=== PATIENT | female | born 1970 | race Caucasian/White ===

== ENCOUNTER → 2018-11-06 | Outpatient (CLI) | payer BC ==
--- NOTE | 2018-11-06 16:24 | US ---
EXAMINATION TYPE: US kidneys/renal and bladder DATE OF EXAM: 11/06/2018 COMPARISON: NONE CLINICAL HISTORY: N28.81 HYPERTROPHY OF KIDNEYS. Hypertrophy of left kidney visualized on recent chir opractor x-ray EXAM MEASUREMENTS: Right Kidney: 11.0 x 5.5 x 4.1 cm Left Kidney: 10.6 x 6.2 x 5.3 cm Right Kidney: cystic area medial/upper = 2.5 x 2.5 x 3.1cm Left Kidney: no evidence of hydronephrosis Bladder: appears wnl Bilateral Jets seen: yes IMPRESSION: 1. Right renal cyst upper pole right kidney
--- NOTE | 2018-11-09 13:53 | MM ---
Reason for exam: screening (asymptomatic). Last mammogram was performed 2 years and 2 months ago. History: Patient history of other cancer. Benign excisional biopsy of the right breast. Physical Findings: A clinical breast exam by your physician is recommended on an annual basis and results should be correlated with mammographic findings. MG 3D Screening Mammo W/Cad Bilateral CC and MLO view(s) were taken. Prior study comparison: September 21, 2016, mammogram, performed at [facility]. The breast tissue is heterogeneously dense. This may lower the sensitivity of mammography. Finding #1: There is a 11 mm obscured oval mass located 4 cm from the nipple in the lower inner quadrant, anterior position of the left breast on CC and MLO . Finding #2: There are typically benign dystrophic, round calcifications in both breasts. New finding since September 21, 2016. ASSESSMENT: Incomplete: need additional imaging evaluation, BI-RAD 0 RECOMMENDATION: Ultrasound of the left breast. [facility] will attempt to contact patient to return for ultrasound.
== END | disposition home or self-care (01) ==
LOC: RADUSWWP 10:48
PROVIDERS: ATTEND Family Medicine
DX: Z12.31 Encounter for screening mammogram for malignant neoplasm of breast (principal); N28.1 Cyst of kidney, acquired
CPT/HCPCS: 76770; 77063; 77067

== ENCOUNTER → 2018-12-04 | Outpatient (CLI) | payer BC ==
--- NOTE | 2018-12-04 10:36 | USB ---
Reason for exam: additional evaluation requested from abnormal screening. History: Patient history of other cancer. Benign excisional biopsy of the right breast. Physical Findings: Nurse did not find any significant physical abnormalities on exam. US Breast Workup Limited LT Left limited breast ultrasound including focal area of concern, retroareolar and axilla demonstrates a 8 x 5 x 5mm oval, mixed lesion at 6 o'clock. These results were verbally communicated with the patient and result sheet given to the patient on 12/04/18. ASSESSMENT: Suspicious, BI-RAD 4 RECOMMENDATION: Ultrasound core biopsy of the left breast. Called Dr. Liliya Puentes with mammographic findings and has scheduled an appointment for the patient for 01/09/19 at 4:[address] Puentes. Biopsy scheduled for 12/13/18 at 12:20. PRELIMINARY REPORT CALLED AND FAXED TO DR. PUENTES ON 12/04/18.
== END | disposition home or self-care (01) ==
LOC: RADUSWWP 08:13
PROVIDERS: ATTEND Family Medicine
DX: R92.8 Other abnormal and inconclusive findings on diagnostic imaging of breast (principal)

== ENCOUNTER → 2018-12-13 | Day surgery (SDC) | payer BC ==
[2018-12-13 11:38] VITALS: RESP 12; TEMP 98.6
[2018-12-13 12:41] VITALS: BP 133/86; PULSE 82
--- NOTE | 2018-12-13 13:20 | USB ---
ULTRASOUND GUIDED FNA LEFT BREAST NODULE: CLINICAL HISTORY: 6:00 left breast nodule FINDINGS: The procedure was explained to the patient. The risks, complications, benefits and alternatives were discussed and any questions were answered. Informed consent was obtained. Patient was placed supine on the ultrasound table and prepped and draped in the usual sterile fashion. Utilizing a 25 gauge needle, single pass was made into the left breast nodule. Dictated exam the nodule. An anechoic appearance. Approximately 0.5 to 1 cc of bloody serous fluid aspirated with no residual nodule. A core biopsy was therefore deferred.. Surgical clip placed post procedure. Surgical clip appears to be in ideal position post procedure mammogram. Patient was stable throughout the procedure. Pathology is pending. All elements of maximal barrier and sterile technique were utilized. IMPRESSION: 1. Successful ultrasound guided FNA of the requested left breast nodule. Pathology pending. Pathology Results: Benign LEFT BREAST CYST AT SIX O'CLOCK POSITION, FINE NEEDLE ASPIRATION: Benign breast duct epithelium, occasional fragments of squamous epithelium and abundant macrophages consistent with fibrocystic disease. Cells cytologically diagnostic of malignancy are not seen. Recommendation Follow up mammogram of the left breast in 6 months. ANTHONY
--- NOTE | 2018-12-13 13:39 | MM ---
Reason for exam: additional evaluation requested from abnormal screening. Last mammogram was performed 1 month ago. History: Patient history of other cancer. Benign excisional biopsy of the right breast. MG Diagnostic Mammo LT Wo CAD CC and ML view(s) were taken of the left breast. Prior study comparison: November 06, 2018, bilateral MG 3d screening mammo w/cad. September 21, 2016, mammogram, performed at [facility]. ASSESSMENT: Post procedure mammogram for marker placement RECOMMENDATION: Ultrasound of the left breast in 6 months. PENDING PATHOLOGY RESULTS.
== END ==
LOC: RADUSWWP 11:14
PROVIDERS: ATTEND Surgery
DX: N63.20 Unspecified lump in the left breast, unspecified quadrant (principal)
CPT/HCPCS: 19000; 76942; 88108; 77065; A4648; J2001

== ENCOUNTER → 2019-07-23 | Outpatient (CLI) | payer BC ==
--- NOTE | 2019-07-23 09:28 | MM ---
Reason for exam: follow-up at short interval from prior study. Last mammogram was performed 7 months ago. History: Patient has history of other cancer at age 43. Benign US breast aspiration single LT of the left breast, December 13, 2018. Benign excisional biopsy of the right breast. Physical Findings: Nurse did not find any significant physical abnormalities on exam. MG 3D Diag Mammo W/Cad LT CC and MLO view(s) were taken of the left breast. Prior study comparison: December 13, 2018, left breast MG diagnostic mammo LT wo CAD. November 06, 2018, bilateral MG 3d screening mammo w/cad. The breast tissue is heterogeneously dense. This may lower the sensitivity of mammography. There are benign appearing round calcifications in the left breast. Previous mammotome biopsy in the left breast. There is no discrete abnormality. These results were verbally communicated with the patient and result sheet given to the patient on 07/23/19. ASSESSMENT: Benign, BI-RAD 2 RECOMMENDATION: Follow-up diagnostic mammogram of both breasts in 6 months. Back on schedule.
--- NOTE | 2019-07-23 09:29 | USB ---
Reason for exam: follow-up at short interval from prior study. History: Patient has history of other cancer at age 43. Benign US breast aspiration single LT of the left breast, December 13, 2018. Benign excisional biopsy of the right breast. US Breast Limited LT Left limited breast ultrasound including focal area of concern, retroareolar and axilla demonstrates no cystic or solid lesion seen. These results were verbally communicated with the patient and result sheet given to the patient on 07/23/19. ASSESSMENT: Negative, BI-RAD 1 RECOMMENDATION: Follow-up diagnostic mammogram of both breasts in 6 months. Back on schedule.
== END ==
LOC: RADMAMWWP 07:20
PROVIDERS: ATTEND Surgery
DX: R92.8 Other abnormal and inconclusive findings on diagnostic imaging of breast (principal)
CPT/HCPCS: 77061; 77065

== ENCOUNTER → 2020-02-20 | Outpatient (CLI) | payer BC ==
--- NOTE | 2020-02-21 08:04 | MM ---
Reason for exam: additional evaluation requested from prior study. Last mammogram was performed 7 months ago. History: Patient has history of other cancer at age 43. Benign US breast aspiration single LT of the left breast, December 13, 2018. Benign excisional biopsy of the right breast. Physical Findings: Nurse Summary: 1cm nodule in the left breast at 12 o'clock (nurse mika). MG 3D Diag Mammo W/Cad CAMILLA Bilateral CC and MLO view(s) were taken. Prior study comparison: July 23, 2019, left breast MG 3d diag mammo w/cad LT. December 13, 2018, left breast MG diagnostic mammo LT wo CAD. The breast tissue is heterogeneously dense. This may lower the sensitivity of mammography. Benign calcifications. Previous mammotome biopsy in the left breast. No significant new findings when compared with previous films. These results were verbally communicated with the patient and result sheet given to the patient on 02/20/20. ASSESSMENT: Benign, BI-RAD 2 RECOMMENDATION: Routine screening mammogram of both breasts in 1 year.
== END | disposition home or self-care (01) ==
LOC: RADMAMWWP 14:06
PROVIDERS: ATTEND Surgery
DX: R92.8 Other abnormal and inconclusive findings on diagnostic imaging of breast (principal)
CPT/HCPCS: 77062; 77066

== ENCOUNTER → 2021-03-05 | Outpatient (CLI) | payer BC ==
--- NOTE | 2021-03-05 18:03 | PE ---
Nuclear medicine PET/CT HISTORY: Solitary pulmonary nodule, initial Patient received 11.3 mCi F-18 FDG intravenously in delayed scanning was performed from the skull bas e to the mid thighs. A localization and attenuation correction CT scan was performed. Chest and neck: There is abnormal density along the posterior medial left lung with SUV 7.5 as noted on prior CT. Extensive nodularity is also present in the left lower lobe which is subcentimeter in si ze and may progressed somewhat in the interval, SUV 3.6, no pleural or pericardial effusion The soft tissue mass involving the right upper lobe which is pleural-based and measures 3 cm in size with irre gular margins on prior exam has decreased in size and now measures approximately 1.6 cm with a lucent center, air bronchograms shows only mild uptake, SUV 1.6. There is extensive nodularity also seen, s ubcentimeter in size in the right upper lobe. Emphysematous changes are present. Shotty nodes are pre sent within the mediastinum, no hilar or axillary adenopathy. There is no cervical or supraclavicular adenopathy. Mild uptake associated with the enlarged right lo be of the thyroid, SUV is 2.5. ABDOMEN: There is a right adrenal mass which is low in attenuation as on prior CT and does not show a ssociated uptake. Smaller low dense left adrenal nodule is also present without associated uptake. No evident liver mass or retroperitoneal adenopathy. There is no ascites. Linear densities present with in the bowel in the right abdomen, possible medication, tablet present in the bowel anteriorly. Uteru s and adnexal structures are absent. Osseous structures show no uptake. No lytic or blastic lesion. IMPRESSION: There is improvement in the soft tissue abnormality seen in the right lung on previous ex am however there is bilateral nodularity as well as extensive abnormal uptake involving the abnormal soft tissue within the left lower lobe medially, follow-up is recommended to exclude mass, metastatic disease.
== END | disposition home or self-care (01) ==
LOC: RADPETMAIN 09:10
PROVIDERS: ATTEND Internal Medicine Critical Care Medicine
DX: R91.8 Other nonspecific abnormal finding of lung field (principal); M79.89 Other specified soft tissue disorders
CPT/HCPCS: 78815; A9552

== ENCOUNTER 2021-03-25 09:20 | Day surgery (SDC) | payer BC ==
[2021-03-23 08:57] VITALS: BMI 25.7
[~2021-03-25 09:20] MED LIST: ALBUTEROL NEB (CONC) 2.5 MG/0.5 ML INHALATION ONE; ATROPINE SULFATE 0.4 MG/ML 1 ML VIAL IM ONE; LACTATED RINGERS 1,000 ML IV SCH; LIDOCAINE 2% (PF) 20 MG/ML 5 ML VIAL INHALATION ONE; LIDOCAINE VISCOUS 300 MG/15 ML CUP MUCOUS MEM ONE; SODIUM CHLORIDE 0.9% 1,000 ML IV SCH
[2021-03-25 10:05] VITALS: TEMP 98.3
--- NOTE | 2021-03-25 11:12 | CT ---
EXAMINATION TYPE: CT Chest inocencio Alex Protocol DATE OF EXAM: 03/25/2021 COMPARISON: None HISTORY: cough, prebronchial navigation CT DLP: [address] of the chest was performed with lung and mediastinal window settings submitted. The la ck of contrast limits evaluation of the vascular, mediastinal and parenchymal structures including th e upper abdomen. LUNGS: Consolidative process left lower lobe with air bronchograms. Surrounding reticulonodular and g roundglass infiltrates left lower lobe and left upper lobe as well as nodular infiltrates within the right upper lobe. Area of spiculation right upper lobe image with pleural extension measures approxim ately 1.2 cm. Neoplasm is not excluded. MEDIASTINUM/PEYMAN: Thoracic aorta is of normal caliber with limited evaluation given lack of contrast . The heart is not enlarged. No evidence for mediastinal mass. No lymph nodes greater than 1cm. UPPER ABDOMEN: Adrenal nodularity measuring 2.3 cm on the right and 1.5 cm on the left. OTHER: No significant other abnormality. IMPRESSION: 1. Bilateral nodular, reticulonodular and consolidative infiltrates bilaterally as discussed above. Additional spiculated density right upper lobe. Neoplasm is not excluded.
[2021-03-25] MEDS ORDERED: GLYCOPYRROLATE 0.2 MG/ML 2 ML VIAL ONE (11:22)
[2021-03-25] MEDS ORDERED: KETAMINE 10 MG/ML 20 ML VIAL ONE (11:22)
[2021-03-25] MEDS ORDERED: PROPOFOL 10 MG/ML 20 ML VIAL IV ONE (11:22)
[2021-03-25] MEDS ORDERED: fentaNYL (PF) 50 MCG/ML 2 ML AMP ONE (11:22)
[2021-03-25] MEDS ORDERED: MIDAZOLAM 2 MG/2 ML VIAL ONE (11:22)
[2021-03-25] MEDS ORDERED: ROCURONIUM 10 MG/ML (5 ML VIAL) IV ONE (11:22)
[2021-03-25] MEDS ORDERED: NEOSTIGMINE 1 MG/ML 10 ML VIAL ONE (11:22)
[2021-03-25] MEDS ORDERED: LIDOCAINE 1% INJ 10MG/ML (20 ML MDV) ONE (11:22)
[2021-03-25] MEDS ORDERED: SUCCINYLCHOLINE CHLORIDE 100 MG/5 ML SYR IV ONE (11:22)
[2021-03-25] MEDS ORDERED: ALBUTEROL NEBULIZED 2.5 MG/3 ML INHALATION ONE ×2 (12:35→12:37)
--- NOTE | 2021-03-25 13:26 | XR ---
EXAMINATION TYPE: XR chest 1V portable DATE OF EXAM: 03/25/2021 HISTORY: S/P BRONCH- NAVIGATIONAL COMPARISON: 01/29/2016 TECHNIQUE: Single view of the chest is submitted. FINDINGS: Demonstrated are scattered senescent parenchymal change. Patchy infiltrate left perihilar region with mild patchy density right lower lobe. No evidence for pn eumothorax. The heart is stable. Hilar and mediastinal structures are within normal limits. Degenerative changes are seen of the dorsal spine. IMPRESSION: 1. No evidence for pneumothorax.
[2021-03-25 13:47] VITALS: BP 137/76; PULSE 69; RESP 14
--- NOTE | 2021-03-25 19:15 | PCN ---
PROCEDURE NOTE PULMONARY/CRITICAL CARE PROCEDURE NOTE: PROCEDURE: Navigational bronchoscopy. PREOPERATIVE DIAGNOSIS: Rule out lung cancer. POSTOPERATIVE DIAGNOSIS: Rule out lung cancer. OPERATORS: 1. Dr. Woods. 2. Dr. Mcnamara. There was informed consent and universal timeout. The patient's procedure took place in room [address] Elam provided general anesthesia. PROCEDURE DESCRIPTION: After the patient was under the effects of general anesthesia, the bronchoscope was inserted through the bronchoscope adapter connected to the endotracheal tube. We used the [employer] electromagnetic navigational device to localize the lesion in the left lower lobe. I did do a thorough evaluation of the right lung, including right upper lobe, right middle lobe, right lower lobe, left upper lobe proper, lingula and left lower lobe. There was no endobronchial disease. Next, using the CT-guided localization procedure of electromagnetic navigational bronchoscopy, we did multiple transbronchial biopsies in the left lower lobe. We also did some needle biopsies in the left lower lobe. Finally, we brushed the left lower lobe and washed the left lower lobe. The patient tolerated the procedure well. There was minimal bleeding; less than 5 mL. The patient tolerated the procedure well. The patient will be recovered. She will eventually be discharged home. There was no immediate complication. The fluid and all of the specimens were sent to the laboratory for analysis. MMODL / IJN: [id number] /
== END 2021-03-25 14:00 | disposition home or self-care (01) ==
LOC: ORWHC2ENDO 09:20
PROVIDERS: ATTEND Internal Medicine Critical Care Medicine
DX: C34.92 Malignant neoplasm of unspecified part of left bronchus or lung (principal); I47.1 Supraventricular tachycardia; E78.5 Hyperlipidemia, unspecified; J44.9 Chronic obstructive pulmonary disease, unspecified; G47.33 Obstructive sleep apnea (adult) (pediatric); F17.200 Nicotine dependence, unspecified, uncomplicated; E07.9 Disorder of thyroid, unspecified; Z79.899 Other long term (current) drug therapy
CPT/HCPCS: 88104; 88108; 88305; 88342; 87070; 87205; 71045; 71250; 31628; 31623; 31627; J2250; J2710; J2001; J3010; J0330; J2704; 31624; 31625; 31629

== ENCOUNTER 2021-04-13 11:42 | Day surgery (SDC) | payer BC ==
[2021-04-12 12:32] VITALS: BMI 24.9
[~2021-04-13 11:42] MED LIST changes: -LACTATED RINGERS 1,000 ML IV SCH; +LIDOCAINE 1% (10MG/ML) FOR IV START INTRADERMA PRN
[2021-04-13 12:34] LABS: Glucose,Whole Blood 104 mg/dL (75-99)
[2021-04-13] MEDS: LACTATED RINGERS 1,000 ML IV SCH ×2 (12:37→13:35)
[2021-04-13] MEDS ORDERED: HYDROCORTISONE SUCCINATE 100 MG/2 ML VIAL IVP ONE (13:14)
--- NOTE | 2021-04-13 13:22 | CT ---
EXAMINATION TYPE: CT Chest inocencio Alex Protocol DATE OF EXAM: 04/13/2021 COMPARISON: Prior CT 03/25/2021 HISTORY: Pre Procedural CT DLP: 631 mGycm Automated exposure control for dose reduction was used. Helical imaging through the chest during insp iration and expiration was performed. FINDINGS: There is no interval change. There is an enlarged thyroid gland, right lobe extends posteriorly into the superior mediastinum. Extensive airspace disease in the left lower lobe is again noted. Extensive areas of nodularity are again noted in the right upper lobe greater than left, the upper lobes show interval increase in groundglass opacity and expiratory views as do the lower lobes, there are some a reas of tree-in-bud appearance, some scarring present at the right upper lobe. Calcification is noted in the left breast. Bones are unchanged. No mediastinal, axillary, or hilar adenopathy. IMPRESSION: EXTENSIVE ABNORMAL LUNG FINDINGS ARE AGAIN NOTED SIMILAR TO PRIOR CT. EXAM PERFORMED FOR PROCEDURE PL ANNING PURPOSES.
[2021-04-13] MEDS ORDERED: fentaNYL (PF) 50 MCG/ML 2 ML AMP ONE (13:35)
[2021-04-13] MEDS ORDERED: PROPOFOL 10 MG/ML 20 ML VIAL IV ONE (13:35)
[2021-04-13] MEDS ORDERED: MIDAZOLAM 2 MG/2 ML VIAL ONE (13:35)
[2021-04-13] MEDS ORDERED: SUCCINYLCHOLINE CHLORIDE 100 MG/5 ML SYR IV ONE (13:35)
[2021-04-13] MEDS ORDERED: ONDANSETRON 4 MG/2 ML VIAL ONE (13:35)
[2021-04-13] MEDS ORDERED: LIDOCAINE 1% INJ 10MG/ML (20 ML MDV) ONE (13:35)
[2021-04-13 14:44] VITALS: TEMP 97.3
--- NOTE | 2021-04-13 14:48 | PCN ---
PROCEDURE NOTE PROCEDURE: Navigational bronchoscopy. There was informed consent and universal timeout. PREOPERATIVE DIAGNOSIS: Lesion, right upper lobe. POSTOPERATIVE DIAGNOSIS: Lesion, right upper lobe. Rule out cancer. OPERATORS: 1. Dr. Woods. 2. Dr. Mcnamara. 3. Dr. Valdes. PROCEDURE DETAILS: The procedure took place in endoscopy room #1. Anesthesia provided general anesthesia. The procedure included airway examination, therapeutic lavage, BAL, right upper lobe, brushings, right upper lobe, transbronchial biopsies, right upper lobe, and transbronchial needle aspirations, right upper lobe. The patient was prepared in the usual fashion. Once the patient was anesthetized, the bronchoscope was inserted through the bronchoscope adapter connected to the endotracheal tube. We used a [employer] navigation system to locate the lesion in the right upper lobe. We entered the posterior segment of the right upper lobe. Under guidance, we were able to sample the lesion in the right upper lobe. We did multiple transbronchial biopsies in the right upper lobe as well as multiple transbronchial needle aspirations or Ramirez needle biopsies of the right upper lobe. Subsequent to that, we did multiple brushes in the right upper lobe for slides, and then also did a BAL in the right upper lobe. The patient tolerated the procedure well. There was minimal bleeding. There was no complication. The patient will be recovered. A chest x-ray will be done before discharge. I will speak to the patient's mother in the waiting area. The patient tolerated the procedure well and was very stable throughout the procedure. MMODL / IJN: [id number] /
--- NOTE | 2021-04-13 15:04 | XR ---
EXAMINATION TYPE: XR chest 1V portable DATE OF EXAM: 04/13/2021 COMPARISON: 03/25/2021 HISTORY: Post indication bronchoscopy TECHNIQUE: Single frontal view of the chest is obtained. FINDINGS: Diffuse interstitial reticular pattern with some micronodular component noted. Hyperinflat ion suggests COPD. No pleural effusion or pneumothorax. Heart size normal. Arthropathy of the shoulde rs. Underlying COPD suspected. IMPRESSION: The correlate for interstitial pneumonitis. More localized area of vague density in the right upper lobe is seen. No pneumothorax post navigational bronchoscopy.
[2021-04-13 15:11] VITALS: RESP 18
[2021-04-13 15:27] VITALS: BP 118/78; PULSE 67
[2021-04-13 15:46] LABS: Appearance,BF Clear; Nucleated Cells, Body Fluid 115 /uL; RBC, Body Fluid 575 /uL
[2021-04-13 16:05] LABS: Mononuclear WBC,Body Fluid 97 %; Polynuclear WBC,Body Fluid 3 %; Total Cells Counted,Body Fluid 100
== END 2021-04-13 16:01 | disposition home or self-care (01) ==
LOC: ORWHC2ENDO 11:42
PROVIDERS: ATTEND Internal Medicine Critical Care Medicine
DX: C34.32 Malignant neoplasm of lower lobe, left bronchus or lung (principal); J98.4 Other disorders of lung; Z98.890 Other specified postprocedural states
CPT/HCPCS: 31624; 31629; 31625; 31623; 31627; 88104; 88108; 88305; 89050; 87070; 87205; 71045; 71250; J2250; J1720; J2405; J2001; J3010; J0330; J2704

== ENCOUNTER → 2021-04-27 | Outpatient (CLI) | payer BC ==
--- NOTE | 2021-04-27 12:01 | MR ---
EXAMINATION TYPE: MR brain wo/w con DATE OF EXAM: 04/27/2021 COMPARISON: NONE HISTORY: Lung Cancer newly diagnosed. TECHNIQUE: Multiplanar, multisequence images of the brain and brainstem is performed without and with IV contras t, utilizing 7 mL intravenous Gadavist . FINDINGS: Diffusion weighted images demonstrate no evidence of a recent infarct or other diffusion ab normality. The ventricular system and cisternal spaces are normal in size and appearance. The brain volume is age appropriate. Occasional scattered tiny focus of T2 hyperintensity throughout the white matter bilaterally. Lesions are nonspecific in appearance and distribution. Midline structures demonstrate normal morphology. Pituitary gland upper limits of normal in size. No suprasellar extension. The craniocervical junction appears within normal limits. Post contrast image s demonstrate no abnormal enhancement or suspicious enhancing mass. The dural venous sinuses appear p atent. The visualized sinuses are clear and the globes are intact. IMPRESSION: No enhancing masses to suggest metastatic disease to the brain.
== END | disposition home or self-care (01) ==
LOC: RADMRIMAIN 10:36
PROVIDERS: ATTEND Internal Medicine Hematology & Oncology
DX: C34.90 Malignant neoplasm of unspecified part of unspecified bronchus or lung (principal)
CPT/HCPCS: 70553; A9585

== ENCOUNTER → 2021-05-14 | Outpatient (CLI) | payer BC ==
--- NOTE | 2021-05-14 09:53 | CT ---
EXAMINATION TYPE: CT chest w con DATE OF EXAM: 05/14/2021 COMPARISON: 04/13/2021, 03/05/2021, 02/03/2021 HISTORY: 50-year-old female C3 4.32, lung cancer. TECHNIQUE: Contiguous axial scanning of the chest after the administration of 100 mL of Isovue 300. Coronal/sagittal reconstructions performed. CT DLP: 407 mGycm. Automatic exposure control utilized for a dose reduction. FINDINGS: Redemonstrated asymmetrically larger right lobe of the thyroid gland. Possible underlying 2.5 cm nodu le. Dedicated thyroid ultrasound could further evaluate. Suspect a 9 mm cyst laterally in the right t hyroid lobe. Heart normal size without pericardial effusion. 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 Conventional arch vessel branching anatomy. No thoracic lymphadenopathy by CT size criteria. Redemonstrated mild emphysematous change. Redemonstrated is extensive centrilobular nodules throughou t the right upper lobe and to a lesser extent within the right lower lobe. Strandy scarring remains at the posterolateral right mid lung at the site of previous irregular thick ening on 03/05/2021. Unchanged appearance compared to 04/13/2021. Dense airspace disease with surrounding groundglass and then more peripherally, groundglass nodularit y extending throughout the medial left lower lobe persists without significant change. Confluent groundglass nodularity lateral basilar segment left lower lobe and also superior segment le ft lower lobe remain unchanged as well. Stable 1.4 cm low-density nodule of the left adrenal gland suggesting a benign lipid rich left adrena l adenoma. Larger similar to 2.4 cm nodule in the right. Bones: Moderate degenerative disc disease especially mid thoracic spine. Some degenerative change at the sternomanubrial joint also noted. IMPRESSION: 1. COPD with mild emphysema. Stable strandy scarring posteromedial right mid lung at the site of irre gular thickening on the PET/CT of 03/05/2021. Unchanged appearance compared to 04/13/2021. 2. Severe consolidation extending throughout the medial left lower lobe remains unchanged. There is s imilar ground glass at the margin of the consolidation. More peripherally, areas of round glass nodul arity also remains unchanged. 3. There are focal areas of confluent groundglass nodularity lateral basilar left lower lobe and supe rior segment left lower lobe which remains unchanged as do scattered groundglass centrilobular nodule s throughout the right upper and to a lesser extent, the right lower lobes. 4. Thyroid ultrasound follow-up to assess the asymmetrically larger right lobe to exclude an underlyi ng nodule. 5. Bilateral benign lipid rich adrenal adenomas measuring up to 2.4 cm.
== END | disposition home or self-care (01) ==
LOC: RADCTMAIN 08:33
PROVIDERS: ATTEND Internal Medicine Hematology & Oncology
DX: C34.32 Malignant neoplasm of lower lobe, left bronchus or lung (principal); J43.9 Emphysema, unspecified; J98.4 Other disorders of lung
CPT/HCPCS: 71260; Q9967

== ENCOUNTER 2021-09-10 20:12 | Inpatient (IN) | payer BC ==
[2021-09-10] MEDS ORDERED: fentaNYL (PF) 50 MCG/ML 2 ML AMP IVP STA (22:05)
[2021-09-10 22:30] LABS: Albumin 2.9 g/dL (3.5-5.0); Calcium 8.3 mg/dL (8.4-10.2); Magnesium 1.5 mg/dL (1.6-2.3); Potassium 3.9 mmol/L (3.5-5.1); Total Bilirubin 0.6 mg/dL (0.2-1.3); Total Protein 5.7 g/dL (6.3-8.2)
[2021-09-10] MEDS ORDERED: SODIUM CHLORIDE 0.9% 1,000 ML IV STA ×2 (22:43)
[2021-09-10] MEDS ORDERED: MAGNESIUM SULFATE-D5W PMX 1 GM in DEXTROSE/WATER 1 100ML.BAG IVPB ONE (22:43)
--- NOTE | 2021-09-10 22:47 | CT ---
EXAMINATION TYPE: CT chest angio for PE DATE OF EXAM: 09/10/2021 COMPARISON: Chest pain HISTORY: cancer, hypoxia, tachycardia CT DLP: 256.4 mGycm Automated exposure control for dose reduction was used. CONTRAST: Performed with IV Contrast, patient injected with 100 mL of Isovue 370. Images obtained from the thoracic inlet to the diaphragm with IV contrast. There are Three-D postproc essed images. There is extensive airspace consolidation in the left lung. There is a mild infiltrate right posterio r lung base. There is some mild reticular nodular interstitial infiltrate in the mid and upper lung f ields bilaterally. Heart size is normal. There is no pericardial effusion. There are a few paratrache al lymph nodes up to 1 cm. The thoracic aorta is intact. There is no dissection. The ascending aorta measures 3.8 cm. There is no evidence of filling defect in the pulmonary arteries. The thoracic spine is intact. The s ternum is intact. IMPRESSION: Extensive left lower lobe pneumonia. Patchy reticular nodular infiltrate in the remainder of the lung molina. Lung disease is significantly increased compared to old exam. No evidence of pulmonary embolism. Normal heart.
[2021-09-10 22:56] LABS: INR 1.1 (<1.2); Partial Thromboplastin Time 30.5 sec (22.0-30.0); Prothrombin Time 11.5 sec (9.0-12.0)
[2021-09-10 22:58] LABS: HCT 40.9 % (34.0-46.0); HGB 13.3 gm/dL (11.4-16.0); MCH 30.4 pg (25.0-35.0); MCHC 32.4 g/dL (31.0-37.0); MCV 93.8 fL (80.0-100.0); Mean Platelet Volume 7.5; Platelet Count 243 k/uL (150-450); RBC 4.36 m/uL (3.80-5.40)
[2021-09-10] MEDS ORDERED: cefTRIAXone IN SWFI 1,000 MG/10 ML SYRINGE IVP STA (23:03)
[2021-09-10] MEDS ORDERED: AZITHROMYCIN 500 MG in SODIUM CHLORIDE 0.9% 250 ML IVPB STA (23:03)
[2021-09-10] MEDS ORDERED: SODIUM CHLORIDE 0.9% 1,000 ML IV ONE (23:03)
[2021-09-11] MEDS ORDERED: HYDROCORTISONE SUCCINATE 100 MG/2 ML VIAL IV STA (00:21)
[2021-09-11] MEDS ORDERED: NOREPINEPHRINE 32 MG in SODIUM CHLORIDE 0.9% 218 ML IV ONE (00:30)
[2021-09-11] MEDS ORDERED: NALOXONE 0.4 MG/ML 1 ML VIAL IV PRN (00:33)
--- NOTE | 2021-09-11 00:33 | ED ---
General Adult HPI - General Chief complaint: Shortness of Breath Stated complaint: Difficulty Breathing, Lung Cancer Time Seen by Provider: 09/10/21 21:29 Source: patient Mode of arrival: ambulatory Limitations: no limitations - History of Present Illness Initial comments: 50-year-old female with past medical history of COPD, lung cancer, sleep apnea presents to the emergency department with shortness of breath. Patient reports that she was reaching yesterday when she felt a muscle strain on her left side and then acutely had worsening shortness of breath. She does have a history of lung cancer diagnosed in the fall of last year. States after her diagnosis she moved to [facility] for further treatment. She went through a hospital called [facility]. She was receiving holistic treatments through the [place]. The [facility] had placed the patient a port on the right chest wall. Patient ended up being bacteremic. She ended up hospitalized on antibiotics and steroids. Port was removed on August 06. She had a second port placed on August 19. She returned home on the and has been taking and steroids up until the . She has had worsening shortness of breath since yesterday and has been wearing her mother's home oxygen. Patient was prescribed oxygen. Admits to increased sputum production. Denies chest pain. Is suppose to be following with Dr. Bauman. Has not received any chemo or radiation yet. Patients change control analyst is Alonso Woods. - Related Data Home Medications Medication Instructions Recorded Confirmed Albuterol Inhaler [Ventolin Hfa 2 puff INHALATION RT-Q4H 03/23/21 09/10/21 Inhaler] Albuterol Nebulized [Ventolin 2.5 mg INHALATION RT-Q4H 03/23/21 09/10/21 Nebulized] ALPRAZolam [Xanax] 0.25 mg PO DAILY PRN 04/27/21 09/10/21 Budesonide 1 mg INHALATION RT-BID 09/10/21 09/10/21 Folic Acid 1 mg PO DIRECTED 09/10/21 09/10/21 Ibuprofen [Motrin] 800 mg PO TID PRN 09/10/21 09/10/21 Ondansetron [Zofran] 4 mg PO DAILY PRN 09/10/21 09/10/21 Allergies Allergy/AdvReac Type Severity Reaction Status Date / Time morphine Allergy Mild Rash/Hives Verified 03/11/22 22:31 On Chest Review of Systems ROS Statement: Those systems with pertinent positive or pertinent negative responses have been documented in the HPI. ROS Other: All systems not noted in ROS Statement are negative. Past Medical History Past Medical History: Cancer Additional Past Medical History / Comment(s): Recent allergic reaction to Ragweed and flare up of Emphysema-on prednisone dose pack and completed antibiotics., SKIN CANCER. Thyroid goiter. Emphysema. CPAP - "only use sometimes". History of Any Multi-Drug Resistant Organisms: None Reported Past Surgical History: No Surgical Hx Reported Additional Past Surgical History / Comment(s): RIGHT LYMPH NODE REMOVED-BIOSPSY NEGATIVE. RIGHT THIGH MELANOMA REMOVED. 3rd nipple on left breast removed. , navagational bronchoscopy (03/25/21) Past Anesthesia/Blood Transfusion Reactions: No Reported Reaction Past Psychological History: No Psychological Hx Reported Smoking Status: Current every day smoker Past Alcohol Use History: Occasional Past Drug Use History: Marijuana - Past Family History Father Family Medical History: Cancer Additional Family Medical History / Comment(s): COLON CANCER. Mother Family Medical History: Cancer, Hyperlipidemia, Hypertension Additional Family Medical History / Comment(s): CERVICAL CANCER. General Exam Limitations: no limitations Course Vital Signs 09/10/21 09/10/21 09/10/21 20:20 20:50 22:20 Temperature 97.6 F Pulse Rate 125 H 122 H 117 H Respiratory 26 H 20 20 Rate Blood Pressure 96/56 90/54 92/61 O2 Sat by Pulse 87 L 89 L 90 L Oximetry 09/10/21 09/11/21 09/11/21 23:45 00:24 00:55 Temperature 98.6 F Pulse Rate 108 H 115 H Respiratory 28 H 32 H Rate Blood Pressure 90/51 81/53 109/66 O2 Sat by Pulse 94 L 90 L Oximetry 09/11/21 01:11 Temperature 98.4 F Pulse Rate 114 H Respiratory 36 H Rate Blood Pressure 101/67 O2 Sat by Pulse 92 L Oximetry - Reevaluation(s) Reevaluation #1: spoke with Dr. Woods 09/11/21 00:29 EKG Findings - EKG Comments: EKG Findings:: EKG demonstrates sinus tachycardia with a rate of 123. AL interval 152. QRS 69. QTC of 420. No acute ST segment elevations or depressions Medical Decision Making - Medical Decision Making Upon arrival patient was placed into room 7. Thorough history and physical exam was performed. Patient is tachypneic, tachycardic and hypotensive. IV is established the patient is given a 2 L bolus of normal saline. Laboratory studies are ordered. Concern is for a PE. She was taken for CT PE before labs are resulted she did have labs from 3 days ago which demonstrated normal kidney function. Labs to return today and the patient does have an elevated creatinine of 2.5. She is additionally started on 130 mL of normal saline per hour as she denies history of pulmonary edema. Remaining labs demonstrate a white count of 1. Lactic acid is 5.4. Patient does remain hypotensive after 2 L and the refore I did order 100 mg of hydrocortisone due to her recent chronic steroid use. Patient remains on a nonrebreather with saturations around 90-92%. A gas is ordered. CT demonstrates worsening consolidation of the left lower lobe. Patient given a dose of Rocephin and azithromycin to cover prophylactically for pneumonia. Magnesium is replaced. Spoke with Dr. Woods and Beatris from [facility] who will admit the patient. I did discuss further treatment with the patient and she states that she is no to mechanical ventilation. I'll be agreeable to the BiPAP. I did order BiPAP when necessary. Patient awaiting a bed on the floor. Patient does have the left-sided port which levophed is ordered for MAP of 65. - Lab Data Result diagrams: 09/10/21 22:00 09/10/21 22:00 Lab Results 09/10/21 09/10/21 09/10/21 Range/Units 22:00 22:00 22:00 WBC 1.0 L* (3.8-10.6) k/uL RBC 4.36 (3.80-5.40) m/uL Hgb 13.3 (11.4-16.0) gm/dL Hct 40.9 (34.0-46.0) % MCV 93.8 (80.0-100.0) fL MCH 30.4 (25.0-35.0) pg MCHC 32.4 (31.0-37.0) g/dL RDW 14.0 (11.5-15.5) % Plt Count 243 (150-450) k/uL MPV 7.5 Differential Comment Manual Slide Review Performed PT 11.5 (9.0-12.0) sec INR 1.1 (<1.2) APTT 30.5 H (22.0-30.0) sec D-Dimer 5.96 H (<0.60) mg/L FEU Sodium 129 L (137-145) mmol/L Potassium 3.9 (3.5-5.1) mmol/L Chloride 97 L (98-107) mmol/L Carbon Dioxide 16 L (22-30) mmol/L Anion Gap 16 mmol/L BUN 34 H (7-17) mg/dL Creatinine 2.53 H (0.52-1.04) mg/dL Est GFR (CKD-EPI)AfAm 24 (>60 ml/min/1.73 sqM) Est GFR (CKD-EPI)NonAf 21 (>60 ml/min/1.73 sqM) Glucose 90 (74-99) mg/dL Lactic Ac Sepsis Rflx Plasma Lactic Acid [place] (0.7-2.0) mmol/L Calcium 8.3 L (8.4-10.2) mg/dL Magnesium 1.5 L (1.6-2.3) mg/dL Total Bilirubin 0.6 (0.2-1.3) mg/dL AST 34 (14-36) U/L ALT 14 (4-34) U/L Alkaline Phosphatase 83 (38-126) U/L Troponin I (0.000-0.034) ng/mL NT-Pro-B Natriuret Pep pg/mL Total Protein 5.7 L (6.3-8.2) g/dL Albumin 2.9 L (3.5-5.0) g/dL 09/10/21 09/10/21 09/10/21 Range/Units 22:00 22:00 22:00 WBC (3.8-10.6) k/uL RBC (3.80-5.40) m/uL Hgb (11.4-16.0) gm/dL Hct (34.0-46.0) % MCV (80.0-100.0) fL MCH (25.0-35.0) pg MCHC (31.0-37.0) g/dL RDW (11.5-15.5) % Plt Count (150-450) k/uL MPV Differential Comment Manual Slide Review PT (9.0-12.0) sec INR (<1.2) APTT (22.0-30.0) sec D-Dimer (<0.60) mg/L FEU Sodium (137-145) mmol/L Potassium (3.5-5.1) mmol/L Chloride (98-107) mmol/L Carbon Dioxide (22-30) mmol/L Anion Gap mmol/L BUN (7-17) mg/dL Creatinine (0.52-1.04) mg/dL Est GFR (CKD-EPI)AfAm (>60 ml/min/1.73 sqM) Est GFR (CKD-EPI)NonAf (>60 ml/min/1.73 sqM) Glucose (74-99) mg/dL Lactic Ac Sepsis Rflx Plasma Lactic Acid [place] 5.4 H* (0.7-2.0) mmol/L Calcium (8.4-10.2) mg/dL Magnesium (1.6-2.3) mg/dL Total Bilirubin (0.2-1.3) mg/dL AST (14-36) U/L ALT (4-34) U/L Alkaline Phosphatase (38-126) U/L Troponin I 0.020 (0.000-0.034) ng/mL NT-Pro-B Natriuret Pep 5870 pg/mL Total Protein (6.3-8.2) g/dL Albumin (3.5-5.0) g/dL 09/10/21 Range/Units 22:30 WBC (3.8-10.6) k/uL RBC (3.80-5.40) m/uL Hgb (11.4-16.0) gm/dL Hct (34.0-46.0) % MCV (80.0-100.0) fL MCH (25.0-35.0) pg MCHC (31.0-37.0) g/dL RDW (11.5-15.5) % Plt Count (150-450) k/uL MPV Differential Comment Manual Slide Review PT (9.0-12.0) sec INR (<1.2) APTT (22.0-30.0) sec D-Dimer (<0.60) mg/L FEU Sodium (137-145) mmol/L Potassium (3.5-5.1) mmol/L Chloride (98-107) mmol/L Carbon Dioxide (22-30) mmol/L Anion Gap mmol/L BUN (7-17) mg/dL Creatinine (0.52-1.04) mg/dL Est GFR (CKD-EPI)AfAm (>60 ml/min/1.73 sqM) Est GFR (CKD-EPI)NonAf (>60 ml/min/1.73 sqM) Glucose (74-99) mg/dL Lactic Ac Sepsis Rflx Y Plasma Lactic Acid [place] (0.7-2.0) mmol/L Calcium (8.4-10.2) mg/dL Magnesium (1.6-2.3) mg/dL Total Bilirubin (0.2-1.3) mg/dL AST (14-36) U/L ALT (4-34) U/L Alkaline Phosphatase (38-126) U/L Troponin I (0.000-0.034) ng/mL NT-Pro-B Natriuret Pep pg/mL Total Protein (6.3-8.2) g/dL Albumin (3.5-5.0) g/dL Disposition Clinical Impression: Hypoxia, Adenocarcinoma of lung, Tachycardia, Sepsis, Leukopenia, BRITNI (acute kidney injury), Mass of lower lobe of left lung, Lactic acidosis Disposition: ADMITTED IP TO THIS [facility] Condition: Serious Is patient prescribed a controlled substance at d/c from ED?: No Decision to Admit Reason: Admit from EC Decision Date: 09/11/21 Decision Time: 00:32
[2021-09-11 01:07] LABS: ABG Base Excess -10.9 mmol/L; ABG HCO3 16 mmol/L (21-25); ABG Oxygen Saturation 86.3 % (94-97); ABG PCO2 32 mmHg (35-45); ABG PO2 60 mmHg (83-108); ABG TCO2 17 mmol/L (19-24); Allen Test Performed? Yes
[2021-09-11 03:29] LABS: Glucose,Whole Blood 64 mg/dL (75-99)
[2021-09-11 03:48] LABS: Glucose,Whole Blood 62 mg/dL (75-99)
[2021-09-11 04:00] LABS: Glucose,Whole Blood 75 mg/dL (75-99)
[2021-09-11] MEDS: IPRATROPIUM-ALBUTEROL 3 ML NEB INHALATION SCH ×5 (04:24→19:04)
[2021-09-11 06:32] LABS: HCT 38.7 % (34.0-46.0); HGB 12.4 gm/dL (11.4-16.0); Hypochromasia Slight; MCH 31.8 pg (25.0-35.0); MCHC 32.2 g/dL (31.0-37.0); Platelet Count 200 k/uL (150-450); RBC 3.91 m/uL (3.80-5.40); RDW 13.7 % (11.5-15.5)
[2021-09-11 06:34] LABS: WBC 0.6 k/uL (3.8-10.6)
[2021-09-11 06:35] LABS: MCV 98.9 fL (80.0-100.0)
[2021-09-11 06:42] LABS: Albumin 2.2 g/dL (3.5-5.0); Potassium 4.2 mmol/L (3.5-5.1); Total Bilirubin 0.6 mg/dL (0.2-1.3); Total Protein 4.4 g/dL (6.3-8.2)
--- NOTE | 2021-09-11 06:42 | XR ---
EXAMINATION TYPE: XR chest 1V portable DATE OF EXAM: 09/11/2021 COMPARISON: 04/13/2021 HISTORY: Shortness of breath TECHNIQUE: Single frontal view of the chest is obtained. FINDINGS: There is diffuse partially consolidative/airspace opacity in both lungs involving the mid and lower lung zones, left greater than right. There is no pneumothorax or large pleural effusion. He art size is normal vasculature is not congested. The osseous structures are intact. There is a Medipo rt catheter on the left tip of which is in the SVC. IMPRESSION: Bilateral infiltrates mid and lower lung zones as described above. Findings are consiste nt cardiopulmonary disease.
[2021-09-11 06:59] LABS: Glucose,Whole Blood 98 mg/dL (75-99)
[2021-09-11] MEDS: ACETAMINOPHEN TAB 325 MG TAB PO PRN (07:22)
[2021-09-11 07:33] LABS: Crenated RBC Present; Poikilocytosis (M) Present
[2021-09-11] MEDS ORDERED: IPRATROPIUM-ALBUTEROL 3 ML NEB INHALATION PRN (09:11)
[2021-09-11] MEDS: ALPRAZolam 0.25 MG TAB PO PRN ×2 (09:36→20:40)
[2021-09-11] MEDS: SODIUM CHLORIDE 0.9% 1,000 ML IV SCH ×2 (09:37→21:36)
[2021-09-11] MEDS: PIPERACILLIN-TAZOBACTAM 3.375 GM in SODIUM CHLORIDE 0.9% 100 ML IVPB SCH ×2 (10:29→17:59)
--- NOTE | 2021-09-11 10:40 | P.CNPUL ---
History of Present Illness Consult date: 09/11/21 Requesting physician: Peggy Hernandez Reason for consult: dyspnea, cough, COPD, hypoxemia, pneumonia, lung mass, abnormal CXR/CT Chief complaint: Shortness of breath. History of present illness: Pulmonary consult dated 09/11/2021. 50-year-old female, well-known to me. The patient has a history of lung cancer, adenocarcinoma, diagnosed by me, in 2020. Subsequent to that, the patient saw Dr. Holder, and also sought out consultations at [facility], and [facility]. Afterwards, the patient decided to go to [facility], for homeopathic medication. This included vitamin infusions. She was there for 3 months with her daughter. While there, she developed coronavirus infection, and was quite sick. She was requiring high flow oxygen therapy. She came to our ER on September 10, complaining of increasing shortness of breath, and nonproductive cough. The patient is currently in the intensive care unit, room 256. She is currently on AIRVO, at 50 L/m with an FiO2 of 90%. She's getting saline at 75 is an hour. The patient is a DO NOT RESUSCITATE patient. She does not want intubation and mechanical ventilation. She came to the unit on September 11. She's very short of breath. I recommend BiPAP therapy with IPAP of 12, EPAP of 5, and 100%. In addition, we added duo nebs 4 times a day and when necessary, formoterol 20 g and budesonide, 1 mg, twice a day, as well as Zosyn, and IV Solu-Medrol. She did see the medical oncologist here in town, and apparently is going to start a regimen of medications, towards the end of this month, including Keytruda and Alimta. Chest x-ray and computed tomography scan shows extensive bilateral infiltrates, which have likely progressed. This could reflect either cancer, pneumonia, with sequelae of coronavirus infection or a combination of all those things. White count 0.6, hemoglobin 12.4, hematocrit 38.7, and platelet count 200,000. Sodium 1:30, potassium 4.2, chlorides 106, CO2 9, anion gap 15, BUN 37, and creatinine 2.51. Lactic acid is 6.3. Repeat is 8.1. Albumin is 2.2. Review of Systems REVIEW OF SYSTEMS: CONSTITUTIONAL: [Negative.] NEUROLOGIC: [ Negative.] HEENT: [ Negative.] CARDIAC: [Negative.] PULMONARY: Shortness of breath and cough. GI: [Negative.] : [Negative.] RHEUMATOLOGIC: Back pain. IMMUNOLOGIC: [ Negative.] ENDOCRINE: [Negative. ] DERMATOLOGIC: [Negative.] Past Medical History Past Medical History: Asthma, Cancer, Seizure Disorder, Supraventricular Tachycardia (SVT), Thyroid Disorder Additional Past Medical History / Comment(s): Recent allergic reaction to Ragweed and flare up of Emphysema-on prednisone dose pack and completed antibiotics., SKIN CANCER. Thyroid goiter. Emphysema. CPAP - "only use sometimes". Had seizure while recieving treatment in [facility]. History of Any Multi-Drug Resistant Organisms: None Reported Past Surgical History: Breast Surgery, Section, Hysterectomy Additional Past Surgical History / Comment(s): RIGHT LYMPH NODE REMOVED-BIOSPSY NEGATIVE. RIGHT THIGH MELANOMA REMOVED. 3rd nipple on left breast removed. , navagational bronchoscopy (03/25/21) Past Anesthesia/Blood Transfusion Reactions: No Reported Reaction Past Psychological History: No Psychological Hx Reported Smoking Status: Current every day smoker Past Alcohol Use History: Occasional Additional Past Alcohol Use History / Comment(s): Quit smoking 1 week ago, Hx of 1/2 PPD, has been smoking 30+ yrs. Past Drug Use History: Marijuana - Past Family History Father Family Medical History: Cancer, Hypertension Additional Family Medical History / Comment(s): COLON CANCER. Mother Family Medical History: Cancer, Hyperlipidemia, Hypertension Additional Family Medical History / Comment(s): CERVICAL CANCER. Medications and Allergies Home Medications Medication Instructions Recorded Confirmed Type Albuterol Inhaler [Ventolin Hfa 2 puff INHALATION RT-Q4H 03/23/21 09/10/21 History Inhaler] Albuterol Nebulized [Ventolin 2.5 mg INHALATION RT-Q4H 03/23/21 09/10/21 History Nebulized] ALPRAZolam [Xanax] 0.25 mg PO DAILY PRN 04/27/21 09/10/21 History Budesonide 1 mg INHALATION RT-BID 09/10/21 09/10/21 History Folic Acid 1 mg PO DIRECTED 09/10/21 09/10/21 History Ibuprofen [Motrin] 800 mg PO TID PRN 09/10/21 09/10/21 History Ondansetron [Zofran] 4 mg PO DAILY PRN 09/10/21 09/10/21 History Allergies Allergy/AdvReac Type Severity Reaction Status Date / Time morphine Allergy Mild Rash/Hives Verified 09/10/21 22:31 On Chest Physical Exam Osteopathic Statement: *. No significant issues noted on an osteopathic structural exam other than those noted in the History and Physical/Consult. Vitals: Vital Signs Temp Pulse Resp BP Pulse Ox 09/11/21 10:00 108 H 37 H 96/59 97 09/11/21 09:30 118/89 83 L 09/11/21 09:00 32 H 96/63 85 L 09/11/21 08:30 107 H 33 H 95/42 87 L 09/11/21 08:00 97.9 F 106 H 30 H 88/58 84 L 09/11/21 07:36 108 H 09/11/21 07:30 107 H 51 H 100/56 92 L 09/11/21 07:24 106 H 09/11/21 07:00 107 H 21 92/53 88 L 09/11/21 06:30 105 H 19 93/52 88 L 09/11/21 06:00 105 H 30 H 94/56 88 L 09/11/21 05:30 105 H 35 H 92/62 89 L 09/11/21 05:00 105 H 32 H 84/54 93 L 09/11/21 04:31 105 H 09/11/21 04:30 105 H 41 H 88/58 91 L 09/11/21 04:25 105 H 09/11/21 04:00 106 H 15 85/56 94 L 09/11/21 03:38 93 L 09/11/21 03:30 96.6 F L 107 H 25 H 93/62 92 L 09/11/21 02:45 96.7 F L 107 H 36 H 93/61 91 L 09/11/21 01:11 98.4 F 114 H 36 H 101/67 92 L 09/11/21 00:55 115 H 32 H 109/66 90 L 09/11/21 00:24 81/53 09/10/21 23:45 98.6 F 108 H 28 H 90/51 94 L 09/10/21 22:20 117 H 20 92/61 90 L 09/10/21 20:50 122 H 20 90/54 89 L 09/10/21 20:20 97.6 F 125 H 26 H 96/56 87 L Intake and Output 09/10/21 09/11/21 09/11/21 22:59 06:59 14:59 Intake Total 520 465 Output Total 0 Balance 520 465 Intake: IV 520 465 0.9 520 390 Sodium Chloride 0.9% 1, 75 000 ml @ 75 mls/hr IV . [id number] [facility] Rx#:[id number] Output: Urine 0 Other: Voiding Method Bedside Commode Bedside Commode # Voids 1 1 # Bowel Movements 1 1 Weight 61.235 kg 61.235 kg No acute distress, oriented 3. The patient does have some conversational dyspnea, and AIRVO nasal cannula are noted. HEENT examination is grossly unremarkable. Neck supple. Full range of motion. No adenopathy thyromegaly or neck vein distention. Cardiovascular examination reveals regular rhythm rate. S1-S2 normal. No S3 or S4. No discernible murmur noted. Heart sounds are distant. Heart rate 108 bpm. Lungs reveal coarse bilateral inspiratory and expiratory rhonchi, with breath sounds being equal bilaterally. No wheezes. No crackles. Saturations are 97% on BiPAP. Abdomen soft bowel sounds are heard. No masses or tenderness. Extremities are intact. No cyanosis clubbing or edema. Skin is without rash or lesion. Neurologic examination is brief but nonfocal. Results - Laboratory Findings CBC and BMP: 09/11/21 06:02 09/11/21 06:02 ABG ABG pH 7.30 (7.35-7.45) L 09/11/21 01:05 ABG pCO2 32 mmHg (35-45) L 09/11/21 01:05 ABG pO2 60 mmHg (83-108) L 09/11/21 01:05 ABG O2 Saturation 86.3 % (94-97) L 09/11/21 01:05 PT/INR, D-dimer PT 11.5 sec (9.0-12.0) 09/10/21 22:00 INR 1.1 (<1.2) 09/10/21 22:00 D-Dimer 5.96 mg/L FEU (<0.60) H 09/10/21 22:00 Abnormal lab findings: Abnormal Labs 09/10/21 09/10/21 09/10/21 22:00 22:00 22:00 WBC 1.0 L* APTT 30.5 H D-Dimer 5.96 H ABG pH ABG pCO2 ABG pO2 ABG HCO3 ABG Total CO2 ABG O2 Saturation Sodium 129 L Chloride 97 L Carbon Dioxide 16 L BUN 34 H Creatinine 2.53 H POC Glucose (mg/dL) Plasma Lactic Acid [place] Calcium 8.3 L Magnesium 1.5 L AST Total Protein 5.7 L Albumin 2.9 L 09/10/21 09/11/21 09/11/21 22:00 01:05 01:07 WBC APTT D-Dimer ABG pH 7.30 L ABG pCO2 32 L ABG pO2 60 L ABG HCO3 16 L ABG Total CO2 17 L ABG O2 Saturation 86.3 L Sodium Chloride Carbon Dioxide BUN Creatinine POC Glucose (mg/dL) Plasma Lactic Acid [place] 5.4 H* 4.2 H* Calcium Magnesium AST Total Protein Albumin 09/11/21 09/11/21 09/11/21 03:28 03:46 05:59 WBC APTT D-Dimer ABG pH ABG pCO2 ABG pO2 ABG HCO3 ABG Total CO2 ABG O2 Saturation Sodium Chloride Carbon Dioxide BUN Creatinine POC Glucose (mg/dL) 64 L 62 L Plasma Lactic Acid [place] 6.3 H* Calcium Magnesium AST Total Protein Albumin 09/11/21 09/11/21 09/11/21 06:02 06:02 09:03 WBC 0.6 L* APTT D-Dimer ABG pH ABG pCO2 ABG pO2 ABG HCO3 ABG Total CO2 ABG O2 Saturation Sodium 130 L Chloride Carbon Dioxide 9 L* BUN 37 H Creatinine 2.51 H POC Glucose (mg/dL) Plasma Lactic Acid [place] 8.1 H* Calcium 7.0 L Magnesium AST 41 H Total Protein 4.4 L Albumin 2.2 L - Diagnostic Findings Chest x-ray: image reviewed CT scan - chest: image reviewed Assessment and Plan Assessment: Acute hypoxemic respiratory failure, likely multifactorial, in part related to adenocarcinoma of the lung, COPD exacerbation, and possible pulmonary infection. Diagnosis of adenocarcinoma of the lung, 2020, patient received homeopathic treatment in [facility] for 3 months. History of heavy tobacco use, and resultant COPD. History of skin cancer. History of hayfever. History of chronic anxiety. Plan: Plan dated 09/11/2021. The patient is placed on Zosyn, Solu-Medrol, budesonide, formoterol, and DuoNeb's. In addition, I ordered BiPAP, with settings of 12/5, and 100%. The patient's getting saline at 75 mL an hour. The patient did see medical oncology, and apparently will be started on more conventional therapy, later this month. The patient did spend 3 months in [facility], receiving homeopathic treatments including vitamin infusions. At that time, she developed coronavirus infection, and also developed a infection of the infusion port. She does not want intubation and mechanical ventilation. She made that very clear today. The patient was seen in room 256, along with her daughter. Time with Patient: Greater than 30
[2021-09-11] MEDS ORDERED: ALPRAZolam 0.25 MG TAB PO STA (11:12)
[2021-09-11] MEDS: methylPREDNISolone SOD SUCCI 125 MG/2 ML VIAL IV SCH ×3 (11:52→23:27)
--- NOTE | 2021-09-11 12:40 | P.HPIM ---
History of Present Illness This is a pleasant 50 years old female with past medical history of Asthma, Seizure Disorder, Supraventricular Tachycardia , thyroid goiter COPD/emphysema, nicotine dependence, also she was recently diagnosed with lung cancer last year on 04/2021 and she follows up with Dr. Bauman She presents because of dyspnea, 30 this morning she was trying to be Acute where he twisted her back after that she started having shortness of breath as she states associated with little cough and little phlegm greenish in color,, no chest pain. Also yesterday she started having diarrhea about 5 times per day and this mor abdulkadir she had 2 more episodes which they are loose with no blood. No abdominal pain. No vomiting. Her speech is limited by her dyspnea She has history of smoking about 2 packs per day after she was diagnosed with cancer she smokes now occasionally about 5 cigarettes per day with no alcohol. No illicit drugs. She was diagnosed with non-small lung cancer last April 2021, she did not get chemotherapy or radiotherapy she tried holistic medicine and now she's been following up with Dr. Bauman with the plan for her to get chemotherapy may be in a month, she has a port in her left upper chest as well. Patient on admission was hypotensive with a blood pressure was low as 81/53 and hypoxic, saturating 87% and 2 L oxygen via nasal cannula and tachycardic but patient is been afebrile. She has leukopenia 1.0 and 0.6. Rest of CBC is unremarkable D-dimer is elevated 5.9 PH is low 7.3, pCO2 low 32 and pO2 low at 60. Chest x-ray: Bilateral pulmonary infiltrates CTA of the chest showing extensive left lower lobe pneumonia with patchy nodular infiltrates and they remained of the lung molina. No pulmonary embolism EKG showing sinus tachycardia at 123. Patient started on broad-spectrum antibiotics with ceftriaxone and Zithromax Pulmonary and oncology were consulted Review of Systems CONSTITUTIONAL: No fever, no malaise, no fatigue. HEENT: No recent visual problems or hearing problems. Denied any sore throat. CARDIOVASCULAR: No orthopnea, PND, no palpitations, no syncope. PULMONARY: No chest wall tenderness, no hemoptysis. GASTROINTESTINAL: No diarrhea, no nausea, no vomiting, no abdominal pain. Normoactive bowel sounds. NEUROLOGICAL: No headaches, no weakness, no numbness. HEMATOLOGICAL: Denies any bleeding or petechiae. GENITOURINARY: Denies any burning micturition, frequency, or urgency. MUSCULOSKELETAL/RHEUMATOLOGICAL: Denies any joint pain, swelling, or any muscle pain. ENDOCRINE: Denies any polyuria or polydipsia. Past Medical History Past Medical History: Asthma, Cancer, Seizure Disorder, Supraventricular Tachycardia (SVT), Thyroid Disorder Additional Past Medical History / Comment(s): Recent allergic reaction to Ragweed and flare up of Emphysema-on prednisone dose pack and completed antibiotics., SKIN CANCER. Thyroid goiter. Emphysema. CPAP - "only use somet imes". Had seizure while recieving treatment in [facility]. History of Any Multi-Drug Resistant Organisms: None Reported Past Surgical History: Breast Surgery, Section, Hysterectomy Additional Past Surgical History / Comment(s): RIGHT LYMPH NODE REMOVED-BIOSPSY NEGATIVE. RIGHT THIGH MELANOMA REMOVED. 3rd nipple on left breast removed. , navagational bronchoscopy (03/25/21) Past Anesthesia/Blood Transfusion Reactions: No Reported Reaction Past Psychological History: No Psychological Hx Reported Smoking Status: Current every day smoker Past Alcohol Use History: Occasional Additional Past Alcohol Use History / Comment(s): Quit smoking 1 week ago, Hx of 1/2 PPD, has been smoking 30+ yrs. Past Drug Use History: Marijuana - Past Family History Father Family Medical History: Cancer, Hypertension Additional Family Medical History / Comment(s): COLON CANCER. Mother Family Medical History: Cancer, Hyperlipidemia, Hypertension Additional Family Medical History / Comment(s): CERVICAL CANCER. Medications and Allergies Home Medications Medication Instructions Recorded Confirmed Type Albuterol Inhaler [Ventolin Hfa 2 puff INHALATION RT-Q4H 03/23/21 09/10/21 History Inhaler] Albuterol Nebulized [Ventolin 2.5 mg INHALATION RT-Q4H 03/23/21 09/10/21 History Nebulized] ALPRAZolam [Xanax] 0.25 mg PO DAILY PRN 04/27/21 09/10/21 History Budesonide 1 mg INHALATION RT-BID 09/10/21 09/10/21 History Folic Acid 1 mg PO DIRECTED 09/10/21 09/10/21 History Ibuprofen [Motrin] 800 mg PO TID PRN 09/10/21 09/10/21 History Ondansetron [Zofran] 4 mg PO DAILY PRN 09/10/21 09/10/21 History Allergies Allergy/AdvReac Type Severity Reaction Status Date / Time morphine Allergy Mild Rash/Hives Verified 09/10/21 22:31 On Chest Physical Exam Vitals: Vital Signs Temp Pulse Resp BP Pulse Ox 09/11/21 07:36 108 H 09/11/21 07:24 106 H 09/11/21 07:00 107 H 21 92/53 88 L 09/11/21 06:30 105 H 19 93/52 88 L 09/11/21 06:00 105 H 30 H 94/56 88 L 09/11/21 05:30 105 H 35 H 92/62 89 L 09/11/21 05:00 105 H 32 H 84/54 93 L 09/11/21 04:31 105 H 09/11/21 04:30 105 H 41 H 88/58 91 L 09/11/21 04:25 105 H 09/11/21 04:00 106 H 15 85/56 94 L 09/11/21 03:38 93 L 09/11/21 03:30 96.6 F L 107 H 25 H 93/62 92 L 09/11/21 02:45 96.7 F L 107 H 36 H 93/61 91 L 09/11/21 01:11 98.4 F 114 H 36 H 101/67 92 L 09/11/21 00:55 115 H 32 H 109/66 90 L 09/11/21 00:24 81/53 09/10/21 23:45 98.6 F 108 H 28 H 90/51 94 L 09/10/21 22:20 117 H 20 92/61 90 L 09/10/21 20:50 122 H 20 90/54 89 L 09/10/21 20:20 97.6 F 125 H 26 H 96/56 87 L Intake and Output 09/10/21 09/11/21 09/11/21 22:59 06:59 14:59 Intake Total 520 130 Balance 520 130 Intake: IV 520 130 0.9 520 130 Other: Voiding Method Bedside Commode # Voids 1 # Bowel Movements 1 Weight 61.235 kg 61.235 kg GENERAL: The patient is alert and oriented x3, not in any acute distress. Well developed, well nourished. HEENT: Pupils are round and equally reacting to light. EOMI. No scleral icterus. No conjunctival pallor. Normocephalic, atraumatic. No pharyngeal erythema. No thyromegaly. CARDIOVASCULAR: S1 and S2 present. No murmurs, rubs, or gallops. -PULMONARY: Chest is clear to auscultation, patient is tachypneic and she has scattered wheezing with prolonged expiration. Decreased breath sounds on the bases. ABDOMEN: Soft, nontender, nondistended, normoactive bowel sounds. No palpable organomegaly. MUSCULOSKELETAL: No joint swelling or deformity. EXTREMITIES: No cyanosis, clubbing, or pedal edema. NEUROLOGICAL: Gross neurological examination did not reveal any focal deficits. SKIN: No rashes. No petechiae Results CBC & Chem 7: 09/11/21 06:02 09/11/21 06:02 Labs: Abnormal Lab Results - Last 24 Hours (Table) 09/10/21 09/10/21 09/10/21 Range/Units 22:00 22:00 22:00 WBC 1.0 L* (3.8-10.6) k/uL APTT 30.5 H (22.0-30.0) sec D-Dimer 5.96 H (<0.60) mg/L FEU ABG pH (7.35-7.45) ABG pCO2 (35-45) mmHg ABG pO2 (83-108) mmHg ABG HCO3 (21-25) mmol/L ABG Total CO2 (19-24) mmol/L ABG O2 Saturation (94-97) % Sodium 129 L (137-145) mmol/L Chloride 97 L (98-107) mmol/L Carbon Dioxide 16 L (22-30) mmol/L BUN 34 H (7-17) mg/dL Creatinine 2.53 H (0.52-1.04) mg/dL POC Glucose (mg/dL) (75-99) mg/dL Plasma Lactic Acid [place] (0.7-2.0) mmol/L Calcium 8.3 L (8.4-10.2) mg/dL Magnesium 1.5 L (1.6-2.3) mg/dL AST (14-36) U/L Total Protein 5.7 L (6.3-8.2) g/dL Albumin 2.9 L (3.5-5.0) g/dL 09/10/21 09/11/21 09/11/21 Range/Units 22:00 01:05 01:07 WBC (3.8-10.6) k/uL APTT (22.0-30.0) sec D-Dimer (<0.60) mg/L FEU ABG pH 7.30 L (7.35-7.45) ABG pCO2 32 L (35-45) mmHg ABG pO2 60 L (83-108) mmHg ABG HCO3 16 L (21-25) mmol/L ABG Total CO2 17 L (19-24) mmol/L ABG O2 Saturation 86.3 L (94-97) % Sodium (137-145) mmol/L Chloride (98-107) mmol/L Carbon Dioxide (22-30) mmol/L BUN (7-17) mg/dL Creatinine (0.52-1.04) mg/dL POC Glucose (mg/dL) (75-99) mg/dL Plasma Lactic Acid [place] 5.4 H* 4.2 H* (0.7-2.0) mmol/L Calcium (8.4-10.2) mg/dL Magnesium (1.6-2.3) mg/dL AST (14-36) U/L Total Protein (6.3-8.2) g/dL Albumin (3.5-5.0) g/dL 09/11/21 09/11/21 09/11/21 Range/Units 03:28 03:46 05:59 WBC (3.8-10.6) k/uL APTT (22.0-30.0) sec D-Dimer (<0.60) mg/L FEU ABG pH (7.35-7.45) ABG pCO2 (35-45) mmHg ABG pO2 (83-108) mmHg ABG HCO3 (21-25) mmol/L ABG Total CO2 (19-24) mmol/L ABG O2 Saturation (94-97) % Sodium (137-145) mmol/L Chloride (98-107) mmol/L Carbon Dioxide (22-30) mmol/L BUN (7-17) mg/dL Creatinine (0.52-1.04) mg/dL POC Glucose (mg/dL) 64 L 62 L (75-99) mg/dL Plasma Lactic Acid [place] 6.3 H* (0.7-2.0) mmol/L Calcium (8.4-10.2) mg/dL Magnesium (1.6-2.3) mg/dL AST (14-36) U/L Total Protein (6.3-8.2) g/dL Albumin (3.5-5.0) g/dL 09/11/21 09/11/21 Range/Units 06:02 06:02 WBC 0.6 L* (3.8-10.6) k/uL APTT (22.0-30.0) sec D-Dimer (<0.60) mg/L FEU ABG pH (7.35-7.45) ABG pCO2 (35-45) mmHg ABG pO2 (83-108) mmHg ABG HCO3 (21-25) mmol/L ABG Total CO2 (19-24) mmol/L ABG O2 Saturation (94-97) % Sodium 130 L (137-145) mmol/L Chloride (98-107) mmol/L Carbon Dioxide 9 L* (22-30) mmol/L BUN 37 H (7-17) mg/dL Creatinine 2.51 H (0.52-1.04) mg/dL POC Glucose (mg/dL) (75-99) mg/dL Plasma Lactic Acid [place] (0.7-2.0) mmol/L Calcium 7.0 L (8.4-10.2) mg/dL Magnesium (1.6-2.3) mg/dL AST 41 H (14-36) U/L Total Protein 4.4 L (6.3-8.2) g/dL Albumin 2.2 L (3.5-5.0) g/dL Thrombosis Risk Factor Assmnt - Choose All That Apply Any of the Below Risk Factors Present?: Yes Each Factor Represents 1 point: Abnormal pulmonary function (COPD), Age 41-60 years, Medical pt on bed rest, Sepsis (< 1month) Other Risk Factors: Yes Each Risk Factor Represents 2 Points: Malignancy Other congenital or acquired thrombophilia - If yes, enter type in comment: No Thrombosis Risk Factor Assessment Total Risk Factor Score: 6 Thrombosis Risk Factor Assessment Level: High Risk Assessment and Plan Assessment: Bilateral basal pneumonia Acute COPD exacerbation Acute hypoxic respiratory failure Recently diagnosed lung cancer Leukopenia elevated d-dimer, with negative CTA for pulmonary embolism Nicotine dependence COPD, no acute exacerbation History of supraventricular or ventricular tachycardia History of thyroid goiter Plan: this is a pleasant 50 years old female who presents with hypoxia, Pneumonia continue with antibiotics, currently on Zosyn. Continue with Solu-Medrol 60 mg daily. Continue gentle hydration Pulmonary and oncology team consult Labs and medication were reviewed.. Continue same treatment. Continue with symptomatic treatment. Resume home medication. Monitor lytes and vitals. DVT and GI prophylaxis. Further recommendations depends on the clinical course of the patient DVT prophylaxis: Subcutaneous heparin GI Prophylaxis: Pepcid Prognosis is guarded
[2021-09-11] MEDS ORDERED: DEXTROSE 50% SYRINGE 50 ML IVP ONE (17:37)
[2021-09-11 17:38] LABS: Glucose,Whole Blood 43 mg/dL (75-99)
[2021-09-11 17:59] LABS: Glucose,Whole Blood 157 mg/dL (75-99)
[2021-09-11] MEDS: INSULIN ASPART (NovoLOG) 100 UNIT/ML VIAL SQ SCH ×2 (18:22→20:29)
[2021-09-11] MEDS: BUDESONIDE 1 MG/2 ML NEBU INHALATION SCH (19:04)
[2021-09-11] MEDS: FORMOTEROL FUMARATE 20 MCG/2 ML NEBU INHALATION SCH (19:05)
[2021-09-11 20:14] LABS: Glucose,Whole Blood 72 mg/dL (75-99)
[2021-09-11] MEDS: HEPARIN SODIUM,PORCINE/PF 5,000 UNIT/0.5 ML SYRINGE SQ SCH (20:32)
--- NOTE | 2021-09-11 21:53 | CONS ---
CONSULTATION DATE OF SERVICE: September 11, 2021. REASON FOR CONSULTATION: Lung carcinoma. CHIEF COMPLAINT: Short of breath. HISTORY OF PRESENT ILLNESS: Julia is a pleasant 50 years old lady, well known to me, who was diagnosed with adenocarcinoma of the lung in March of 2021. The patient at that time presented with persistent bronchitis which led to a CT scan of the chest done on February 03, 2021 revealing loss of volume at the left lower lobe and consolidation and a 3.4 x 2.5 cm mass in the right upper lobe. PET scan revealed suspicious uptake in the left lower lobe and she underwent improvement of consolidation in the right upper lobe. At that time, the patient underwent a bronchoscopy and transbronchial biopsy of the left lower lobe was positive for pulmonary adenocarcinoma. The patient was evaluated by Dr. Holder. She underwent another bronchoscopy and biopsy of the right upper lobe which was done in April 2021 revealed a fragment of atypical cells consistent with pulmonary adenocarcinoma at that time. She had involvement of lung malignancy in both lungs and was felt to have stage IV disease. The patient was felt not to be a surgical candidate by Dr. Holder locally and also see sought second surgical opinion at [facility] and also at [facility] and they all felt that the patient is not a surgical candidate and systemic treatment was recommended. She did have NGS Nex Gen sequencing done revealing that the PDL1 was negative and there was no actionable mutation reported on her liquid biopsy. The patient was offered a combination of chemo and immunotherapy with utilization of carboplatin and Alimta and Keytruda. However, the patient declined conventional therapy and went to [facility] seeking alternative therapy and while she was there she contracted COVID infection in August of this year. The patient came back to our office last month about 2 weeks ago and she is back to [facility] with treatment with chemo immunotherapy which was offered to her at that at time of her initial diagnosis. However, the patient's daughter contacted our office yesterday with the patient complaining of pleuritic-type chest pain, significant chest pain and shortness of breath. She was advised to proceed to the Emergency Department. She had CT scan of the chest in the emergency department revealed extensive infiltrate in the left lower lobe and she was hypoxemic and she ended up being admitted to the intensive care unit. The patient is very short of breath. She has a posterior left chest pain. She lost some weight. She denies any headaches nor nausea or vomiting, but she is very weak and tired and very dyspneic. PAST MEDICAL HISTORY: Other than the lung carcinoma, her past medical history is are is unremarkable. She has history of lung cancer. She also has a history of asthma, supraventricular tachycardia, thyroid disorder, and seizure in the past. She had in the past and hysterectomy and she has a history of melanoma resection. PAST FAMILY HISTORY: Her father had colon cancer. Her mother had cancer of the cervix. Maternal grandmother had pancreatic cancer. Uncle had lung cancer. SOCIAL HISTORY: She is a smoker. She stated she quit in April 2021. She is a social alcohol drinker. REVIEW OF SYSTEMS: As stated above in history of present illness, otherwise negative. CURRENT MEDICATION: Reviewed in her electronic medical record. PHYSICAL EXAMINATION: She is alert, oriented x3, but she appears to be very dyspneic and short of breath. Her vital signs: Temperature 97.7 afebrile, pulse is 114, respiration is 39, blood pressure 97/57. Pulse ox is 97 percent. HEENT: Normocephalic, atraumatic. No obvious icterus. NECK: Supple. CHEST: Equal expansion bilaterally. LUNGS revealed crackles at the left lower lobe. HEART is tachy and regular. ABDOMEN: Soft. No tenderness. No obvious organomegaly or masses. EXTREMITIES reveal no edema. SKIN reveals a few bruises. No ecchymosis or petechiae. LYMPHATICS: Cervical supraclavicular lymph node. LABORATORY DATA: WBC of 0.7, hemoglobin is 12.4, hematocrit 38.7, platelets are 200. Sodium 130, potassium 4.2, chloride 106, CO2 is 9, BUN 37, creatinine 2.51, calcium is 7.0, AST is 41, ALT is 19. IMPRESSION: 1. Metastatic adenocarcinoma of the lungs as stated above. The patient was diagnosed in March of 2021. She refused conventional therapy and she received alternative treatment. She sought alternative treatment in [facility]. Now the patient is being admitted for acute respiratory failure. This is probably multifactorial related to possible pneumonia, possibly related to recent COVID infection, exacerbation of COPD and worsening malignancy. 2. Neutropenia on one occasion. I am not sure about the etiology of it. The patient claimed she did not receive any chemotherapy in [facility]. This could be related to a viral infection. We will repeat CBC tomorrow and see the trend. 3. Acute renal failure as well. RECOMMENDATION: 1. Continue current treatment per ICU team. 2. She is currently on bronchodilators, steroids and Zosyn and broad-spectrum antibiotics. 3. The patient at this time she is stating that she may consider chemo immunotherapy as it was recommended to her in the past. However, her clinical condition at this point, does not permit treatment. If her conditions improve, then we can revisit systemic treatment option down the road. The above was discussed with the patient and her mother at bedside and I have answered all their questions. MMODL / IJN: [id number] /
[2021-09-11 23:32] LABS: Glucose,Whole Blood 78 mg/dL (75-99)
[2021-09-12] MEDS: PIPERACILLIN-TAZOBACTAM 3.375 GM in SODIUM CHLORIDE 0.9% 100 ML IVPB SCH ×3 (01:01→18:03)
[2021-09-12] MEDS ORDERED: DEXMEDETOMIDINE/0.9% NACL(PMX) 400 MCG in EMPTY BAG 1 BAG IV SCH (01:15)
[2021-09-12 06:26] LABS: Glucose,Whole Blood 131 mg/dL (75-99)
[2021-09-12] MEDS: methylPREDNISolone SOD SUCCI 125 MG/2 ML VIAL IV SCH ×3 (06:28→18:02)
[2021-09-12] MEDS: INSULIN ASPART (NovoLOG) 100 UNIT/ML VIAL SQ SCH ×3 (06:28→18:03)
--- NOTE | 2021-09-12 06:36 | XR ---
EXAMINATION TYPE: XR chest 1V portable DATE OF EXAM: 09/12/2021 COMPARISON: 09/11/2021 HISTORY: Shortness of breath TECHNIQUE: Single frontal view of the chest is obtained. FINDINGS: No change in the dense opacification/airspace opacification left mid and lower lung zone. Mild interval worsening in the right mid lower lung zone airspace opacification. No change in the pul monary vascular congestion. No pneumothorax. The osseous structures are intact IMPRESSION: No change in the left lung infiltrate and mild interval worsening in the right lung infil trate.
[2021-09-12 06:45] LABS: Calcium 7.3 mg/dL (8.4-10.2); Potassium 3.7 mmol/L (3.5-5.1)
[2021-09-12] MEDS: FORMOTEROL FUMARATE 20 MCG/2 ML NEBU INHALATION SCH ×2 (07:16→21:18)
[2021-09-12] MEDS: BUDESONIDE 1 MG/2 ML NEBU INHALATION SCH ×2 (07:16→21:18)
[2021-09-12] MEDS: IPRATROPIUM-ALBUTEROL 3 ML NEB INHALATION SCH ×4 (07:16→21:18)
[2021-09-12 07:26] LABS: HCT 37.9 % (34.0-46.0); HGB 12.3 gm/dL (11.4-16.0); Hypochromasia Slight; MCH 31.7 pg (25.0-35.0); MCHC 32.4 g/dL (31.0-37.0); Mean Platelet Volume 8.7; Platelet Count 108 k/uL (150-450); RBC 3.87 m/uL (3.80-5.40); WBC 2.2 k/uL (3.8-10.6)
[2021-09-12] MEDS: HEPARIN SODIUM,PORCINE/PF 5,000 UNIT/0.5 ML SYRINGE SQ SCH ×2 (09:11→21:01)
--- NOTE | 2021-09-12 09:16 | P.PN ---
Subjective Progress Note Date: 09/12/21 Principal diagnosis: Lung cancer. Pulmonary consult dated 09/11/2021. 50-year-old female, well-known to me. The patient has a history of lung cancer, adenocarcinoma, diagnosed by me, in 2020. Subsequent to that, the patient saw Dr. Holder, and also sought out consultations at [facility], and [facility]. Afterwards, the patient decided to go to [facility], for homeopathic medication. This included vitamin infusions. She was there for 3 months with her daughter. While there, she developed coronavirus infection, and was quite sick. She was requiring high flow oxygen therapy. She came to our ER on September 10, complaining of increasing shortness of breath, and nonproductive cough. The patient is currently in the intensive care unit, room 256. She is currently on AIRVO, at 50 L/m with an FiO2 of 90%. She's getting saline at 75 is an hour. The patient is a DO NOT RESUSCITATE patient. She does not want intubation and mechanical ventilation. She came to the unit on September 11. She's very short of breath. I recommend BiPAP therapy with IPAP of 12, EPAP of 5, and 100%. In addition, we added duo nebs 4 times a day and when necessary, formoterol 20 g and budesonide, 1 mg, twice a day, as well as Zosyn, and IV Solu-Medrol. She did see the medical oncologist here in town, and apparently is going to start a regimen of medications, towards the end of this month, including Keytruda and Alimta. Chest x-ray and computed tomography scan shows extensive bilateral infiltrates, which have likely progressed. This could reflect either cancer, pneumonia, with sequelae of coronavirus infection or a combination of all those things. White count 0.6, hemoglobin 12.4, hematocrit 38.7, and platelet count 200,000. Sodium 1:30, potassium 4.2, chlorides 106, CO2 9, anion gap 15, BUN 37, and creatinine 2.51. Lactic acid is 6.3. Repeat is 8.1. Albumin is 2.2. Progress note dated 09/12/2021. 50-year-old female with a history of adenocarcinoma of the lung, diagnosed in 2020, by me. The patient was offered conventional therapy, who was actually see n by Dr. Holder, and sought out consultations at [facility], and [facility], among other places, and eventually traveled to [facility], for homeopathic medication including vitamin infusions. The patient was here for 3 months with her daughter. More recently, the patient was in our ER on September 10, complaining of increasing shortness of breath and nonproductive cough. She was admitted to the intensive care unit for further monitoring and management. Initially, she was on high flow oxygen, and then AIRVO. Currently, she is on BiPAP, with settings of 12/5 and 100%. The patient's getting saline at 75 mL an hour, and Precedex at 0.5 mg/kg/h. The patient is still quite tachypneic. In addition, the patient was placed on breathing treatments, corticosteroids, and antibiotics. White blood count was trending up. Kidney functions a bit improved. She was seen by medical oncology, and I appreciate their input. White count 2.2, hemoglobin 12.3, hematocrit 37.9, platelet count 108,000. Sodium 135, potassium 3.7, chlorides 110, CO2 14, anion gap 11, BUN 36, and creatinine 1.66. Will cause 131. Calcium 7.3. Cultures thus far are negative. Chest x-ray shows worsening bilateral infiltrates. The patient was initially a no code, but is reversed her decision, and now is a full code. She does understand, that the next step, would be intubation and mechanical ventilation. Finally, I get the impression that the daughter for whatever reason is unhappy with the care here and I offered her transfer to any facility that she wishes. Before leaving the room, I reconfirm the fact that the patient herself, would agree to intubation and mechanical ventilation. Objective - Vital Signs Vital signs: Vital Signs Temp 98.2 F 09/12/21 04:00 Pulse 114 H 09/12/21 07:33 Resp 45 H 09/12/21 07:00 BP 106/69 09/12/21 07:00 Pulse Ox 91 L 09/12/21 07:00 Intake & Output 09/11/21 09/12/21 09/12/21 17:59 06:59 18:59 Intake Total 75 Output Total Balance 75 Weight Intake: IV 75 0.9 Piperacillin-Tazobactam 3 .375 gm In Sodium Chloride 0.9% 100 ml @ 25 mls/hr IVPB Q8H [facility] Rx#: [id number] Sodium Chloride 0.9% 1, 75 000 ml @ 75 mls/hr IV . [id number] [facility]Z Rx#:[id number] Intake, IV Titration Amount Dexmedetomidine/0.9% NaCl (Pmx) 400 mcg In Empty Bag 1 bag @ 0.2 MCG/KG/HR 3.062 mls/hr IV .Q24H [facility]Z Rx#:[id number] Oral Output: Urine Other: Voiding Method # Voids # Bowel Movements - Exam No acute distress, oriented 3. The patient does have conversational dyspnea, while on BiPAP. She appears much more short of breath today than even yester day. HEENT examination is grossly unremarkable. Neck supple. Full range of motion. No adenopathy thyromegaly or neck vein distention. Cardiovascular examination reveals regular rhythm rate. S1-S2 normal. No S3 or S4. No discernible murmur noted. Heart sounds are distant. Heart rate 114 b pm. Lungs reveal coarse bilateral inspiratory and expiratory rhonchi, with breath sounds being equal bilaterally. No wheezes. No crackles. Saturations are 91% on BiPAP. Abdomen soft bowel sounds are heard. No masses or tenderness. Extremities are intact. No cyanosis clubbing or edema. Skin is without rash or lesion. Neurologic examination is brief but nonfocal. - Labs CBC & Chem 7: 09/12/21 06:02 09/12/21 06:02 Labs: Abnormal Lab Results - Last 24 Hours (Table) 09/11/21 09/11/21 09/11/21 Range/Units 09:03 17:35 17:57 WBC (3.8-10.6) k/uL Plt Count (150-450) k/uL Sodium (137-145) mmol/L Chloride (98-107) mmol/L Carbon Dioxide (22-30) mmol/L BUN (7-17) mg/dL Creatinine (0.52-1.04) mg/dL Glucose (74-99) mg/dL POC Glucose (mg/dL) 43 L 157 H (75-99) mg/dL Plasma Lactic Acid Cuba 8.1 H* (0.7-2.0) mmol/L Calcium (8.4-10.2) mg/dL 03/06/2309/12/21 09/12/21 Range/Units 20:13 06:02 06:02 WBC 2.2 L (3.8-10.6) k/uL Plt Count 108 L (150-450) k/uL Sodium 135 L (137-145) mmol/L Chloride 110 H (98-107) mmol/L Carbon Dioxide 14 L (22-30) mmol/L BUN 36 H (7-17) mg/dL Creatinine 1.66 H (0.52-1.04) mg/dL Glucose 133 H (74-99) mg/dL POC Glucose (mg/dL) 72 L (75-99) mg/dL Plasma Lactic Acid [place] (0.7-2.0) mmol/L Calcium 7.3 L (8.4-10.2) mg/dL 09/12/21 Range/Units 06:24 WBC (3.8-10.6) k/uL Plt Count (150-450) k/uL Sodium (137-145) mmol/L Chloride (98-107) mmol/L Carbon Dioxide (22-30) mmol/L BUN (7-17) mg/dL Creatinine (0.52-1.04) mg/dL Glucose (74-99) mg/dL POC Glucose (mg/dL) 131 H (75-99) mg/dL Plasma Lactic Acid [place] (0.7-2.0) mmol/L Calcium (8.4-10.2) mg/dL Microbiology - Last 24 Hours (Table) 09/11/21 00:44 Blood Culture - Preliminary Blood No Growth after 24 hours 09/11/21 05:00 Urine Culture - Preliminary Urine,Voided Assessment and Plan Assessment: Acute hypoxemic respiratory failure, likely multifactorial, in part related to adenocarcinoma of the lung, COPD exacerbation, and possible pulmonary infection/pneumonia. Diagnosis of adenocarcinoma of the lung, 2020, patient received homeopathic treatment in [facility] for 3 months. History of heavy tobacco use, and resultant COPD. History of skin cancer. History of hayfever. History of chronic anxiety. Plan: Plan dated 09/11/2021. The patient is placed on Zosyn, Solu-Medrol, budesonide, formoterol, and DuoNeb's. In addition, I ordered BiPAP, with settings of 12/5, and 100%. The p atient's getting saline at 75 mL an hour. The patient did see medical oncology, and apparently will be started on more conventional therapy, later this month. The patient did spend 3 months in [facility], receiving homeopathic treatments including vitamin infusions. At that time, she developed coronavirus infection, and also developed a infection of the infusion port. She does not want intubation and mechanical ventilation. She made that very clear today. The patient was seen in room 256, along with her daughter. Plan dated 09/12/2021. The patient remains in the intensive care unit. Yesterday, she was on AIRVO, and we switched her to BiPAP, at 12/5 and 100%. Currently, she is on Precedex for her anxiety, and she has been seen by medical oncology. The daughter has numerous questions today, which I answered to the best of my ability. White count is trending up. Kidney function is improved. The patient is on good medications including Zosyn, Solu-Medrol, budesonide, formoterol, albuterol sulfate, and ipratropium bromide. The patient confirms that she would approve intubation and mechanical ventilation. Initially, she was a DO NOT RESUSCITATE patient. I did offer transfer to an outside facility if they wish. Prognosis is poor in my opinion. Time with Patient: Greater than 30
[2021-09-12 09:24] LABS: Band Neutrophils % 13 %; Lymphocytes # (M) 0.18 k/uL (1.0-4.8); Metamyelocytes # (M) 0.04 k/uL (0); Metamyelocytes % 2 %; Myelocytes # (M) 0.02 k/uL (0); Myelocytes % 1 %; Neutrophils % (M) 67 %; Nucleated Red Blood Cells 0 /100 WBC (0-0); Total Cells Counted 100
[2021-09-12 09:25] LABS: Crenated RBC Present; Poikilocytosis (M) Present
[2021-09-12] MEDS ORDERED: SODIUM CHLORIDE 0.9% 2,000 ML IV ONE (09:47)
[2021-09-12] MEDS: SODIUM CHLORIDE 0.9% 1,000 ML IV SCH (12:18)
[2021-09-12 12:26] LABS: Glucose,Whole Blood 111 mg/dL (75-99)
[2021-09-12 13:57] LABS: ABG Base Excess -10.4 mmol/L; ABG HCO3 17 mmol/L (21-25); ABG Oxygen Saturation 80.6 % (94-97); ABG PCO2 41 mmHg (35-45); ABG PH 7.23 (7.35-7.45); ABG TCO2 18 mmol/L (19-24); Allen Test Performed? Yes
[2021-09-12 14:00] LABS: ABG PO2 51 mmHg (83-108)
[2021-09-12] MEDS ORDERED: propofoL 100 ML IV ONE (14:15)
[2021-09-12] MEDS ORDERED: CISATRACURIUM 2 MG/ML 5 ML VIAL IV ONE ×2 (14:37→16:24)
--- NOTE | 2021-09-12 15:14 | PCN ---
PROCEDURE NOTE PULMONARY/CRITICAL CARE PROCEDURE NOTE: Placement of right subclavian triple-lumen catheter. PREOPERATIVE DIAGNOSIS: Administration of fluids and pressors. POSTOPERATIVE DIAGNOSIS: Administration of fluids and pressors. OPERATORS: 1. Dr. oWods. 2. Dr. Mcnamara. PROCEDURE DESCRIPTION: There was informed consent and a universal time-out was completed verifying correct patient, procedure, site, positioning, and implant(s) or special equipment if applicable. The patient was placed in a dependent position appropriate for triple-lumen catheter placement based on the vein to be cannulated. The patient's right shoulder was prepped and draped in sterile fashion. Lidocaine 1% was used to anesthetize the surrounding skin area. A triple-lumen 9F Cordis catheter was introduced into the right subclavian vein using Seldinger technique. The catheter was threaded smoothly over the guidewire and appropriate blood return was obtained. There was good blood return from all three ports. Each lumen of the catheter was evacuated of air and flushed with sterile saline. The catheter was then sutured in place to the skin and a sterile dressing was applied by the nurse. Perfusion to the extremity distal to the point of catheter insertion was checked and found to be adequate. The patient tolerated the procedure well. A chest x-ray was ordered to check placement and rule out pneumothorax. The patient tolerated the procedure well without complication. PELON / AQUILINON: [id number] /
--- NOTE | 2021-09-12 15:16 | PCN ---
PROCEDURE NOTE PROCEDURE: Placement of left radial arterial line. OPERATORS: 1. Dr. Woods. 2. Dr. Mcnamara. PREOPERATIVE DIAGNOSIS: Frequent blood draws and blood gas monitoring. POSTOPERATIVE DIAGNOSIS: Frequent blood draws and blood gas monitoring. PROCEDURE DESCRIPTION: There was informed consent and universal timeout was completed verifying correct patient, procedure, site, positioning, and implant(s) or special equipment if applicable. Charles's test was performed to ensure adequate perfusion. The patient's left wrist was prepped and draped in sterile fashion. Lidocaine 1% was used to anesthetize the area. An 18G Arrow arterial line was introduced into the left radial artery. The catheter was threaded over the guidewire and the needle was removed with appropriate pulsatile blood return. There was good blood return and waveform. Blood loss was minimal. The catheter was then sutured in place to the skin and a sterile dressing was applied by the nurse. Perfusion to the extremity distal to the point of catheter insertion was checked and found to be adequate. The patient tolerated the procedure well and there were no immediate complications. MMODL / IJN: [id number] /
--- NOTE | 2021-09-12 15:25 | XR ---
EXAMINATION TYPE: XR chest 1V portable DATE OF EXAM: 09/12/2021 COMPARISON: 09/12/2021 HISTORY: Tube placement TECHNIQUE: FINDINGS: There is endotracheal tube 2.5 cm from the andreas. There is left sided central venous malcolm ter with tip in the superior vena cava. There is right subclavian catheter with tip in the right atri um. There is moderate pulmonary interstitial and airspace edema. There are chest leads. No definite p leural effusion. No pneumothorax. IMPRESSION: There is pulmonary edema slightly improved on the left side compared to exam earlier tomas mejia
[2021-09-12 15:41] LABS: Glucose,Whole Blood 101 mg/dL (75-99)
[2021-09-12 15:41] LABS: ABG Base Excess -12.1 mmol/L; ABG HCO3 18 mmol/L (21-25); ABG Oxygen Saturation 98.9 % (94-97); ABG PCO2 65 mmHg (35-45); ABG PO2 209 mmHg (83-108); ABG TCO2 20 mmol/L (19-24)
[2021-09-12 15:44] LABS: ABG PH 7.06 (7.35-7.45)
[2021-09-12] MEDS: NOREPINEPHRINE 32 MG in SODIUM CHLORIDE 0.9% 218 ML IV SCH (16:00)
[2021-09-12] MEDS: CISATRACURIUM 200 MG in SODIUM CHLORIDE 0.9% 180 ML IV SCH (16:28)
[2021-09-12] MEDS: CHLORHEXIDINE GLUCONATE 15 ML CUP MUCOUS MEM SCH ×2 (21:01→21:02)
[2021-09-12] MEDS: ACETAMINOPHEN TAB 325 MG TAB PO PRN (21:01)
[2021-09-13 00:07] LABS: Glucose,Whole Blood 123 mg/dL (75-99)
[2021-09-13] MEDS: INSULIN ASPART (NovoLOG) 100 UNIT/ML VIAL SQ SCH ×4 (00:28→18:13)
[2021-09-13] MEDS: methylPREDNISolone SOD SUCCI 125 MG/2 ML VIAL IV SCH ×4 (00:47→18:13)
[2021-09-13] MEDS: PIPERACILLIN-TAZOBACTAM 3.375 GM in SODIUM CHLORIDE 0.9% 100 ML IVPB SCH ×3 (02:27→18:13)
[2021-09-13 05:33] LABS: ABG Base Excess -8.9 mmol/L; ABG HCO3 19 mmol/L (21-25); ABG Oxygen Saturation 95.5 % (94-97); ABG PCO2 50 mmHg (35-45); ABG PO2 84 mmHg (83-108); ABG TCO2 21 mmol/L (19-24); Allen Test Performed? Yes
[2021-09-13 05:35] LABS: ABG PH 7.19 (7.35-7.45)
[2021-09-13] MEDS: ACETAMINOPHEN TAB 325 MG TAB PO PRN ×4 (05:37→20:47)
[2021-09-13 06:10] LABS: HCT 36.7 % (34.0-46.0); HGB 11.8 gm/dL (11.4-16.0); Hypochromasia Moderate; MCH 31.9 pg (25.0-35.0); MCHC 32.2 g/dL (31.0-37.0); Mean Platelet Volume 7.9; RBC 3.71 m/uL (3.80-5.40); RDW 14.8 % (11.5-15.5); WBC 13.5 k/uL (3.8-10.6)
[2021-09-13 06:17] LABS: Calcium 7.5 mg/dL (8.4-10.2); Potassium 4.5 mmol/L (3.5-5.1)
[2021-09-13 06:37] LABS: Platelet Count 95 k/uL (150-450)
[2021-09-13] MEDS: IPRATROPIUM-ALBUTEROL 3 ML NEB INHALATION SCH ×4 (07:40→19:35)
[2021-09-13] MEDS: FORMOTEROL FUMARATE 20 MCG/2 ML NEBU INHALATION SCH ×2 (07:40→19:35)
[2021-09-13] MEDS: BUDESONIDE 1 MG/2 ML NEBU INHALATION SCH ×2 (07:40→19:35)
--- NOTE | 2021-09-13 08:17 | XR ---
EXAMINATION TYPE: XR chest 1V portable DATE OF EXAM: 09/13/2021 Comparison: 09/12/2021 Clinical History: 50-year-old female chest tube placement Findings: ET tube satisfactory. Left anterior chest wall injection port with subclavian access and catheter tip at the upper to mid SVC level projecting towards the right. Right subclavian CVC tip in the right at rium. NG tube courses below the diaphragm. It is curled back up with tip just below the GE junction l evel. Patient is rotated towards the right altering the normal cardiomediastinal contours. Heart norm al size. Bilateral airspace disease is improving. Residual inferior lingular airspace disease and pat conchita changes throughout the right mid and lower lung. Impression: Residual but improving bilateral airspace disease.
[2021-09-13] MEDS: HEPARIN SODIUM,PORCINE/PF 5,000 UNIT/0.5 ML SYRINGE SQ SCH ×2 (08:40→20:47)
[2021-09-13] MEDS: SODIUM CHLORIDE 0.9% 1,000 ML IV SCH ×2 (08:41→15:57)
[2021-09-13] MEDS: CHLORHEXIDINE GLUCONATE 15 ML CUP MUCOUS MEM SCH ×2 (08:41→20:47)
[2021-09-13] MEDS ORDERED: SODIUM CHLORIDE 0.9% 2,000 ML IV ONE (09:10)
[2021-09-13] MEDS ORDERED: VANCOMYCIN IV PER PHARMACY 1 EACH MISC MISCELLANE PRN (09:10)
[2021-09-13] MEDS: VANCOMYCIN 1,250 MG in SODIUM CHLORIDE 0.9% 250 ML IVPB SCH (10:07)
[2021-09-13 10:48] LABS: Glucose,Whole Blood 158 mg/dL (75-99)
--- NOTE | 2021-09-13 11:09 | P.PN ---
Subjective This is a pleasant 50 years old female with past medical history of Asthma, Seizure Disorder, Supraventricular Tachycardia , thyroid goiter COPD/emphysema, nicotine dependence, also she was recently diagnosed with lung cancer last year on 04/2021 and she follows up with Dr. Bauman She presents because of dyspnea, 30 this morning she was trying to be Acute where he twisted her back after that she started having shortness of breath as she states associated with little cough and little phlegm greenish in color,, no chest pain. Also yesterday she started having diarrhea about 5 times per day and this morning she had 2 more episodes which they are loose with no blood. No abdominal pain. No vomiting. Her speech is limited by her dyspnea She has history of smoking about 2 packs per day after she was diagnosed with c wooder she smokes now occasionally about 5 cigarettes per day with no alcohol. No illicit drugs. She was diagnosed with non-small lung cancer last April 2021, she did not get chemotherapy or radiotherapy she tried holistic medicine and now she's been following up with Dr. Bauman with the plan for her to get chemotherapy may be in a month, she has a port in her left upper chest as well. Patient on admission was hypotensive with a blood pressure was low as 81/53 and hypoxic, saturating 87% and 2 L oxygen via nasal cannula and tachycardic but patient is been afebrile. She has leukopenia 1.0 and 0.6. Rest of CBC is unremarkable D-dimer is elevated 5.9 PH is low 7.3, pCO2 low 32 and pO2 low at 60. Chest x-ray: Bilateral pulmonary infiltrates CTA of the chest showing extensive left lower lobe pneumonia with patchy nodular infiltrates and they remained of the lung molina. No pulmonary embolism EKG showing sinus tachycardia at 123. Patient started on broad-spectrum antibiotics with ceftriaxone and Zithromax Pulmonary and oncology were consulted 09/12/2021 Patient remains in the ICU for bilateral basal pneumonia and COPD exacerbation in view of recent lung cancer. She still tachypneic and tachycardic and remains on BiPAP with a setting of 12/5 and FiO2 of 100%. Patient looks worse than yesterday at [place] of her to talk area Patient remains on salmeterol 60 mg Zosyn and normal saline. Creatinine is stable at 1.6, WBC increased slightly at 2.2 Objective - Vital Signs Vital signs: Vital Signs Temp 98.1 F 09/12/21 08:00 Pulse 99 09/12/21 09:00 Resp 33 H 09/12/21 09:00 BP 98/47 09/12/21 09:00 Pulse Ox 91 L 09/12/21 09:00 Intake & Output 09/11/21 09/12/21 09/12/21 17:59 06:59 18:59 Intake Total 346.585 Output Total Balance 346.585 Weight Intake: IV 225 0.9 Piperacillin-Tazobactam 3 .375 gm In Sodium Chloride 0.9% 100 ml @ 25 mls/hr IVPB Q8H [facility] Rx#: [id number] Sodium Chloride 0.9% 1, 225 000 ml @ 75 mls/hr IV . [id number] [facility] Rx#:[id number] Intake, IV Titration 21.585 Amount Dexmedetomidine/0.9% NaCl 21.585 (Pmx) 400 mcg In Empty Bag 1 bag @ 0.2 MCG/KG/HR 3.062 mls/hr IV .Q24H [facility] Rx#:[id number] Oral 100 Output: Urine Other: Voiding Method Bedpan # Voids 1 # Bowel Movements - Exam -GENERAL: The patient is alert and oriented x3, not in moderate to severe respiratory distress. Well developed, well nourished. HEENT: Pupils are round and equally reacting to light. EOMI. No scleral icterus. No conjunctival pallor. Normocephalic, atraumatic. No pharyngeal erythema. No thyromegaly. CARDIOVASCULAR: S1 and S2 present. No murmurs, rubs, or gallops. -PULMONARY: Chest is clear to auscultation, no wheezing or crackles. Decreased breath sounds especially on the basis. On BiPAP ABDOMEN: Soft, nontender, nondistended, normoactive bowel sounds. No palpable organomegaly. MUSCULOSKELETAL: No joint swelling or deformity. EXTREMITIES: No cyanosis, clubbing, or pedal edema. NEUROLOGICAL: Gross neurological examination did not reveal any focal deficits. SKIN: No rashes. no petechiae. - Labs CBC & Chem 7: 09/13/21 05:20 09/13/21 05:20 Labs: Abnormal Lab Results - Last 24 Hours (Table) 09/11/21 09/11/21 09/11/21 Range/Units 09:03 17:35 17:57 WBC (3.8-10.6) k/uL Plt Count (150-450) k/uL Lymphocytes # (Manual) (1.0-4.8) k/uL Metamyelocytes # (Man) (0) k/uL Myelocytes # (Manual) (0) k/uL Sodium (137-145) mmol/L Chloride (98-107) mmol/L Carbon Dioxide (22-30) mmol/L BUN (7-17) mg/dL Creatinine (0.52-1.04) mg/dL Glucose (74-99) mg/dL POC Glucose (mg/dL) 43 L 157 H (75-99) mg/dL Plasma Lactic Acid Cuba 8.1 H* (0.7-2.0) mmol/L Calcium (8.4-10.2) mg/dL 09/11/21 09/12/21 09/12/21 Range/Units 20:13 06:02 06:02 WBC 2.2 L (3.8-10.6) k/uL Plt Count 108 L (150-450) k/uL Lymphocytes # (Manual) 0.18 L (1.0-4.8) k/uL Metamyelocytes # (Man) 0.04 H (0) k/uL Myelocytes # (Manual) 0.02 H (0) k/uL Sodium 135 L (137-145) mmol/L Chloride 110 H (98-107) mmol/L Carbon Dioxide 14 L (22-30) mmol/L BUN 36 H (7-17) mg/dL Creatinine 1.66 H (0.52-1.04) mg/dL Glucose 133 H (74-99) mg/dL POC Glucose (mg/dL) 72 L (75-99) mg/dL Plasma Lactic Acid [place] (0.7-2.0) mmol/L Calcium 7.3 L (8.4-10.2) mg/dL 09/12/21 Range/Units 06:24 WBC (3.8-10.6) k/uL Plt Count (150-450) k/uL Lymphocytes # (Manual) (1.0-4.8) k/uL Metamyelocytes # (Man) (0) k/uL Myelocytes # (Manual) (0) k/uL Sodium (137-145) mmol/L Chloride (98-107) mmol/L Carbon Dioxide (22-30) mmol/L BUN (7-17) mg/dL Creatinine (0.52-1.04) mg/dL Glucose (74-99) mg/dL POC Glucose (mg/dL) 131 H (75-99) mg/dL Plasma Lactic Acid [place] (0.7-2.0) mmol/L Calcium (8.4-10.2) mg/dL Microbiology - Last 24 Hours (Table) 09/11/21 00:44 Blood Culture - Preliminary Blood No Growth after 24 hours 09/11/21 05:00 Urine Culture - Preliminary Urine,Voided Assessment and Plan Assessment: Bilateral basal pneumonia Acute COPD exacerbation Acute hypoxic respiratory failure Recently diagnosed lung cancer Leukopenia elevated d-dimer, with negative CTA for pulmonary embolism Nicotine dependence COPD, no acute exacerbation History of supraventricular or ventricular tachycardia History of thyroid goiter Plan: this is a pleasant 50 years old female who presents with hypoxia, Pneumonia continue with antibiotics, currently on Zosyn. Continue with Solu-Medrol 60 mg daily. Continue gentle hydration Continue with BiPAP Pulmonary and oncology team consult Labs and medication were reviewed.. Continue same treatment. Continue with symptomatic treatment. Resume home medication. Monitor lytes and vitals. DVT and GI prophylaxis. Further recommendations depends on the clinical course of the patient DVT prophylaxis: Subcutaneous heparin GI Prophylaxis: Pepcid Prognosis is guarded
[2021-09-13 12:27] LABS: Band Neutrophils % 12 %; Eosinophils # (M) 0.14 k/uL (0-0.7); Lymphocytes # (M) 0.54 k/uL (1.0-4.8); Metamyelocytes # (M) 0.14 k/uL (0); Metamyelocytes % 1 %; Monocytes # (M) 0.41 k/uL (0-1.0); Neutrophils % (M) 81 %; Nucleated Red Blood Cells 0 /100 WBC (0-0); Total Cells Counted 200
--- NOTE | 2021-09-13 12:29 | P.PN ---
Subjective Progress Note Date: 09/13/21 Principal diagnosis: Acute hypoxic resp failure. NSCLC In f/u pt is sedated and mechanically ventilated Objective - Vital Signs Vital signs: Vital Signs Temp 100.2 F H 09/13/21 08:00 Pulse 105 H 09/13/21 11:52 Resp 32 H 09/13/21 08:45 BP 109/59 09/13/21 08:45 Pulse Ox 95 09/13/21 08:45 Intake & Output 09/12/21 09/13/21 09/13/21 18:59 06:59 18:59 Intake Total 3090.624 1517.851 396.097 Output Total 150 550 190 Balance 2940.624 967.851 206.097 Weight 67 kg Intake: IV 2950 900 225 Piperacillin-Tazobactam 3 200 .375 gm In Sodium Chloride 0.9% 100 ml @ 25 mls/hr IVPB Q8H [facility] Rx#: [id number] Sodium Chloride 0.9% 1, 750 900 225 000 ml @ 75 mls/hr IV . [id number] [facility] Rx#:[id number] Sodium Chloride 0.9% 2, 2000 000 ml @ 999 mls/hr IV . Q2H1M [facility] Rx#:[id number] Intake, IV Titration 40.624 467.851 111.097 Amount Cisatracurium 200 mg In 50.274 Sodium Chloride 0.9% 180 ml @ 1 MCG/KG/MIN 3.78 mls/hr IV .Q24H [facility] Rx#: [id number] Dexmedetomidine/0.9% NaCl 28.934 (Pmx) 400 mcg In Empty Bag 1 bag @ 0.2 MCG/KG/HR 3.062 mls/hr IV .Q24H [facility] Rx#:[id number] Norepinephrine 32 mg In 11.690 179.752 19.747 Sodium Chloride 0.9% 218 ml @ 0.05 MCG/KG/MIN 1. 477 mls/hr IV .Q24H [facility] Rx#:[id number] propofoL 1,000 mg In 237.825 91.35 Empty Bag 1 bag @ 5 MCG/ KG/MIN 1.89 mls/hr IV . Q24H [facility] Rx#:[id number] Oral 100 Tube Feeding 90 30 Other 60 30 Output: Urine 150 550 190 Other: Voiding Method Indwelling Catheter Indwelling Catheter # Voids 1 ABP, PAP, CO, CI - Last Documented Arterial Blood Pressure 114/53 - Constitutional Constitutional Comment(s): petite General appearance: Present: average body habitus - Respiratory Respiratory: bilateral: CTA, diminished (R>L) - Cardiovascular Rhythm: regular Heart sounds: normal: S1, S2 Abnormal Heart Sounds: Absent: systolic murmur, diastolic murmur, rub, S3 Gallop, S4 Gallop, click, other - Peripheral edema leg Peripheral Edema: right: None, left: Trace - Gastrointestinal General gastrointestinal: Present: normal bowel sounds, soft - Neurologic Neurologic: Absent: CNII-XII intact, focal deficits - Musculoskeletal Musculoskeletal: Absent: gait normal, generalized weakness, strength equal bilaterally, right sided weakness, left sided weakness - Psychiatric Psychiatric: Absent: A&O x's 3, appropriate affect, intact judgment & insight - Labs CBC & Chem 7: 09/13/21 05:20 09/13/21 05:20 Labs: Abnormal Lab Results - Last 24 Hours (Table) 09/12/21 09/12/21 09/12/21 Range/Units 06:02 12:24 13:54 WBC (3.8-10.6) k/uL RBC (3.80-5.40) m/uL Plt Count (150-450) k/uL ABG pH 7.23 L (7.35-7.45) ABG pCO2 (35-45) mmHg ABG pO2 51 L* (83-108) mmHg ABG HCO3 17 L (21-25) mmol/L ABG Total CO2 18 L (19-24) mmol/L ABG O2 Saturation 80.6 L (94-97) % Chloride (98-107) mmol/L Carbon Dioxide (22-30) mmol/L BUN (7-17) mg/dL Creatinine (0.52-1.04) mg/dL Glucose (74-99) mg/dL POC Glucose (mg/dL) 111 H (75-99) mg/dL Calcium (8.4-10.2) mg/dL Procalcitonin 12.50 H (0.02-0.09) ng/mL 09/12/21 09/12/21 09/13/21 Range/Units 15:36 15:38 00:05 WBC (3.8-10.6) k/uL RBC (3.80-5.40) m/uL Plt Count (150-450) k/uL ABG pH 7.06 L* (7.35-7.45) ABG pCO2 65 H (35-45) mmHg ABG pO2 209 H (83-108) mmHg ABG HCO3 18 L (21-25) mmol/L ABG Total CO2 (19-24) mmol/L ABG O2 Saturation 98.9 H (94-97) % Chloride (98-107) mmol/L Carbon Dioxide (22-30) mmol/L BUN (7-17) mg/dL Creatinine (0.52-1.04) mg/dL Glucose (74-99) mg/dL POC Glucose (mg/dL) 101 H 123 H (75-99) mg/dL Calcium (8.4-10.2) mg/dL Procalcitonin (0.02-0.09) ng/mL 09/13/21 09/13/21 09/13/21 Range/Units 05:20 05:20 05:29 WBC 13.5 H (3.8-10.6) k/uL RBC 3.71 L (3.80-5.40) m/uL Plt Count 95 L (150-450) k/uL ABG pH 7.19 L* (7.35-7.45) ABG pCO2 50 H (35-45) mmHg ABG pO2 (83-108) mmHg ABG HCO3 19 L (21-25) mmol/L ABG Total CO2 (19-24) mmol/L ABG O2 Saturation (94-97) % Chloride 113 H (98-107) mmol/L Carbon Dioxide 19 L (22-30) mmol/L BUN 44 H (7-17) mg/dL Creatinine 1.66 H (0.52-1.04) mg/dL Glucose 148 H (74-99) mg/dL POC Glucose (mg/dL) (75-99) mg/dL Calcium 7.5 L (8.4-10.2) mg/dL Procalcitonin (0.02-0.09) ng/mL 09/13/21 Range/Units 10:47 WBC (3.8-10.6) k/uL RBC (3.80-5.40) m/uL Plt Count (150-450) k/uL ABG pH (7.35-7.45) ABG pCO2 (35-45) mmHg ABG pO2 (83-108) mmHg ABG HCO3 (21-25) mmol/L ABG Total CO2 (19-24) mmol/L ABG O2 Saturation (94-97) % Chloride (98-107) mmol/L Carbon Dioxide (22-30) mmol/L BUN (7-17) mg/dL Creatinine (0.52-1.04) mg/dL Glucose (74-99) mg/dL POC Glucose (mg/dL) 158 H (75-99) mg/dL Calcium (8.4-10.2) mg/dL Procalcitonin (0.02-0.09) ng/mL Microbiology - Last 24 Hours (Table) 09/12/21 15:30 Gram Stain - Preliminary Sputum Sputum Culture - Preliminary 09/11/21 00:44 Blood Culture - Preliminary Blood No Growth after 48 hours 09/11/21 05:00 Urine Culture - Final Urine,Voided - Imaging and Cardiology Chest x-ray: report reviewed Assessment and Plan (1) Hypoxia Narrative/Plan: Acute hypoxic resp failure. ICU mgmt, pt is sedated and mechanically ventilate Current Visit: Yes Status: Acute Priority: High Code(s): R09.02 - HYPOXEMIA SNOMED Code(s): 908114186 (2) BRITNI (acute kidney injury) Narrative/Plan: BUN/Cr were WNL when seen in ofc on 09/08. Current Visit: Yes Status: Acute Priority: High Code(s): N17.9 - ACUTE KIDNEY FAILURE, UNSPECIFIED SNOMED Code(s): 70391010 (3) Adenocarcinoma of lung Narrative/Plan: Pt was seen in ofc 09/08 to discuss traditional cancer treatment options. 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 Pending recuperation from resp failure to start any treatment. Current Visit: Yes Status: Acute Priority: High Code(s): C34.90 - MALIGNANT NEOPLASM OF UNSP PART OF UNSP BRONCHUS OR LUNG SNOMED Code(s): 610305546 Plan: Doppler of LLE for unilateral swelling. attests: I have seen and examined pt, performed H&P, developed impression and plan of care. Discussed with dictator. I agree with dictated note, documented as a scribe.
--- NOTE | 2021-09-13 13:07 | US ---
EXAMINATION TYPE: US venous doppler duplex LE LT DATE OF EXAM: 09/13/2021 12:48 PM COMPARISON: NONE CLINICAL HISTORY: 50-year-old female unilateral swelling. Left leg swelling, history of lung CA SIDE PERFORMED: Left TECHNIQUE: The lower extremity deep venous system is examined utilizing real time linear array sonog garry with graded compression, doppler sonography and color-flow sonography. FINDINGS: VESSELS IMAGED: Common Femoral Vein Deep Femoral Vein Greater Saphenous Vein * Femoral Vein Popliteal Vein Small Saphenous Vein * Proximal Calf Veins Posterior tibial and peroneal veins (* superficial vessels) Left Leg: No DVT seen at this time. IMPRESSION: No evidence for DVT within the left lower extremity.
--- NOTE | 2021-09-13 14:53 | P.PN ---
Subjective Progress Note Date: 09/13/21 50-year-old female, well-known to me. The patient has a history of lung cancer, adenocarcinoma, diagnosed by me, in 2020. Subsequent to that, the patient saw Dr. Holder, and also sought out consultations at [facility], and [facility]. Afterwards, the patient decided to go to [facility], for homeopathic medication. This included vitamin infusions. She was there for 3 months with her daughter. While there, she developed coronavirus infection, and was quite sick. She was requiring high flow oxygen therapy. She came to our ER on September 10, complaining of increasing shortness of breath, and nonproductive cough. The patient is currently in the intensive care unit, room 256. She is currently on AIRVO, at 50 L/m with an FiO2 of 90%. She's getting saline at 75 is an hour. The patient is a DO NOT RESUSCITATE patient. She does not want intubation and mechanical ventilation. She came to the unit on September 11. She's very short of breath. I recommend BiPAP therapy with IPAP of 12, EPAP of 5, and 100%. In addition, we added duo nebs 4 times a day and when necessary, formoterol 20 g and budesonide, 1 mg, twice a day, as well as Zosyn, and IV Solu-Medrol. She did see the medical oncologist here in town, and apparently is going to start a regimen of medications, towards the end of this month, including Keytruda and Alimta. Chest x-ray and computed tomography scan shows extensive bilateral infiltrates, which have likely progressed. This could reflect either cancer, pneumonia, with sequelae of coronavirus infection or a combination of all those things. White count 0.6, hemoglobin 12.4, hematocrit 38.7, and platelet count 200,000. Sodium 1:30, potassium 4.2, chlorides 106, CO2 9, anion gap 15, BUN 37, and creatinine 2.51. Lactic acid is 6.3. Repeat is 8.1. Albumin is 2.2. Progress note dated 09/12/2021. 50-year-old female with a history of adenocarcinoma of the lung, diagnosed in 2020, by me. The patient was offered conventional therapy, who was actually seen by Dr. Holder, and sought out consultations at [facility], and [facility], among other places, and eventually traveled to [facility], for homeopathic medication including vitamin infusions. The patient was here for 3 months with her daughter. More recently, the patient was in our ER on September 10, complaining of increasing shortness of breath and nonproductive cough. She was admitted to the intensive care unit for further monitoring and management. Initially, she was on high flow oxygen, and then AIRVO. Currently, she is on BiPAP, with settings of 12/5 and 100%. The patient's getting saline at 75 mL an hour, and Precedex at 0.5 mg/kg/h. The patient is still quite tachypneic. In addition, the patient was placed on breathing treatments, corticosteroids, and antibiotics. White blood count was trending up. Kidney functions a bit improved. She was seen by medical oncology, and I appreciate their input. White count 2.2, hemoglobin 12.3, hematocrit 37.9, platelet count 108,000. Sodium 135, potassium 3.7, chlorides 110, CO2 14, anion gap 11, BUN 36, and creatinine 1.66. Will cause 131. Calcium 7.3. Cultures thus far are negative. Chest x-ray shows worsening bilateral infiltrates. The patient was initially a no code, but is reversed her decision, and now is a full code. She does understand, that the next step, would be intubation and mechanical ventilation. Finally, I get the impression that the daughter for whatever reason is unhappy with the care here and I offered her transfer to any facility that she wishes. Before leaving the room, I reconfirm the fact that the patient herself, would agree to intubation and mechanical ventilation. 09/13/2021, on seeing this patient for a follow-up. 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 She had seen the [facility] that the patient is currently being considered for immunotherapy although this has not been started yet. Meanwhile, the patient has associated also homeopathic treatment and IV vitamin infusions through a [place] and [facility] [place], specifically in the country of [facility]. The patient this morning is intubated on a mechanical ventilator. The patient went into progressive hypoxic respiratory failure and the patient was acting septic and the patient had to be intubated for an acute hypoxic respiratory failure. The patient currently is on propofol running at 50 mg/kg/m. The patient is also paralyzed with Nimbex at 1.5 mg/kg per hour. She remains on a mechanical ventilator. She is on a assist-control mode at the rate of 32, tidal volume 400, FiO2 of 50% with a PEEP of 15. The blood gas shows a pH of 7.19 with a pCO2 of 54 and pO2 of 84. The patient is on pressors and the patient is currently on norepinephrine infusion running at 0.30 to microvascular kilogram per minute. The patient had a follow- up chest x-ray today that showed bilateral lung masses, most significant in the left lower lobe where there is significant airspace disease. ET tube is in a good location. The patient has a subclavian triple lumen catheter in place. NG tube is also in place. The Doppler of the lower extremities is been negative for DVT. Meanwhile, the patient was having fevers. The patient was neutropenic and the white cell count was as low as 0.6 and current white cell count is at 15.5. The patient also had an elevated pro-calcitonin level at 12.5 indicating underlying sepsis. Stool for C. diff has been negative and the blood cultures been negative thus far. Meanwhile, the white cell count today is at 15.4 with a hemoglobin of 11.7 and platelet count of 95. The patient's sodium level is at 138, potassium level is at 4.5, BUN is a 44 with a creatinine of 1.6 and the patient understood a component of acute kidney injury which is improving. Serum cortisol was 54. ProBNP level was 5870 in time of admission. Objective - Vital Signs Vital signs: Vital Signs Temp 100.2 F H 09/13/21 08:00 Pulse 112 H 09/13/21 08:45 Resp 32 H 09/13/21 08:45 BP 109/59 09/13/21 08:45 Pulse Ox 95 09/13/21 08:45 Intake & Output 09/12/21 09/13/21 09/13/21 18:59 06:59 18:59 Intake Total 3090.624 1517.851 179.747 Output Total 150 550 115 Balance 2940.624 967.851 64.747 Weight 67 kg Intake: IV 2950 900 150 Piperacillin-Tazobactam 3 200 .375 gm In Sodium Chloride 0.9% 100 ml @ 25 mls/hr IVPB Q8H [facility] Rx#: [id number] Sodium Chloride 0.9% 1, 750 900 150 000 ml @ 75 mls/hr IV . [id number] [facility] Rx#:[id number] Sodium Chloride 0.9% 2, 2000 000 ml @ 999 mls/hr IV . Q2H1M [facility] Rx#:[id number] Intake, IV Titration 40.624 467.851 19.747 Amount Cisatracurium 200 mg In 50.274 Sodium Chloride 0.9% 180 ml @ 1 MCG/KG/MIN 3.78 mls/hr IV .Q24H [facility] Rx#: [id number] Dexmedetomidine/0.9% NaCl 28.934 (Pmx) 400 mcg In Empty Bag 1 bag @ 0.2 MCG/KG/HR 3.062 mls/hr IV .Q24H [facility] Rx#:[id number] Norepinephrine 32 mg In 11.690 179.752 19.747 Sodium Chloride 0.9% 218 ml @ 0.05 MCG/KG/MIN 1. 477 mls/hr IV .Q24H [facility] Rx#:[id number] propofoL 1,000 mg In 237.825 Empty Bag 1 bag @ 5 MCG/ KG/MIN 1.89 mls/hr IV . Q24H [facility] Rx#:[id number] Oral 100 Tube Feeding 90 10 Other 60 Output: Urine 150 550 115 Other: Voiding Method Indwelling Catheter Indwelling Catheter # Voids 1 ABP, PAP, CO, CI - Last Documented Arterial Blood Pressure 114/53 - Exam No acute distress, oriented 3. The patient sedated, paralyzed, intubated on a mechanical ventilator. The patient is calm and comfortable and subcostal mechanical ventilator. MHead exam was generally normal. There was no scleral icterus or corneal arcus. Mucous membranes were moist. Orogastric and orotracheal tube are both in place. HEENT examination is grossly unremarkable. Neck supple. Full range of motion. No adenopathy thyromegaly or neck vein distention. Cardiovascular examination reveals regular rhythm rate. S1-S2 normal. No S3 or S4. No discernible murmur noted. Heart sounds are distant. Lungs reveal coarse bilateral inspiratory and expiratory rhonchi, with breath sounds being equal bilaterally. No wheezes. No crackles. Patient has equal and symmetrical breath sounds bilaterally. Abdominal exam revealed normal bowel sounds. The abdomen was soft, non-tender, and without masses, organomegaly, or appreciable enlargement of the abdominal aorta. Extremities are intact. No cyanosis clubbing or edema. Examination of the skin revealed no evidence of significant rashes, suspicious appearing nevi or other concerning lesions. Neurologic examination is sedated and paralyzed - Labs CBC & Chem 7: 09/13/21 05:20 09/13/21 05:20 Labs: Abnormal Lab Results - Last 24 Hours (Table) 09/12/21 09/12/21 09/12/21 Range/Units 06:02 06:02 12:24 WBC (3.8-10.6) k/uL RBC (3.80-5.40) m/uL Plt Count (150-450) k/uL Lymphocytes # (Manual) 0.18 L (1.0-4.8) k/uL Metamyelocytes # (Man) 0.04 H (0) k/uL Myelocytes # (Manual) 0.02 H (0) k/uL ABG pH (7.35-7.45) ABG pCO2 (35-45) mmHg ABG pO2 (83-108) mmHg ABG HCO3 (21-25) mmol/L ABG Total CO2 (19-24) mmol/L ABG O2 Saturation (94-97) % Chloride (98-107) mmol/L Carbon Dioxide (22-30) mmol/L BUN (7-17) mg/dL Creatinine (0.52-1.04) mg/dL Glucose (74-99) mg/dL POC Glucose (mg/dL) 111 H (75-99) mg/dL Calcium (8.4-10.2) mg/dL Procalcitonin 12.50 H (0.02-0.09) ng/mL 09/12/21 09/12/21 09/12/21 Range/Units 13:54 15:36 15:38 WBC (3.8-10.6) k/uL RBC (3.80-5.40) m/uL Plt Count (150-450) k/uL Lymphocytes # (Manual) (1.0-4.8) k/uL Metamyelocytes # (Man) (0) k/uL Myelocytes # (Manual) (0) k/uL ABG pH 7.23 L 7.06 L* (7.35-7.45) ABG pCO2 65 H (35-45) mmHg ABG pO2 51 L* 209 H (83-108) mmHg ABG HCO3 17 L 18 L (21-25) mmol/L ABG Total CO2 18 L (19-24) mmol/L ABG O2 Saturation 80.6 L 98.9 H (94-97) % Chloride (98-107) mmol/L Carbon Dioxide (22-30) mmol/L BUN (7-17) mg/dL Creatinine (0.52-1.04) mg/dL Glucose (74-99) mg/dL POC Glucose (mg/dL) 101 H (75-99) mg/dL Calcium (8.4-10.2) mg/dL Procalcitonin (0.02-0.09) ng/mL 09/13/21 09/13/21 09/13/21 Range/Units 00:05 05:20 05:20 WBC 13.5 H (3.8-10.6) k/uL RBC 3.71 L (3.80-5.40) m/uL Plt Count 95 L (150-450) k/uL Lymphocytes # (Manual) (1.0-4.8) k/uL Metamyelocytes # (Man) (0) k/uL Myelocytes # (Manual) (0) k/uL ABG pH (7.35-7.45) ABG pCO2 (35-45) mmHg ABG pO2 (83-108) mmHg ABG HCO3 (21-25) mmol/L ABG Total CO2 (19-24) mmol/L ABG O2 Saturation (94-97) % Chloride 113 H (98-107) mmol/L Carbon Dioxide 19 L (22-30) mmol/L BUN 44 H (7-17) mg/dL Creatinine 1.66 H (0.52-1.04) mg/dL Glucose 148 H (74-99) mg/dL POC Glucose (mg/dL) 123 H (75-99) mg/dL Calcium 7.5 L (8.4-10.2) mg/dL Procalcitonin (0.02-0.09) ng/mL 09/13/21 Range/Units 05:29 WBC (3.8-10.6) k/uL RBC (3.80-5.40) m/uL Plt Count (150-450) k/uL Lymphocytes # (Manual) (1.0-4.8) k/uL Metamyelocytes # (Man) (0) k/uL Myelocytes # (Manual) (0) k/uL ABG pH 7.19 L* (7.35-7.45) ABG pCO2 50 H (35-45) mmHg ABG pO2 (83-108) mmHg ABG HCO3 19 L (21-25) mmol/L ABG Total CO2 (19-24) mmol/L ABG O2 Saturation (94-97) % Chloride (98-107) mmol/L Carbon Dioxide (22-30) mmol/L BUN (7-17) mg/dL Creatinine (0.52-1.04) mg/dL Glucose (74-99) mg/dL POC Glucose (mg/dL) (75-99) mg/dL Calcium (8.4-10.2) mg/dL Procalcitonin (0.02-0.09) ng/mL Microbiology - Last 24 Hours (Table) 09/12/21 15:30 Gram Stain - Preliminary Sputum Sputum Culture - Preliminary 09/11/21 00:44 Blood Culture - Preliminary Blood No Growth after 48 hours 09/11/21 05:00 Urine Culture - Final Urine,Voided Assessment and Plan Plan: 1 stage IV metastatic adenocarcinoma of the lung, has not received any treatment other than homeopathic/IV vitamin therapy with obvious interval progression based on a quick comparison of the CAT scans were done between 2020 and 2021. There is obvious worsening of the bilateral lung masses and the patient has deve loped extensive nodular lesions involving the entire right lung and hence masslike consolidation of the left lung base 2 acute hypoxic respiratory failure, currently intubated on mechanical ventilato r, consider simply infection/pneumonia 3 acute hypotension, consider septic shock, currently receiving IV fluids and pressors and antibiotics and the patient is currently on norepinephrine infusion running at 0.32 mg/kg/m. Note that the focused on level was also elevated 4 acute kidney injury 5 COPD 6 chronic anxiety 7 leukopenia, improved and the patient was echo is up to 13.5 8 thrombocytopenia 9 acute lactic acidosis Plan Continue ventilator support, no ventilator changes for today Give the patient 2 liters of normal saline bolus Wean off pressors if possible Continue the norepinephrine infusion Keep sedation and paralysis Continue IV Zosyn Add vancomycin Repeat pro calcitonin levels Repeat lactic acid levels Monitor fever pattern Obtain copies of the CAT scans of the chest that were done in [facility] Enteral feeding has been initiated and the patient is currently on vital high protein at the rate of 10 mL an hour Continue with the sedation and paralysis for today Awaiting follow-up blood cultures Condition is extremely critical CODE STATUS remains full. Had a lengthy discussion with the daughter and went over the details and she carries a very poor prognosis. I reviewed the CAT scan of the chest. There is obvious progression in the lung cancer with development of diffuse nodular masses throughout the right lung in addition to an extensive area of masslike consolidation of the left lower lobe. This evaluation was done and morning 30 minutes including discussion done with the family and review of the medical records and examination of the patient revealed the CAT scans of the chest that was done in various locations. Time with Patient: Greater than 30
[2021-09-13] MEDS: NOREPINEPHRINE 32 MG in SODIUM CHLORIDE 0.9% 218 ML IV SCH ×2 (16:45→18:14)
[2021-09-13 18:05] LABS: Glucose,Whole Blood 161 mg/dL (75-99)
[2021-09-13 23:43] LABS: Glucose,Whole Blood 157 mg/dL (75-99)
[2021-09-14] MEDS: INSULIN ASPART (NovoLOG) 100 UNIT/ML VIAL SQ SCH ×4 (00:11→18:07)
[2021-09-14] MEDS: SODIUM CHLORIDE 0.9% 1,000 ML IV SCH ×2 (00:11→18:11)
[2021-09-14] MEDS: CISATRACURIUM 200 MG in SODIUM CHLORIDE 0.9% 180 ML IV SCH ×2 (00:25→17:50)
[2021-09-14] MEDS: ACETAMINOPHEN TAB 325 MG TAB PO PRN ×2 (00:26→17:58)
[2021-09-14] MEDS: methylPREDNISolone SOD SUCCI 125 MG/2 ML VIAL IV SCH ×4 (00:26→17:57)
[2021-09-14] MEDS: PIPERACILLIN-TAZOBACTAM 3.375 GM in SODIUM CHLORIDE 0.9% 100 ML IVPB SCH ×3 (02:49→18:06)
[2021-09-14 04:57] LABS: Basophils # (A) 0.1 k/uL (0-0.2); Basophils % (A) 0 %; Eosinophils % (A) 0 %; HCT 35.7 % (34.0-46.0); HGB 11.4 gm/dL (11.4-16.0); Hypochromasia Moderate; Lymphocytes # (A) 1.3 k/uL (1.0-4.8); Lymphocytes % (A) 4 %; MCH 31.7 pg (25.0-35.0); MCHC 31.9 g/dL (31.0-37.0); MCV 99.5 fL (80.0-100.0); Macrocytosis Slight; Mean Platelet Volume 9.8; Monocytes # (A) 0.3 k/uL (0-1.0); Monocytes % (A) 1 %; Neutrophils # (A) 27.2 k/uL (1.3-7.7); Neutrophils % (A) 94 %; RBC 3.59 m/uL (3.80-5.40); RDW 15.2 % (11.5-15.5)
[2021-09-14 05:18] LABS: Albumin 2.3 g/dL (3.5-5.0); Calcium 7.8 mg/dL (8.4-10.2); Total Bilirubin 0.6 mg/dL (0.2-1.3); Total Protein 4.7 g/dL (6.3-8.2)
[2021-09-14 06:09] LABS: ABG Base Excess -9.6 mmol/L; ABG HCO3 18 mmol/L (21-25); ABG Oxygen Saturation 88.1 % (94-97); ABG PCO2 43 mmHg (35-45); ABG PH 7.23 (7.35-7.45); ABG TCO2 19 mmol/L (19-24)
[2021-09-14 06:18] LABS: ABG PO2 58 mmHg (83-108); Allen Test Performed? No
[2021-09-14 06:25] LABS: Platelet Count 45 k/uL (150-450)
[2021-09-14 06:42] LABS: Glucose,Whole Blood 154 mg/dL (75-99)
[2021-09-14] MEDS: NOREPINEPHRINE 32 MG in SODIUM CHLORIDE 0.9% 218 ML IV SCH (07:08)
--- NOTE | 2021-09-14 07:47 | XR ---
EXAMINATION TYPE: XR chest 1V portable DATE OF EXAM: 09/14/2021 CLINICAL HISTORY: Difficulty breathing progress study. History of lung cancer. TECHNIQUE: Single AP portable upright view of the chest is obtained. COMPARISON: Chest x-ray from one day earlier and older studies. FINDINGS: Stable endotracheal and orogastric tubes. Stable left subclavian Mediport catheter. Stable right subclavian central venous catheter. Persistent bilateral multifocal and confluent opacities greatest in the lower lungs. Cardiac silhouet te size stable and within normal limits. Osseous structures are intact. IMPRESSION: Bilateral multifocal and confluent opacities consistent with infiltrates and/or edema rem ain present. No significant change from one day earlier.
[2021-09-14] MEDS: BUDESONIDE 1 MG/2 ML NEBU INHALATION SCH ×2 (08:16→19:30)
[2021-09-14] MEDS: IPRATROPIUM-ALBUTEROL 3 ML NEB INHALATION SCH ×4 (08:16→19:29)
[2021-09-14] MEDS: FORMOTEROL FUMARATE 20 MCG/2 ML NEBU INHALATION SCH ×2 (08:16→19:44)
--- NOTE | 2021-09-14 08:35 | P.PN ---
Subjective Progress Note Date: 09/14/21 50-year-old female, well-known to me. The patient has a history of lung cancer, adenocarcinoma, diagnosed by me, in 2020. Subsequent to that, the patient saw Dr. Holder, and also sought out consultations at [facility], and [facility]. Afterwards, the patient decided to go to [facility], for homeopathic medication. This included vitamin infusions. She was there for 3 months with her daughter. While there, she developed coronavirus infection, and was quite sick. She was requiring high flow oxygen therapy. She came to our ER on September 10, complaining of increasing shortness of breath, and nonproductive cough. The patient is currently in the intensive care unit, room 256. She is currently on AIRVO, at 50 L/m with an FiO2 of 90%. She's getting saline at 75 is an hour. The patient is a DO NOT RESUSCITATE patient. She does not want intubation and mechanical ventilation. She came to the unit on September 11. She's very short of breath. I recommend BiPAP therapy with IPAP of 12, EPAP of 5, and 100%. In addition, we added duo nebs 4 times a day and when necessary, formoterol 20 g and budesonide, 1 mg, twice a day, as well as Zosyn, and IV Solu-Medrol. She did see the medical oncologist here in town, and apparently is going to start a regimen of medications, towards the end of this month, including Keytruda and Alimta. Chest x-ray and computed tomography scan shows extensive bilateral infiltrates, which have likely progressed. This could reflect either cancer, pneumonia, with sequelae of coronavirus infection or a combination of all those things. White count 0.6, hemoglobin 12.4, hematocrit 38.7, and platelet count 200,000. Sodium 1:30, potassium 4.2, chlorides 106, CO2 9, anion gap 15, BUN 37, and creatinine 2.51. Lactic acid is 6.3. Repeat is 8.1. Albumin is 2.2. Progress note dated 09/12/2021. 50-year-old female with a history of adenocarcinoma of the lung, diagnosed in 2020, by me. The patient was offered conventional therapy, who was actually seen by Dr. Holder, and sought out consultations at [facility], and [facility], among other places, and eventually traveled to [facility], for homeopathic medication including vitamin infusions. The patient was here for 3 months with her daughter. More recently, the patient was in our ER on September 10, complaining of increasing shortness of breath and nonproductive cough. She was admitted to the intensive care unit for further monitoring and management. Initially, she was on high flow oxygen, and then AIRVO. Currently, she is on BiPAP, with settings of 12/5 and 100%. The patient's getting saline at 75 mL an hour, and Precedex at 0.5 mg/kg/h. The patient is still quite tachypneic. In addition, the patient was placed on breathing treatments, corticosteroids, and antibiotics. White blood count was trending up. Kidney functions a bit improved. She was seen by medical oncology, and I appreciate their input. White count 2.2, hemoglobin 12.3, hematocrit 37.9, platelet count 108,000. Sodium 135, potassium 3.7, chlorides 110, CO2 14, anion gap 11, BUN 36, and creatinine 1.66. Will cause 131. Calcium 7.3. Cultures thus far are negative. Chest x-ray shows worsening bilateral infiltrates. The patient was initially a no code, but is reversed her decision, and now is a full code. She does understand, that the next step, would be intubation and mechanical ventilation. Finally, I get the impression that the daughter for whatever reason is unhappy with the care here and I offered her transfer to any facility that she wishes. Before leaving the room, I reconfirm the fact that the patient herself, would agree to intubation and mechanical ventilation. 09/13/2021, on seeing this patient for a follow-up. 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 She had seen the [facility] that the patient is currently being considered for immunotherapy although this has not been started yet. Meanwhile, the patient has associated also homeopathic treatment and IV vitamin infusions through a [facility] and [place], specifically in the country of [facility]. The patient this morning is intubated on a mechanical ventilator. The patient went into progressive hypoxic respiratory failure and the patient was acting septic and the patient had to be intubated for an acute hypoxic respiratory failure. The patient currently is on propofol running at 50 mg/kg/m. The patient is also paralyzed with Nimbex at 1.5 mg/kg per hour. She remains on a mechanical ventilator. She is on a assist-control mode at the rate of 32, tidal volume 400, FiO2 of 50% with a PEEP of 15. The blood gas shows a pH of 7.19 with a pCO2 of 54 and pO2 of 84. The patient is on pressors and the patient is currently on norepinephrine infusion running at 0.30 to microvascular kilogram per minute. The patient had a follow- up chest x-ray today that showed bilateral lung masses, most significant in the left lower lobe where there is significant airspace disease. ET tube is in a good location. The patient has a subclavian triple lumen catheter in place. NG tube is also in place. The Doppler of the lower extremities is been negative for DVT. Meanwhile, the patient was having fevers. The patient was neutropenic and the white cell count was as low as 0.6 and current white cell count is at 15.5. The patient also had an elevated pro-calcitonin level at 12.5 indicating underlying sepsis. Stool for C. diff has been negative and the blood cultures been negative thus far. Meanwhile, the white cell count today is at 15.4 with a hemoglobin of 11.7 and platelet count of 95. The patient's sodium level is at 138, potassium level is at 4.5, BUN is a 44 with a creatinine of 1.6 and the patient understood a component of acute kidney injury which is improving. Serum cortisol was 54. ProBNP level was 5870 in time of admission. 09/14/2021, the patient is being seen for a follow-up. As stated, the patient has metastatic stage IV adenocarcinoma of the lung. I reviewed a series of CAT scan of the chest that was provided to me. Some of these CAT scans were done in the [place] and country of [facility]. The CAT scans that were done back in May 2021, August 2021 in August 2021 were all compared and there is obvious progression in the lung cancer and extensive left lower lobe consolidation was noted earlier in addition to the multiple no other pulmonary infiltrates have been developing on the right side. Nevertheless, the decompensating factor was septic shock probably related to underlying infection. The patient presented with leukopenia, fever, hypotension, lactic acidosis, acute kidney injury and high procal level. All of the cultures are negative for now. This morning, the patient remains sedated and the patient is currently on propofol running at 50 mcg/kg per minute and the index is at a dose of 1.5 mcg/kg per minute. She is very much suggestive the mechanical ventilator patient is an assist-control mode at the rate of 32 with a tidal volume of 400 and FiO2 of 50% with a PEEP of 13. Blood gases showed a pH of 7.23 with a pCO2 of 43 and pO2 of 58. Peak airway pressures around 39-40 cm of water. Hemodynamically, the patient was given 2 L of IV fluids yesterday. She is still on norepinephrine infusion which is currently running at 0.18 microvascular kilogram per minute. Overall fluid balance is +3.9 L 4 yesterday and 2.7 L since early this morning. IV fluids are in the form of normal saline at the rate of 75 mL an hour. The white cell count today is at 29. Hemoglobin is at 11.4 and the platelet count has dropped down to 45. Meanwhile, the patient has a stable creatinine of 1.7 with a BUN of 49 and a serum bicarb of 19 with a sodium level of 141. Cultures of been all negative. I modified antibiotics and the patient is currently on a combination of Zosyn and vancomycin. The serum cortisol level was elevated and there are no signs of adrenal insufficiency at this point in time. The patient is afebrile this morning nevertheless, the patient was spiking temperature yesterday. Enteral feeding for nutritional support was initiated yesterday and the patient is currently on BiPAP and a half at the rate of 30 mL an hour. Doppler of the left lower extremity was negative for DVT. Objective - Vital Signs Vital signs: Vital Signs Temp 98.3 F 09/14/21 03:15 Pulse 104 H 09/14/21 08:25 Resp 30 H 09/14/21 07:15 BP 104/65 09/14/21 05:00 Pulse Ox 90 L 09/14/21 07:15 Intake & Output 09/13/21 09/14/21 09/14/21 18:59 06:59 18:59 Intake Total 0703.392 5742.094 168.299 Output Total 510 481 40 Balance 4262.881 9963.094 128.299 Weight 67 kg 72 kg Intake: IV 1475 1000 75 Piperacillin-Tazobactam 3 275 100 .375 gm In Sodium Chloride 0.9% 100 ml @ 25 mls/hr IVPB Q8H [facility] Rx#: [id number] Sodium Chloride 0.9% 1, 750 900 75 000 ml @ 75 mls/hr IV . [id number] [facility] Rx#:[id number] Sodium Chloride 0.9% 2, 200 000 ml @ 999 mls/hr IV . Q2H1M [facility] Rx#:[id number] Vancomycin 1,250 mg In 250 Sodium Chloride 0.9% 250 ml @ 125 mls/hr IVPB Q24HR [facility] Rx#:[id number] Intake, IV Titration 255.578 402.094 93.299 Amount Cisatracurium 200 mg In 121.433 Sodium Chloride 0.9% 180 ml @ 1 MCG/KG/MIN 3.78 mls/hr IV .Q24H [facility] Rx#: [id number] Norepinephrine 32 mg In 64.228 89.626 11.399 Sodium Chloride 0.9% 218 ml @ 0.05 MCG/KG/MIN 1. 477 mls/hr IV .Q24H [facility] Rx#:[id number] propofoL 1,000 mg In 191.35 191.035 81.9 Empty Bag 1 bag @ 5 MCG/ KG/MIN 1.89 mls/hr IV . Q24H [facility] Rx#:[id number] Tube Feeding 160 290 Other 90 60 Output: Urine 510 481 40 Other: Voiding Method Indwelling Catheter Indwelling Catheter # Bowel Movements 1 ABP, PAP, CO, CI - Last Documented Arterial Blood Pressure 141/66 - Exam No acute distress, oriented 3. The patient sedated, paralyzed, intubated on a mechanical ventilator. The patient is calm and comfortable and subcostal mechanical ventilator. MHead exam was generally normal. There was no scleral icterus or corneal arcus. Mucous membranes were moist. Orogastric and orotracheal tube are both in place. HEENT examination is grossly unremarkable. Neck supple. Full range of motion. No adenopathy thyromegaly or neck vein distention. Cardiovascular examination reveals regular rhythm rate. S1-S2 normal. No S3 or S4. No discernible murmur noted. Heart sounds are distant. Lungs reveal coarse bilateral inspiratory and expiratory rhonchi, with breath sounds being equal bilaterally. No wheezes. No crackles. Patient has equal and symmetrical breath sounds bilaterally. Abdominal exam revealed normal bowel sounds. The abdomen was soft, non-tender, and without masses, organomegaly, or appreciable enlargement of the abdominal aorta. Extremities are intact. No cyanosis clubbing or edema. Examination of the skin revealed no evidence of significant rashes, suspicious appearing nevi or other concerning lesions. Neurologic examination is sedated and paralyzed - Labs CBC & Chem 7: 09/14/21 04:25 09/14/21 04:25 Labs: Abnormal Lab Results - Last 24 Hours (Table) 09/13/21 09/13/21 09/13/21 Range/Units 05:20 05:20 10:47 WBC (3.8-10.6) k/uL RBC (3.80-5.40) m/uL Plt Count (150-450) k/uL Neutrophils # (1.3-7.7) k/uL Neutrophils # (Manual) 12.50 H (1.3-7.7) k/uL Lymphocytes # (Manual) 0.54 L (1.0-4.8) k/uL Metamyelocytes # (Man) 0.14 H (0) k/uL ABG pH (7.35-7.45) ABG pO2 (83-108) mmHg ABG HCO3 (21-25) mmol/L ABG O2 Saturation (94-97) % Chloride (98-107) mmol/L Carbon Dioxide (22-30) mmol/L BUN (7-17) mg/dL Creatinine (0.52-1.04) mg/dL Glucose (74-99) mg/dL POC Glucose (mg/dL) 158 H (75-99) mg/dL Calcium (8.4-10.2) mg/dL AST (14-36) U/L Total Protein (6.3-8.2) g/dL Albumin (3.5-5.0) g/dL Procalcitonin 8.41 H (0.02-0.09) ng/mL 09/13/21 09/13/21 09/14/21 Range/Units 18:03 23:40 04:25 WBC 29.0 H (3.8-10.6) k/uL RBC 3.59 L (3.80-5.40) m/uL Plt Count 45 L D (150-450) k/uL Neutrophils # 27.2 H (1.3-7.7) k/uL Neutrophils # (Manual) (1.3-7.7) k/uL Lymphocytes # (Manual) (1.0-4.8) k/uL Metamyelocytes # (Man) (0) k/uL ABG pH (7.35-7.45) ABG pO2 (83-108) mmHg ABG HCO3 (21-25) mmol/L ABG O2 Saturation (94-97) % Chloride (98-107) mmol/L Carbon Dioxide (22-30) mmol/L BUN (7-17) mg/dL Creatinine (0.52-1.04) mg/dL Glucose (74-99) mg/dL POC Glucose (mg/dL) 161 H 157 H (75-99) mg/dL Calcium (8.4-10.2) mg/dL AST (14-36) U/L Total Protein (6.3-8.2) g/dL Albumin (3.5-5.0) g/dL Procalcitonin (0.02-0.09) ng/mL 09/14/21 09/14/21 09/14/21 Range/Units 04:25 05:41 06:41 WBC (3.8-10.6) k/uL RBC (3.80-5.40) m/uL Plt Count (150-450) k/uL Neutrophils # (1.3-7.7) k/uL Neutrophils # (Manual) (1.3-7.7) k/uL Lymphocytes # (Manual) (1.0-4.8) k/uL Metamyelocytes # (Man) (0) k/uL ABG pH 7.23 L (7.35-7.45) ABG pO2 58 L* (83-108) mmHg ABG HCO3 18 L (21-25) mmol/L ABG O2 Saturation 88.1 L (94-97) % Chloride 117 H (98-107) mmol/L Carbon Dioxide 19 L (22-30) mmol/L BUN 49 H (7-17) mg/dL Creatinine 1.70 H (0.52-1.04) mg/dL Glucose 182 H (74-99) mg/dL POC Glucose (mg/dL) 154 H (75-99) mg/dL Calcium 7.8 L (8.4-10.2) mg/dL AST 71 H (14-36) U/L Total Protein 4.7 L (6.3-8.2) g/dL Albumin 2.3 L (3.5-5.0) g/dL Procalcitonin (0.02-0.09) ng/mL Microbiology - Last 24 Hours (Table) 09/11/21 00:44 Blood Culture - Preliminary Blood No Growth after 72 hours 09/12/21 15:30 Gram Stain - Preliminary Sputum Sputum Culture - Preliminary Assessment and Plan Plan: 1 stage IV metastatic adenocarcinoma of the lung, has not received any treatment other than homeopathic/IV vitamin therapy with obvious interval progression based on a quick comparison of the CAT scans were done between 2020 and 2021. There is obvious worsening of the bilateral lung masses and the patient has developed extensive nodular lesions involving the entire right lung and hence masslike consolidation of the left lung base. I furthermore, reviewed all of the CAT scans that was done on this patient throughout the course of her illness and there is of his progression of her underlying lung cancer. For now, the patient is septic and were dealing with a superinfection probably related to a superinfection with a pneumonia. 2 acute hypoxic respiratory failure, currently intubated on mechanical ventilator, consider simply infection/pneumonia, the patient was febrile, hy potensive, acidotic and the patient developed also an acute kidney injury and the patient is currently intubated on a mechanical ventilator, sedated and paralyzed. 3 acute hypotension, consider septic shock, currently receiving IV fluids and pressors and antibiotics and the patient is currently on norepinephrine infusion running at 0.18 mg/kg/m. Note that the focused on level was also elevated 4 acute kidney injury 5 COPD 6 chronic anxiety 7 leukopenia, improved and the patient was echo is up to 29 8 thrombocytopenia 9 acute lactic acidosis Plan Continue ventilator support, Drop the tidal volume to 375. The peak and static pressures are still elevated. Repeated blood gases at around noontime Wean off pressors if possible Continue the norepinephrine infusion Keep sedation paralytic holiday Echo Continue IV Zosyn and vancomycin Repeat pro calcitonin levels, improving Repeat lactic acid levels Monitor fever pattern Obtain copies of the CAT scans of the chest that were done in [facility] were written the patient has obvious progression of underlying anesthetic lung cancer. Enteral feeding has been initiated and the patient is currently on vital high protein at the rate of 10 mL an hour Awaiting follow-up blood cultures Condition is extremely critical CODE STATUS remains full. Had a lengthy discussion with the daughter and went over the details and she carries a very poor prognosis. I reviewed the CAT scan of the chest. Time with Patient: Greater than 30
[2021-09-14] MEDS: HEPARIN SODIUM,PORCINE/PF 5,000 UNIT/0.5 ML SYRINGE SQ SCH ×2 (09:53→20:11)
[2021-09-14] MEDS: VANCOMYCIN 1,250 MG in SODIUM CHLORIDE 0.9% 250 ML IVPB SCH (09:53)
[2021-09-14] MEDS: CHLORHEXIDINE GLUCONATE 15 ML CUP MUCOUS MEM SCH ×2 (09:53→21:35)
[2021-09-14 11:43] LABS: Glucose,Whole Blood 191 mg/dL (75-99)
[2021-09-14 11:57] LABS: INR 0.9 (<1.2); Prothrombin Time 10.2 sec (9.0-12.0)
[2021-09-14 13:56] LABS: ABG Base Excess -8.3 mmol/L; ABG HCO3 20 mmol/L (21-25); ABG Oxygen Saturation 89.9 % (94-97); ABG PCO2 53 mmHg (35-45); ABG PO2 65 mmHg (83-108); ABG TCO2 22 mmol/L (19-24)
[2021-09-14 13:58] LABS: ABG PH 7.18 (7.35-7.45); Allen Test Performed? no
[2021-09-14] MEDS ORDERED: SODIUM BICARB 8.4% 50 ML SYR (1 MEQ/ML) IV STA (14:13)
[2021-09-14 17:20] LABS: ABG Base Excess -2.4 mmol/L; ABG HCO3 24 mmol/L (21-25); ABG Oxygen Saturation 89.4 % (94-97); ABG PCO2 49 mmHg (35-45); ABG TCO2 26 mmol/L (19-24); Allen Test Performed? Yes
[2021-09-14 17:23] LABS: ABG PO2 58 mmHg (83-108)
--- NOTE | 2021-09-14 17:38 | P.PN ---
Subjective Progress Note Date: 09/14/21 Principal diagnosis: Acute hypoxic resp failure. NSCLC In f/u pt is sedated and mechanically ventilated Objective - Vital Signs Vital signs: Vital Signs Temp 98.3 F 09/14/21 03:15 Pulse 104 H 09/14/21 08:35 Resp 30 H 09/14/21 07:15 BP 104/65 09/14/21 05:00 Pulse Ox 90 L 09/14/21 07:15 Intake & Output 09/13/21 09/14/21 09/14/21 18:59 06:59 18:59 Intake Total 6755.402 8825.094 168.299 Output Total 510 481 40 Balance 7870.989 6669.094 128.299 Weight 67 kg 72 kg Intake: IV 1475 1000 75 Piperacillin-Tazobactam 3 275 100 .375 gm In Sodium Chloride 0.9% 100 ml @ 25 mls/hr IVPB Q8H [facility] Rx#: [id number] Sodium Chloride 0.9% 1, 750 900 75 000 ml @ 75 mls/hr IV . [id number] [facility] Rx#:[id number] Sodium Chloride 0.9% 2, 200 000 ml @ 999 mls/hr IV . Q2H1M [facility] Rx#:[id number] Vancomycin 1,250 mg In 250 Sodium Chloride 0.9% 250 ml @ 125 mls/hr IVPB Q24HR [facility] Rx#:[id number] Intake, IV Titration 255.578 402.094 93.299 Amount Cisatracurium 200 mg In 121.433 Sodium Chloride 0.9% 180 ml @ 1 MCG/KG/MIN 3.78 mls/hr IV .Q24H [facility] Rx#: [id number] Norepinephrine 32 mg In 64.228 89.626 11.399 Sodium Chloride 0.9% 218 ml @ 0.05 MCG/KG/MIN 1. 477 mls/hr IV .Q24H [facility] Rx#:[id number] propofoL 1,000 mg In 191.35 191.035 81.9 Empty Bag 1 bag @ 5 MCG/ KG/MIN 1.89 mls/hr IV . Q24H [facility] Rx#:[id number] Tube Feeding 160 290 Other 90 60 Output: Urine 510 481 40 Other: Voiding Method Indwelling Catheter Indwelling Catheter # Bowel Movements 1 ABP, PAP, CO, CI - Last Documented Arterial Blood Pressure 141/66 - Constitutional General appearance: Present: average body habitus - Respiratory Respiratory: bilateral: diminished - Cardiovascular Details: tachycardia - Gastrointestinal General gastrointestinal: Present: decreased bowel sounds, soft - Neurologic Neurologic: Absent: CNII-XII intact, focal deficits - Psychiatric Psychiatric: Absent: A&O x's 3, appropriate affect, intact judgment & insight - Labs CBC & Chem 7: 09/14/21 04:25 09/14/21 04:25 Labs: Abnormal Lab Results - Last 24 Hours (Table) 09/13/21 09/13/21 09/13/21 Range/Units 05:20 05:20 10:47 WBC (3.8-10.6) k/uL RBC (3.80-5.40) m/uL Plt Count (150-450) k/uL Neutrophils # (1.3-7.7) k/uL Neutrophils # (Manual) 12.50 H (1.3-7.7) k/uL Lymphocytes # (Manual) 0.54 L (1.0-4.8) k/uL Metamyelocytes # (Man) 0.14 H (0) k/uL ABG pH (7.35-7.45) ABG pO2 (83-108) mmHg ABG HCO3 (21-25) mmol/L ABG O2 Saturation (94-97) % Chloride (98-107) mmol/L Carbon Dioxide (22-30) mmol/L BUN (7-17) mg/dL Creatinine (0.52-1.04) mg/dL Glucose (74-99) mg/dL POC Glucose (mg/dL) 158 H (75-99) mg/dL Calcium (8.4-10.2) mg/dL AST (14-36) U/L Total Protein (6.3-8.2) g/dL Albumin (3.5-5.0) g/dL Procalcitonin 8.41 H (0.02-0.09) ng/mL 09/13/21 09/13/21 09/14/21 Range/Units 18:03 23:40 04:25 WBC 29.0 H (3.8-10.6) k/uL RBC 3.59 L (3.80-5.40) m/uL Plt Count 45 L D (150-450) k/uL Neutrophils # 27.2 H (1.3-7.7) k/uL Neutrophils # (Manual) (1.3-7.7) k/uL Lymphocytes # (Manual) (1.0-4.8) k/uL Metamyelocytes # (Man) (0) k/uL ABG pH (7.35-7.45) ABG pO2 (83-108) mmHg ABG HCO3 (21-25) mmol/L ABG O2 Saturation (94-97) % Chloride (98-107) mmol/L Carbon Dioxide (22-30) mmol/L BUN (7-17) mg/dL Creatinine (0.52-1.04) mg/dL Glucose (74-99) mg/dL POC Glucose (mg/dL) 161 H 157 H (75-99) mg/dL Calcium (8.4-10.2) mg/dL AST (14-36) U/L Total Protein (6.3-8.2) g/dL Albumin (3.5-5.0) g/dL Procalcitonin (0.02-0.09) ng/mL 09/14/21 09/14/21 09/14/21 Range/Units 04:25 05:41 06:41 WBC (3.8-10.6) k/uL RBC (3.80-5.40) m/uL Plt Count (150-450) k/uL Neutrophils # (1.3-7.7) k/uL Neutrophils # (Manual) (1.3-7.7) k/uL Lymphocytes # (Manual) (1.0-4.8) k/uL Metamyelocytes # (Man) (0) k/uL ABG pH 7.23 L (7.35-7.45) ABG pO2 58 L* (83-108) mmHg ABG HCO3 18 L (21-25) mmol/L ABG O2 Saturation 88.1 L (94-97) % Chloride 117 H (98-107) mmol/L Carbon Dioxide 19 L (22-30) mmol/L BUN 49 H (7-17) mg/dL Creatinine 1.70 H (0.52-1.04) mg/dL Glucose 182 H (74-99) mg/dL POC Glucose (mg/dL) 154 H (75-99) mg/dL Calcium 7.8 L (8.4-10.2) mg/dL AST 71 H (14-36) U/L Total Protein 4.7 L (6.3-8.2) g/dL Albumin 2.3 L (3.5-5.0) g/dL Procalcitonin (0.02-0.09) ng/mL Microbiology - Last 24 Hours (Table) 09/11/21 00:44 Blood Culture - Preliminary Blood No Growth after 72 hours 09/12/21 15:30 Gram Stain - Preliminary Sputum Sputum Culture - Preliminary - Imaging and Cardiology Chest x-ray: report reviewed Venous US: report reviewed Assessment and Plan (1) Hypoxia Narrative/Plan: Acute hypoxic resp failure. ICU mgmt, pt is sedated and mechanically ventilated. Current Visit: Yes Status: Acute Priority: High Code(s): R09.02 - HYPOXEMIA SNOMED Code(s): 057635225 (2) BRITNI (acute kidney injury) Narrative/Plan: BUN/Cr were WNL when seen in ofc on 09/08. Current Visit: Yes Status: Acute Priority: High Code(s): N17.9 - ACUTE KIDNEY FAILURE, UNSPECIFIED SNOMED Code(s): 50927399 (3) Adenocarcinoma of lung Narrative/Plan: Pt was seen in ofc 09/08 to discuss traditional cancer treatment options after being treated with vitamin therapy unfortunately, this was not successful. 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 Pending recuperation from resp failure to start any treatment. Reviewed Pulmonary notes. Dr. Cruz has reviewed the patient's CT [place] as well as current ones. Tt is reported that there is notable progression of disease. Current Visit: Yes Status: Acute Priority: High Code(s): C34.90 - MALIGNANT NEOPLASM OF UNSP PART OF UNSP BRONCHUS OR LUNG SNOMED Code(s): 097931397 Plan: Doppler of LLE for unilateral swelling, neg for DVT Critical-care has ordered DIC labs Will continue to follow with patient.
[2021-09-14 17:39] LABS: Glucose,Whole Blood 159 mg/dL (75-99)
--- NOTE | 2021-09-14 23:30 | P.PN ---
Subjective Progress Note Date: 09/13/21 This is a pleasant 50 years old female with past medical history of Asthma, Seizure Disorder, Supraventricular Tachycardia , thyroid goiter COPD/emphysema, nicotine dependence, also she was recently diagnosed with lung cancer last year on 04/2021 and she follows up with Dr. Bauman She presents because of dyspnea, 30 this morning she was trying to be Acute where he twisted her back after that she started having shortness of breath as she states associated with little cough and little phlegm greenish in color,, no chest pain. Also yesterday she started having diarrhea about 5 times per day and this morning she had 2 more episodes which they are loose with no blood. No abdom inal pain. No vomiting. Her speech is limited by her dyspnea She has history of smoking about 2 packs per day after she was diagnosed with cancer she smokes now occasionally about 5 cigarettes per day with no alcohol. No illicit drugs. She was diagnosed with non-small lung cancer last April 2021, she did not get chemotherapy or radiotherapy she tried holistic medicine and now she's been following up with Dr. Bauman with the plan for her to get chemotherapy may be in a month, she has a port in her left upper chest as well. Patient on admission was hypotensive with a blood pressure was low as 81/53 and hypoxic, saturating 87% and 2 L oxygen via nasal cannula and tachycardic but patient is been afebrile. She has leukopenia 1.0 and 0.6. Rest of CBC is unremarkable D-dimer is elevated 5.9 PH is low 7.3, pCO2 low 32 and pO2 low at 60. Chest x-ray: Bilateral pulmonary infiltrates CTA of the chest showing extensive left lower lobe pneumonia with patchy nodular infiltrates and they remained of the lung molina. No pulmonary embolism EKG showing sinus tachycardia at 123. Patient started on broad-spectrum antibiotics with ceftriaxone and Zithromax Pulmonary and oncology were consulted 09/12/2021 Patient remains in the ICU for bilateral basal pneumonia and COPD exacerbation in view of recent lung cancer. She still tachypneic and tachycardic and remains on BiPAP with a setting of 12/5 and FiO2 of 100%. Patient looks worse than yesterday at [place] of her to talk area Patient remains on salmeterol 60 mg Zosyn and normal saline. Creatinine is stable at 1.6, WBC increased slightly at 2.2 09/13/2021 Patient is in the MICU. Patient denies intubated and on mechanical ventilator d ue to hypoxic respiratory failure. Assist control, FiO2 50% and tidal volume 400 and PEEP of 15. Patient is sedated and paralyzed. Requiring pressor support. Currently broad-spectrum antibiotics and IV steroids. Chest x-ray showed residual but improving bilateral airspace disease. Laboratory data showed WBC 13.4 hemoglobin 11.8 and platelets 95 sodium 138 potassium 4.5 chloride 113 bicarb is 19 BUN 44 and creatinine 1.66 calcium 7.5 and procalcitonin level is 8.41 Patient does have history of metastatic lung cancer and is scheduled for immunotherapy. Current medications reviewed. Objective - Vital Signs Vital signs: Vital Signs Temp 99.0 F 09/13/21 12:00 Pulse 102 H 09/13/21 14:15 Resp 32 H 09/13/21 14:15 BP 109/59 09/13/21 08:45 Pulse Ox 95 09/13/21 14:15 Intake & Output 09/12/21 09/13/21 09/13/21 18:59 06:59 18:59 Intake Total 3090.624 5438.973 0309.757 Output Total 150 550 370 Balance 2940.624 967.851 961.757 Weight 67 kg 67 kg Intake: IV 2950 900 1075 Piperacillin-Tazobactam 3 200 175 .375 gm In Sodium Chloride 0.9% 100 ml @ 25 mls/hr IVPB Q8H [facility] Rx#: [id number] Sodium Chloride 0.9% 1, 750 900 450 000 ml @ 75 mls/hr IV . [id number] [facility] Rx#:[id number] Sodium Chloride 0.9% 2, 2000 200 000 ml @ 999 mls/hr IV . Q2H1M [facility] Rx#:[id number] Vancomycin 1,250 mg In 250 Sodium Chloride 0.9% 250 ml @ 125 mls/hr IVPB Q24HR [facility] Rx#:[id number] Intake, IV Titration 40.624 467.851 116.757 Amount Cisatracurium 200 mg In 50.274 Sodium Chloride 0.9% 180 ml @ 1 MCG/KG/MIN 3.78 mls/hr IV .Q24H [facility] Rx#: [id number] Dexmedetomidine/0.9% NaCl 28.934 (Pmx) 400 mcg In Empty Bag 1 bag @ 0.2 MCG/KG/HR 3.062 mls/hr IV .Q24H [facility] Rx#:[id number] Norepinephrine 32 mg In 11.690 179.752 25.407 Sodium Chloride 0.9% 218 ml @ 0.05 MCG/KG/MIN 1. 477 mls/hr IV .Q24H [facility] Rx#:[id number] propofoL 1,000 mg In 237.825 91.35 Empty Bag 1 bag @ 5 MCG/ KG/MIN 1.89 mls/hr IV . Q24H [facility] Rx#:[id number] Oral 100 Tube Feeding 90 80 Other 60 60 Output: Urine 150 550 370 Other: Voiding Method Indwelling Catheter Indwelling Catheter Indwelling Catheter # Voids 1 # Bowel Movements 1 ABP, PAP, CO, CI - Last Documented Arterial Blood Pressure 100/53 - Exam PHYSICAL EXAMINATION: Patient is intubated and on mechanical ventilator. Sedated... HEENT: Normocephalic. Neck is supple. Pupils reactive. Nostrils clear. Oral cavity is moist. Neck reveals no JVD, carotid bruits, or thyromegaly. CHEST EXAMINATION: Patient is intubated. Symmetrical expansion. Bibasilar di minished sounds and scattered coarse sounds.. CARDIAC: Normal S1, S2 with no gallops. No murmurs ABDOMEN: Soft. Bowel sounds present. No organomegaly. No abdominal bruits. Extremities: reveal no edema. No clubbing or cyanosis Neurologically patient is sedated and intubated. No gross focal deficits noted Skin: No rash or skin lesions. Psychiatric: Could not be assessed at this time. Musculoskeletal: No joint swelling or deformity. - Labs CBC & Chem 7: 09/15/21 06:00 09/15/21 06:00 Labs: Abnormal Lab Results - Last 24 Hours (Table) 09/12/21 09/12/21 09/12/21 Range/Units 06:02 15:36 15:38 WBC (3.8-10.6) k/uL RBC (3.80-5.40) m/uL Plt Count (150-450) k/uL Neutrophils # (Manual) (1.3-7.7) k/uL Lymphocytes # (Manual) (1.0-4.8) k/uL Metamyelocytes # (Man) (0) k/uL ABG pH 7.06 L* (7.35-7.45) ABG pCO2 65 H (35-45) mmHg ABG pO2 209 H (83-108) mmHg ABG HCO3 18 L (21-25) mmol/L ABG O2 Saturation 98.9 H (94-97) % Chloride (98-107) mmol/L Carbon Dioxide (22-30) mmol/L BUN (7-17) mg/dL Creatinine (0.52-1.04) mg/dL Glucose (74-99) mg/dL POC Glucose (mg/dL) 101 H (75-99) mg/dL Calcium (8.4-10.2) mg/dL Procalcitonin 12.50 H (0.02-0.09) ng/mL 09/13/21 09/13/21 09/13/21 Range/Units 00:05 05:20 05:20 WBC 13.5 H (3.8-10.6) k/uL RBC 3.71 L (3.80-5.40) m/uL Plt Count 95 L (150-450) k/uL Neutrophils # (Manual) 12.50 H (1.3-7.7) k/uL Lymphocytes # (Manual) 0.54 L (1.0-4.8) k/uL Metamyelocytes # (Man) 0.14 H (0) k/uL ABG pH (7.35-7.45) ABG pCO2 (35-45) mmHg ABG pO2 (83-108) mmHg ABG HCO3 (21-25) mmol/L ABG O2 Saturation (94-97) % Chloride 113 H (98-107) mmol/L Carbon Dioxide 19 L (22-30) mmol/L BUN 44 H (7-17) mg/dL Creatinine 1.66 H (0.52-1.04) mg/dL Glucose 148 H (74-99) mg/dL POC Glucose (mg/dL) 123 H (75-99) mg/dL Calcium 7.5 L (8.4-10.2) mg/dL Procalcitonin (0.02-0.09) ng/mL 09/13/21 09/13/21 Range/Units 05:29 10:47 WBC (3.8-10.6) k/uL RBC (3.80-5.40) m/uL Plt Count (150-450) k/uL Neutrophils # (Manual) (1.3-7.7) k/uL Lymphocytes # (Manual) (1.0-4.8) k/uL Metamyelocytes # (Man) (0) k/uL ABG pH 7.19 L* (7.35-7.45) ABG pCO2 50 H (35-45) mmHg ABG pO2 (83-108) mmHg ABG HCO3 19 L (21-25) mmol/L ABG O2 Saturation (94-97) % Chloride (98-107) mmol/L Carbon Dioxide (22-30) mmol/L BUN (7-17) mg/dL Creatinine (0.52-1.04) mg/dL Glucose (74-99) mg/dL POC Glucose (mg/dL) 158 H (75-99) mg/dL Calcium (8.4-10.2) mg/dL Procalcitonin (0.02-0.09) ng/mL Microbiology - Last 24 Hours (Table) 09/12/21 15:30 Gram Stain - Preliminary Sputum Sputum Culture - Preliminary 09/11/21 00:44 Blood Culture - Preliminary Blood No Growth after 48 hours 09/11/21 05:00 Urine Culture - Final Urine,Voided Assessment and Plan Assessment: Acute hypoxic respiratory failure currently on mechanical ventilator likely to bilateral pneumonia. Sepsis/septic shock requiring pressor support Acute kidney injury possible ATN due to infection. Metastatic adenocarcinoma of the lung recently diagnosed. Was planning for chemotherapy. Patient received IV vitamin therapy in [facility] COPD History of supraventricular tachycardia History of thyroid goiter Elevated D-dimer level and CT angiogram negative for PE on admission DVT prophylaxis with heparin subcu Plan: Patient is in the MICU and is mechanical ventilator. Intubated and sedated. Requiring pressor support and continue broad-spectrum antibiotics and IV steroids. Labs and medication were reviewed. Monitor lytes and vitals. DVT and GI prophylaxis DVT prophylaxis: Subcutaneous heparin GI Prophylaxis: Pepcid Prognosis is guarded.Discussed with the family at bedside in detail. Time with Patient: Greater than 30
[2021-09-14 23:54] LABS: Glucose,Whole Blood 172 mg/dL (75-99)
[2021-09-15] MEDS: methylPREDNISolone SOD SUCCI 125 MG/2 ML VIAL IV SCH ×5 (00:24→23:45)
[2021-09-15] MEDS: INSULIN ASPART (NovoLOG) 100 UNIT/ML VIAL SQ SCH ×5 (00:32→23:44)
[2021-09-15 00:33] LABS: Glucose,Whole Blood 203 mg/dL (75-99)
[2021-09-15] MEDS: ACETAMINOPHEN TAB 325 MG TAB PO PRN ×2 (01:25→08:16)
[2021-09-15] MEDS: PIPERACILLIN-TAZOBACTAM 3.375 GM in SODIUM CHLORIDE 0.9% 100 ML IVPB SCH (01:35)
[2021-09-15 05:43] LABS: Glucose,Whole Blood 216 mg/dL (75-99)
[2021-09-15 05:58] LABS: ABG Base Excess -2.6 mmol/L; ABG HCO3 24 mmol/L (21-25); ABG Oxygen Saturation 85.6 % (94-97); ABG PCO2 49 mmHg (35-45); ABG PH 7.29 (7.35-7.45); ABG TCO2 25 mmol/L (19-24); Allen Test Performed? Yes
[2021-09-15 06:00] LABS: ABG PO2 53 mmHg (83-108)
[2021-09-15 06:13] LABS: Glucose,Whole Blood 204 mg/dL (75-99)
[2021-09-15 06:31] LABS: Basophils # (A) 0.1 k/uL (0-0.2); Basophils % (A) 0 %; Eosinophils % (A) 0 %; HCT 33.7 % (34.0-46.0); Hypochromasia Moderate; Lymphocytes # (A) 0.8 k/uL (1.0-4.8); Lymphocytes % (A) 3 %; MCH 32.6 pg (25.0-35.0); MCHC 32.7 g/dL (31.0-37.0); MCV 99.5 fL (80.0-100.0); Macrocytosis Slight; Mean Platelet Volume 10.5; Monocytes # (A) 0.4 k/uL (0-1.0); Monocytes % (A) 2 %; Neutrophils # (A) 24.1 k/uL (1.3-7.7); Neutrophils % (A) 94 %; RBC 3.39 m/uL (3.80-5.40); RDW 14.9 % (11.5-15.5); WBC 25.6 k/uL (3.8-10.6)
[2021-09-15 06:35] LABS: Platelet Count 54 k/uL (150-450)
[2021-09-15] MEDS: SODIUM CHLORIDE 0.9% 1,000 ML IV SCH (06:38)
[2021-09-15 06:41] LABS: Albumin 2.3 g/dL (3.5-5.0); Calcium 8.2 mg/dL (8.4-10.2); Total Bilirubin 0.7 mg/dL (0.2-1.3); Total Protein 4.8 g/dL (6.3-8.2)
[2021-09-15] MEDS: BUDESONIDE 1 MG/2 ML NEBU INHALATION SCH ×2 (07:59→19:06)
[2021-09-15] MEDS: FORMOTEROL FUMARATE 20 MCG/2 ML NEBU INHALATION SCH ×2 (07:59→19:06)
[2021-09-15] MEDS: IPRATROPIUM-ALBUTEROL 3 ML NEB INHALATION SCH ×4 (07:59→19:06)
--- NOTE | 2021-09-15 08:08 | XR ---
EXAMINATION TYPE: XR chest 1V portable DATE OF EXAM: 09/15/2021 COMPARISON: Chest x-ray 09/12/2021 HISTORY: Intubated TECHNIQUE: Single frontal view of the chest is obtained. FINDINGS: Endotracheal tube, NG tube, right-sided PICC line are stable overlying appropriate positio ns. There is no evident pneumothorax. Bibasilar airspace disease persists. Cardiac mediastinal silhou ette is stable. Left hemidiaphragm is obscured. Left subclavian central venous catheter is again note d, distal tip overlying superior vena cava. IMPRESSION: Correlate for pneumonia, pulmonary edema, ARDS
[2021-09-15] MEDS: CHLORHEXIDINE GLUCONATE 15 ML CUP MUCOUS MEM SCH ×2 (08:16→21:23)
[2021-09-15] MEDS: VANCOMYCIN 1,250 MG in SODIUM CHLORIDE 0.9% 250 ML IVPB SCH (08:16)
[2021-09-15] MEDS ORDERED: DEXTROSE 5% IN WATER 1,000 ML IV ONE (09:27)
--- NOTE | 2021-09-15 09:29 | P.PN ---
Subjective Progress Note Date: 09/15/21 50-year-old female, well-known to me. The patient has a history of lung cancer, adenocarcinoma, diagnosed by me, in 2020. Subsequent to that, the patient saw Dr. Holder, and also sought out consultations at [facility], and [facility]. Afterwards, the patient decided to go to [facility], for homeopathic medication. This included vitamin infusions. She was there for 3 months with her daughter. While there, she developed coronavirus infection, and was quite sick. She was requiring high flow oxygen therapy. She came to our ER on September 10, complaining of increasing shortness of breath, and nonproductive cough. The patient is currently in the intensive care unit, room 256. She is currently on AIRVO, at 50 L/m with an FiO2 of 90%. She's getting saline at 75 is an hour. The patient is a DO NOT RESUSCITATE patient. She does not want intubation and mechanical ventilation. She came to the unit on September 11. She's very short of breath. I recommend BiPAP therapy with IPAP of 12, EPAP of 5, and 100%. In addition, we added duo nebs 4 times a day and when necessary, formoterol 20 g and budesonide, 1 mg, twice a day, as well as Zosyn, and IV Solu-Medrol. She did see the medical oncologist here in town, and apparently is going to start a regimen of medications, towards the end of this month, including Keytruda and Alimta. Chest x-ray and computed tomography scan shows extensive bilateral infiltrates, which have likely progressed. This could reflect either cancer, pneumonia, with sequelae of coronavirus infection or a combination of all those things. White count 0.6, hemoglobin 12.4, hematocrit 38.7, and platelet count 200,000. Sodium 1:30, potassium 4.2, chlorides 106, CO2 9, anion gap 15, BUN 37, and creatinine 2.51. Lactic acid is 6.3. Repeat is 8.1. Albumin is 2.2. Progress note dated 09/12/2021. 50-year-old female with a history of adenocarcinoma of the lung, diagnosed in 2020, by me. The patient was offered conventional therapy, who was actually seen by Dr. Holder, and sought out consultations at [facility], and [facility], among other places, and eventually traveled to [facility], for homeopathic medication including vitamin infusions. The patient was here for 3 months with her daughter. More recently, the patient was in our ER on September 10, complaining of increasing shortness of breath and nonproductive cough. She was admitted to the intensive care unit for further monitoring and management. Initially, she was on high flow oxygen, and then AIRVO. Currently, she is on BiPAP, with settings of 12/5 and 100%. The patient's getting saline at 75 mL an hour, and Precedex at 0.5 mg/kg/h. The patient is still quite tachypneic. In addition, the patient was placed on breathing treatments, corticosteroids, and antibiotics. White blood count was trending up. Kidney functions a bit improved. She was seen by medical oncology, and I appreciate their input. White count 2.2, hemoglobin 12.3, hematocrit 37.9, platelet count 108,000. Sodium 135, potassium 3.7, chlorides 110, CO2 14, anion gap 11, BUN 36, and creatinine 1.66. Will cause 131. Calcium 7.3. Cultures thus far are negative. Chest x-ray shows worsening bilateral infiltrates. The patient was initially a no code, but is reversed her decision, and now is a full code. She does understand, that the next step, would be intubation and mechanical ventilation. Finally, I get the impression that the daughter for whatever reason is unhappy with the care here and I offered her transfer to any facility that she wishes. Before leaving the room, I reconfirm the fact that the patient herself, would agree to intubation and mechanical ventilation. 09/13/2021, on seeing this patient for a follow-up. 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 She had seen the [facility] that the patient is currently being considered for immunotherapy although this has not been started yet. Meanwhile, the patient has associated also homeopathic treatment and IV vitamin infusions through a proctor and [facility], specifically in the country of [facility]. The patient this morning is intubated on a mechanical ventilator. The patient went into progressive hypoxic respiratory failure and the patient was acting septic and the patient had to be intubated for an acute hypoxic respiratory failure. The patient currently is on propofol running at 50 mg/kg/m. The patient is also paralyzed with Nimbex at 1.5 mg/kg per hour. She remains on a mechanical ventilator. She is on a assist-control mode at the rate of 32, tidal volume 400, FiO2 of 50% with a PEEP of 15. The blood gas shows a pH of 7.19 with a pCO2 of 54 and pO2 of 84. The patient is on pressors and the patient is currently on norepinephrine infusion running at 0.30 to microvascular kilogram per minute. The patient had a follow- up chest x-ray today that showed bilateral lung masses, most significant in the left lower lobe where there is significant airspace disease. ET tube is in a good location. The patient has a subclavian triple lumen catheter in place. NG tube is also in place. The Doppler of the lower extremities is been negative for DVT. Meanwhile, the patient was having fevers. The patient was neutropenic and the white cell count was as low as 0.6 and current white cell count is at 15.5. The patient also had an elevated pro-calcitonin level at 12.5 indicating underlying sepsis. Stool for C. diff has been negative and the blood cultures been negative thus far. Meanwhile, the white cell count today is at 15.4 with a hemoglobin of 11.7 and platelet count of 95. The patient's sodium level is at 138, potassium level is at 4.5, BUN is a 44 with a creatinine of 1.6 and the patient understood a component of acute kidney injury which is improving. Serum cortisol was 54. ProBNP level was 5870 in time of admission. 09/14/2021, the patient is being seen for a follow-up. As stated, the patient has metastatic stage IV adenocarcinoma of the lung. I reviewed a series of CAT scan of the chest that was provided to me. Some of these CAT scans were done in the [place] and country of [facility]. The CAT scans that were done back in May 2021, August 2021 in August 2021 were all compared and there is obvious progression in the lung cancer and extensive left lower lobe consolidation was noted earlier in addition to the multiple no other pulmonary infiltrates have been developing on the right side. Nevertheless, the decompensating factor was septic shock probably related to underlying infection. The patient presented with leukopenia, fever, hypotension, lactic acidosis, acute kidney injury and high procal level. All of the cultures are negative for now. This morning, the patient remains sedated and the patient is currently on propofol running at 50 mcg/kg per minute and the index is at a dose of 1.5 mcg/kg per minute. She is very much suggestive the mechanical ventilator patient is an assist-control mode at the rate of 32 with a tidal volume of 400 and FiO2 of 50% with a PEEP of 13. Blood gases showed a pH of 7.23 with a pCO2 of 43 and pO2 of 58. Peak airway pressures around 39-40 cm of water. Hemodynamically, the patient was given 2 L of IV fluids yesterday. She is still on norepinephrine infusion which is currently running at 0.18 microvascular kilogram per minute. Overall fluid balance is +3.9 L 4 yesterday and 2.7 L since early this morning. IV fluids are in the form of normal saline at the rate of 75 mL an hour. The white cell count today is at 29. Hemoglobin is at 11.4 and the platelet count has dropped down to 45. Meanwhile, the patient has a stable creatinine of 1.7 with a BUN of 49 and a serum bicarb of 19 with a sodium level of 141. Cultures of been all negative. I modified antibiotics and the patient is currently on a combination of Zosyn and vancomycin. The serum cortisol level was elevated and there are no signs of adrenal insufficiency at this point in time. The patient is afebrile this morning nevertheless, the patient was spiking temperature yesterday. Enteral feeding for nutritional support was initiated yesterday and the patient is currently on BiPAP and a half at the rate of 30 mL an hour. Doppler of the left lower extremity was negative for DVT. 09/15/2021, on seeing the patient for a follow-up. She remains intubated on a mechanical ventilator. Family is at the bedside. She is a metastatic adenocarcinoma of the lung was also septic, on a mechanical ventilator. This morning, the patient is on propofol running at 40 mcg/kg per minute. The patient is a bit tachypneic and she is breathing above the mechanical ventilator. Nevertheless, she is off paralytics. Meanwhile, she is an assist- control mode at the rate of 30 with a tidal volume of 375, FiO2 of 50% with a PEEP of 13. The blood gas showed a pH of 7.29 with a pCO2 of 49 and pO2 of 53. Peak airway pressures around 31. I dropped the respiratory rate down to 24. I also developed a tidal volume down to 350. Her current peak airway pressures around 27. Chest x-ray remains unchanged with extensive infiltration and masslike consolidation of the left lower lobe and nontender, infiltrates on the right consistent with metastatic adenocarcinoma. Superinfection is likely. All of the cultures are negative. The patient spiked another temperature this morning despite being on a combination of Zosyn and vancomycin. She became tachycardic along with a febrile episodes. She is receiving IV Tylenol. Monitor blood work, her sodium level is elevated at 149. Chloride is at 122. Creatinine is at 1.6 which is stable with a BUN of 56. The white cell count currently is at 25.6 which is slightly lower compared to yesterday with a stable hemoglobin of 11. The patient is receiving enteral feeding for nutritional support and she is currently on vital a half at the rate of 47 mL an hour. Family has been updated on her condition for now. Overall fluid balance over the past 24 hours has been +2.7 L 4 yesterday and another 1.8 L for today. Objective - Vital Signs Vital signs: Vital Signs Temp 103.1 F H 09/15/21 00:00 Pulse 128 H 09/15/21 08:21 Resp 34 H 09/15/21 07:00 BP 104/65 09/14/21 05:00 Pulse Ox 88 L 09/15/21 07:00 Intake & Output 09/14/21 09/15/21 09/15/21 18:59 06:59 18:59 Intake Total 8026.752 8229.000 75 Output Total 690 920 80 Balance 925.040 902.000 -5 Weight 72 kg 76.4 kg Intake: IV 825 1100 75 Piperacillin-Tazobactam 3 200 .375 gm In Sodium Chloride 0.9% 100 ml @ 25 mls/hr IVPB Q8H FRITZ Rx#: [id number] Sodium Chloride 0.9% 1, 825 900 75 000 ml @ 75 mls/hr IV . [id number] FRITZ Rx#:[id number] Intake, IV Titration 370.040 200.000 Amount Cisatracurium 200 mg In 69.584 Sodium Chloride 0.9% 180 ml @ 1 MCG/KG/MIN 3.78 mls/hr IV .Q24H [facility]Z Rx#: [id number] Norepinephrine 32 mg In 40.896 Sodium Chloride 0.9% 218 ml @ 0.05 MCG/KG/MIN 1. 477 mls/hr IV .Q24H [facility]Z Rx#:[id number] propofoL 1,000 mg In 259.560 200.000 Empty Bag 1 bag @ 5 MCG/ KG/MIN 1.89 mls/hr IV . Q24H FRITZ Rx#:[id number] Tube Feeding 330 402 Other 90 120 Output: Urine 690 920 80 Other: Voiding Method Indwelling Catheter Indwelling Catheter # Bowel Movements 1 ABP, PAP, CO, CI - Last Documented Arterial Blood Pressure 169/64 - Exam No acute distress, oriented 3. The patient sedated, paralyzed, intubated on a mechanical ventilator. The patient is calm and comfortable and patient is currently off paralytics on sedation with propofol. Off paralytics MHead exam was generally normal. There was no scleral icterus or corneal arcus. Mucous membranes were moist. Orogastric and orotracheal tube are both in place. HEENT examination is grossly unremarkable. Neck supple. Full range of motion. No adenopathy thyromegaly or neck vein distention. Cardiovascular examination reveals regular rhythm rate. S1-S2 normal. No S3 or S4. No discernible murmur noted. Heart sounds are distant. Lungs reveal coarse bilateral inspiratory and expiratory rhonchi, with breath sounds being equal bilaterally. No wheezes. No crackles. Patient has equal a nd symmetrical breath sounds bilaterally. Abdominal exam revealed normal bowel sounds. The abdomen was soft, non-tender, and without masses, organomegaly, or appreciable enlargement of the abdominal aorta. Extremities are intact. No cyanosis clubbing or edema. Examination of the skin revealed no evidence of significant rashes, suspicious appearing nevi or other concerning lesions. Neurologic examination is sedated and patient is off paralytics - Labs CBC & Chem 7: 09/15/21 06:00 09/15/21 06:00 Labs: Abnormal Lab Results - Last 24 Hours (Table) 09/14/21 09/14/21 09/14/21 Range/Units 04:25 10:32 11:41 WBC (3.8-10.6) k/uL RBC (3.80-5.40) m/uL Hgb (11.4-16.0) gm/dL Hct (34.0-46.0) % Plt Count (150-450) k/uL Neutrophils # (1.3-7.7) k/uL Lymphocytes # (1.0-4.8) k/uL D-Dimer 8.92 H (<0.60) mg/L FEU ABG pH (7.35-7.45) ABG pCO2 (35-45) mmHg ABG pO2 (83-108) mmHg ABG HCO3 (21-25) mmol/L ABG Total CO2 (19-24) mmol/L ABG O2 Saturation (94-97) % Sodium (137-145) mmol/L Potassium (3.5-5.1) mmol/L Chloride (98-107) mmol/L BUN (7-17) mg/dL Creatinine (0.52-1.04) mg/dL Glucose (74-99) mg/dL POC Glucose (mg/dL) 191 H (75-99) mg/dL Calcium (8.4-10.2) mg/dL AST (14-36) U/L Alkaline Phosphatase (38-126) U/L Total Protein (6.3-8.2) g/dL Albumin (3.5-5.0) g/dL Procalcitonin 5.33 H (0.02-0.09) ng/mL 09/14/21 09/14/21 09/14/21 Range/Units 13:54 17:14 17:37 WBC (3.8-10.6) k/uL RBC (3.80-5.40) m/uL Hgb (11.4-16.0) gm/dL Hct (34.0-46.0) % Plt Count (150-450) k/uL Neutrophils # (1.3-7.7) k/uL Lymphocytes # (1.0-4.8) k/uL D-Dimer (<0.60) mg/L FEU ABG pH 7.18 L* 7.30 L (7.35-7.45) ABG pCO2 53 H 49 H (35-45) mmHg ABG pO2 65 L 58 L* (83-108) mmHg ABG HCO3 20 L (21-25) mmol/L ABG Total CO2 26 H (19-24) mmol/L ABG O2 Saturation 89.9 L 89.4 L (94-97) % Sodium (137-145) mmol/L Potassium (3.5-5.1) mmol/L Chloride (98-107) mmol/L BUN (7-17) mg/dL Creatinine (0.52-1.04) mg/dL Glucose (74-99) mg/dL POC Glucose (mg/dL) 159 H (75-99) mg/dL Calcium (8.4-10.2) mg/dL AST (14-36) U/L Alkaline Phosphatase (38-126) U/L Total Protein (6.3-8.2) g/dL Albumin (3.5-5.0) g/dL Procalcitonin (0.02-0.09) ng/mL 09/14/21 09/15/21 09/15/21 Range/Units 23:51 00:31 05:41 WBC (3.8-10.6) k/uL RBC (3.80-5.40) m/uL Hgb (11.4-16.0) gm/dL Hct (34.0-46.0) % Plt Count (150-450) k/uL Neutrophils # (1.3-7.7) k/uL Lymphocytes # (1.0-4.8) k/uL D-Dimer (<0.60) mg/L FEU ABG pH (7.35-7.45) ABG pCO2 (35-45) mmHg ABG pO2 (83-108) mmHg ABG HCO3 (21-25) mmol/L ABG Total CO2 (19-24) mmol/L ABG O2 Saturation (94-97) % Sodium (137-145) mmol/L Potassium (3.5-5.1) mmol/L Chloride (98-107) mmol/L BUN (7-17) mg/dL Creatinine (0.52-1.04) mg/dL Glucose (74-99) mg/dL POC Glucose (mg/dL) 172 H 203 H 216 H (75-99) mg/dL Calcium (8.4-10.2) mg/dL AST (14-36) U/L Alkaline Phosphatase (38-126) U/L Total Protein (6.3-8.2) g/dL Albumin (3.5-5.0) g/dL Procalcitonin (0.02-0.09) ng/mL 09/15/21 09/15/21 09/15/21 Range/Units 05:56 06:00 06:00 WBC 25.6 H (3.8-10.6) k/uL RBC 3.39 L (3.80-5.40) m/uL Hgb 11.0 L (11.4-16.0) gm/dL Hct 33.7 L (34.0-46.0) % Plt Count 54 L (150-450) k/uL Neutrophils # 24.1 H (1.3-7.7) k/uL Lymphocytes # 0.8 L (1.0-4.8) k/uL D-Dimer (<0.60) mg/L FEU ABG pH 7.29 L (7.35-7.45) ABG pCO2 49 H (35-45) mmHg ABG pO2 53 L* (83-108) mmHg ABG HCO3 (21-25) mmol/L ABG Total CO2 25 H (19-24) mmol/L ABG O2 Saturation 85.6 L (94-97) % Sodium 149 H (137-145) mmol/L Potassium 3.0 L (3.5-5.1) mmol/L Chloride 122 H (98-107) mmol/L BUN 56 H (7-17) mg/dL Creatinine 1.61 H (0.52-1.04) mg/dL Glucose 193 H (74-99) mg/dL POC Glucose (mg/dL) (75-99) mg/dL Calcium 8.2 L (8.4-10.2) mg/dL AST 51 H (14-36) U/L Alkaline Phosphatase 128 H (38-126) U/L Total Protein 4.8 L (6.3-8.2) g/dL Albumin 2.3 L (3.5-5.0) g/dL Procalcitonin (0.02-0.09) ng/mL 09/15/21 Range/Units 06:12 WBC (3.8-10.6) k/uL RBC (3.80-5.40) m/uL Hgb (11.4-16.0) gm/dL Hct (34.0-46.0) % Plt Count (150-450) k/uL Neutrophils # (1.3-7.7) k/uL Lymphocytes # (1.0-4.8) k/uL D-Dimer (<0.60) mg/L FEU ABG pH (7.35-7.45) ABG pCO2 (35-45) mmHg ABG pO2 (83-108) mmHg ABG HCO3 (21-25) mmol/L ABG Total CO2 (19-24) mmol/L ABG O2 Saturation (94-97) % Sodium (137-145) mmol/L Potassium (3.5-5.1) mmol/L Chloride (98-107) mmol/L BUN (7-17) mg/dL Creatinine (0.52-1.04) mg/dL Glucose (74-99) mg/dL POC Glucose (mg/dL) 204 H (75-99) mg/dL Calcium (8.4-10.2) mg/dL AST (14-36) U/L Alkaline Phosphatase (38-126) U/L Total Protein (6.3-8.2) g/dL Albumin (3.5-5.0) g/dL Procalcitonin (0.02-0.09) ng/mL Microbiology - Last 24 Hours (Table) 09/11/21 00:44 Blood Culture - Preliminary Blood No Growth after 96 hours 09/12/21 15:30 Gram Stain - Final Sputum Sputum Culture - Final Assessment and Plan Plan: 1 stage IV metastatic adenocarcinoma of the lung, has not received any treatment other than homeopathic/IV vitamin therapy with obvious interval progression based on a quick comparison of the CAT scans were done between 2020 and 2021. There is obvious worsening of the bilateral lung masses and the patient has developed extensive nodular lesions involving the entire right lung and hence masslike consolidation of the left lung base. I furthermore, reviewed all of the CAT scans that was done on this patient throughout the course of her illness and there is of his progression of her underlying lung cancer. For now, the patient is septic and were dealing with a superinfection probably related to a superinfection with a pneumonia. No major change in her chest x-ray on today's evaluation. The high concern for a superinfection. The patient continues to have episodes of fever and antibiotics will be further broaden. 2 acute hypoxic respiratory failure, currently intubated on mechanical ventilator, consider simply infection/pneumonia, the patient was febrile, hypotensive, acidotic and the patient patient's fever is still active. Hypotension has recovered and the patient is currently off pressors. 3 acute hypotension, consider septic shock, currently receiving IV fluids and pressors and antibiotics and the patient is currently off pressors 4 acute kidney injury, Stable creatinine of 1.6 5 COPD 6 chronic anxiety 7 leukopenia, improved and the patient was echo is up to 25 8 thrombocytopenia, 54k 9 acute lactic acidosis, improved Plan Continue ventilator support, Drop the tidal volume to 350. , Drop RR to 24 Repeated blood gases at around noontime Keep sedation off paralytic Continue vancomycin This patient from IV Zosyn to IV Merem to give the patient adequate gram- negative and hospital-acquired coverage regarding possibility of a pneumonia Repeat pro calcitonin levels, improving Repeat lactic acid levels Monitor fever pattern Enteral feeding has been initiated and the patient is currently on vital high protein at the rate of 10 mL an hour Discontinue the normal saline infusion. The patient has been a positive fluid balance and the patient is currently off pressors. Switch this patient to D5 water at the rate of 50 mL an hour. Monitor sodium level. Gave also free water through the NG 200 mL every 4 hours. Resume Lovenox 40 mg subcu daily Awaiting follow-up blood cultures, all negative for now Condition is extremely critical CODE STATUS remains full. Had a lengthy discussion with the daughter and went over the details and she carries a very poor prognosis. I reviewed the CAT scan of the chest. Time with Patient: Greater than 30
[2021-09-15] MEDS ORDERED: SODIUM CHLORIDE 0.45% 1,000 ML IV SCH (09:30)
--- NOTE | 2021-09-15 11:10 | ECHOF ---
Referral Reason:CHF MEASUREMENTS -------- HEIGHT: 162.6 cm WEIGHT: 71.7 kg BP: IVSd: 1.1 cm (0.6 - 1.1) LVIDd: 3.5 cm (3.9 - 5.3) LVPWd: 1.1 cm (0.6 - 1.1) EDV(Teich): 51 ml IVSs: 2.3 cm LVIDs: 1.8 cm LVPWs: 1.4 cm %IVS Thck: 98 % ESV(Teich): 10 ml EF(Teich): 80 % %FS: 48 % SV(Teich): 41 ml IVC: 14.88 mm LALs A4C: 4.6 cm LAAs A4C: 11.1 cm LAESV A-L A4C: 23 ml LAESV MOD A4C: 20 ml LALs A2C: 4.3 cm LAAs A2C: 8.3 cm LAESV A-L A2C: 14 ml LAESV MOD A2C: 14 ml LAESV(A-L): 18 ml LAESV Index (A-L): 10.39 ml/m Ao Diam: 3.3 cm (2.0 - 3.7) LA Diam: 2.8 cm (2.7 - 3.8) AV Cusp: 1.8 cm (1.5 - 2.6) EPSS: 0.4 cm MV E Hubert: 1.58 m/s MV DecT: 111 ms MV Dec [place]: 14.3 m/s MV A Hubert: 1.58 m/s MV E/A Ratio: 1.00 MV PHT: 32 ms MR Vmax: 4.94 m/s MR maxP.64 mmHg AV Vmax: 1.38 m/s AV maxP.57 mmHg TR Vmax: 3.20 m/s TR maxP.91 mmHg RAP: 20.00 mmHg RVSP: 60.91 mmHg MV EF SLOPE: 81.77 mm/s (70 - 150) MV EXCURSION: 17.70 mm (> 18.000) FINDINGS -------- Resting tachycardia (HR>100bpm). Pt. on a vent. The left ventricular size is normal. There is mild concentric left ventricular hypertrophy. [facility] systolic function is normal with, an EF between 55 - 60 %. Increased LAP Grade 2 Diastolic Dysfunction. The right ventricle is normal in size. The left atrial size is normal. Normal LA size by volume 22+/-6 ml/m2. The right atrial size is normal. The aortic valve is trileaflet and appears structurally normal. The mitral valve is normal. Lkia-py-atsswiyf mitral regurgitation is present , predominately an ant eriorly directed jet. The tricuspid valve appears structurally normal. Mild tricuspid regurgitation present. There is m oderate to severe pulmonary hypertension. The right ventricular systolic pressure, as measured by D oppler, is 60.91mmHg. There is no pulmonic regurgitation present. The aortic root size is normal. The inferior vena cava is dilated with no significant inspiratory collapse which is consistent estima julián right atrial pressure of >20 mmHg. There is no pericardial effusion. CONCLUSIONS -------- 1. The left ventricular size is normal. 2. There is mild concentric left ventricular hypertrophy. 3. Overall left ventricular systolic function is normal with, an EF between 55 - 60 %. 4. Increased LAP Grade 2 Diastolic Dysfunction. 5. [id number] mitral regurgitation is present. 6. , predominately an anteriorly directed jet. 7. Mild tricuspid regurgitation present. 8. There is moderate to severe pulmonary hypertension. 9. The right ventricular systolic pressure, as measured by Doppler, is 60.91mmHg. 10. The inferior vena cava is dilated with no significant inspiratory collapse which is consistent es timated right atrial pressure of >20 mmHg. 11. There is no pericardial effusion. FURNITURE REPRODUCER: Kisha Enciso RDCS
[2021-09-15] MEDS: ENOXAPARIN 40 MG/0.4 ML SYRINGE SQ SCH (11:59)
[2021-09-15 12:16] LABS: Glucose,Whole Blood 182 mg/dL (75-99)
[2021-09-15 12:23] LABS: ABG Base Excess -4.4 mmol/L; ABG HCO3 24 mmol/L (21-25); ABG Oxygen Saturation 93.7 % (94-97); ABG PCO2 62 mmHg (35-45); ABG PO2 78 mmHg (83-108); ABG TCO2 26 mmol/L (19-24)
[2021-09-15 12:24] LABS: ABG PH 7.19 (7.35-7.45); Allen Test Performed? no
--- NOTE | 2021-09-15 12:36 | P.PN ---
Subjective Progress Note Date: 09/15/21 Principal diagnosis: Acute hypoxic resp failure. NSCLC In f/u pt is sedated and mechanically ventilated Objective - Vital Signs Vital signs: Vital Signs Temp 101.5 F H 09/15/21 10:00 Pulse 109 H 09/15/21 11:38 Resp 26 H 09/15/21 11:00 BP 104/65 09/15/21 11:00 Pulse Ox 96 09/15/21 11:00 Intake & Output 09/14/21 09/15/21 09/15/21 18:59 06:59 18:59 Intake Total 3082.738 7638.000 650 Output Total 690 920 450 Balance 925.040 902.000 200 Weight 72 kg 76.4 kg Intake: IV 825 1100 550 Piperacillin-Tazobactam 3 200 .375 gm In Sodium Chloride 0.9% 100 ml @ 25 mls/hr IVPB Q8H [facility] Rx#: [id number] Sodium Chloride 0.9% 1, 825 900 300 000 ml @ 75 mls/hr IV . [id number] [facility] Rx#:[id number] Vancomycin 1,250 mg In 250 Sodium Chloride 0.9% 250 ml @ 125 mls/hr IVPB Q24HR [facility] Rx#:[id number] Intake, IV Titration 370.040 200.000 100 Amount Cisatracurium 200 mg In 69.584 Sodium Chloride 0.9% 180 ml @ 1 MCG/KG/MIN 3.78 mls/hr IV .Q24H [facility] Rx#: [id number] Norepinephrine 32 mg In 40.896 Sodium Chloride 0.9% 218 ml @ 0.05 MCG/KG/MIN 1. 477 mls/hr IV .Q24H [facility] Rx#:[id number] propofoL 1,000 mg In 259.560 200.000 100 Empty Bag 1 bag @ 5 MCG/ KG/MIN 1.89 mls/hr IV . Q24H [facility] Rx#:[id number] Tube Feeding 330 402 Other 90 120 Output: Urine 690 920 450 Other: Voiding Method Indwelling Catheter Indwelling Catheter Indwelling Catheter # Bowel Movements 1 ABP, PAP, CO, CI - Last Documented Arterial Blood Pressure 166/63 - Constitutional General appearance: Present: average body habitus, no acute distress - Respiratory Respiratory: bilateral: diminished - Cardiovascular Details: tachycardia Abnormal Heart Sounds: Absent: systolic murmur, diastolic murmur, rub, S3 Gallop, S4 Gallop, click, other - Peripheral edema leg Peripheral Edema: bilateral: None - Gastrointestinal General gastrointestinal: Present: decreased bowel sounds, soft - Psychiatric Psychiatric: Absent: A&O x's 3, appropriate affect, intact judgment & insight - Labs CBC & Chem 7: 09/15/21 06:00 09/15/21 06:00 Labs: Abnormal Lab Results - Last 24 Hours (Table) 09/14/21 09/14/21 09/14/21 Range/Units 10:32 13:54 17:14 WBC (3.8-10.6) k/uL RBC (3.80-5.40) m/uL Hgb (11.4-16.0) gm/dL Hct (34.0-46.0) % Plt Count (150-450) k/uL Neutrophils # (1.3-7.7) k/uL Lymphocytes # (1.0-4.8) k/uL D-Dimer 8.92 H (<0.60) mg/L FEU ABG pH 7.18 L* 7.30 L (7.35-7.45) ABG pCO2 53 H 49 H (35-45) mmHg ABG pO2 65 L 58 L* (83-108) mmHg ABG HCO3 20 L (21-25) mmol/L ABG Total CO2 26 H (19-24) mmol/L ABG O2 Saturation 89.9 L 89.4 L (94-97) % Sodium (137-145) mmol/L Potassium (3.5-5.1) mmol/L Chloride (98-107) mmol/L BUN (7-17) mg/dL Creatinine (0.52-1.04) mg/dL Glucose (74-99) mg/dL POC Glucose (mg/dL) (75-99) mg/dL Calcium (8.4-10.2) mg/dL AST (14-36) U/L Alkaline Phosphatase (38-126) U/L Total Protein (6.3-8.2) g/dL Albumin (3.5-5.0) g/dL 09/14/21 09/14/21 09/15/21 Range/Units 17:37 23:51 00:31 WBC (3.8-10.6) k/uL RBC (3.80-5.40) m/uL Hgb (11.4-16.0) gm/dL Hct (34.0-46.0) % Plt Count (150-450) k/uL Neutrophils # (1.3-7.7) k/uL Lymphocytes # (1.0-4.8) k/uL D-Dimer (<0.60) mg/L FEU ABG pH (7.35-7.45) ABG pCO2 (35-45) mmHg ABG pO2 (83-108) mmHg ABG HCO3 (21-25) mmol/L ABG Total CO2 (19-24) mmol/L ABG O2 Saturation (94-97) % Sodium (137-145) mmol/L Potassium (3.5-5.1) mmol/L Chloride (98-107) mmol/L BUN (7-17) mg/dL Creatinine (0.52-1.04) mg/dL Glucose (74-99) mg/dL POC Glucose (mg/dL) 159 H 172 H 203 H (75-99) mg/dL Calcium (8.4-10.2) mg/dL AST (14-36) U/L Alkaline Phosphatase (38-126) U/L Total Protein (6.3-8.2) g/dL Albumin (3.5-5.0) g/dL 09/15/21 09/15/21 09/15/21 Range/Units 05:41 05:56 06:00 WBC 25.6 H (3.8-10.6) k/uL RBC 3.39 L (3.80-5.40) m/uL Hgb 11.0 L (11.4-16.0) gm/dL Hct 33.7 L (34.0-46.0) % Plt Count 54 L (150-450) k/uL Neutrophils # 24.1 H (1.3-7.7) k/uL Lymphocytes # 0.8 L (1.0-4.8) k/uL D-Dimer (<0.60) mg/L FEU ABG pH 7.29 L (7.35-7.45) ABG pCO2 49 H (35-45) mmHg ABG pO2 53 L* (83-108) mmHg ABG HCO3 (21-25) mmol/L ABG Total CO2 25 H (19-24) mmol/L ABG O2 Saturation 85.6 L (94-97) % Sodium (137-145) mmol/L Potassium (3.5-5.1) mmol/L Chloride (98-107) mmol/L BUN (7-17) mg/dL Creatinine (0.52-1.04) mg/dL Glucose (74-99) mg/dL POC Glucose (mg/dL) 216 H (75-99) mg/dL Calcium (8.4-10.2) mg/dL AST (14-36) U/L Alkaline Phosphatase (38-126) U/L Total Protein (6.3-8.2) g/dL Albumin (3.5-5.0) g/dL 09/15/21 09/15/21 Range/Units 06:00 06:12 WBC (3.8-10.6) k/uL RBC (3.80-5.40) m/uL Hgb (11.4-16.0) gm/dL Hct (34.0-46.0) % Plt Count (150-450) k/uL Neutrophils # (1.3-7.7) k/uL Lymphocytes # (1.0-4.8) k/uL D-Dimer (<0.60) mg/L FEU ABG pH (7.35-7.45) ABG pCO2 (35-45) mmHg ABG pO2 (83-108) mmHg ABG HCO3 (21-25) mmol/L ABG Total CO2 (19-24) mmol/L ABG O2 Saturation (94-97) % Sodium 149 H (137-145) mmol/L Potassium 3.0 L (3.5-5.1) mmol/L Chloride 122 H (98-107) mmol/L BUN 56 H (7-17) mg/dL Creatinine 1.61 H (0.52-1.04) mg/dL Glucose 193 H (74-99) mg/dL POC Glucose (mg/dL) 204 H (75-99) mg/dL Calcium 8.2 L (8.4-10.2) mg/dL AST 51 H (14-36) U/L Alkaline Phosphatase 128 H (38-126) U/L Total Protein 4.8 L (6.3-8.2) g/dL Albumin 2.3 L (3.5-5.0) g/dL Microbiology - Last 24 Hours (Table) 09/11/21 00:44 Blood Culture - Preliminary Blood No Growth after 96 hours 09/12/21 15:30 Gram Stain - Final Sputum Sputum Culture - Final Assessment and Plan (1) Hypoxia Narrative/Plan: Acute hypoxic resp failure. ICU mgmt, pt is sedated and mechanically ventilated. Infection, malignancy, scarring from covid can all be possibilities for the hypoxia and resp failure. She is being treated for infection currently and will see how pt progresses. Current Visit: Yes Status: Acute Priority: High Code(s): R09.02 - HYPOXEMIA SNOMED Code(s): 156833862 (2) BRITNI (acute kidney injury) Narrative/Plan: BUN/Cr were WNL when seen in ofc on 09/08. Improved from admit, stable today Current Visit: Yes Status: Acute Priority: High Code(s): N17.9 - ACUTE KIDNEY FAILURE, UNSPECIFIED SNOMED Code(s): 31943413 (3) Adenocarcinoma of lung Narrative/Plan: Pt was seen in ofc 09/08 to discuss treatment options. There are plans for the same once pt recovers from current acute situation. Pending recuperation from resp failure to start any treatment. Dr. Potter and Dr. Cruz reviewed case. Current Visit: Yes Status: Acute Priority: High Code(s): C34.90 - MALIGNANT NEOPLASM OF UNSP PART OF UNSP BRONCHUS OR LUNG SNOMED Code(s): 561696607 Plan: Doppler of LLE for unilateral swelling, neg for DVT Will continue to follow with patient. Attests: I have seen and examined pt, performed H&P and developed impression and plan of care. Discussed with dictator. Agree with dictation, documented as a scribe.
[2021-09-15] MEDS: MEROPENEM 2 GM in SODIUM CHLORIDE 0.9% 100 ML IVPB SCH (13:43)
[2021-09-15] MEDS ORDERED: MEROPENEM 2 GM in SODIUM CHLORIDE 0.9% 100 ML IVPB SCH (16:00)
[2021-09-15] MEDS: CISATRACURIUM 200 MG in SODIUM CHLORIDE 0.9% 180 ML IV SCH (16:21)
[2021-09-15] MEDS: LORazepam 2 MG/ML INJ IV PRN (16:33)
[2021-09-15] MEDS ORDERED: methylPREDNISolone SOD SUCCI 125 MG/2 ML VIAL IV SCH (18:00)
[2021-09-15 19:01] LABS: Glucose,Whole Blood 268 mg/dL (75-99)
[2021-09-15] MEDS: HYDROmorphone 1 MG/ML 1 ML SYRINGE IVP PRN (20:46)
--- NOTE | 2021-09-15 23:10 | P.PN ---
Subjective Progress Note Date: 09/15/21 This is a pleasant 50 years old female with past medical history of Asthma, Seizure Disorder, Supraventricular Tachycardia , thyroid goiter COPD/emphysema, nicotine dependence, also she was recently diagnosed with lung cancer last year on 04/2021 and she follows up with Dr. Bauman She presents because of dyspnea, 30 this morning she was trying to be Acute where he twisted her back after that she started having shortness of breath as she states associated with little cough and little phlegm greenish in color,, no chest pain. Also yesterday she started having diarrhea about 5 times per day and this morning she had 2 more episodes which they are loose with no blood. No abdom inal pain. No vomiting. Her speech is limited by her dyspnea She has history of smoking about 2 packs per day after she was diagnosed with cancer she smokes now occasionally about 5 cigarettes per day with no alcohol. No illicit drugs. She was diagnosed with non-small lung cancer last April 2021, she did not get chemotherapy or radiotherapy she tried holistic medicine and now she's been following up with Dr. Bauman with the plan for her to get chemotherapy may be in a month, she has a port in her left upper chest as well. Patient on admission was hypotensive with a blood pressure was low as 81/53 and hypoxic, saturating 87% and 2 L oxygen via nasal cannula and tachycardic but patient is been afebrile. She has leukopenia 1.0 and 0.6. Rest of CBC is unremarkable D-dimer is elevated 5.9 PH is low 7.3, pCO2 low 32 and pO2 low at 60. Chest x-ray: Bilateral pulmonary infiltrates CTA of the chest showing extensive left lower lobe pneumonia with patchy nodular infiltrates and they remained of the lung molina. No pulmonary embolism EKG showing sinus tachycardia at 123. Patient started on broad-spectrum antibiotics with ceftriaxone and Zithromax Pulmonary and oncology were consulted 09/12/2021 Patient remains in the ICU for bilateral basal pneumonia and COPD exacerbation in view of recent lung cancer. She still tachypneic and tachycardic and remains on BiPAP with a setting of 12/5 and FiO2 of 100%. Patient looks worse than yesterday at [place] of her to talk area Patient remains on salmeterol 60 mg Zosyn and normal saline. Creatinine is stable at 1.6, WBC increased slightly at 2.2 09/13/2021 Patient is in the MICU. Patient denies intubated and on mechanical ventilator d ue to hypoxic respiratory failure. Assist control, FiO2 50% and tidal volume 400 and PEEP of 15. Patient is sedated and paralyzed. Requiring pressor support. Currently broad-spectrum antibiotics and IV steroids. Chest x-ray showed residual but improving bilateral airspace disease. Laboratory data showed WBC 13.4 hemoglobin 11.8 and platelets 95 sodium 138 potassium 4.5 chloride 113 bicarb is 19 BUN 44 and creatinine 1.66 calcium 7.5 and procalcitonin level is 8.41 Patient does have history of metastatic lung cancer and is scheduled for immunotherapy. 09/14/2021 Patient r is currently in the MICU currently on mechanical ventilator with FiO2 50% and PEEP of 13 tidal volume 400. Requiring pressor support. Currently on antibiotics in the form of vancomycin Zosyn. Also IV steroids 60 mg every 6 hourly. Chest x-ray showed bilateral multifocal and confluent opacities consistent with infiltrates and/or edema remain present. No significant change from 1 day earlier. Laboratory data showed WBC went up to 29.0 hemoglobin 11.4 and platelets 45 BUN 49 and creatinine 1.7, procalcitonin level trending down to 5.33 09/15/2021 Patient remains on mechanical ventilator. Tidal volume decreased to 375 FiO2 50% and PEEP of 13. Pressors tapered off. Remains on antibiotics in the form of vancomycin and Zosyn. Patient is tolerating enteral feeding. 2D echocardiogram showed ejection fraction 55 to 60% there is moderate to severe pulmonary hypertension increasing grade 2 diastolic dysfunction. Chest x-ray showed correlate for pneumonia pulmonary edema or ARDS. Laboratory data showed WBC 25.6 hemoglobin 11.0 and platelets 54.0 chloride 122 bicarb is 25 BUN 56 and creatinine 1.61 blood sugar is 204 procalcitonin level trending down to 2.27. IV fluids changed to D5 water. Current medications reviewed. Objective - Vital Signs Vital signs: Vital Signs Temp 97.6 F 09/15/21 21:00 Pulse 97 09/15/21 22:00 Resp 35 H 09/15/21 22:00 BP 104/65 09/15/21 22:00 Pulse Ox 91 L 09/15/21 22:00 Intake & Output 09/15/21 09/15/21 09/16/21 06:59 18:59 06:59 Intake Total 2718.705 1399.399 480.61 Output Total 920 1210 360 Balance 902.000 502.399 120.61 Weight 76.4 kg Intake: IV 1100 550 Piperacillin-Tazobactam 3 200 .375 gm In Sodium Chloride 0.9% 100 ml @ 25 mls/hr IVPB Q8H [facility] Rx#: [id number] Sodium Chloride 0.9% 1, 900 300 000 ml @ 75 mls/hr IV . [id number] [facility] Rx#:[id number] Vancomycin 1,250 mg In 250 Sodium Chloride 0.9% 250 ml @ 125 mls/hr IVPB Q24HR [facility] Rx#:[id number] Intake, IV Titration 200.000 555.399 292.61 Amount Dextrose 5% in Water 1, 350 200 000 ml @ 50 mls/hr IV . Q20H [facility] Rx#:[id number] propofoL 1,000 mg In 200.000 205.399 92.61 Empty Bag 1 bag @ 5 MCG/ KG/MIN 1.89 mls/hr IV . Q24H [facility] Rx#:[id number] Tube Feeding 402 517 188 Other 120 90 Output: Urine 920 1210 360 Other: Voiding Method Indwelling Catheter Indwelling Catheter Indwelling Catheter # Bowel Movements 1 ABP, PAP, CO, CI - Last Documented Arterial Blood Pressure 119/50 - Exam PHYSICAL EXAMINATION: Patient is intubated and on mechanical ventilator. Sedated... HEENT: Normocephalic. Neck is supple. Pupils reactive. Nostrils clear. Oral cavity is moist. Neck reveals no JVD, carotid bruits, or thyromegaly. CHEST EXAMINATION: Patient is intubated. Symmetrical expansion. Bibasilar diminished sounds and scattered coarse sounds.. CARDIAC: Normal S1, S2 with no gallops. No murmurs ABDOMEN: Soft. Bowel sounds present. No organomegaly. No abdominal bruits. Extremities: reveal no edema. No clubbing or cyanosis Neurologically patient is sedated and intubated. No gross focal deficits noted Skin: No rash or skin lesions. Psychiatric: Could not be assessed at this time. Musculoskeletal: No joint swelling or deformity. - Labs CBC & Chem 7: 09/15/21 06:00 09/15/21 06:00 Labs: Abnormal Lab Results - Last 24 Hours (Table) 09/14/21 09/15/21 09/15/21 Range/Units 23:51 00:31 05:41 WBC (3.8-10.6) k/uL RBC (3.80-5.40) m/uL Hgb (11.4-16.0) gm/dL Hct (34.0-46.0) % Plt Count (150-450) k/uL Neutrophils # (1.3-7.7) k/uL Lymphocytes # (1.0-4.8) k/uL ABG pH (7.35-7.45) ABG pCO2 (35-45) mmHg ABG pO2 (83-108) mmHg ABG Total CO2 (19-24) mmol/L ABG O2 Saturation (94-97) % Sodium (137-145) mmol/L Potassium (3.5-5.1) mmol/L Chloride (98-107) mmol/L BUN (7-17) mg/dL Creatinine (0.52-1.04) mg/dL Glucose (74-99) mg/dL POC Glucose (mg/dL) 172 H 203 H 216 H (75-99) mg/dL Calcium (8.4-10.2) mg/dL AST (14-36) U/L Alkaline Phosphatase (38-126) U/L Total Protein (6.3-8.2) g/dL Albumin (3.5-5.0) g/dL Procalcitonin (0.02-0.09) ng/mL 09/15/21 09/15/21 09/15/21 Range/Units 05:56 06:00 06:00 WBC 25.6 H (3.8-10.6) k/uL RBC 3.39 L (3.80-5.40) m/uL Hgb 11.0 L (11.4-16.0) gm/dL Hct 33.7 L (34.0-46.0) % Plt Count 54 L (150-450) k/uL Neutrophils # 24.1 H (1.3-7.7) k/uL Lymphocytes # 0.8 L (1.0-4.8) k/uL ABG pH 7.29 L (7.35-7.45) ABG pCO2 49 H (35-45) mmHg ABG pO2 53 L* (83-108) mmHg ABG Total CO2 25 H (19-24) mmol/L ABG O2 Saturation 85.6 L (94-97) % Sodium (137-145) mmol/L Potassium (3.5-5.1) mmol/L Chloride (98-107) mmol/L BUN (7-17) mg/dL Creatinine (0.52-1.04) mg/dL Glucose (74-99) mg/dL POC Glucose (mg/dL) (75-99) mg/dL Calcium (8.4-10.2) mg/dL AST (14-36) U/L Alkaline Phosphatase (38-126) U/L Total Protein (6.3-8.2) g/dL Albumin (3.5-5.0) g/dL Procalcitonin 2.27 H (0.02-0.09) ng/mL 09/15/21 09/15/21 09/15/21 Range/Units 06:00 06:12 12:14 WBC (3.8-10.6) k/uL RBC (3.80-5.40) m/uL Hgb (11.4-16.0) gm/dL Hct (34.0-46.0) % Plt Count (150-450) k/uL Neutrophils # (1.3-7.7) k/uL Lymphocytes # (1.0-4.8) k/uL ABG pH (7.35-7.45) ABG pCO2 (35-45) mmHg ABG pO2 (83-108) mmHg ABG Total CO2 (19-24) mmol/L ABG O2 Saturation (94-97) % Sodium 149 H (137-145) mmol/L Potassium 3.0 L (3.5-5.1) mmol/L Chloride 122 H (98-107) mmol/L BUN 56 H (7-17) mg/dL Creatinine 1.61 H (0.52-1.04) mg/dL Glucose 193 H (74-99) mg/dL POC Glucose (mg/dL) 204 H 182 H (75-99) mg/dL Calcium 8.2 L (8.4-10.2) mg/dL AST 51 H (14-36) U/L Alkaline Phosphatase 128 H (38-126) U/L Total Protein 4.8 L (6.3-8.2) g/dL Albumin 2.3 L (3.5-5.0) g/dL Procalcitonin (0.02-0.09) ng/mL 09/15/21 09/15/21 Range/Units 12:21 18:59 WBC (3.8-10.6) k/uL RBC (3.80-5.40) m/uL Hgb (11.4-16.0) gm/dL Hct (34.0-46.0) % Plt Count (150-450) k/uL Neutrophils # (1.3-7.7) k/uL Lymphocytes # (1.0-4.8) k/uL ABG pH 7.19 L* (7.35-7.45) ABG pCO2 62 H (35-45) mmHg ABG pO2 78 L (83-108) mmHg ABG Total CO2 26 H (19-24) mmol/L ABG O2 Saturation 93.7 L (94-97) % Sodium (137-145) mmol/L Potassium (3.5-5.1) mmol/L Chloride (98-107) mmol/L BUN (7-17) mg/dL Creatinine (0.52-1.04) mg/dL Glucose (74-99) mg/dL POC Glucose (mg/dL) 268 H (75-99) mg/dL Calcium (8.4-10.2) mg/dL AST (14-36) U/L Alkaline Phosphatase (38-126) U/L Total Protein (6.3-8.2) g/dL Albumin (3.5-5.0) g/dL Procalcitonin (0.02-0.09) ng/mL Microbiology - Last 24 Hours (Table) 09/11/21 00:44 Blood Culture - Preliminary Blood No Growth after 96 hours Assessment and Plan Assessment: Acute hypoxic respiratory failure currently on mechanical ventilator likely to bilateral pneumonia. Sepsis/septic shock requiring pressor support Acute kidney injury possible ATN due to infection. Metastatic adenocarcinoma of the lung recently diagnosed. Was planning for chemotherapy. Patient received IV vitamin therapy in [place] COPD History of supraventricular tachycardia History of thyroid goiter Elevated D-dimer level and CT angiogram negative for PE on admission DVT prophylaxis with heparin subcu Plan: Patient is in the MICU and is mechanical ventilator. Intubated and sedated. Requiring pressor support and continue broad-spectrum antibiotics and IV steroids. Follow-up renal function. Labs and medication were reviewed. Monitor lytes and vitals. DVT and GI prophylaxis DVT prophylaxis: Subcutaneous heparin GI Prophylaxis: Pepcid Prognosis is guarded. Time with Patient: Greater than 30
--- NOTE | 2021-09-15 23:11 | P.PN ---
Subjective Progress Note Date: 09/14/21 This is a pleasant 50 years old female with past medical history of Asthma, Seizure Disorder, Supraventricular Tachycardia , thyroid goiter COPD/emphysema, nicotine dependence, also she was recently diagnosed with lung cancer last year on 04/2021 and she follows up with Dr. Bauman She presents because of dyspnea, 30 this morning she was trying to be Acute where he twisted her back after that she started having shortness of breath as she states associated with little cough and little phlegm greenish in color,, no chest pain. Also yesterday she started having diarrhea about 5 times per day and this morning she had 2 more episodes which they are loose with no blood. No abdom inal pain. No vomiting. Her speech is limited by her dyspnea She has history of smoking about 2 packs per day after she was diagnosed with cancer she smokes now occasionally about 5 cigarettes per day with no alcohol. No illicit drugs. She was diagnosed with non-small lung cancer last April 2021, she did not get chemotherapy or radiotherapy she tried holistic medicine and now she's been following up with Dr. Bauman with the plan for her to get chemotherapy may be in a month, she has a port in her left upper chest as well. Patient on admission was hypotensive with a blood pressure was low as 81/53 and hypoxic, saturating 87% and 2 L oxygen via nasal cannula and tachycardic but patient is been afebrile. She has leukopenia 1.0 and 0.6. Rest of CBC is unremarkable D-dimer is elevated 5.9 PH is low 7.3, pCO2 low 32 and pO2 low at 60. Chest x-ray: Bilateral pulmonary infiltrates CTA of the chest showing extensive left lower lobe pneumonia with patchy nodular infiltrates and they remained of the lung molina. No pulmonary embolism EKG showing sinus tachycardia at 123. Patient started on broad-spectrum antibiotics with ceftriaxone and Zithromax Pulmonary and oncology were consulted 09/12/2021 Patient remains in the ICU for bilateral basal pneumonia and COPD exacerbation in view of recent lung cancer. She still tachypneic and tachycardic and remains on BiPAP with a setting of 12/5 and FiO2 of 100%. Patient looks worse than yesterday at [place] of her to talk area Patient remains on salmeterol 60 mg Zosyn and normal saline. Creatinine is stable at 1.6, WBC increased slightly at 2.2 09/13/2021 Patient is in the MICU. Patient denies intubated and on mechanical ventilator d ue to hypoxic respiratory failure. Assist control, FiO2 50% and tidal volume 400 and PEEP of 15. Patient is sedated and paralyzed. Requiring pressor support. Currently broad-spectrum antibiotics and IV steroids. Chest x-ray showed residual but improving bilateral airspace disease. Laboratory data showed WBC 13.4 hemoglobin 11.8 and platelets 95 sodium 138 potassium 4.5 chloride 113 bicarb is 19 BUN 44 and creatinine 1.66 calcium 7.5 and procalcitonin level is 8.41 Patient does have history of metastatic lung cancer and is scheduled for immunotherapy. 09/14/2021 Patient r is currently in the MICU currently on mechanical ventilator with FiO2 50% and PEEP of 13 tidal volume 400. Requiring pressor support. Currently on antibiotics in the form of vancomycin Zosyn. Also IV steroids 60 mg every 6 hourly. Chest x-ray showed bilateral multifocal and confluent opacities consistent with infiltrates and/or edema remain present. No significant change from 1 day earlier. Laboratory data showed WBC went up to 29.0 hemoglobin 11.4 and platelets 45 BUN 49 and creatinine 1.7, procalcitonin level trending down to 5.33 09/15/2021 Patient is in MICU currently intubated and on mechanical ventilator. Currently sedated on propofol. Chest x-ray showed extensive infiltration and masslike consolidation of the left lower lobe. Infiltrates on the right consistent with metastatic adenocarcinoma. Possible bacterial superinfection. Cultures have been negative. Continued on vancomycin and Zosyn. Laboratory showed sodium 149 creatinine 1.6 and chloride 122 BUN 56. WBC 25.6 and hemoglobin 11. Patient is enteral feeding and is tolerating well. Family is at bedside. . Current medications reviewed. Objective - Vital Signs Vital signs: Vital Signs Temp 97.6 F 09/15/21 21:00 Pulse 97 09/15/21 22:00 Resp 35 H 09/15/21 22:00 BP 104/65 09/15/21 22:00 Pulse Ox 91 L 09/15/21 22:00 Intake & Output 09/15/21 09/15/21 09/16/21 06:59 18:59 06:59 Intake Total 8300.111 8014.399 577.61 Output Total 920 1210 460 Balance 902.000 502.399 117.61 Weight 76.4 kg Intake: IV 1100 550 Piperacillin-Tazobactam 3 200 .375 gm In Sodium Chloride 0.9% 100 ml @ 25 mls/hr IVPB Q8H [facility] Rx#: [id number] Sodium Chloride 0.9% 1, 900 300 000 ml @ 75 mls/hr IV . [id number] [facility] Rx#:[id number] Vancomycin 1,250 mg In 250 Sodium Chloride 0.9% 250 ml @ 125 mls/hr IVPB Q24HR [facility] Rx#:[id number] Intake, IV Titration 200.000 555.399 342.61 Amount Dextrose 5% in Water 1, 350 250 000 ml @ 50 mls/hr IV . Q20H [facility] Rx#:[id number] propofoL 1,000 mg In 200.000 205.399 92.61 Empty Bag 1 bag @ 5 MCG/ KG/MIN 1.89 mls/hr IV . Q24H [facility] Rx#:[id number] Tube Feeding 402 517 235 Other 120 90 Output: Urine 920 1210 460 Other: Voiding Method Indwelling Catheter Indwelling Catheter Indwelling Catheter # Bowel Movements 1 ABP, PAP, CO, CI - Last Documented Arterial Blood Pressure 119/50 - Exam PHYSICAL EXAMINATION: Patient is intubated and on mechanical ventilator. Sedated... HEENT: Normocephalic. Neck is supple. Pupils reactive. Nostrils clear. Oral cavity is moist. Neck reveals no JVD, carotid bruits, or thyromegaly. CHEST EXAMINATION: Patient is intubated. Symmetrical expansion. Bibasilar diminished sounds and scattered coarse sounds.. CARDIAC: Normal S1, S2 with no gallops. No murmurs ABDOMEN: Soft. Bowel sounds present. No organomegaly. No abdominal bruits. Extremities: reveal no edema. No clubbing or cyanosis Neurologically patient is sedated and intubated. No gross focal deficits noted Skin: No rash or skin lesions. Psychiatric: Could not be assessed at this time. Musculoskeletal: No joint swelling or deformity. - Labs CBC & Chem 7: 09/18/21 06:00 09/18/21 06:00 Labs: Abnormal Lab Results - Last 24 Hours (Table) 09/14/21 09/15/21 09/15/21 Range/Units 23:51 00:31 05:41 WBC (3.8-10.6) k/uL RBC (3.80-5.40) m/uL Hgb (11.4-16.0) gm/dL Hct (34.0-46.0) % Plt Count (150-450) k/uL Neutrophils # (1.3-7.7) k/uL Lymphocytes # (1.0-4.8) k/uL ABG pH (7.35-7.45) ABG pCO2 (35-45) mmHg ABG pO2 (83-108) mmHg ABG Total CO2 (19-24) mmol/L ABG O2 Saturation (94-97) % Sodium (137-145) mmol/L Potassium (3.5-5.1) mmol/L Chloride (98-107) mmol/L BUN (7-17) mg/dL Creatinine (0.52-1.04) mg/dL Glucose (74-99) mg/dL POC Glucose (mg/dL) 172 H 203 H 216 H (75-99) mg/dL Calcium (8.4-10.2) mg/dL AST (14-36) U/L Alkaline Phosphatase (38-126) U/L Total Protein (6.3-8.2) g/dL Albumin (3.5-5.0) g/dL Procalcitonin (0.02-0.09) ng/mL 09/15/21 09/15/21 09/15/21 Range/Units 05:56 06:00 06:00 WBC 25.6 H (3.8-10.6) k/uL RBC 3.39 L (3.80-5.40) m/uL Hgb 11.0 L (11.4-16.0) gm/dL Hct 33.7 L (34.0-46.0) % Plt Count 54 L (150-450) k/uL Neutrophils # 24.1 H (1.3-7.7) k/uL Lymphocytes # 0.8 L (1.0-4.8) k/uL ABG pH 7.29 L (7.35-7.45) ABG pCO2 49 H (35-45) mmHg ABG pO2 53 L* (83-108) mmHg ABG Total CO2 25 H (19-24) mmol/L ABG O2 Saturation 85.6 L (94-97) % Sodium (137-145) mmol/L Potassium (3.5-5.1) mmol/L Chloride (98-107) mmol/L BUN (7-17) mg/dL Creatinine (0.52-1.04) mg/dL Glucose (74-99) mg/dL POC Glucose (mg/dL) (75-99) mg/dL Calcium (8.4-10.2) mg/dL AST (14-36) U/L Alkaline Phosphatase (38-126) U/L Total Protein (6.3-8.2) g/dL Albumin (3.5-5.0) g/dL Procalcitonin 2.27 H (0.02-0.09) ng/mL 09/15/21 09/15/21 09/15/21 Range/Units 06:00 06:12 12:14 WBC (3.8-10.6) k/uL RBC (3.80-5.40) m/uL Hgb (11.4-16.0) gm/dL Hct (34.0-46.0) % Plt Count (150-450) k/uL Neutrophils # (1.3-7.7) k/uL Lymphocytes # (1.0-4.8) k/uL ABG pH (7.35-7.45) ABG pCO2 (35-45) mmHg ABG pO2 (83-108) mmHg ABG Total CO2 (19-24) mmol/L ABG O2 Saturation (94-97) % Sodium 149 H (137-145) mmol/L Potassium 3.0 L (3.5-5.1) mmol/L Chloride 122 H (98-107) mmol/L BUN 56 H (7-17) mg/dL Creatinine 1.61 H (0.52-1.04) mg/dL Glucose 193 H (74-99) mg/dL POC Glucose (mg/dL) 204 H 182 H (75-99) mg/dL Calcium 8.2 L (8.4-10.2) mg/dL AST 51 H (14-36) U/L Alkaline Phosphatase 128 H (38-126) U/L Total Protein 4.8 L (6.3-8.2) g/dL Albumin 2.3 L (3.5-5.0) g/dL Procalcitonin (0.02-0.09) ng/mL 09/15/21 09/15/21 Range/Units 12:21 18:59 WBC (3.8-10.6) k/uL RBC (3.80-5.40) m/uL Hgb (11.4-16.0) gm/dL Hct (34.0-46.0) % Plt Count (150-450) k/uL Neutrophils # (1.3-7.7) k/uL Lymphocytes # (1.0-4.8) k/uL ABG pH 7.19 L* (7.35-7.45) ABG pCO2 62 H (35-45) mmHg ABG pO2 78 L (83-108) mmHg ABG Total CO2 26 H (19-24) mmol/L ABG O2 Saturation 93.7 L (94-97) % Sodium (137-145) mmol/L Potassium (3.5-5.1) mmol/L Chloride (98-107) mmol/L BUN (7-17) mg/dL Creatinine (0.52-1.04) mg/dL Glucose (74-99) mg/dL POC Glucose (mg/dL) 268 H (75-99) mg/dL Calcium (8.4-10.2) mg/dL AST (14-36) U/L Alkaline Phosphatase (38-126) U/L Total Protein (6.3-8.2) g/dL Albumin (3.5-5.0) g/dL Procalcitonin (0.02-0.09) ng/mL Microbiology - Last 24 Hours (Table) 09/11/21 00:44 Blood Culture - Preliminary Blood No Growth after 96 hours Assessment and Plan Assessment: Acute hypoxic respiratory failure currently on mechanical ventilator likely to bilateral pneumonia. Sepsis/septic shock requiring pressor support Acute kidney injury possible ATN due to infection. Metastatic adenocarcinoma of the lung recently diagnosed. Was planning for chemotherapy. Patient received IV vitamin therapy in [place] COPD History of supraventricular tachycardia History of thyroid goiter Elevated D-dimer level and CT angiogram negative for PE on admission DVT prophylaxis with heparin subcu Plan: Patient is in the MICU and is mechanical ventilator. Intubated and sedated. Requiring pressor support and continue broad-spectrum antibiotics and IV steroids. Labs and medication were reviewed. Monitor lytes and vitals. DVT and GI prophylaxis DVT prophylaxis: Subcutaneous heparin GI Prophylaxis: Pepcid Prognosis is guarded Time with Patient: Greater than 30
[2021-09-15 23:34] LABS: Glucose,Whole Blood 243 mg/dL (75-99)
[2021-09-16] MEDS: CISATRACURIUM 200 MG in SODIUM CHLORIDE 0.9% 180 ML IV SCH (00:56)
[2021-09-16] MEDS: MEROPENEM 2 GM in SODIUM CHLORIDE 0.9% 100 ML IVPB SCH ×3 (01:22→23:59)
[2021-09-16] MEDS: HYDROmorphone 1 MG/ML 1 ML SYRINGE IVP PRN ×4 (02:13→20:36)
[2021-09-16 03:59] LABS: Potassium 1.9 mmol/L (3.5-5.1)
[2021-09-16] MEDS ORDERED: Potassium Replacement Protocol 1 EACH MISC MISCELLANE PRN ×2 (04:02→04:28)
[2021-09-16] MEDS: POTASSIUM CHLORIDE 20 MEQ in WATER FOR INJECTION 1 100ML.BAG IVPB SCH ×4 (04:24→10:57)
[2021-09-16] MEDS: POTASSIUM CHLORIDE ER 20 MEQ TAB.ER PO SCH ×3 (04:49→10:57)
[2021-09-16 05:00] LABS: Glucose,Whole Blood 159 mg/dL (75-99)
[2021-09-16] MEDS: methylPREDNISolone SOD SUCCI 125 MG/2 ML VIAL IV SCH (05:01)
[2021-09-16] MEDS: INSULIN ASPART (NovoLOG) 100 UNIT/ML VIAL SQ SCH ×3 (05:05→19:00)
[2021-09-16 05:37] LABS: ABG Base Excess -2.6 mmol/L; ABG HCO3 25 mmol/L (21-25); ABG Oxygen Saturation 91.6 % (94-97); ABG PCO2 64 mmHg (35-45); ABG PH 7.21 (7.35-7.45); ABG PO2 69 mmHg (83-108); ABG TCO2 27 mmol/L (19-24)
[2021-09-16 05:38] LABS: Allen Test Performed? no
[2021-09-16 05:43] LABS: Glucose,Whole Blood 156 mg/dL (75-99)
[2021-09-16 05:47] LABS: Basophils # (A) 0.1 k/uL (0-0.2); Basophils % (A) 0 %; Eosinophils % (A) 0 %; HGB 11.2 gm/dL (11.4-16.0); Hypochromasia Marked; Lymphocytes % (A) 2 %; MCH 31.6 pg (25.0-35.0); MCHC 31.9 g/dL (31.0-37.0); MCV 98.8 fL (80.0-100.0); Mean Platelet Volume 9.8; Monocytes # (A) 0.6 k/uL (0-1.0); Monocytes % (A) 2 %; Neutrophils # (A) 38.8 k/uL (1.3-7.7); Neutrophils % (A) 95 %; RBC 3.54 m/uL (3.80-5.40); RDW 14.9 % (11.5-15.5); WBC 40.9 k/uL (3.8-10.6)
[2021-09-16 05:50] LABS: Platelet Count 95 k/uL (150-450)
[2021-09-16 06:06] LABS: Albumin 2.4 g/dL (3.5-5.0); Calcium 8.5 mg/dL (8.4-10.2); Potassium 2.9 mmol/L (3.5-5.1); Total Bilirubin 0.6 mg/dL (0.2-1.3); Total Protein 4.9 g/dL (6.3-8.2)
--- NOTE | 2021-09-16 07:25 | XR ---
EXAMINATION TYPE: XR chest 1V portable DATE OF EXAM: 09/16/2021 CLINICAL HISTORY: Difficulty breathing progress study. TECHNIQUE: Single AP portable semiupright view of the chest is obtained. COMPARISON: Chest x-ray from one day earlier and older studies FINDINGS: Stable endotracheal and orogastric tubes. Stable left subclavian Mediport catheter. Stable right subclavian central venous catheter. Persistent bilateral multifocal and confluent opacities greatest in the left lower lung. Cannot exclu de small left pleural effusion. Cardiac silhouette size stable and within normal limits. Osseous stru ctures are intact. IMPRESSION: Bilateral multifocal and confluent opacities consistent with infiltrates and/or edema rem ain present. No significant change from one day earlier.
[2021-09-16] MEDS: IPRATROPIUM-ALBUTEROL 3 ML NEB INHALATION SCH ×4 (07:31→20:35)
[2021-09-16] MEDS: BUDESONIDE 1 MG/2 ML NEBU INHALATION SCH ×2 (07:31→20:35)
[2021-09-16] MEDS: FORMOTEROL FUMARATE 20 MCG/2 ML NEBU INHALATION SCH ×2 (07:31→20:35)
[2021-09-16] MEDS ORDERED: VANCOMYCIN TROUGH DUE 1 EACH MISC MISCELLANE ONE (08:00)
[2021-09-16] MEDS: CHLORHEXIDINE GLUCONATE 15 ML CUP MUCOUS MEM SCH ×2 (08:38→20:30)
[2021-09-16] MEDS: ENOXAPARIN 40 MG/0.4 ML SYRINGE SQ SCH (08:38)
[2021-09-16] MEDS: ACETAMINOPHEN TAB 325 MG TAB PO PRN (08:39)
[2021-09-16] MEDS: VANCOMYCIN 1,500 MG in SODIUM CHLORIDE 0.9% 250 ML IVPB SCH (10:56)
[2021-09-16] MEDS: DEXTROSE 5% IN WATER 1,000 ML IV SCH (10:57)
[2021-09-16 11:26] LABS: Glucose,Whole Blood 231 mg/dL (75-99)
--- NOTE | 2021-09-16 13:45 | P.PN ---
Subjective Progress Note Date: 09/16/21 50-year-old female, well-known to me. The patient has a history of lung cancer, adenocarcinoma, diagnosed by me, in 2020. Subsequent to that, the patient saw Dr. Holder, and also sought out consultations at [facility], and [facility]. Afterwards, the patient decided to go to [facility], for homeopathic medication. This included vitamin infusions. She was there for 3 months with her daughter. While there, she developed coronavirus infection, and was quite sick. She was requiring high flow oxygen therapy. She came to our ER on September 10, complaining of increasing shortness of breath, and nonproductive cough. The patient is currently in the intensive care unit, room 256. She is currently on AIRVO, at 50 L/m with an FiO2 of 90%. She's getting saline at 75 is an hour. The patient is a DO NOT RESUSCITATE patient. She does not want intubation and mechanical ventilation. She came to the unit on September 11. She's very short of breath. I recommend BiPAP therapy with IPAP of 12, EPAP of 5, and 100%. In addition, we added duo nebs 4 times a day and when necessary, formoterol 20 g and budesonide, 1 mg, twice a day, as well as Zosyn, and IV Solu-Medrol. She did see the medical oncologist here in town, and apparently is going to start a regimen of medications, towards the end of this month, including Keytruda and Alimta. Chest x-ray and computed tomography scan shows extensive bilateral infiltrates, which have likely progressed. This could reflect either cancer, pneumonia, with sequelae of coronavirus infection or a combination of all those things. White count 0.6, hemoglobin 12.4, hematocrit 38.7, and platelet count 200,000. Sodium 1:30, potassium 4.2, chlorides 106, CO2 9, anion gap 15, BUN 37, and creatinine 2.51. Lactic acid is 6.3. Repeat is 8.1. Albumin is 2.2. Progress note dated 09/12/2021. 50-year-old female with a history of adenocarcinoma of the lung, diagnosed in 2020, by me. The patient was offered conventional therapy, who was actually seen by Dr. Holder, and sought out consultations at [facility], and [facility], among other places, and eventually traveled to [facility], for homeopathic medication including vitamin infusions. The patient was here for 3 months with her daughter. More recently, the patient was in our ER on September 10, complaining of increasing shortness of breath and nonproductive cough. She was admitted to the intensive care unit for further monitoring and management. Initially, she was on high flow oxygen, and then AIRVO. Currently, she is on BiPAP, with settings of 12/5 and 100%. The patient's getting saline at 75 mL an hour, and Precedex at 0.5 mg/kg/h. The patient is still quite tachypneic. In addition, the patient was placed on breathing treatments, corticosteroids, and antibiotics. White blood count was trending up. Kidney functions a bit improved. She was seen by medical oncology, and I appreciate their input. White count 2.2, hemoglobin 12.3, hematocrit 37.9, platelet count 108,000. Sodium 135, potassium 3.7, chlorides 110, CO2 14, anion gap 11, BUN 36, and creatinine 1.66. Will cause 131. Calcium 7.3. Cultures thus far are negative. Chest x-ray shows worsening bilateral infiltrates. The patient was initially a no code, but is reversed her decision, and now is a full code. She does understand, that the next step, would be intubation and mechanical ventilation. Finally, I get the impression that the daughter for whatever reason is unhappy with the care here and I offered her transfer to any facility that she wishes. Before leaving the room, I reconfirm the fact that the patient herself, would agree to intubation and mechanical ventilation. 09/13/2021, on seeing this patient for a follow-up. 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 She had seen the [facility] that the patient is currently being considered for immunotherapy although this has not been started yet. Meanwhile, the patient has associated also homeopathic treatment and IV vitamin infusions through [facility] and [place], specifically in the country of [facility]. The patient this morning is intubated on a mechanical ventilator. The patient went into progressive hypoxic respiratory failure and the patient was acting septic and the patient had to be intubated for an acute hypoxic respiratory failure. The patient currently is on propofol running at 50 mg/kg/m. The patient is also paralyzed with Nimbex at 1.5 mg/kg per hour. She remains on a mechanical ventilator. She is on a assist-control mode at the rate of 32, tidal volume 400, FiO2 of 50% with a PEEP of 15. The blood gas shows a pH of 7.19 with a pCO2 of 54 and pO2 of 84. The patient is on pressors and the patient is currently on norepinephrine infusion running at 0.30 to microvascular kilogram per minute. The patient had a follow- up chest x-ray today that showed bilateral lung masses, most significant in the left lower lobe where there is significant airspace disease. ET tube is in a good location. The patient has a subclavian triple lumen catheter in place. NG tube is also in place. The Doppler of the lower extremities is been negative for DVT. Meanwhile, the patient was having fevers. The patient was neutropenic and the white cell count was as low as 0.6 and current white cell count is at 15.5. The patient also had an elevated pro-calcitonin level at 12.5 indicating underlying sepsis. Stool for C. diff has been negative and the blood cultures been negative thus far. Meanwhile, the white cell count today is at 15.4 with a hemoglobin of 11.7 and platelet count of 95. The patient's sodium level is at 138, potassium level is at 4.5, BUN is a 44 with a creatinine of 1.6 and the patient understood a component of acute kidney injury which is improving. Serum cortisol was 54. ProBNP level was 5870 in time of admission. 09/14/2021, the patient is being seen for a follow-up. As stated, the patient has metastatic stage IV adenocarcinoma of the lung. I reviewed a series of CAT scan of the chest that was provided to me. Some of these CAT scans were done in the [place] and country of [facility]. The CAT scans that were done back in May 2021, August 2021 in August 2021 were all compared and there is obvious progression in the lung cancer and extensive left lower lobe consolidation was noted earlier in addition to the multiple no other pulmonary infiltrates have been developing on the right side. Nevertheless, the decompensating factor was septic shock probably related to underlying infection. The patient presented with leukopenia, fever, hypotension, lactic acidosis, acute kidney injury and high procal level. All of the cultures are negative for now. This morning, the patient remains sedated and the patient is currently on propofol running at 50 mcg/kg per minute and the index is at a dose of 1.5 mcg/kg per minute. She is very much suggestive the mechanical ventilator patient is an assist-control mode at the rate of 32 with a tidal volume of 400 and FiO2 of 50% with a PEEP of 13. Blood gases showed a pH of 7.23 with a pCO2 of 43 and pO2 of 58. Peak airway pressures around 39-40 cm of water. Hemodynamically, the patient was given 2 L of IV fluids yesterday. She is still on norepinephrine infusion which is currently running at 0.18 microvascular kilogram per minute. Overall fluid balance is +3.9 L 4 yesterday and 2.7 L since early this morning. IV fluids are in the form of normal saline at the rate of 75 mL an hour. The white cell count today is at 29. Hemoglobin is at 11.4 and the platelet count has dropped down to 45. Meanwhile, the patient has a stable creatinine of 1.7 with a BUN of 49 and a serum bicarb of 19 with a sodium level of 141. Cultures of been all negative. I modified antibiotics and the patient is currently on a combination of Zosyn and vancomycin. The serum cortisol level was elevated and there are no signs of adrenal insufficiency at this point in time. The patient is afebrile this morning nevertheless, the patient was spiking temperature yesterday. Enteral feeding for nutritional support was initiated yesterday and the patient is currently on BiPAP and a half at the rate of 30 mL an hour. Doppler of the left lower extremity was negative for DVT. 09/15/2021, on seeing the patient for a follow-up. She remains intubated on a mechanical ventilator. Family is at the bedside. She is a metastatic adenocarcinoma of the lung was also septic, on a mechanical ventilator. This morning, the patient is on propofol running at 40 mcg/kg per minute. The patient is a bit tachypneic and she is breathing above the mechanical ventilator. Nevertheless, she is off paralytics. Meanwhile, she is an assist- control mode at the rate of 30 with a tidal volume of 375, FiO2 of 50% with a PEEP of 13. The blood gas showed a pH of 7.29 with a pCO2 of 49 and pO2 of 53. Peak airway pressures around 31. I dropped the respiratory rate down to 24. I also developed a tidal volume down to 350. Her current peak airway pressures around 27. Chest x-ray remains unchanged with extensive infiltration and masslike consolidation of the left lower lobe and nontender, infiltrates on the right consistent with metastatic adenocarcinoma. Superinfection is likely. All of the cultures are negative. The patient spiked another temperature this morning despite being on a combination of Zosyn and vancomycin. She became tachycardic along with a febrile episodes. She is receiving IV Tylenol. Monitor blood work, her sodium level is elevated at 149. Chloride is at 122. Creatinine is at 1.6 which is stable with a BUN of 56. The white cell count currently is at 25.6 which is slightly lower compared to yesterday with a stable hemoglobin of 11. The patient is receiving enteral feeding for nutritional support and she is currently on vital a half at the rate of 47 mL an hour. Family has been updated on her condition for now. Overall fluid balance over the past 24 hours has been +2.7 L 4 yesterday and another 1.8 L for today. 09/16/2021, I'm seeing this patient for a follow-up. Since yesterday, the patient had some sedation. The patient remains on a higher dose of propofol which is running at 50 mcg/kg per minute and the patient is also receiving IV Ativan and IV Dilaudid on an as-needed basis. Overnight, the patient to be also paralyzed the patient is currently on the maximum micrograms per kilogram per minute. She is quite impressive mechanical ventilator. She remains essentially the same ventilator settings. She is an assist-control of 30, tidal volume 350, FiO2 of 70% with a PEEP of 13. Peak air pressures around 29. The patient has a blood gas that showed a pH of 7.21 with a pCO2 of 64 and pO2 of 69. Chest x-ray showing extensive consolidation of the left. There is also noted infiltration of the right. This is consistent with underlying metastatic lung cancer. Nevertheless, the significant opacification and the density seen earlier on the earlier chest x-rays improved and I strongly suspected superimposed pneumonia. Noted the patient had fever, hypotensive on level, leukopenia subsequent leukocytosis and the patient was in shock and sepsis. Note that, the patient was covered with broad-spectrum antibiotics. I covered the patient with a combination of meropenem and vancomycin. The pro-calcitonin level has been improving. The patient is more hemodynamically stable and the pressors have been discontinued. Meanwhile, the patient also developed an acute kidney injury which improved her creatinine is essentially normalized and the creatinine is at 1.1. The serum bicarb is 27. Potassium level is at 2.9, being replaced. The patient also had a component of hyperchloremic hypernatremia. She was started on 50 water supplements double-J. She was also started on D5 water and the repeat sodium level today is at 147. White cell count is at 40.9 with a hemoglobin of 11.2. Receiving enteral feeding for nutritional support and the patient is currently on vitamin AF. She is stooling. In fact she has had several bowel movements, somewhat liquidy and will check also stool for C. diff. Objective - Vital Signs Vital signs: Vital Signs Temp 98.2 F 09/16/21 11:00 Pulse 93 09/16/21 12:00 Resp 30 H 09/16/21 12:00 BP 104/65 09/16/21 12:00 Pulse Ox 94 L 09/16/21 12:00 Intake & Output 09/15/21 09/16/21 09/16/21 18:59 06:59 18:59 Intake Total 3650.903 2453.177 1786.820 Output Total 1210 800 310 Balance 502.399 970.246 2587.820 Weight 78 kg Intake: IV 550 250 Sodium Chloride 0.9% 1, 300 000 ml @ 75 mls/hr IV . [id number] [facility] Rx#:[id number] Vancomycin 1,250 mg In 250 250 Sodium Chloride 0.9% 250 ml @ 125 mls/hr IVPB Q24HR [facility] Rx#:[id number] Intake, IV Titration 555.399 860.177 856.820 Amount Cisatracurium 200 mg In 0 8.067 Sodium Chloride 0.9% 180 ml @ 1 MCG/KG/MIN 3.78 mls/hr IV .Q24H [facility] Rx#: [id number] Dextrose 5% in Water 1, 350 600 50 000 ml @ 50 mls/hr IV . Q20H [facility] Rx#:[id number] Dextrose 5% in Water 1, 300 000 ml @ 75 mls/hr IV . [id number] [facility] Rx#:[id number] Norepinephrine 32 mg In 0 Sodium Chloride 0.9% 218 ml @ 0.05 MCG/KG/MIN 1. 477 mls/hr IV .Q24H [facility] Rx#:[id number] Potassium Chloride 20 meq 300 In Water For Injection 1 100ml.bag @ 50 mls/hr IVPB Q2HR [facility] Rx#: [id number] propofoL 1,000 mg In 205.399 260.177 198.753 Empty Bag 1 bag @ 5 MCG/ KG/MIN 1.89 mls/hr IV . Q24H [facility] Rx#:[id number] Tube Feeding 517 564 280 Other 90 200 400 Output: Urine 1210 800 310 Other: Voiding Method Indwelling Catheter Indwelling Catheter Indwelling Catheter ABP, PAP, CO, CI - Last Documented Arterial Blood Pressure 94/55 - Exam No acute distress, oriented 3. The patient sedated, paralyzed, intubated on a mechanical ventilator. The patient is calm and comfortable and patient is currently off paralytics on sedation with propofol. The patient is sedated and paralyzed MHead exam was generally normal. There was no scleral icterus or corneal arcus. Mucous membranes were moist. Orogastric and orotracheal tube are both in place. HEENT examination is grossly unremarkable. Neck supple. Full range of motion. No adenopathy thyromegaly or neck vein distention. Cardiovascular examination reveals regular rhythm rate. S1-S2 normal. No S3 or S4. No discernible murmur noted. Heart sounds are distant. Lungs reveal coarse bilateral inspiratory and expiratory rhonchi, with breath sounds being equal bilaterally. No wheezes. No crackles. Patient has equal and symmetrical breath sounds bilaterally. Abdominal exam revealed normal bowel sounds. The abdomen was soft, non-tender, and without masses, organomegaly, or appreciable enlargement of the abdominal aorta. Extremities are intact. No cyanosis clubbing or edema. Examination of the skin revealed no evidence of significant rashes, suspicious appearing nevi or other concerning lesions. Neurologic examination is sedated and patient is sedated and paralyzed - Labs CBC & Chem 7: 09/16/21 05:37 09/16/21 05:37 Labs: Abnormal Lab Results - Last 24 Hours (Table) 09/15/21 09/15/21 09/16/21 Range/Units 18:59 23:32 02:41 WBC (3.8-10.6) k/uL RBC (3.80-5.40) m/uL Hgb (11.4-16.0) gm/dL Plt Count (150-450) k/uL Neutrophils # (1.3-7.7) k/uL ABG pH (7.35-7.45) ABG pCO2 (35-45) mmHg ABG pO2 (83-108) mmHg ABG Total CO2 (19-24) mmol/L ABG O2 Saturation (94-97) % Sodium 148 H (137-145) mmol/L Potassium 1.9 L* (3.5-5.1) mmol/L Chloride 119 H (98-107) mmol/L BUN (7-17) mg/dL Creatinine (0.52-1.04) mg/dL Glucose (74-99) mg/dL POC Glucose (mg/dL) 268 H 243 H (75-99) mg/dL Total Protein (6.3-8.2) g/dL Albumin (3.5-5.0) g/dL Procalcitonin (0.02-0.09) ng/mL 09/16/21 09/16/21 09/16/21 Range/Units 04:58 05:32 05:37 WBC (3.8-10.6) k/uL RBC (3.80-5.40) m/uL Hgb (11.4-16.0) gm/dL Plt Count (150-450) k/uL Neutrophils # (1.3-7.7) k/uL ABG pH 7.21 L (7.35-7.45) ABG pCO2 64 H (35-45) mmHg ABG pO2 69 L (83-108) mmHg ABG Total CO2 27 H (19-24) mmol/L ABG O2 Saturation 91.6 L (94-97) % Sodium (137-145) mmol/L Potassium (3.5-5.1) mmol/L Chloride (98-107) mmol/L BUN (7-17) mg/dL Creatinine (0.52-1.04) mg/dL Glucose (74-99) mg/dL POC Glucose (mg/dL) 159 H (75-99) mg/dL Total Protein (6.3-8.2) g/dL Albumin (3.5-5.0) g/dL Procalcitonin 1.57 H (0.02-0.09) ng/mL 09/16/21 09/16/21 09/16/21 Range/Units 05:37 05:37 05:42 WBC 40.9 H (3.8-10.6) k/uL RBC 3.54 L (3.80-5.40) m/uL Hgb 11.2 L (11.4-16.0) gm/dL Plt Count 95 L D (150-450) k/uL Neutrophils # 38.8 H (1.3-7.7) k/uL ABG pH (7.35-7.45) ABG pCO2 (35-45) mmHg ABG pO2 (83-108) mmHg ABG Total CO2 (19-24) mmol/L ABG O2 Saturation (94-97) % Sodium 147 H (137-145) mmol/L Potassium 2.9 L (3.5-5.1) mmol/L Chloride 118 H (98-107) mmol/L BUN 57 H (7-17) mg/dL Creatinine 1.19 H (0.52-1.04) mg/dL Glucose 157 H (74-99) mg/dL POC Glucose (mg/dL) 156 H (75-99) mg/dL Total Protein 4.9 L (6.3-8.2) g/dL Albumin 2.4 L (3.5-5.0) g/dL Procalcitonin (0.02-0.09) ng/mL 09/16/21 Range/Units 11:24 WBC (3.8-10.6) k/uL RBC (3.80-5.40) m/uL Hgb (11.4-16.0) gm/dL Plt Count (150-450) k/uL Neutrophils # (1.3-7.7) k/uL ABG pH (7.35-7.45) ABG pCO2 (35-45) mmHg ABG pO2 (83-108) mmHg ABG Total CO2 (19-24) mmol/L ABG O2 Saturation (94-97) % Sodium (137-145) mmol/L Potassium (3.5-5.1) mmol/L Chloride (98-107) mmol/L BUN (7-17) mg/dL Creatinine (0.52-1.04) mg/dL Glucose (74-99) mg/dL POC Glucose (mg/dL) 231 H (75-99) mg/dL Total Protein (6.3-8.2) g/dL Albumin (3.5-5.0) g/dL Procalcitonin (0.02-0.09) ng/mL Microbiology - Last 24 Hours (Table) 09/11/21 00:44 Blood Culture - Preliminary Blood No Growth after 120 hours Assessment and Plan Plan: 1 stage IV metastatic adenocarcinoma of the lung, has not received any treatment other than homeopathic/IV vitamin therapy with obvious interval progression based on a quick comparison of the CAT scans were done between 2020 and 2021. There is obvious worsening of the bilateral lung masses and the patient has developed extensive nodular lesions involving the entire right lung and hence masslike consolidation of the left lung base. I furthermore, reviewed all of the CAT scans that was done on this patient throughout the course of her illness and there is of his progression of her underlying lung cancer. 2 septic shock most likely secondary to pneumonia. In terms of septic shock, the patient is improving. Hypotension is recovered. The patient is developing acute kidney injury creatinine is also improving. The patient is normotensive and the patient is currently off pressors. The patient was leukopenic and the patient developed subsequent the leukocytosis. The patient is currently covered with broad-spectrum antibiotics and the patient is currently on a combination of meropenem and vancomycin. Still having episodes of fever. 3 acute hypoxic respiratory failure, currently intubated on mechanical ventilator, consider simply infection/pneumonia, 4 acute kidney injury, Stable creatinine of 1.1 5 COPD 6 chronic anxiety 7 leukopenia, improved and the patient was echo is up to 40 8 thrombocytopenia, 95k, improving 9 acute lactic acidosis, improved Plan Continue ventilator support, Give the patient another paralytic holiday Continue ventilator support and no other ventilator changes to be done today Keep the patient sedated on propofol Keep sedation Continue IV Merrem and IV vancomycin Monitor fever pattern Monitor leukocytosis Check stool for C. diff Continue D5 water to monitor the sodium level Replace potassium Repeat pro calcitonin levels, improving Repeat lactic acid levels Monitor fever pattern Enteral feeding has been initiated and the patient is currently on vital high protein at the rate of 10 mL an hour Resume Lovenox 40 mg subcu daily, platelet counts are improving Awaiting follow-up blood cultures, all negative for now Condition is extremely critical CODE STATUS remains full. Had a lengthy discussion with the daughter and went over the details and she carries a very poor prognosis. I had a lengthy discussion again with her daughter. I obviously explained to her the poor prognosis. I think out of this patient recovering from acute respiratory failure is extremely low. Even if we do a short-term extubation, the patient's long-term prognosis remains poor and she will ultimately failed again as the patient has progressive an extensive tumor burden bilaterally more so on the left lung. She was understandable. She was not ready to let go yet. Her CODE STATUS remains full. We'll continue to follow. Time with Patient: Greater than 30
[2021-09-16] MEDS: NOREPINEPHRINE 32 MG in SODIUM CHLORIDE 0.9% 218 ML IV SCH (16:53)
[2021-09-16 18:48] LABS: Glucose,Whole Blood 265 mg/dL (75-99)
[2021-09-16] MEDS: methylPREDNISolone SOD SUCCI 40 MG/ML 1 ML VIAL IV SCH (20:30)
[2021-09-17 00:42] LABS: Immunoglobulin M 90.9 mg/dL (40.0-280.0)
[2021-09-17 01:05] LABS: Glucose,Whole Blood 234 mg/dL (75-99)
[2021-09-17] MEDS: INSULIN ASPART (NovoLOG) 100 UNIT/ML VIAL SQ SCH ×4 (01:24→18:04)
[2021-09-17] MEDS: DEXTROSE 5% IN WATER 1,000 ML IV SCH ×2 (01:30→09:16)
[2021-09-17] MEDS: HYDROmorphone 1 MG/ML 1 ML SYRINGE IVP PRN ×4 (04:02→13:55)
[2021-09-17 05:33] LABS: Glucose,Whole Blood 211 mg/dL (75-99)
[2021-09-17 05:39] LABS: African American GFR (CKD) >90 (>60 ml/min/1.73 sqM); Anion Gap 1 mmol/L; Blood Urea Nitrogen 60 mg/dL (7-17); Calcium 8.4 mg/dL (8.4-10.2); Carbon Dioxide 26 mmol/L (22-30); Chloride 115 mmol/L (98-107); Glucose 196 mg/dL (74-99); Non-African American GFR(CKD) 82 (>60 ml/min/1.73 sqM); Potassium 4.5 mmol/L (3.5-5.1); Sodium 142 mmol/L (137-145)
[2021-09-17 05:57] LABS: Basophils % (A) 0 %; Eosinophils % (A) 0 %; HCT 29.5 % (34.0-46.0); Hypochromasia Slight; Lymphocytes # (A) 1.4 k/uL (1.0-4.8); Lymphocytes % (A) 5 %; MCH 30.8 pg (25.0-35.0); MCHC 31.8 g/dL (31.0-37.0); MCV 97.1 fL (80.0-100.0); Mean Platelet Volume 10.1; Monocytes # (A) 0.3 k/uL (0-1.0); Monocytes % (A) 1 %; Neutrophils % (A) 93 %; RBC 3.04 m/uL (3.80-5.40)
[2021-09-17 06:01] LABS: HGB 9.4 gm/dL (11.4-16.0); Platelet Count 146 k/uL (150-450)
[2021-09-17 06:04] LABS: ABG Base Excess 1.2 mmol/L; ABG HCO3 26 mmol/L (21-25); ABG Oxygen Saturation 91.8 % (94-97); ABG PCO2 43 mmHg (35-45); ABG PO2 60 mmHg (83-108); ABG TCO2 27 mmol/L (19-24); Allen Test Performed? Yes
[2021-09-17] MEDS: IPRATROPIUM-ALBUTEROL 3 ML NEB INHALATION SCH ×4 (08:14→19:18)
[2021-09-17] MEDS: BUDESONIDE 1 MG/2 ML NEBU INHALATION SCH ×2 (08:14→19:18)
[2021-09-17] MEDS: FORMOTEROL FUMARATE 20 MCG/2 ML NEBU INHALATION SCH ×2 (08:14→19:18)
--- NOTE | 2021-09-17 08:22 | XR ---
EXAMINATION TYPE: XR chest 1V portable DATE OF EXAM: 09/17/2021 Comparison: 09/16/2021 Clinical History: 50-year-old female Tube placement Findings: ET tube tip 3.5 cm from the andreas. NG tube courses below the diaphragm. Right subclavian CVC tip wit hin the right atrium. Left anterior chest wall injection port. Catheter tip at the upper to mid SVC l evel projecting towards the right. Heart upper limits of normal in size. Patchy and confluent bilater al groundglass density, confluent airspace disease at the left base relatively unchanged. Impression: Redemonstrated bilateral patchy and confluent groundglass changes, left greater than right. Similar m ore confluent airspace disease at the left base.
[2021-09-17] MEDS: CHLORHEXIDINE GLUCONATE 15 ML CUP MUCOUS MEM SCH ×2 (09:15→22:03)
[2021-09-17] MEDS: methylPREDNISolone SOD SUCCI 40 MG/ML 1 ML VIAL IV SCH ×2 (09:16→22:04)
[2021-09-17] MEDS: VANCOMYCIN 1,500 MG in SODIUM CHLORIDE 0.9% 250 ML IVPB SCH (09:16)
[2021-09-17] MEDS: ENOXAPARIN 40 MG/0.4 ML SYRINGE SQ SCH (09:16)
[2021-09-17] MEDS: ACETAMINOPHEN TAB 325 MG TAB PO PRN (09:49)
[2021-09-17] MEDS ORDERED: CISATRACURIUM 2 MG/ML 5 ML VIAL IV ONE ×2 (12:21→12:22)
[2021-09-17] MEDS: MEROPENEM 2 GM in SODIUM CHLORIDE 0.9% 100 ML IVPB SCH (12:27)
[2021-09-17 12:30] LABS: Glucose,Whole Blood 151 mg/dL (75-99)
[2021-09-17] MEDS: fentaNYL (PF). 1,000 MCG in SODIUM CHLORIDE 0.9% 80 ML IV SCH (14:16)
--- NOTE | 2021-09-17 14:25 | P.PN ---
Subjective Progress Note Date: 09/17/21 50-year-old female, well-known to me. The patient has a history of lung cancer, adenocarcinoma, diagnosed by me, in 2020. Subsequent to that, the patient saw Dr. Holder, and also sought out consultations at [facility], and [facility]. Afterwards, the patient decided to go to [facility], for homeopathic medication. This included vitamin infusions. She was there for 3 months with her daughter. While there, she developed coronavirus infection, and was quite sick. She was requiring high flow oxygen therapy. She came to our ER on September 10, complaining of increasing shortness of breath, and nonproductive cough. The patient is currently in the intensive care unit, room 256. She is currently on AIRVO, at 50 L/m with an FiO2 of 90%. She's getting saline at 75 is an hour. The patient is a DO NOT RESUSCITATE patient. She does not want intubation and mechanical ventilation. She came to the unit on September 11. She's very short of breath. I recommend BiPAP therapy with IPAP of 12, EPAP of 5, and 100%. In addition, we added duo nebs 4 times a day and when necessary, formoterol 20 g and budesonide, 1 mg, twice a day, as well as Zosyn, and IV Solu-Medrol. She did see the medical oncologist here in town, and apparently is going to start a regimen of medications, towards the end of this month, including Keytruda and Alimta. Chest x-ray and computed tomography scan shows extensive bilateral infiltrates, which have likely progressed. This could reflect either cancer, pneumonia, with sequelae of coronavirus infection or a combination of all those things. White count 0.6, hemoglobin 12.4, hematocrit 38.7, and platelet count 200,000. Sodium 1:30, potassium 4.2, chlorides 106, CO2 9, anion gap 15, BUN 37, and creatinine 2.51. Lactic acid is 6.3. Repeat is 8.1. Albumin is 2.2. Progress note dated 09/12/2021. 50-year-old female with a history of adenocarcinoma of the lung, diagnosed in 2020, by me. The patient was offered conventional therapy, who was actually seen by Dr. Holder, and sought out consultations at [facility], and [facility], among other places, and eventually traveled to [facility], for homeopathic medication including vitamin infusions. The patient was here for 3 months with her daughter. More recently, the patient was in our ER on September 10, complaining of increasing shortness of breath and nonproductive cough. She was admitted to the intensive care unit for further monitoring and management. Initially, she was on high flow oxygen, and then AIRVO. Currently, she is on BiPAP, with settings of 12/5 and 100%. The patient's getting saline at 75 mL an hour, and Precedex at 0.5 mg/kg/h. The patient is still quite tachypneic. In addition, the patient was placed on breathing treatments, corticosteroids, and antibiotics. White blood count was trending up. Kidney functions a bit improved. She was seen by medical oncology, and I appreciate their input. White count 2.2, hemoglobin 12.3, hematocrit 37.9, platelet count 108,000. Sodium 135, potassium 3.7, chlorides 110, CO2 14, anion gap 11, BUN 36, and creatinine 1.66. Will cause 131. Calcium 7.3. Cultures thus far are negative. Chest x-ray shows worsening bilateral infiltrates. The patient was initially a no code, but is reversed her decision, and now is a full code. She does understand, that the next step, would be intubation and mechanical ventilation. Finally, I get the impression that the daughter for whatever reason is unhappy with the care here and I offered her transfer to any facility that she wishes. Before leaving the room, I reconfirm the fact that the patient herself, would agree to intubation and mechanical ventilation. 09/13/2021, on seeing this patient for a follow-up. 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 She had seen the [facility] that the patient is currently being considered for immunotherapy although this has not been started yet. Meanwhile, the patient has associated also homeopathic treatment and IV vitamin infusions through a [place] and [place], specifically in the country of [facility]. The patient this morning is intubated on a mechanical ventilator. The patient went into progressive hypoxic respiratory failure and the patient was acting septic and the patient had to be intubated for an acute hypoxic respiratory failure. The patient currently is on propofol running at 50 mg/kg/m. The patient is also paralyzed with Nimbex at 1.5 mg/kg per hour. She remains on a mechanical ventilator. She is on a assist-control mode at the rate of 32, tidal volume 400, FiO2 of 50% with a PEEP of 15. The blood gas shows a pH of 7.19 with a pCO2 of 54 and pO2 of 84. The patient is on pressors and the patient is currently on norepinephrine infusion running at 0.30 to microvascular kilogram per minute. The patient had a follow- up chest x-ray today that showed bilateral lung masses, most significant in the left lower lobe where there is significant airspace disease. ET tube is in a good location. The patient has a subclavian triple lumen catheter in place. NG tube is also in place. The Doppler of the lower extremities is been negative for DVT. Meanwhile, the patient was having fevers. The patient was neutropenic and the white cell count was as low as 0.6 and current white cell count is at 15.5. The patient also had an elevated pro-calcitonin level at 12.5 indicating underlying sepsis. Stool for C. diff has been negative and the blood cultures been negative thus far. Meanwhile, the white cell count today is at 15.4 with a hemoglobin of 11.7 and platelet count of 95. The patient's sodium level is at 138, potassium level is at 4.5, BUN is a 44 with a creatinine of 1.6 and the patient understood a component of acute kidney injury which is improving. Serum cortisol was 54. ProBNP level was 5870 in time of admission. 09/14/2021, the patient is being seen for a follow-up. As stated, the patient has metastatic stage IV adenocarcinoma of the lung. I reviewed a series of CAT scan of the chest that was provided to me. Some of these CAT scans were done in the [place] and country of [facility]. The CAT scans that were done back in May 2021, August 2021 in August 2021 were all compared and there is obvious progression in the lung cancer and extensive left lower lobe consolidation was noted earlier in addition to the multiple no other pulmonary infiltrates have been developing on the right side. Nevertheless, the decompensating factor was septic shock probably related to underlying infection. The patient presented with leukopenia, fever, hypotension, lactic acidosis, acute kidney injury and high procal level. All of the cultures are negative for now. This morning, the patient remains sedated and the patient is currently on propofol running at 50 mcg/kg per minute and the index is at a dose of 1.5 mcg/kg per minute. She is very much suggestive the mechanical ventilator patient is an assist-control mode at the rate of 32 with a tidal volume of 400 and FiO2 of 50% with a PEEP of 13. Blood gases showed a pH of 7.23 with a pCO2 of 43 and pO2 of 58. Peak airway pressures around 39-40 cm of water. Hemodynamically, the patient was given 2 L of IV fluids yesterday. She is still on norepinephrine infusion which is currently running at 0.18 microvascular kilogram per minute. Overall fluid balance is +3.9 L 4 yesterday and 2.7 L since early this morning. IV fluids are in the form of normal saline at the rate of 75 mL an hour. The white cell count today is at 29. Hemoglobin is at 11.4 and the platelet count has dropped down to 45. Meanwhile, the patient has a stable creatinine of 1.7 with a BUN of 49 and a serum bicarb of 19 with a sodium level of 141. Cultures of been all negative. I modified antibiotics and the patient is currently on a combination of Zosyn and vancomycin. The serum cortisol level was elevated and there are no signs of adrenal insufficiency at this point in time. The patient is afebrile this morning nevertheless, the patient was spiking temperature yesterday. Enteral feeding for nutritional support was initiated yesterday and the patient is currently on BiPAP and a half at the rate of 30 mL an hour. Doppler of the left lower extremity was negative for DVT. 09/15/2021, on seeing the patient for a follow-up. She remains intubated on a mechanical ventilator. Family is at the bedside. She is a metastatic adenocarcinoma of the lung was also septic, on a mechanical ventilator. This morning, the patient is on propofol running at 40 mcg/kg per minute. The patient is a bit tachypneic and she is breathing above the mechanical ventilator. Nevertheless, she is off paralytics. Meanwhile, she is an assist- control mode at the rate of 30 with a tidal volume of 375, FiO2 of 50% with a PEEP of 13. The blood gas showed a pH of 7.29 with a pCO2 of 49 and pO2 of 53. Peak airway pressures around 31. I dropped the respiratory rate down to 24. I also developed a tidal volume down to 350. Her current peak airway pressures around 27. Chest x-ray remains unchanged with extensive infiltration and masslike consolidation of the left lower lobe and nontender, infiltrates on the right consistent with metastatic adenocarcinoma. Superinfection is likely. All of the cultures are negative. The patient spiked another temperature this morning despite being on a combination of Zosyn and vancomycin. She became tachycardic along with a febrile episodes. She is receiving IV Tylenol. Monitor blood work, her sodium level is elevated at 149. Chloride is at 122. Creatinine is at 1.6 which is stable with a BUN of 56. The white cell count currently is at 25.6 which is slightly lower compared to yesterday with a stable hemoglobin of 11. The patient is receiving enteral feeding for nutritional support and she is currently on vital a half at the rate of 47 mL an hour. Family has been updated on her condition for now. Overall fluid balance over the past 24 hours has been +2.7 L 4 yesterday and another 1.8 L for today. 09/16/2021, I'm seeing this patient for a follow-up. Since yesterday, the patient had some sedation. The patient remains on a higher dose of propofol which is running at 50 mcg/kg per minute and the patient is also receiving IV Ativan and IV Dilaudid on an as-needed basis. Overnight, the patient to be also paralyzed the patient is currently on the maximum micrograms per kilogram per minute. She is quite impressive mechanical ventilator. She remains essentially the same ventilator settings. She is an assist-control of 30, tidal volume 350, FiO2 of 70% with a PEEP of 13. Peak air pressures around 29. The patient has a blood gas that showed a pH of 7.21 with a pCO2 of 64 and pO2 of 69. Chest x-ray showing extensive consolidation of the left. There is also noted infiltration of the right. This is consistent with underlying metastatic lung cancer. Nevertheless, the significant opacification and the density seen earlier on the earlier chest x-rays improved and I strongly suspected superimposed pneumonia. Noted the patient had fever, hypotensive on level, leukopenia subsequent leukocytosis and the patient was in shock and sepsis. Note that, the patient was covered with broad-spectrum antibiotics. I covered the patient with a combination of meropenem and vancomycin. The pro-calcitonin level has been improving. The patient is more hemodynamically stable and the pressors have been discontinued. Meanwhile, the patient also developed an acute kidney injury which improved her creatinine is essentially normalized and the creatinine is at 1.1. The serum bicarb is 27. Potassium level is at 2.9, being replaced. The patient also had a component of hyperchloremic hypernatremia. She was started on 50 water supplements double-J. She was also started on D5 water and the repeat sodium level today is at 147. White cell count is at 40.9 with a hemoglobin of 11.2. Receiving enteral feeding for nutritional support and the patient is currently on vitamin AF. She is stooling. In fact she has had several bowel movements, somewhat liquidy and will check also stool for C. diff. 09/17/2021, I had a lengthy meeting with the patient's family. I gave a detailed explanation on the patient's condition and I also gave a detailed explanation on the overall prognosis was essentially poor. Family listened to my examination. They had a lot of questions which I answered. They still are interested in a transfer to another facility being at [place] or any other facility such as [facility]. I think they are very comfortable with the quality of care here, however, they feel obligated to her mother that she would deserve further opinions prior to considering end-of-life care. In summary, the patient intubated on mechanical ventilator. The patient was in septic shock from which she essentially recovered and she is more hemodynamically stable at this point in time. This morning, she is on propofol running at 70 mcg/kg per minute. On and off, the patient gets restless on a mechanical ventilator and she may require also Dilaudid pushes. We have taken off the paralytics 48 hours ago. This morning, she remains on essentially the same ventilator setting. She at the rate of 30, tidal volume of 350, FiO2 of 70% with a PEEP of 13. The blood gas showed a pH of 7.4 with a pCO2 of 43 and pO2 of 60. The patient remains on a combination of meropenem and vancomycin. Chest x-ray showing extensive consolidation in the left lung base secondary to underlying lung cancer. There is also chronic infiltration of the right lung related to lung cancer. The patient's white cell count of 28 with hemoglobin of 9.4. White cell count is up compared to yesterday's currently down to 28 from 40. The patient's renal function remains stable. The patient's creatinine is at 0.8 with a BUN of 60. Sodium is at 142. Glucose is 151. Calcium level is at 8.4. All of the cultures of been negative. The patient has an orogastric tube in place and the patient is receiving enteral feeding for nutritional support. Wean down the Solu Medrol to 40 mg every 12 hours. She remains on bronchodilators. She remains on Eliquis 40 mg subcu DVT prophylaxis. No pressors for now. No active diarrhea. No other complaints otherwise. Objective - Vital Signs Vital signs: Vital Signs Temp 98.4 F 09/17/21 12:00 Pulse 83 09/17/21 12:00 Resp 26 H 09/17/21 12:00 BP 104/65 09/17/21 04:00 Pulse Ox 91 L 09/17/21 12:00 Intake & Output 09/16/21 09/17/21 09/17/21 18:59 06:59 18:59 Intake Total 2812.748 2451.866 285.234 Output Total 560 690 50 Balance 2252.748 1761.866 235.234 Weight 80 kg 80 kg Intake: IV 250 Vancomycin 1,250 mg In 250 Sodium Chloride 0.9% 250 ml @ 125 mls/hr IVPB Q24HR [facility] Rx#:[id number] Intake, IV Titration 2037.217 7713.866 218.234 Amount Cisatracurium 200 mg In 8.067 Sodium Chloride 0.9% 180 ml @ 1 MCG/KG/MIN 3.78 mls/hr IV .Q24H [facility] Rx#: [id number] Dextrose 5% in Water 1, 50 000 ml @ 50 mls/hr IV . Q20H [facility] Rx#:[id number] Dextrose 5% in Water 1, 750 900 75 000 ml @ 75 mls/hr IV . [id number] [facility] Rx#:[id number] Meropenem 2 gm In Sodium 100 Chloride 0.9% 100 ml @ 33 .3 mls/hr IVPB Q12H [facility] Rx#:[id number] Norepinephrine 32 mg In 3.964 18.872 Sodium Chloride 0.9% 218 ml @ 0.05 MCG/KG/MIN 1. 477 mls/hr IV .Q24H [facility] Rx#:[id number] Potassium Chloride 20 meq 300 In Water For Injection 1 100ml.bag @ 50 mls/hr IVPB Q2HR [facility] Rx#: [id number] propofoL 1,000 mg In 288.717 287.866 124.362 Empty Bag 1 bag @ 5 MCG/ KG/MIN 1.89 mls/hr IV . Q24H [facility] Rx#:[id number] Tube Feeding 562 564 67 Other 600 600 Output: Urine 560 690 50 Other: Voiding Method Indwelling Catheter Indwelling Catheter ABP, PAP, CO, CI - Last Documented Arterial Blood Pressure 92/41 - Exam No acute distress, oriented 3. The patient sedated, paralyzed, intubated on a mechanical ventilator. The patient is calm and comfortable and patient is currently off paralytics on sedation with propofol. The patient is sedated and paralyzed MHead exam was generally normal. There was no scleral icterus or corneal arcus. Mucous membranes were moist. Orogastric and orotracheal tube are both in place. HEENT examination is grossly unremarkable. Neck supple. Full range of motion. No adenopathy thyromegaly or neck vein distention. Cardiovascular examination reveals regular rhythm rate. S1-S2 normal. No S3 or S4. No discernible murmur noted. Heart sounds are distant. Lungs reveal coarse bilateral inspiratory and expiratory rhonchi, with breath sounds being equal bilaterally. No wheezes. No crackles. Patient has equal and symmetrical breath sounds bilaterally. Abdominal exam revealed normal bowel sounds. The abdomen was soft, non-tender, and without masses, organomegaly, or appreciable enlargement of the abdominal aorta. Extremities are intact. No cyanosis clubbing or edema. Examination of the skin revealed no evidence of significant rashes, suspicious appearing nevi or other concerning lesions. Neurologic examination is sedated and patient is sedated and paralyzed - Labs CBC & Chem 7: 09/17/21 05:15 09/17/21 05:15 Labs: Abnormal Lab Results - Last 24 Hours (Table) 09/15/21 09/16/21 09/17/21 Range/Units 06:00 18:47 01:02 WBC (3.8-10.6) k/uL RBC (3.80-5.40) m/uL Hgb (11.4-16.0) gm/dL Hct (34.0-46.0) % RDW (11.5-15.5) % Plt Count (150-450) k/uL Neutrophils # (1.3-7.7) k/uL ABG pO2 (83-108) mmHg ABG HCO3 (21-25) mmol/L ABG Total CO2 (19-24) mmol/L ABG O2 Saturation (94-97) % Chloride (98-107) mmol/L BUN (7-17) mg/dL Glucose (74-99) mg/dL POC Glucose (mg/dL) 265 H 234 H (75-99) mg/dL IgG 664.0 L (700.0-1600.0) mg/dL 09/17/21 09/17/21 09/17/21 Range/Units 05:15 05:15 05:22 WBC 28.0 H (3.8-10.6) k/uL RBC 3.04 L (3.80-5.40) m/uL Hgb 9.4 L D (11.4-16.0) gm/dL Hct 29.5 L (34.0-46.0) % RDW 16.0 H (11.5-15.5) % Plt Count 146 L D (150-450) k/uL Neutrophils # 26.0 H (1.3-7.7) k/uL ABG pO2 (83-108) mmHg ABG HCO3 (21-25) mmol/L ABG Total CO2 (19-24) mmol/L ABG O2 Saturation (94-97) % Chloride 115 H (98-107) mmol/L BUN 60 H (7-17) mg/dL Glucose 196 H (74-99) mg/dL POC Glucose (mg/dL) 211 H (75-99) mg/dL IgG (700.0-1600.0) mg/dL 09/17/21 09/17/21 Range/Units 06:00 12:28 WBC (3.8-10.6) k/uL RBC (3.80-5.40) m/uL Hgb (11.4-16.0) gm/dL Hct (34.0-46.0) % RDW (11.5-15.5) % Plt Count (150-450) k/uL Neutrophils # (1.3-7.7) k/uL ABG pO2 60 L (83-108) mmHg ABG HCO3 26 H (21-25) mmol/L ABG Total CO2 27 H (19-24) mmol/L ABG O2 Saturation 91.8 L (94-97) % Chloride (98-107) mmol/L BUN (7-17) mg/dL Glucose (74-99) mg/dL POC Glucose (mg/dL) 151 H (75-99) mg/dL IgG (700.0-1600.0) mg/dL Microbiology - Last 24 Hours (Table) 09/11/21 00:44 Blood Culture - Final Blood No Growth after 144 hours Assessment and Plan Plan: 1 stage IV metastatic adenocarcinoma of the lung, has not received any treatment other than homeopathic/IV vitamin therapy with obvious interval progression based on a quick comparison of the CAT scans were done between 2020 and 2021. There is obvious worsening of the bilateral lung masses and the patient has developed extensive nodular lesions involving the entire right lung and hence masslike consolidation of the left lung base. I furthermore, reviewed all of the CAT scans that was done on this patient throughout the course of her illness and there is of his progression of her underlying lung cancer. 2 septic shock most likely secondary to pneumonia. Cultures of been all negative and the patient's is hemodynamically stable. The white cell count is at 28. The patient remains on a combination of metoprolol and vancomycin. 3 acute hypoxic respiratory failure, currently intubated on mechanical ventilator, consider simply infection/pneumonia, . The patient's hemodynamics improved and she seems to note of her septic shock. Nevertheless, oxygenation becomes an ongoing issue and the patient is unable to wean any further. The current. Is at 13 with an FiO2 of 70%. Chest x-ray findings are essentially stable. Would like to proceed with further investigation with a CT angiogram to rule out any ongoing pneumonia, interstitial edema, pulmonary embolism, etc. or any other reversible abnormalities that could be potentially contributing to her acute hypoxic respiratory failure. 4 acute kidney injury, recovered and the creatinine is normalized and is down to 0.8 5 COPD 6 chronic anxiety 7 leukopenia, improved and subsequently the patient developed leukocytosis 8 thrombocytopenia, improving 9 acute lactic acidosis, improved Plan Continue ventilator support, No ventilator changes for today Keep the patient sedated on propofol Keep sedation Continue IV Merrem and IV vancomycin Monitor fever pattern, currently afebrile Monitor leukocytosis, white cell count is improving Sodium level is improved Repeat pro calcitonin levels, improving Repeat lactic acid levels Enteral feeding has been initiated and the patient is currently on vital high protein at the rate of 10 mL an hour Resume Lovenox 40 mg subcu daily, platelet counts are improving Repeat CT of the chest Condition is extremely critical CODE STATUS remains full. Had a lengthy discussion with the daughter and went over the details and she carries a very poor prognosis. I had a lengthy discussion again with her daughter, and 2 of her sisters another family member and we discussed the case for more than 45 minutes and closed doors.. I obviously explained to her the poor prognosis. I think out of this patient recovering from acute respiratory failure is extremely low. Even if we do a short-term extubation, the patient's long-term prognosis remains poor and she will ultimately failed again as the patient has progressive an extensive tumor burden bilaterally more so on the left lung. Her CODE STATUS remains full. We'll continue to follow. At the end the discussion, the patient's family insisted on a transfer to another facility for a second opinion. We'll try to go around and find if they will be any other facility to the restroom responsibility in taking care of this patient and if so will make the transfer happened. Critically care evaluation that was done and more than 1 hour. Time with Patient: Greater than 30
--- NOTE | 2021-09-17 17:30 | P.PN ---
Subjective Progress Note Date: 09/17/21 patient remained sedated on the vent, 100% FiO2. Other consultants notes reviewed. No significant process in terms of improvement of respiratory status. Objective - Vital Signs Vital signs: Vital Signs Temp 98.4 F 09/17/21 12:00 Pulse 68 09/17/21 15:30 Resp 26 H 09/17/21 12:00 BP 104/65 09/17/21 04:00 Pulse Ox 91 L 09/17/21 12:00 Intake & Output 09/16/21 09/17/21 09/17/21 18:59 06:59 18:59 Intake Total 2812.748 2451.866 1705.234 Output Total 560 690 355 Balance 2252.748 9679.512 6131.234 Weight 80 kg 80 kg Intake: IV 250 675 Dextrose 5% in Water 1, 675 000 ml @ 75 mls/hr IV . [id number] [facility] Rx#:[id number] Vancomycin 1,250 mg In 250 Sodium Chloride 0.9% 250 ml @ 125 mls/hr IVPB Q24HR [facility] Rx#:[id number] Intake, IV Titration 5535.244 7219.866 218.234 Amount Cisatracurium 200 mg In 8.067 Sodium Chloride 0.9% 180 ml @ 1 MCG/KG/MIN 3.78 mls/hr IV .Q24H [facility] Rx#: [id number] Dextrose 5% in Water 1, 50 000 ml @ 50 mls/hr IV . Q20H [facility] Rx#:[id number] Dextrose 5% in Water 1, 750 900 75 000 ml @ 75 mls/hr IV . [id number] [facility] Rx#:[id number] Meropenem 2 gm In Sodium 100 Chloride 0.9% 100 ml @ 33 .3 mls/hr IVPB Q12H [facility] Rx#:[id number] Norepinephrine 32 mg In 3.964 18.872 Sodium Chloride 0.9% 218 ml @ 0.05 MCG/KG/MIN 1. 477 mls/hr IV .Q24H [facility] Rx#:[id number] Potassium Chloride 20 meq 300 In Water For Injection 1 100ml.bag @ 50 mls/hr IVPB Q2HR [facility] Rx#: [id number] propofoL 1,000 mg In 288.717 287.866 124.362 Empty Bag 1 bag @ 5 MCG/ KG/MIN 1.89 mls/hr IV . Q24H [facility] Rx#:[id number] Tube Feeding 562 564 382 Other 600 600 430 Output: Urine 560 690 355 Other: Voiding Method Indwelling Catheter Indwelling Catheter Indwelling Catheter ABP, PAP, CO, CI - Last Documented Arterial Blood Pressure 92/41 - Constitutional Constitutional Comment(s): sedated on ventilator General appearance: Present: no acute distress - Respiratory Respiratory: bilateral: diminished - Cardiovascular Rhythm: regular Heart sounds: normal: S1, S2 - Gastrointestinal General gastrointestinal: Present: decreased bowel sounds, soft - Integumentary Integumentary: Present: normal - Neurologic Neurologic Comment(s): sedated on ventilator - Musculoskeletal Musculoskeletal: Present: generalized weakness - Labs CBC & Chem 7: 09/17/21 05:15 09/17/21 05:15 Labs: Abnormal Lab Results - Last 24 Hours (Table) 09/15/21 09/16/21 09/17/21 Range/Units 06:00 18:47 01:02 WBC (3.8-10.6) k/uL RBC (3.80-5.40) m/uL Hgb (11.4-16.0) gm/dL Hct (34.0-46.0) % RDW (11.5-15.5) % Plt Count (150-450) k/uL Neutrophils # (1.3-7.7) k/uL ABG pO2 (83-108) mmHg ABG HCO3 (21-25) mmol/L ABG Total CO2 (19-24) mmol/L ABG O2 Saturation (94-97) % Chloride (98-107) mmol/L BUN (7-17) mg/dL Glucose (74-99) mg/dL POC Glucose (mg/dL) 265 H 234 H (75-99) mg/dL IgG 664.0 L (700.0-1600.0) mg/dL 09/17/21 09/17/21 09/17/21 Range/Units 05:15 05:15 05:22 WBC 28.0 H (3.8-10.6) k/uL RBC 3.04 L (3.80-5.40) m/uL Hgb 9.4 L D (11.4-16.0) gm/dL Hct 29.5 L (34.0-46.0) % RDW 16.0 H (11.5-15.5) % Plt Count 146 L D (150-450) k/uL Neutrophils # 26.0 H (1.3-7.7) k/uL ABG pO2 (83-108) mmHg ABG HCO3 (21-25) mmol/L ABG Total CO2 (19-24) mmol/L ABG O2 Saturation (94-97) % Chloride 115 H (98-107) mmol/L BUN 60 H (7-17) mg/dL Glucose 196 H (74-99) mg/dL POC Glucose (mg/dL) 211 H (75-99) mg/dL IgG (700.0-1600.0) mg/dL 09/17/21 09/17/21 Range/Units 06:00 12:28 WBC (3.8-10.6) k/uL RBC (3.80-5.40) m/uL Hgb (11.4-16.0) gm/dL Hct (34.0-46.0) % RDW (11.5-15.5) % Plt Count (150-450) k/uL Neutrophils # (1.3-7.7) k/uL ABG pO2 60 L (83-108) mmHg ABG HCO3 26 H (21-25) mmol/L ABG Total CO2 27 H (19-24) mmol/L ABG O2 Saturation 91.8 L (94-97) % Chloride (98-107) mmol/L BUN (7-17) mg/dL Glucose (74-99) mg/dL POC Glucose (mg/dL) 151 H (75-99) mg/dL IgG (700.0-1600.0) mg/dL Microbiology - Last 24 Hours (Table) 09/11/21 00:44 Blood Culture - Final Blood No Growth after 144 hours Assessment and Plan (1) Acute respiratory failure Narrative/Plan: acute event were treated by septic shock. Patient however has underlying conditions including COPD and lung cancer which has progressed bilaterally. She has improved in terms of sepsis parameters, as well as from her acute kidney injury. However she has not made significant progress in terms of respiratory failure despite ongoing aggressive support. He continues on 100% FiO2. Current Visit: Yes Status: Acute Code(s): J96.00 - ACUTE RESPIRATORY FAILURE, UNSP W HYPOXIA OR HYPERCAPNIA SNOMED Code(s): 83905547 (2) Adenocarcinoma of lung Narrative/Plan: patient refused standard of care treatments initially and opted for alternative treatments in [place]. She presented with progression. She and her family were willing to consider standard treatments now, but the patient ended up being admitted with acute respiratory failure and septic shock. It has been discussed with the family multiple times, and they are well aware that she is not a candidate for any active cancer treatment, until her current acute situation improves significantly. Current Visit: Yes Status: Acute Priority: High Code(s): C34.90 - MA LIGNANT NEOPLASM OF UNSP PART OF UNSP BRONCHUS OR LUNG SNOMED Code(s): 25 8745394 Plan: patient's daughter had called the office today requesting to [facility] They have apparently already addressed this r equest with the admitting service, and the critical care service. This was discussed with nursing, and then extensively with the patient's mother was at the bedside. They would advise her from the oncology standpoint we obviously would have no objection in transfer to the patient getting transferred. However her oncology issues are actually not relevant in the acute situation, as the patient is not a candidate for any active treatment currently. It was explained to them that for tertiary hospital to accept transfer, the patient has to meet certain criteria. If she does not meet the necessary criteria of requiring higher level of care, then the tertiary hospital can refuse transfer. The transfer request has been initiated by his hospital to multiple centersand they are waiting to hear back to see if the patient will be accepted based on criteria.
[2021-09-17] MEDS: CISATRACURIUM 200 MG in SODIUM CHLORIDE 0.9% 180 ML IV SCH (17:52)
[2021-09-17 18:02] LABS: Glucose,Whole Blood 176 mg/dL (75-99)
[2021-09-17] MEDS ORDERED: VANCOMYCIN 1,500 MG in SODIUM CHLORIDE 0.9% 250 ML IVPB SCH (21:00)
[2021-09-18] MEDS: fentaNYL (PF). 1,000 MCG in SODIUM CHLORIDE 0.9% 80 ML IV SCH ×3 (00:14→17:30)
[2021-09-18 00:15] LABS: Glucose,Whole Blood 114 mg/dL (75-99)
[2021-09-18] MEDS: MEROPENEM 2 GM in SODIUM CHLORIDE 0.9% 100 ML IVPB SCH ×3 (01:27→20:45)
[2021-09-18 06:08] LABS: Glucose,Whole Blood 132 mg/dL (75-99)
[2021-09-18 06:08] LABS: ABG Base Excess 1.9 mmol/L; ABG HCO3 27 mmol/L (21-25); ABG Oxygen Saturation 91.3 % (94-97); ABG PCO2 42 mmHg (35-45); ABG PH 7.41 (7.35-7.45); ABG PO2 60 mmHg (83-108); ABG TCO2 28 mmol/L (19-24); Allen Test Performed? Yes
--- NOTE | 2021-09-18 06:36 | XR ---
EXAMINATION TYPE: XR chest 1V portable DATE OF EXAM: 09/18/2021 CLINICAL HISTORY: Difficulty breathing progress study. TECHNIQUE: Single AP portable semiupright view of the chest is obtained. COMPARISON: Chest x-ray from one day earlier and older studies. FINDINGS: Stable endotracheal and orogastric tubes. Stable left subclavian Mediport catheter. Stable right subclavian central venous catheter. Persistent bilateral multifocal and confluent opacities greatest in the left lower lung. Suspect smal l left pleural effusion. Cardiac silhouette size stable and within normal limits. Osseous structures are intact. IMPRESSION: Bilateral multifocal and confluent opacities consistent with infiltrates and/or edema wit h small left pleural effusion remain present. No significant change from one day earlier.
[2021-09-18 06:39] LABS: Basophils # (A) 0.1 k/uL (0-0.2); Basophils % (A) 0 %; Eosinophils % (A) 0 %; HCT 27.6 % (34.0-46.0); HGB 8.9 gm/dL (11.4-16.0); Hypochromasia Slight; Lymphocytes # (A) 1.4 k/uL (1.0-4.8); Lymphocytes % (A) 5 %; MCH 31.5 pg (25.0-35.0); MCHC 32.3 g/dL (31.0-37.0); MCV 97.3 fL (80.0-100.0); Mean Platelet Volume 8.9; Monocytes # (A) 0.4 k/uL (0-1.0); Monocytes % (A) 1 %; Neutrophils # (A) 29.1 k/uL (1.3-7.7); Neutrophils % (A) 94 %; Platelet Count 240 k/uL (150-450); RBC 2.83 m/uL (3.80-5.40); RDW 14.8 % (11.5-15.5); WBC 31.1 k/uL (3.8-10.6)
[2021-09-18 07:17] LABS: African American GFR (CKD) >90 (>60 ml/min/1.73 sqM); Anion Gap 2 mmol/L; Blood Urea Nitrogen 52 mg/dL (7-17); Calcium 8.8 mg/dL (8.4-10.2); Carbon Dioxide 25 mmol/L (22-30); Chloride 112 mmol/L (98-107); Glucose 116 mg/dL (74-99); Non-African American GFR(CKD) 87 (>60 ml/min/1.73 sqM); Potassium 5.4 mmol/L (3.5-5.1); Sodium 139 mmol/L (137-145)
[2021-09-18] MEDS: LORazepam 2 MG/ML INJ IV PRN ×3 (08:00→17:29)
[2021-09-18] MEDS ORDERED: VANCOMYCIN TROUGH DUE 1 EACH MISC MISCELLANE ONE (08:00)
[2021-09-18] MEDS: BUDESONIDE 1 MG/2 ML NEBU INHALATION SCH ×2 (08:48→19:07)
[2021-09-18] MEDS: IPRATROPIUM-ALBUTEROL 3 ML NEB INHALATION SCH ×4 (08:48→19:07)
[2021-09-18] MEDS: FORMOTEROL FUMARATE 20 MCG/2 ML NEBU INHALATION SCH ×2 (08:48→19:07)
--- NOTE | 2021-09-18 08:55 | CT ---
EXAMINATION TYPE: CT chest angio for PE DATE OF EXAM: 09/18/2021 COMPARISON: Prior CTA chest 8 days ago. HISTORY: PE, Lung CA CT DLP: 494 mGycm. Automated Exposure Control for Dose Reduction was Utilized. CONTRAST: CTA scan of the thorax is performed with IV Contrast, patient injected with 100 mL of Isovue 370, pul monary embolism protocol. MIP Images are created on CT scanner and reviewed. FINDINGS: LUNGS: Exam suboptimal inspiration unable to hold breath. Worsening bilateral multifocal groundglass opacities with organizing consolidations and enlarging nodules and/or nodular consolidations are pres ent bilaterally. Persistent small to tiny left pleural fluid collection with worsening left lower lob e atelectasis and/or consolidation, abrupt cut off of the central left lower lobe bronchus noted on c urrent study. This is likely at least partially related to suspected left lower lobe neoplasm though focal mass distinct from atelectatic change is difficult to appreciate on current study. No right-li ed pleural effusion. No pneumothorax seen bilaterally. New Endotracheal tube terminates well above ca felicita. MEDIASTINUM: There is satisfactory enhancement of the pulmonary artery and its branches, there is no CT evidence for pulmonary embolism. Enlarged main pulmonary artery of 3.3 cm suggesting underlying pu lmonary artery hypertension. Satisfactory enhancement of the thoracic aorta with 3.9 cm ectasia of th e ascending aorta redemonstrated. No thoracic aortic dissection. Stable prominent 1.1 x 0.9 cm right paratracheal lymph node axial image 37. No cardiomegaly or pericardial effusion is seen. There is r ight subclavian central venous catheter terminating and cavoatrial junction. OTHER: Orogastric tube projects into stomach with mild to moderate fluid distention. Intraluminal gal lstone in gallbladder is partially imaged. Persistent low dense 2.8 cm right adrenal mass and smaller low dense 1.3 cm left adrenal mass axial image 139. IMPRESSION: 1. No CT evidence for acute pulmonary embolism. 2. Stable small to tiny left pleural fluid collection. Continued progressing bilateral multifocal inf iltrates and/or edema with increasing groundglass opacities and organizing consolidations along with enlarging nodules and/or nodular consolidations. Worsening left lower lobe atelectasis with underlyin g neoplasm suspected.
[2021-09-18] MEDS: INSULIN ASPART (NovoLOG) 100 UNIT/ML VIAL SQ SCH ×3 (10:25→17:29)
[2021-09-18] MEDS: NOREPINEPHRINE 32 MG in SODIUM CHLORIDE 0.9% 218 ML IV SCH (10:25)
[2021-09-18] MEDS: FUROSEMIDE 10 MG/ML 4 ML VIAL IV SCH ×2 (10:35→17:29)
[2021-09-18] MEDS: ENOXAPARIN 40 MG/0.4 ML SYRINGE SQ SCH (10:35)
[2021-09-18] MEDS: methylPREDNISolone SOD SUCCI 40 MG/ML 1 ML VIAL IV SCH ×2 (10:35→20:45)
[2021-09-18] MEDS: CHLORHEXIDINE GLUCONATE 15 ML CUP MUCOUS MEM SCH ×2 (10:35→20:45)
[2021-09-18 11:00] LABS: Glucose,Whole Blood 109 mg/dL (75-99)
[2021-09-18 12:18] LABS: ABG Base Excess 2.7 mmol/L; ABG HCO3 27 mmol/L (21-25); ABG Oxygen Saturation 91.4 % (94-97); ABG PCO2 43 mmHg (35-45); ABG PH 7.41 (7.35-7.45); ABG PO2 62 mmHg (83-108); ABG TCO2 29 mmol/L (19-24)
[2021-09-18 12:20] LABS: Allen Test Performed? no
--- NOTE | 2021-09-18 12:39 | P.PN ---
Subjective Progress Note Date: 09/18/21 50-year-old female, well-known to me. The patient has a history of lung cancer, adenocarcinoma, diagnosed by me, in 2020. Subsequent to that, the patient saw Dr. Holder, and also sought out consultations at [facility], and [facility]. Afterwards, the patient decided to go to [facility], for homeopathic medication. This included vitamin infusions. She was there for 3 months with her daughter. While there, she developed coronavirus infection, and was quite sick. She was requiring high flow oxygen therapy. She came to our ER on September 10, complaining of increasing shortness of breath, and nonproductive cough. The patient is currently in the intensive care unit, room 256. She is currently on AIRVO, at 50 L/m with an FiO2 of 90%. She's getting saline at 75 is an hour. The patient is a DO NOT RESUSCITATE patient. She does not want intubation and mechanical ventilation. She came to the unit on September 11. She's very short of breath. I recommend BiPAP therapy with IPAP of 12, EPAP of 5, and 100%. In addition, we added duo nebs 4 times a day and when necessary, formoterol 20 g and budesonide, 1 mg, twice a day, as well as Zosyn, and IV Solu-Medrol. She did see the medical oncologist here in town, and apparently is going to start a regimen of medications, towards the end of this month, including Keytruda and Alimta. Chest x-ray and computed tomography scan shows extensive bilateral infiltrates, which have likely progressed. This could reflect either cancer, pneumonia, with sequelae of coronavirus infection or a combination of all those things. White count 0.6, hemoglobin 12.4, hematocrit 38.7, and platelet count 200,000. Sodium 1:30, potassium 4.2, chlorides 106, CO2 9, anion gap 15, BUN 37, and creatinine 2.51. Lactic acid is 6.3. Repeat is 8.1. Albumin is 2.2. Progress note dated 09/12/2021. 50-year-old female with a history of adenocarcinoma of the lung, diagnosed in 2020, by me. The patient was offered conventional therapy, who was actually seen by Dr. Holder, and sought out consultations at [facility], and [facility], among other places, and eventually traveled to [facility], for homeopathic medication including vitamin infusions. The patient was here for 3 months with her daughter. More recently, the patient was in our ER on September 10, complaining of increasing shortness of breath and nonproductive cough. She was admitted to the intensive care unit for further monitoring and management. Initially, she was on high flow oxygen, and then AIRVO. Currently, she is on BiPAP, with settings of 12/5 and 100%. The patient's getting saline at 75 mL an hour, and Precedex at 0.5 mg/kg/h. The patient is still quite tachypneic. In addition, the patient was placed on breathing treatments, corticosteroids, and antibiotics. White blood count was trending up. Kidney functions a bit improved. She was seen by medical oncology, and I appreciate their input. White count 2.2, hemoglobin 12.3, hematocrit 37.9, platelet count 108,000. Sodium 135, potassium 3.7, chlorides 110, CO2 14, anion gap 11, BUN 36, and creatinine 1.66. Will cause 131. Calcium 7.3. Cultures thus far are negative. Chest x-ray shows worsening bilateral infiltrates. The patient was initially a no code, but is reversed her decision, and now is a full code. She does understand, that the next step, would be intubation and mechanical ventilation. Finally, I get the impression that the daughter for whatever reason is unhappy with the care here and I offered her transfer to any facility that she wishes. Before leaving the room, I reconfirm the fact that the patient herself, would agree to intubation and mechanical ventilation. 09/13/2021, on seeing this patient for a follow-up. 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 She had seen the [facility] that the patient is currently being considered for immunotherapy although this has not been started yet. Meanwhile, the patient has associated also homeopathic treatment and IV vitamin infusions through a [facility] and [facility] [place], specifically in the country of [facility]. The patient this morning is intubated on a mechanical ventilator. The patient went into progressive hypoxic respiratory failure and the patient was acting septic and the patient had to be intubated for an acute hypoxic respiratory failure. The patient currently is on propofol running at 50 mg/kg/m. The patient is also paralyzed with Nimbex at 1.5 mg/kg per hour. She remains on a mechanical ventilator. She is on a assist-control mode at the rate of 32, tidal volume 400, FiO2 of 50% with a PEEP of 15. The blood gas shows a pH of 7.19 with a pCO2 of 54 and pO2 of 84. The patient is on pressors and the patient is currently on norepinephrine infusion running at 0.30 to microvascular kilogram per minute. The patient had a follow- up chest x-ray today that showed bilateral lung masses, most significant in the left lower lobe where there is significant airspace disease. ET tube is in a good location. The patient has a subclavian triple lumen catheter in place. NG tube is also in place. The Doppler of the lower extremities is been negative for DVT. Meanwhile, the patient was having fevers. The patient was neutropenic and the white cell count was as low as 0.6 and current white cell count is at 15.5. The patient also had an elevated pro-calcitonin level at 12.5 indicating underlying sepsis. Stool for C. diff has been negative and the blood cultures been negative thus far. Meanwhile, the white cell count today is at 15.4 with a hemoglobin of 11.7 and platelet count of 95. The patient's sodium level is at 138, potassium level is at 4.5, BUN is a 44 with a creatinine of 1.6 and the patient understood a component of acute kidney injury which is improving. Serum cortisol was 54. ProBNP level was 5870 in time of admission. 09/14/2021, the patient is being seen for a follow-up. As stated, the patient has metastatic stage IV adenocarcinoma of the lung. I reviewed a series of CAT scan of the chest that was provided to me. Some of these CAT scans were done in the [place] and country of [facility]. The CAT scans that were done back in May 2021, August 2021 in August 2021 were all compared and there is obvious progression in the lung cancer and extensive left lower lobe consolidation was noted earlier in addition to the multiple no other pulmonary infiltrates have been developing on the right side. Nevertheless, the decompensating factor was septic shock probably related to underlying infection. The patient presented with leukopenia, fever, hypotension, lactic acidosis, acute kidney injury and high procal level. All of the cultures are negative for now. This morning, the patient remains sedated and the patient is currently on propofol running at 50 mcg/kg per minute and the index is at a dose of 1.5 mcg/kg per minute. She is very much suggestive the mechanical ventilator patient is an assist-control mode at the rate of 32 with a tidal volume of 400 and FiO2 of 50% with a PEEP of 13. Blood gases showed a pH of 7.23 with a pCO2 of 43 and pO2 of 58. Peak airway pressures around 39-40 cm of water. Hemodynamically, the patient was given 2 L of IV fluids yesterday. She is still on norepinephrine infusion which is currently running at 0.18 microvascular kilogram per minute. Overall fluid balance is +3.9 L 4 yesterday and 2.7 L since early this morning. IV fluids are in the form of normal saline at the rate of 75 mL an hour. The white cell count today is at 29. Hemoglobin is at 11.4 and the platelet count has dropped down to 45. Meanwhile, the patient has a stable creatinine of 1.7 with a BUN of 49 and a serum bicarb of 19 with a sodium level of 141. Cultures of been all negative. I modified antibiotics and the patient is currently on a combination of Zosyn and vancomycin. The serum cortisol level was elevated and there are no signs of adrenal insufficiency at this point in time. The patient is afebrile this morning nevertheless, the patient was spiking temperature yesterday. Enteral feeding for nutritional support was initiated yesterday and the patient is currently on BiPAP and a half at the rate of 30 mL an hour. Doppler of the left lower extremity was negative for DVT. 09/15/2021, on seeing the patient for a follow-up. She remains intubated on a mechanical ventilator. Family is at the bedside. She is a metastatic adenocarcinoma of the lung was also septic, on a mechanical ventilator. This morning, the patient is on propofol running at 40 mcg/kg per minute. The patient is a bit tachypneic and she is breathing above the mechanical ventilator. Nevertheless, she is off paralytics. Meanwhile, she is an assist- control mode at the rate of 30 with a tidal volume of 375, FiO2 of 50% with a PEEP of 13. The blood gas showed a pH of 7.29 with a pCO2 of 49 and pO2 of 53. Peak airway pressures around 31. I dropped the respiratory rate down to 24. I also developed a tidal volume down to 350. Her current peak airway pressures around 27. Chest x-ray remains unchanged with extensive infiltration and masslike consolidation of the left lower lobe and nontender, infiltrates on the right consistent with metastatic adenocarcinoma. Superinfection is likely. All of the cultures are negative. The patient spiked another temperature this morning despite being on a combination of Zosyn and vancomycin. She became tachycardic along with a febrile episodes. She is receiving IV Tylenol. Monitor blood work, her sodium level is elevated at 149. Chloride is at 122. Creatinine is at 1.6 which is stable with a BUN of 56. The white cell count currently is at 25.6 which is slightly lower compared to yesterday with a stable hemoglobin of 11. The patient is receiving enteral feeding for nutritional support and she is currently on vital a half at the rate of 47 mL an hour. Family has been updated on her condition for now. Overall fluid balance over the past 24 hours has been +2.7 L 4 yesterday and another 1.8 L for today. 09/16/2021, I'm seeing this patient for a follow-up. Since yesterday, the patient had some sedation. The patient remains on a higher dose of propofol which is running at 50 mcg/kg per minute and the patient is also receiving IV Ativan and IV Dilaudid on an as-needed basis. Overnight, the patient to be also paralyzed the patient is currently on the maximum micrograms per kilogram per minute. She is quite impressive mechanical ventilator. She remains essentially the same ventilator settings. She is an assist-control of 30, tidal volume 350, FiO2 of 70% with a PEEP of 13. Peak air pressures around 29. The patient has a blood gas that showed a pH of 7.21 with a pCO2 of 64 and pO2 of 69. Chest x-ray showing extensive consolidation of the left. There is also noted infiltration of the right. This is consistent with underlying metastatic lung cancer. Nevertheless, the significant opacification and the density seen earlier on the earlier chest x-rays improved and I strongly suspected superimposed pneumonia. Noted the patient had fever, hypotensive on level, leukopenia subsequent leukocytosis and the patient was in shock and sepsis. Note that, the patient was covered with broad-spectrum antibiotics. I covered the patient with a combination of meropenem and vancomycin. The pro-calcitonin level has been improving. The patient is more hemodynamically stable and the pressors have been discontinued. Meanwhile, the patient also developed an acute kidney injury which improved her creatinine is essentially normalized and the creatinine is at 1.1. The serum bicarb is 27. Potassium level is at 2.9, being replaced. The patient also had a component of hyperchloremic hypernatremia. She was started on 50 water supplements double-J. She was also started on D5 water and the repeat sodium level today is at 147. White cell count is at 40.9 with a hemoglobin of 11.2. Receiving enteral feeding for nutritional support and the patient is currently on vitamin AF. She is stooling. In fact she has had several bowel movements, somewhat liquidy and will check also stool for C. diff. 09/17/2021, I had a lengthy meeting with the patient's family. I gave a detailed explanation on the patient's condition and I also gave a detailed explanation on the overall prognosis was essentially poor. Family listened to my examination. They had a lot of questions which I answered. They still are interested in a transfer to another facility being at [place] or any other facility such as [facility]. I think they are very comfortable with the quality of care here, however, they feel obligated to her mother that she would deserve further opinions prior to considering end-of-life care. In summary, the patient intubated on mechanical ventilator. The patient was in septic shock from which she essentially recovered and she is more hemodynamically stable at this point in time. This morning, she is on propofol running at 70 mcg/kg per minute. On and off, the patient gets restless on a mechanical ventilator and she may require also Dilaudid pushes. We have taken off the paralytics 48 hours ago. This morning, she remains on essentially the same ventilator setting. She at the rate of 30, tidal volume of 350, FiO2 of 70% with a PEEP of 13. The blood gas showed a pH of 7.4 with a pCO2 of 43 and pO2 of 60. The patient remains on a combination of meropenem and vancomycin. Chest x-ray showing extensive consolidation in the left lung base secondary to underlying lung cancer. There is also chronic infiltration of the right lung related to lung cancer. The patient's white cell count of 28 with hemoglobin of 9.4. White cell count is up compared to yesterday's currently down to 28 from 40. The patient's renal function remains stable. The patient's creatinine is at 0.8 with a BUN of 60. Sodium is at 142. Glucose is 151. Calcium level is at 8.4. All of the cultures of been negative. The patient has an orogastric tube in place and the patient is receiving enteral feeding for nutritional support. Wean down the Solu Medrol to 40 mg every 12 hours. She remains on bronchodilators. She remains on Eliquis 40 mg subcu DVT prophylaxis. No pressors for now. No active diarrhea. No other complaints otherwise. 09/18/2021, I'm seeing the patient for a follow-up. The patient remains on a mechanical ventilator. This morning, the patient remains on Profore running at 75 mg/kg per minute and fentanyl is running at 2 mcg/kg/h. She is adequately sedated. She has required few dose of Ativan overnight. Otherwise, the patient remains hemodynamically stable on no pressors. The patient on a mechanical ventilator on assist control mode at the rate of 30, FiO2 of 80% with a PEEP of 13 and a tidal volume of 350. The blood gas shows a pH of 7.41 with a pCO2 of 42 and pO2 of 60. Overall fluid balance has been persistently positive since the patient came in to the ICU and the patient was septic. Fluid balance over the past 24 hours has been +4 L. White cell count was at 31, slightly higher compared to yesterday and the patient's hemoglobin is at 8.9, gradually drifting down. Potassium level is at 5.4. Urine is a 52 with a creatinine of 0.7 and his sodium level of 139. Remains on IV meropenem. Remains on vancomycin. Cultures of been all negative. A CT angiogram was done today and the patient had no evidence of any pulmonary embolism. There are bilateral nodular disease consistent with lung cancer was still present and. There was also interval development of bilateral multifocal pulmonary infiltrates/groundglass pulmonary opacities which could be an acute lung injury, interstitial edema and possibly pneumonia. There is obvious worsening left lower lobe atelectasis with an underlying neoplasm. There is also discussed with the family. The patient rem ains on IV Solu-Medrol. The patient will be also started on diuretics today. Contacted [facility], [facility] and [facility] upon the patient's family request. Transfer was essential declined. Objective - Vital Signs Vital signs: Vital Signs Temp 99.1 F 09/18/21 08:00 Pulse 86 09/18/21 10:00 Resp 36 H 09/18/21 10:00 BP 104/65 09/18/21 04:00 Pulse Ox 94 L 09/18/21 10:00 Intake & Output 09/17/21 09/18/21 09/18/21 18:59 06:59 18:59 Intake Total 9323.329 1543.474 217.893 Output Total 485 930 75 Balance 7512.939 9955.474 142.893 Weight 80 kg 80 kg Intake: IV 825 295 20 0.9 220 20 Dextrose 5% in Water 1, 825 75 000 ml @ 75 mls/hr IV . [id number] [facility] Rx#:[id number] Intake, IV Titration 318.598 837.474 177.893 Amount Dextrose 5% in Water 1, 75 000 ml @ 75 mls/hr IV . [id number] [facility] Rx#:[id number] Meropenem 2 gm In Sodium 100 Chloride 0.9% 100 ml @ 33 .3 mls/hr IVPB Q12H [facility] Rx#:[id number] Norepinephrine 32 mg In 19.236 15.262 11.101 Sodium Chloride 0.9% 218 ml @ 0.05 MCG/KG/MIN 1. 477 mls/hr IV .Q24H [facility] Rx#:[id number] Vancomycin 1,500 mg In 250 Sodium Chloride 0.9% 250 ml @ 125 mls/hr IVPB Q12HR [facility] Rx#:[id number] fentaNYL (PF). 1,000 mcg 184.800 In Sodium Chloride 0.9% 80 ml @ 0.5 MCG/KG/HR 4 mls/hr IV .Q24H [facility] Rx#: [id number] propofoL 1,000 mg In 224.362 287.412 166.792 Empty Bag 1 bag @ 5 MCG/ KG/MIN 1.89 mls/hr IV . Q24H [facility] Rx#:[id number] Tube Feeding 362 220 20 Other 430 600 Output: Urine 485 930 75 Other: Voiding Method Indwelling Catheter Indwelling Catheter ABP, PAP, CO, CI - Last Documented Arterial Blood Pressure 117/50 - Exam No acute distress, oriented 3. The patient sedated, paralyzed, intubated on a mechanical ventilator. The patient is calm and comfortable and patient is currently off paralytics on sedation with propofol. The patient is sedated and paralyzed MHead exam was generally normal. There was no scleral icterus or corneal arcus. Mucous membranes were moist. Orogastric and orotracheal tube are both in place. HEENT examination is grossly unremarkable. Neck supple. Full range of motion. No adenopathy thyromegaly or neck vein distention. Cardiovascular examination reveals regular rhythm rate. S1-S2 normal. No S3 or S4. No discernible murmur noted. Heart sounds are distant. Lungs reveal coarse bilateral inspiratory and expiratory rhonchi, with breath sounds being equal bilaterally. No wheezes. No crackles. Patient has equal and symmetrical breath sounds bilaterally. Abdominal exam revealed normal bowel sounds. The abdomen was soft, non-tender, and without masses, organomegaly, or appreciable enlargement of the abdominal aorta. Extremities are intact. No cyanosis clubbing or edema. Examination of the skin revealed no evidence of significant rashes, suspicious appearing nevi or other concerning lesions. Neurologic examination is sedated and patient is sedated and paralyzed - Labs CBC & Chem 7: 09/18/21 06:00 09/18/21 06:00 Labs: Abnormal Lab Results - Last 24 Hours (Table) 09/17/21 09/18/21 09/18/21 Range/Units 18:01 00:12 06:00 WBC (3.8-10.6) k/uL RBC (3.80-5.40) m/uL Hgb (11.4-16.0) gm/dL Hct (34.0-46.0) % Neutrophils # (1.3-7.7) k/uL ABG pO2 (83-108) mmHg ABG HCO3 (21-25) mmol/L ABG Total CO2 (19-24) mmol/L ABG O2 Saturation (94-97) % Potassium 5.4 H (3.5-5.1) mmol/L Chloride 112 H (98-107) mmol/L BUN 52 H (7-17) mg/dL Glucose 116 H (74-99) mg/dL POC Glucose (mg/dL) 176 H 114 H (75-99) mg/dL 09/18/21 09/18/21 09/18/21 Range/Units 06:00 06:05 06:06 WBC 31.1 H (3.8-10.6) k/uL RBC 2.83 L (3.80-5.40) m/uL Hgb 8.9 L (11.4-16.0) gm/dL Hct 27.6 L (34.0-46.0) % Neutrophils # 29.1 H (1.3-7.7) k/uL ABG pO2 60 L (83-108) mmHg ABG HCO3 27 H (21-25) mmol/L ABG Total CO2 28 H (19-24) mmol/L ABG O2 Saturation 91.3 L (94-97) % Potassium (3.5-5.1) mmol/L Chloride (98-107) mmol/L BUN (7-17) mg/dL Glucose (74-99) mg/dL POC Glucose (mg/dL) 132 H (75-99) mg/dL 09/18/21 09/18/21 Range/Units 10:57 12:16 WBC (3.8-10.6) k/uL RBC (3.80-5.40) m/uL Hgb (11.4-16.0) gm/dL Hct (34.0-46.0) % Neutrophils # (1.3-7.7) k/uL ABG pO2 62 L (83-108) mmHg ABG HCO3 27 H (21-25) mmol/L ABG Total CO2 29 H (19-24) mmol/L ABG O2 Saturation 91.4 L (94-97) % Potassium (3.5-5.1) mmol/L Chloride (98-107) mmol/L BUN (7-17) mg/dL Glucose (74-99) mg/dL POC Glucose (mg/dL) 109 H (75-99) mg/dL Assessment and Plan Plan: 1 stage IV metastatic adenocarcinoma of the lung, has not received any treatment other than homeopathic/IV vitamin therapy with obvious interval progression bas ed on a quick comparison of the CAT scans were done between 2020 and 2021. There is obvious worsening of the bilateral lung masses and the patient has developed extensive nodular lesions involving the entire right lung and hence masslike consolidation of the left lung base. I furthermore, reviewed all of the CAT scans that was done on this patient throughout the course of her illness and there is of his progression of her underlying lung cancer. Repeat computed tomography scan of the chest was noted from today. The patient has underlying malignancy, worsening left lower lobe consolidation, in addition to areas of groundglass pulmonary infiltrates which could be potentially areas of pneumonia, acute lung injury versus interstitial edema. Noted the patient has been in a positive fluid balance. 2 septic shock most likely secondary to pneumonia. Cultures of been all negative and the patient's is hemodynamically stable. The white cell count is at 28. The patient remains on a combination of metoprolol and vancomycin. 3 acute hypoxic respiratory failure, currently intubated on mechanical ventilator, consider simply infection/pneumonia, . The patient's hemodynamics improved and she seems to note of her septic shock. Nevertheless, oxygenation becomes an ongoing issue and the patient is unable to wean any further. The follow-up CT angios the chest that was done today showed no this of any pulmonary embolism. Abnormalities were noted and the patient will be kept on the same antibiotic coverage and the patient will be given a course of diuretics. 4 acute kidney injury, recovered 5 COPD 6 chronic anxiety 7 leukopenia, improved and subsequently the patient developed leukocytosis 8 thrombocytopenia, improving 9 acute lactic acidosis, improved Plan Continue ventilator support, No ventilator changes for today Keep the patient sedated on propofol and fentanyl was also added to improve sedation Continue IV Merrem and IV vancomycin Monitor fever pattern, currently afebrile Monitor leukocytosis, white cell count is is at 30 Sodium level is improved, discontinue the free water through the NG Repeat pro calcitonin levels, improving Enteral feeding has been initiated and the patient is currently on vital high protein at the rate of 10 mL an hour Resume Lovenox 40 mg subcu daily, platelet counts are improving Repeat CT of the chest was noted. No evidence of any pulmonary embolism. We'll start the patient IV Lasix 40 mg every 8 hours. Monitor urine output. Monitor hemodynamics. Monitor oxygenation. Condition is extremely critical CODE STATUS remains full. Had a lengthy discussion with the daughter and went over the details and she carries a very poor prognosis. I had a lengthy discussion again with her daughter, and 2 of her sisters another family member and we discussed the case for more than 45 minutes and closed doors.. I obv iously explained to her the poor prognosis. I think out of this patient recovering from acute respiratory failure is extremely low. Even if we do a short-term extubation, the patient's long-term prognosis remains poor and she will ultimately failed again as the patient has progressive an extensive tumor burden bilaterally more so on the left lung. Her CODE STATUS remains full. We'll continue to follow. At the end the discussion, the patient's family insisted on a transfer to another facility for a second opinion. Critically care evaluation that was done and more than 1 hour. Contacted all the hospital as mentioned above. Transfer was declined by all these facilities Time with Patient: Greater than 30
[2021-09-18] MEDS: ACETAMINOPHEN TAB 325 MG TAB PO PRN ×2 (15:39→21:31)
[2021-09-18] MEDS: CISATRACURIUM 200 MG in SODIUM CHLORIDE 0.9% 180 ML IV SCH (16:50)
[2021-09-18 17:25] LABS: Glucose,Whole Blood 131 mg/dL (75-99)
[2021-09-18 17:28] LABS: Glucose,Whole Blood 135 mg/dL (75-99)
--- NOTE | 2021-09-18 23:45 | P.PN ---
Subjective Progress Note Date: 09/16/21 This is a pleasant 50 years old female with past medical history of Asthma, Seizure Disorder, Supraventricular Tachycardia , thyroid goiter COPD/emphysema, nicotine dependence, also she was recently diagnosed with lung cancer last year on 04/2021 and she follows up with Dr. Bauman She presents because of dyspnea, 30 this morning she was trying to be Acute where he twisted her back after that she started having shortness of breath as she states associated with little cough and little phlegm greenish in color,, no chest pain. Also yesterday she started having diarrhea about 5 times per day and this morning she had 2 more episodes which they are loose with no blood. No abdom inal pain. No vomiting. Her speech is limited by her dyspnea She has history of smoking about 2 packs per day after she was diagnosed with cancer she smokes now occasionally about 5 cigarettes per day with no alcohol. No illicit drugs. She was diagnosed with non-small lung cancer last April 2021, she did not get chemotherapy or radiotherapy she tried holistic medicine and now she's been following up with Dr. Bauman with the plan for her to get chemotherapy may be in a month, she has a port in her left upper chest as well. Patient on admission was hypotensive with a blood pressure was low as 81/53 and hypoxic, saturating 87% and 2 L oxygen via nasal cannula and tachycardic but patient is been afebrile. She has leukopenia 1.0 and 0.6. Rest of CBC is unremarkable D-dimer is elevated 5.9 PH is low 7.3, pCO2 low 32 and pO2 low at 60. Chest x-ray: Bilateral pulmonary infiltrates CTA of the chest showing extensive left lower lobe pneumonia with patchy nodular infiltrates and they remained of the lung molina. No pulmonary embolism EKG showing sinus tachycardia at 123. Patient started on broad-spectrum antibiotics with ceftriaxone and Zithromax Pulmonary and oncology were consulted 09/12/2021 Patient remains in the ICU for bilateral basal pneumonia and COPD exacerbation in view of recent lung cancer. She still tachypneic and tachycardic and remains on BiPAP with a setting of 12/5 and FiO2 of 100%. Patient looks worse than yesterday at [facility] her to talk area Patient remains on salmeterol 60 mg Zosyn and normal saline. Creatinine is stable at 1.6, WBC increased slightly at 2.2 09/13/2021 Patient is in the MICU. Patient denies intubated and on mechanical ventilator d ue to hypoxic respiratory failure. Assist control, FiO2 50% and tidal volume 400 and PEEP of 15. Patient is sedated and paralyzed. Requiring pressor support. Currently broad-spectrum antibiotics and IV steroids. Chest x-ray showed residual but improving bilateral airspace disease. Laboratory data showed WBC 13.4 hemoglobin 11.8 and platelets 95 sodium 138 potassium 4.5 chloride 113 bicarb is 19 BUN 44 and creatinine 1.66 calcium 7.5 and procalcitonin level is 8.41 Patient does have history of metastatic lung cancer and is scheduled for immunotherapy. 09/14/2021 Patient r is currently in the MICU currently on mechanical ventilator with FiO2 50% and PEEP of 13 tidal volume 400. Requiring pressor support. Currently on antibiotics in the form of vancomycin Zosyn. Also IV steroids 60 mg every 6 hourly. Chest x-ray showed bilateral multifocal and confluent opacities consistent with infiltrates and/or edema remain present. No significant change from 1 day earlier. Laboratory data showed WBC went up to 29.0 hemoglobin 11.4 and platelets 45 BUN 49 and creatinine 1.7, procalcitonin level trending down to 5.33 09/15/2021 Patient remains on mechanical ventilator. Tidal volume decreased to 375 FiO2 50% and PEEP of 13. Pressors tapered off. Remains on antibiotics in the form of vancomycin and Zosyn. Patient is tolerating enteral feeding. 2D echocardiogram showed ejection fraction 55 to 60% there is moderate to severe pulmonary hypertension increasing grade 2 diastolic dysfunction. Chest x-ray showed correlate for pneumonia pulmonary edema or ARDS. Laboratory data showed WBC 25.6 hemoglobin 11.0 and platelets 54.0 chloride 122 bicarb is 25 BUN 56 and creatinine 1.61 blood sugar is 204 procalcitonin level trending down to 2.27. IV fluids changed to D5 water. 09/16/2021 Patient is in the MICU. Remains on mechanical ventilator with assist control tidal volume 350 FiO2 70% and PEEP of 13. Patient is on propofol drip and also paralyzed overnight. Chest x-ray showed bilateral multifocal and confluent opacities consistent with infiltrate/edema remain present. No significant change from 1 day earlier. Laboratory data showed WBC went up to 40.9 hemoglobin 11.2 platelets 95 sodium 147 potassium 2.9 chloride 118 BUN 57 creatinine 1.57 IV fluids changed to D5 water. Procalcitonin level is 1.57 albumin 2.4 liver enzymes are not elevated. Patient is being continued antibiotics in the form of vancomycin and Zosyn. Current medications reviewed. Objective - Vital Signs Vital signs: Vital Signs Temp 98.2 F 09/16/21 11:00 Pulse 93 09/16/21 12:00 Resp 30 H 09/16/21 12:00 BP 104/65 09/16/21 12:00 Pulse Ox 94 L 09/16/21 12:00 Intake & Output 09/15/21 09/16/21 09/16/21 18:59 06:59 18:59 Intake Total 4704.038 8852.177 1786.820 Output Total 1210 800 310 Balance 502.399 435.561 1233.820 Weight 78 kg Intake: IV 550 250 Sodium Chloride 0.9% 1, 300 000 ml @ 75 mls/hr IV . [id number] [facility] Rx#:[id number] Vancomycin 1,250 mg In 250 250 Sodium Chloride 0.9% 250 ml @ 125 mls/hr IVPB Q24HR [facility] Rx#:[id number] Intake, IV Titration 555.399 860.177 856.820 Amount Cisatracurium 200 mg In 0 8.067 Sodium Chloride 0.9% 180 ml @ 1 MCG/KG/MIN 3.78 mls/hr IV .Q24H [facility] Rx#: [id number] Dextrose 5% in Water 1, 350 600 50 000 ml @ 50 mls/hr IV . Q20H [facility] Rx#:[id number] Dextrose 5% in Water 1, 300 000 ml @ 75 mls/hr IV . [id number] [facility] Rx#:[id number] Norepinephrine 32 mg In 0 Sodium Chloride 0.9% 218 ml @ 0.05 MCG/KG/MIN 1. 477 mls/hr IV .Q24H [facility] Rx#:[id number] Potassium Chloride 20 meq 300 In Water For Injection 1 100ml.bag @ 50 mls/hr IVPB Q2HR [facility] Rx#: [id number] propofoL 1,000 mg In 205.399 260.177 198.753 Empty Bag 1 bag @ 5 MCG/ KG/MIN 1.89 mls/hr IV . Q24H [facility] Rx#:[id number] Tube Feeding 517 564 280 Other 90 200 400 Output: Urine 1210 800 310 Other: Voiding Method Indwelling Catheter Indwelling Catheter Indwelling Catheter ABP, PAP, CO, CI - Last Documented Arterial Blood Pressure 94/55 - Exam PHYSICAL EXAMINATION: Patient is intubated and on mechanical ventilator. Sedated... HEENT: Normocephalic. Neck is supple. Pupils reactive. Nostrils clear. Oral cavity is moist. Neck reveals no JVD, carotid bruits, or thyromegaly. CHEST EXAMINATION: Patient is intubated. Symmetrical expansion. Bibasilar diminished sounds and scattered coarse sounds.. CARDIAC: Normal S1, S2 with no gallops. No murmurs ABDOMEN: Soft. Bowel sounds present. No organomegaly. No abdominal bruits. Extremities: reveal no edema. No clubbing or cyanosis Neurologically patient is sedated and intubated. No gross focal deficits noted Skin: No rash or skin lesions. Psychiatric: Could not be assessed at this time. Musculoskeletal: No joint swelling or deformity. - Labs CBC & Chem 7: 09/18/21 06:00 09/18/21 06:00 Labs: Abnormal Lab Results - Last 24 Hours (Table) 09/15/21 09/15/21 09/16/21 Range/Units 18:59 23:32 02:41 WBC (3.8-10.6) k/uL RBC (3.80-5.40) m/uL Hgb (11.4-16.0) gm/dL Plt Count (150-450) k/uL Neutrophils # (1.3-7.7) k/uL ABG pH (7.35-7.45) ABG pCO2 (35-45) mmHg ABG pO2 (83-108) mmHg ABG Total CO2 (19-24) mmol/L ABG O2 Saturation (94-97) % Sodium 148 H (137-145) mmol/L Potassium 1.9 L* (3.5-5.1) mmol/L Chloride 119 H (98-107) mmol/L BUN (7-17) mg/dL Creatinine (0.52-1.04) mg/dL Glucose (74-99) mg/dL POC Glucose (mg/dL) 268 H 243 H (75-99) mg/dL Total Protein (6.3-8.2) g/dL Albumin (3.5-5.0) g/dL Procalcitonin (0.02-0.09) ng/mL 09/16/21 09/16/21 09/16/21 Range/Units 04:58 05:32 05:37 WBC (3.8-10.6) k/uL RBC (3.80-5.40) m/uL Hgb (11.4-16.0) gm/dL Plt Count (150-450) k/uL Neutrophils # (1.3-7.7) k/uL ABG pH 7.21 L (7.35-7.45) ABG pCO2 64 H (35-45) mmHg ABG pO2 69 L (83-108) mmHg ABG Total CO2 27 H (19-24) mmol/L ABG O2 Saturation 91.6 L (94-97) % Sodium (137-145) mmol/L Potassium (3.5-5.1) mmol/L Chloride (98-107) mmol/L BUN (7-17) mg/dL Creatinine (0.52-1.04) mg/dL Glucose (74-99) mg/dL POC Glucose (mg/dL) 159 H (75-99) mg/dL Total Protein (6.3-8.2) g/dL Albumin (3.5-5.0) g/dL Procalcitonin 1.57 H (0.02-0.09) ng/mL 09/16/21 09/16/21 09/16/21 Range/Units 05:37 05:37 05:42 WBC 40.9 H (3.8-10.6) k/uL RBC 3.54 L (3.80-5.40) m/uL Hgb 11.2 L (11.4-16.0) gm/dL Plt Count 95 L D (150-450) k/uL Neutrophils # 38.8 H (1.3-7.7) k/uL ABG pH (7.35-7.45) ABG pCO2 (35-45) mmHg ABG pO2 (83-108) mmHg ABG Total CO2 (19-24) mmol/L ABG O2 Saturation (94-97) % Sodium 147 H (137-145) mmol/L Potassium 2.9 L (3.5-5.1) mmol/L Chloride 118 H (98-107) mmol/L BUN 57 H (7-17) mg/dL Creatinine 1.19 H (0.52-1.04) mg/dL Glucose 157 H (74-99) mg/dL POC Glucose (mg/dL) 156 H (75-99) mg/dL Total Protein 4.9 L (6.3-8.2) g/dL Albumin 2.4 L (3.5-5.0) g/dL Procalcitonin (0.02-0.09) ng/mL 09/16/21 Range/Units 11:24 WBC (3.8-10.6) k/uL RBC (3.80-5.40) m/uL Hgb (11.4-16.0) gm/dL Plt Count (150-450) k/uL Neutrophils # (1.3-7.7) k/uL ABG pH (7.35-7.45) ABG pCO2 (35-45) mmHg ABG pO2 (83-108) mmHg ABG Total CO2 (19-24) mmol/L ABG O2 Saturation (94-97) % Sodium (137-145) mmol/L Potassium (3.5-5.1) mmol/L Chloride (98-107) mmol/L BUN (7-17) mg/dL Creatinine (0.52-1.04) mg/dL Glucose (74-99) mg/dL POC Glucose (mg/dL) 231 H (75-99) mg/dL Total Protein (6.3-8.2) g/dL Albumin (3.5-5.0) g/dL Procalcitonin (0.02-0.09) ng/mL Microbiology - Last 24 Hours (Table) 09/11/21 00:44 Blood Culture - Preliminary Blood No Growth after 120 hours Assessment and Plan Assessment: Acute hypoxic respiratory failure currently on mechanical ventilator likely to bilateral pneumonia. Sepsis/septic shock requiring pressor support Acute kidney injury possible ATN due to infection. Metastatic adenocarcinoma of the lung recently diagnosed. Was planning for chemotherapy. Patient received IV vitamin therapy in [place] COPD History of supraventricular tachycardia History of thyroid goiter Elevated D-dimer level and CT angiogram negative for PE on admission DVT prophylaxis with heparin subcu Plan: Patient is in the MICU and is mechanical ventilator. Intubated and sedated. Requiring pressor support and continue broad-spectrum antibiotics and IV steroi ds. Labs and medication were reviewed. Monitor lytes and vitals. DVT and GI prophylaxis DVT prophylaxis: Subcutaneous heparin GI Prophylaxis: Pepcid Prognosis is guarded Time with Patient: Greater than 30
--- NOTE | 2021-09-18 23:48 | P.PN ---
Subjective Progress Note Date: 09/17/21 This is a pleasant 50 years old female with past medical history of Asthma, Seizure Disorder, Supraventricular Tachycardia , thyroid goiter COPD/emphysema, nicotine dependence, also she was recently diagnosed with lung cancer last year on 04/2021 and she follows up with Dr. Bauman She presents because of dyspnea, 30 this morning she was trying to be Acute where he twisted her back after that she started having shortness of breath as she states associated with little cough and little phlegm greenish in color,, no chest pain. Also yesterday she started having diarrhea about 5 times per day and this morning she had 2 more episodes which they are loose with no blood. No abdom inal pain. No vomiting. Her speech is limited by her dyspnea She has history of smoking about 2 packs per day after she was diagnosed with cancer she smokes now occasionally about 5 cigarettes per day with no alcohol. No illicit drugs. She was diagnosed with non-small lung cancer last April 2021, she did not get chemotherapy or radiotherapy she tried holistic medicine and now she's been following up with Dr. Bauman with the plan for her to get chemotherapy may be in a month, she has a port in her left upper chest as well. Patient on admission was hypotensive with a blood pressure was low as 81/53 and hypoxic, saturating 87% and 2 L oxygen via nasal cannula and tachycardic but patient is been afebrile. She has leukopenia 1.0 and 0.6. Rest of CBC is unremarkable D-dimer is elevated 5.9 PH is low 7.3, pCO2 low 32 and pO2 low at 60. Chest x-ray: Bilateral pulmonary infiltrates CTA of the chest showing extensive left lower lobe pneumonia with patchy nodular infiltrates and they remained of the lung molina. No pulmonary embolism EKG showing sinus tachycardia at 123. Patient started on broad-spectrum antibiotics with ceftriaxone and Zithromax Pulmonary and oncology were consulted 09/12/2021 Patient remains in the ICU for bilateral basal pneumonia and COPD exacerbation in view of recent lung cancer. She still tachypneic and tachycardic and remains on BiPAP with a setting of 12/5 and FiO2 of 100%. Patient looks worse than yesterday at [place] [facility] her to talk area Patient remains on salmeterol 60 mg Zosyn and normal saline. Creatinine is stable at 1.6, WBC increased slightly at 2.2 09/13/2021 Patient is in the MICU. Patient denies intubated and on mechanical ventilator d ue to hypoxic respiratory failure. Assist control, FiO2 50% and tidal volume 400 and PEEP of 15. Patient is sedated and paralyzed. Requiring pressor support. Currently broad-spectrum antibiotics and IV steroids. Chest x-ray showed residual but improving bilateral airspace disease. Laboratory data showed WBC 13.4 hemoglobin 11.8 and platelets 95 sodium 138 potassium 4.5 chloride 113 bicarb is 19 BUN 44 and creatinine 1.66 calcium 7.5 and procalcitonin level is 8.41 Patient does have history of metastatic lung cancer and is scheduled for immunotherapy. 09/14/2021 Patient r is currently in the MICU currently on mechanical ventilator with FiO2 50% and PEEP of 13 tidal volume 400. Requiring pressor support. Currently on antibiotics in the form of vancomycin Zosyn. Also IV steroids 60 mg every 6 hourly. Chest x-ray showed bilateral multifocal and confluent opacities consistent with infiltrates and/or edema remain present. No significant change from 1 day earlier. Laboratory data showed WBC went up to 29.0 hemoglobin 11.4 and platelets 45 BUN 49 and creatinine 1.7, procalcitonin level trending down to 5.33 09/15/2021 Patient remains on mechanical ventilator. Tidal volume decreased to 375 FiO2 50% and PEEP of 13. Pressors tapered off. Remains on antibiotics in the form of vancomycin and Zosyn. Patient is tolerating enteral feeding. 2D echocardiogram showed ejection fraction 55 to 60% there is moderate to severe pulmonary hypertension increasing grade 2 diastolic dysfunction. Chest x-ray showed correlate for pneumonia pulmonary edema or ARDS. Laboratory data showed WBC 25.6 hemoglobin 11.0 and platelets 54.0 chloride 122 bicarb is 25 BUN 56 and creatinine 1.61 blood sugar is 204 procalcitonin level trending down to 2.27. IV fluids changed to D5 water. 09/16/2021 Patient is in the MICU. Remains on mechanical ventilator with assist control tidal volume 350 FiO2 70% and PEEP of 13. Patient is on propofol drip and also paralyzed overnight. Chest x-ray showed bilateral multifocal and confluent opacities consistent with infiltrate/edema remain present. No significant change from 1 day earlier. Laboratory data showed WBC went up to 40.9 hemoglobin 11.2 platelets 95 sodium 147 potassium 2.9 chloride 118 BUN 57 creatinine 1.57 IV fluids changed to D5 water. Procalcitonin level is 1.57 albumin 2.4 liver enzymes are not elevated. Patient is being continued antibiotics in the form of vancomycin and Zosyn. 09/17/2021 Patient is on mechanical ventilator and is on propofol. Currently on assist control with tidal volume 350 FiO2 70% and PEEP of 13. Patient is being continued on antibiotics above vancomycin and meropenem. X-ray showed extensive consolidation of the left lower lung secondary to underlying cancer and bilateral infiltrates with pneumonia and sepsis/septic shock. Cultures have been negative. Laboratory data showed WBC trending down to 28.0 hemoglobin 9.4 and platelets 146 sodium 142 potassium 4.5 chloride 105 bicarb 26 BUN 16 creatinine 0.83 and blood sugar is 211. Family would like the patient to be transferred to another facility such as [facility]. Current medications reviewed. Objective - Vital Signs Vital signs: Vital Signs Temp 97.6 F 09/17/21 20:00 Pulse 80 09/17/21 20:00 Resp 31 H 09/17/21 20:00 BP 104/65 09/17/21 04:00 Pulse Ox 94 L 09/17/21 20:00 Intake & Output 09/17/21 09/17/21 09/18/21 06:59 18:59 06:59 Intake Total 2451.866 1935.598 256.211 Output Total 690 485 225 Balance 3158.612 6068.598 31.211 Weight 80 kg 80 kg Intake: IV 825 150 Dextrose 5% in Water 1, 825 150 000 ml @ 75 mls/hr IV . [id number] [facility] Rx#:[id number] Intake, IV Titration 1287.866 318.598 106.211 Amount Dextrose 5% in Water 1, 900 75 000 ml @ 75 mls/hr IV . [id number] [facility] Rx#:[id number] Meropenem 2 gm In Sodium 100 Chloride 0.9% 100 ml @ 33 .3 mls/hr IVPB Q12H [facility] Rx#:[id number] Norepinephrine 32 mg In 19.236 Sodium Chloride 0.9% 218 ml @ 0.05 MCG/KG/MIN 1. 477 mls/hr IV .Q24H [facility] Rx#:[id number] fentaNYL (PF). 1,000 mcg 36.533 In Sodium Chloride 0.9% 80 ml @ 0.5 MCG/KG/HR 4 mls/hr IV .Q24H [facility] Rx#: [id number] propofoL 1,000 mg In 287.866 224.362 69.678 Empty Bag 1 bag @ 5 MCG/ KG/MIN 1.89 mls/hr IV . Q24H [facility] Rx#:[id number] Tube Feeding 564 362 Other 600 430 Output: Urine 690 485 225 Other: Voiding Method Indwelling Catheter Indwelling Catheter ABP, PAP, CO, CI - Last Documented Arterial Blood Pressure 122/51 - Exam PHYSICAL EXAMINATION: Patient is intubated and on mechanical ventilator. Sedated... HEENT: Normocephalic. Neck is supple. Pupils reactive. Nostrils clear. Oral cavity is moist. Neck reveals no JVD, carotid bruits, or thyromegaly. CHEST EXAMINATION: Patient is intubated. Symmetrical expansion. Bibasilar diminished sounds and scattered coarse sounds.. CARDIAC: Normal S1, S2 with no gallops. No murmurs ABDOMEN: Soft. Bowel sounds present. No organomegaly. No abdominal bruits. Extremities: reveal no edema. No clubbing or cyanosis Neurologically patient is sedated and intubated. No gross focal deficits noted Skin: No rash or skin lesions. Psychiatric: Could not be assessed at this time. Musculoskeletal: No joint swelling or deformity. - Labs CBC & Chem 7: 09/18/21 06:00 09/18/21 06:00 Labs: Abnormal Lab Results - Last 24 Hours (Table) 09/15/21 09/17/21 09/17/21 Range/Units 06:00 01:02 05:15 WBC (3.8-10.6) k/uL RBC (3.80-5.40) m/uL Hgb (11.4-16.0) gm/dL Hct (34.0-46.0) % RDW (11.5-15.5) % Plt Count (150-450) k/uL Neutrophils # (1.3-7.7) k/uL ABG pO2 (83-108) mmHg ABG HCO3 (21-25) mmol/L ABG Total CO2 (19-24) mmol/L ABG O2 Saturation (94-97) % Chloride 115 H (98-107) mmol/L BUN 60 H (7-17) mg/dL Glucose 196 H (74-99) mg/dL POC Glucose (mg/dL) 234 H (75-99) mg/dL IgG 664.0 L (700.0-1600.0) mg/dL 09/17/21 09/17/21 09/17/21 Range/Units 05:15 05:22 06:00 WBC 28.0 H (3.8-10.6) k/uL RBC 3.04 L (3.80-5.40) m/uL Hgb 9.4 L D (11.4-16.0) gm/dL Hct 29.5 L (34.0-46.0) % RDW 16.0 H (11.5-15.5) % Plt Count 146 L D (150-450) k/uL Neutrophils # 26.0 H (1.3-7.7) k/uL ABG pO2 60 L (83-108) mmHg ABG HCO3 26 H (21-25) mmol/L ABG Total CO2 27 H (19-24) mmol/L ABG O2 Saturation 91.8 L (94-97) % Chloride (98-107) mmol/L BUN (7-17) mg/dL Glucose (74-99) mg/dL POC Glucose (mg/dL) 211 H (75-99) mg/dL IgG (700.0-1600.0) mg/dL 09/17/21 09/17/21 Range/Units 12:28 18:01 WBC (3.8-10.6) k/uL RBC (3.80-5.40) m/uL Hgb (11.4-16.0) gm/dL Hct (34.0-46.0) % RDW (11.5-15.5) % Plt Count (150-450) k/uL Neutrophils # (1.3-7.7) k/uL ABG pO2 (83-108) mmHg ABG HCO3 (21-25) mmol/L ABG Total CO2 (19-24) mmol/L ABG O2 Saturation (94-97) % Chloride (98-107) mmol/L BUN (7-17) mg/dL Glucose (74-99) mg/dL POC Glucose (mg/dL) 151 H 176 H (75-99) mg/dL IgG (700.0-1600.0) mg/dL Microbiology - Last 24 Hours (Table) 09/11/21 00:44 Blood Culture - Final Blood No Growth after 144 hours Assessment and Plan Assessment: Acute hypoxic respiratory failure currently on mechanical ventilator likely to bilateral pneumonia. Sepsis/septic shock requiring pressor support Acute kidney injury possible ATN due to infection. Metastatic adenocarcinoma of the lung recently diagnosed. Was planning for chemotherapy. Patient received IV vitamin therapy in [facility] COPD History of supraventricular tachycardia History of thyroid goiter Elevated D-dimer level and CT angiogram negative for PE on admission DVT prophylaxis with heparin subcu Plan: Patient is in the MICU and is mechanical ventilator. Intubated and sedated. off pressor support and continue broad-spectrum antibiotics and IV steroids. Continued on vancomycin and Zosyn changed to meropenem. Labs and medication were reviewed. Monitor lytes and vitals. DVT and GI prophylaxis DVT prophylaxis: Subcutaneous heparin GI Prophylaxis: Pepcid Prognosis is guarded Time with Patient: Greater than 30
--- NOTE | 2021-09-18 23:55 | P.PN ---
Subjective Progress Note Date: 09/18/21 This is a pleasant 50 years old female with past medical history of Asthma, Seizure Disorder, Supraventricular Tachycardia , thyroid goiter COPD/emphysema, nicotine dependence, also she was recently diagnosed with lung cancer last year on 04/2021 and she follows up with Dr. Bauman She presents because of dyspnea, 30 this morning she was trying to be Acute where he twisted her back after that she started having shortness of breath as she states associated with little cough and little phlegm greenish in color,, no chest pain. Also yesterday she started having diarrhea about 5 times per day and this morning she had 2 more episodes which they are loose with no blood. No abdom inal pain. No vomiting. Her speech is limited by her dyspnea She has history of smoking about 2 packs per day after she was diagnosed with cancer she smokes now occasionally about 5 cigarettes per day with no alcohol. No illicit drugs. She was diagnosed with non-small lung cancer last April 2021, she did not get chemotherapy or radiotherapy she tried holistic medicine and now she's been following up with Dr. Bauman with the plan for her to get chemotherapy may be in a month, she has a port in her left upper chest as well. Patient on admission was hypotensive with a blood pressure was low as 81/53 and hypoxic, saturating 87% and 2 L oxygen via nasal cannula and tachycardic but patient is been afebrile. She has leukopenia 1.0 and 0.6. Rest of CBC is unremarkable D-dimer is elevated 5.9 PH is low 7.3, pCO2 low 32 and pO2 low at 60. Chest x-ray: Bilateral pulmonary infiltrates CTA of the chest showing extensive left lower lobe pneumonia with patchy nodular infiltrates and they remained of the lung molina. No pulmonary embolism EKG showing sinus tachycardia at 123. Patient started on broad-spectrum antibiotics with ceftriaxone and Zithromax Pulmonary and oncology were consulted 09/12/2021 Patient remains in the ICU for bilateral basal pneumonia and COPD exacerbation in view of recent lung cancer. She still tachypneic and tachycardic and remains on BiPAP with a setting of 12/5 and FiO2 of 100%. Patient looks worse than yesterday at [place] of her to talk area Patient remains on salmeterol 60 mg Zosyn and normal saline. Creatinine is stable at 1.6, WBC increased slightly at 2.2 09/13/2021 Patient is in the MICU. Patient denies intubated and on mechanical ventilator d ue to hypoxic respiratory failure. Assist control, FiO2 50% and tidal volume 400 and PEEP of 15. Patient is sedated and paralyzed. Requiring pressor support. Currently broad-spectrum antibiotics and IV steroids. Chest x-ray showed residual but improving bilateral airspace disease. Laboratory data showed WBC 13.4 hemoglobin 11.8 and platelets 95 sodium 138 potassium 4.5 chloride 113 bicarb is 19 BUN 44 and creatinine 1.66 calcium 7.5 and procalcitonin level is 8.41 Patient does have history of metastatic lung cancer and is scheduled for immunotherapy. 09/14/2021 Patient r is currently in the MICU currently on mechanical ventilator with FiO2 50% and PEEP of 13 tidal volume 400. Requiring pressor support. Currently on antibiotics in the form of vancomycin Zosyn. Also IV steroids 60 mg every 6 hourly. Chest x-ray showed bilateral multifocal and confluent opacities consistent with infiltrates and/or edema remain present. No significant change from 1 day earlier. Laboratory data showed WBC went up to 29.0 hemoglobin 11.4 and platelets 45 BUN 49 and creatinine 1.7, procalcitonin level trending down to 5.33 09/15/2021 Patient remains on mechanical ventilator. Tidal volume decreased to 375 FiO2 50% and PEEP of 13. Pressors tapered off. Remains on antibiotics in the form of vancomycin and Zosyn. Patient is tolerating enteral feeding. 2D echocardiogram showed ejection fraction 55 to 60% there is moderate to severe pulmonary hypertension increasing grade 2 diastolic dysfunction. Chest x-ray showed correlate for pneumonia pulmonary edema or ARDS. Laboratory data showed WBC 25.6 hemoglobin 11.0 and platelets 54.0 chloride 122 bicarb is 25 BUN 56 and creatinine 1.61 blood sugar is 204 procalcitonin level trending down to 2.27. IV fluids changed to D5 water. 09/16/2021 Patient is in the MICU. Remains on mechanical ventilator with assist control tidal volume 350 FiO2 70% and PEEP of 13. Patient is on propofol drip and also paralyzed overnight. Chest x-ray showed bilateral multifocal and confluent opacities consistent with infiltrate/edema remain present. No significant change from 1 day earlier. Laboratory data showed WBC went up to 40.9 hemoglobin 11.2 platelets 95 sodium 147 potassium 2.9 chloride 118 BUN 57 creatinine 1.57 IV fluids changed to D5 water. Procalcitonin level is 1.57 albumin 2.4 liver enzymes are not elevated. Patient is being continued antibiotics in the form of vancomycin and Zosyn. 09/17/2021 Patient is on mechanical ventilator and is on propofol. Currently on assist control with tidal volume 350 FiO2 70% and PEEP of 13. Patient is being continued on antibiotics above vancomycin and meropenem. X-ray showed extensive consolidation of the left lower lung secondary to underlying cancer and bilateral infiltrates with pneumonia and sepsis/septic shock. Cultures have been negative. Laboratory data showed WBC trending down to 28.0 hemoglobin 9.4 and platelets 146 sodium 142 potassium 4.5 chloride 105 bicarb 26 BUN 16 creatin ine 0.83 and blood sugar is 211. Family would like the patient to be transferred to another facility such as [facility]. 09/18/2021 Patient is currently in the MICU. On my current ventilator. Sedation with propofol patient is on assist control with tidal volume 350, FiO2 80% and PEEP o f 13 and respiratory rate 30. Chest x-ray showed bilateral multifocal and confluent opacities consistent with infiltrate and/or edema with small left pleural effusion remains present. No significant change. CT angio of the chest showed no evidence of PE. Stable small to tiny left lower lobe fluid collection. Continued progressing bilateral multifocal infiltrates and edema with increasing groundglass opacities and organizing consolidations along with enlarging nodules and nodular consolidatio ns. Worsening left lower lobe atelectasis with underlying neoplasm suspected. Laboratory data showed WBC count went up to 31.1 hemoglobin 8.9 platelets 240 sodium 139 potassium 5.4 chloride 102 bicarb is 25 BUN 5020 creatinine 0.79 blood sugar is 08/01/2019 calcium 8.8. Current medications reviewed. Objective - Vital Signs Vital signs: Vital Signs Temp 99.8 F H 09/18/21 17:00 Pulse 123 H 09/18/21 19:00 Resp 32 H 09/18/21 19:00 BP 104/65 09/18/21 04:00 Pulse Ox 95 09/18/21 19:00 Intake & Output 09/18/21 09/18/21 09/19/21 06:59 18:59 06:59 Intake Total 7799.482 2029.895 40 Output Total 930 2925 450 Balance 1022.474 -1715.105 -410 Weight 80 kg Intake: IV 295 340 20 0.9 220 240 20 Dextrose 5% in Water 1, 75 000 ml @ 75 mls/hr IV . [id number] [facility] Rx#:[id number] Meropenem 2 gm In Sodium 100 Chloride 0.9% 100 ml @ 33 .3 mls/hr IVPB Q12H [facility] Rx#:[id number] Intake, IV Titration 837.474 539.895 Amount Meropenem 2 gm In Sodium 100 Chloride 0.9% 100 ml @ 33 .3 mls/hr IVPB Q12H [facility] Rx#:[id number] Norepinephrine 32 mg In 15.262 50.082 Sodium Chloride 0.9% 218 ml @ 0.05 MCG/KG/MIN 1. 477 mls/hr IV .Q24H [facility] Rx#:[id number] Vancomycin 1,500 mg In 250 Sodium Chloride 0.9% 250 ml @ 125 mls/hr IVPB Q12HR [facility] Rx#:[id number] fentaNYL (PF). 1,000 mcg 184.800 100 In Sodium Chloride 0.9% 80 ml @ 0.5 MCG/KG/HR 4 mls/hr IV .Q24H [facility] Rx#: [id number] propofoL 1,000 mg In 287.412 389.813 Empty Bag 1 bag @ 5 MCG/ KG/MIN 1.89 mls/hr IV . Q24H [facility] Rx#:[id number] Tube Feeding 220 240 20 Other 600 90 Output: Urine 930 2925 450 Other: Voiding Method Indwelling Catheter Indwelling Catheter ABP, PAP, CO, CI - Last Documented Arterial Blood Pressure 107/54 - Exam PHYSICAL EXAMINATION: Patient is intubated and on mechanical ventilator. Sedated... HEENT: Normocephalic. Neck is supple. Pupils reactive. Nostrils clear. Oral cavity is moist. Neck reveals no JVD, carotid bruits, or thyromegaly. CHEST EXAMINATION: Patient is intubated. Symmetrical expansion. Bibasilar diminished sounds and scattered coarse sounds.. CARDIAC: Normal S1, S2 with no gallops. No murmurs ABDOMEN: Soft. Bowel sounds present. No organomegaly. No abdominal bruits. Extremities: reveal no edema. No clubbing or cyanosis Neurologically patient is sedated and intubated. No gross focal deficits noted Skin: No rash or skin lesions. Psychiatric: Could not be assessed at this time. Musculoskeletal: No joint swelling or deformity. - Labs CBC & Chem 7: 09/18/21 06:00 09/18/21 06:00 Labs: Abnormal Lab Results - Last 24 Hours (Table) 09/18/21 09/18/21 09/18/21 Range/Units 00:12 06:00 06:00 WBC 31.1 H (3.8-10.6) k/uL RBC 2.83 L (3.80-5.40) m/uL Hgb 8.9 L (11.4-16.0) gm/dL Hct 27.6 L (34.0-46.0) % Neutrophils # 29.1 H (1.3-7.7) k/uL ABG pO2 (83-108) mmHg ABG HCO3 (21-25) mmol/L ABG Total CO2 (19-24) mmol/L ABG O2 Saturation (94-97) % Potassium 5.4 H (3.5-5.1) mmol/L Chloride 112 H (98-107) mmol/L BUN 52 H (7-17) mg/dL Glucose 116 H (74-99) mg/dL POC Glucose (mg/dL) 114 H (75-99) mg/dL 09/18/21 09/18/21 09/18/21 Range/Units 06:05 06:06 10:57 WBC (3.8-10.6) k/uL RBC (3.80-5.40) m/uL Hgb (11.4-16.0) gm/dL Hct (34.0-46.0) % Neutrophils # (1.3-7.7) k/uL ABG pO2 60 L (83-108) mmHg ABG HCO3 27 H (21-25) mmol/L ABG Total CO2 28 H (19-24) mmol/L ABG O2 Saturation 91.3 L (94-97) % Potassium (3.5-5.1) mmol/L Chloride (98-107) mmol/L BUN (7-17) mg/dL Glucose (74-99) mg/dL POC Glucose (mg/dL) 132 H 109 H (75-99) mg/dL 09/18/21 09/18/21 09/18/21 Range/Units 12:16 17:23 17:27 WBC (3.8-10.6) k/uL RBC (3.80-5.40) m/uL Hgb (11.4-16.0) gm/dL Hct (34.0-46.0) % Neutrophils # (1.3-7.7) k/uL ABG pO2 62 L (83-108) mmHg ABG HCO3 27 H (21-25) mmol/L ABG Total CO2 29 H (19-24) mmol/L ABG O2 Saturation 91.4 L (94-97) % Potassium (3.5-5.1) mmol/L Chloride (98-107) mmol/L BUN (7-17) mg/dL Glucose (74-99) mg/dL POC Glucose (mg/dL) 131 H 135 H (75-99) mg/dL Assessment and Plan Assessment: Acute hypoxic respiratory failure currently on mechanical ventilator likely to bilateral pneumonia. Bilateral multifocal infiltrates with increasing groundglass opacities and organizing consolidation along with enlarging nodules and nodular consolidations. Sepsis/septic shock off pressor support Acute kidney injury possible ATN due to infection. Metastatic adenocarcinoma of the lung recently diagnosed. Was planning for chemotherapy. Patient received IV vitamin therapy in [facility] COPD History of supraventricular tachycardia History of thyroid goiter Elevated D-dimer level and CT angiogram negative for PE on admission DVT prophylaxis with heparin subcu Plan: Patient is in the MICU and is mechanical ventilator. Intubated and sedated. off pressor support and continue broad-spectrum antibiotics and IV steroids. Continued on vancomycin and Zosyn changed to meropenem. Labs and medication were reviewed. Monitor lytes and vitals. DVT and GI prophylaxis DVT prophylaxis: Subcutaneous heparin GI Prophylaxis: Pepcid Prognosis is guarded Time with Patient: Greater than 30
[2021-09-18 23:57] LABS: Glucose,Whole Blood 131 mg/dL (75-99)
[2021-09-19] MEDS: INSULIN ASPART (NovoLOG) 100 UNIT/ML VIAL SQ SCH ×4 (00:01→18:48)
[2021-09-19] MEDS: FUROSEMIDE 10 MG/ML 4 ML VIAL IV SCH ×3 (00:01→16:42)
[2021-09-19] MEDS: VANCOMYCIN 1,500 MG in SODIUM CHLORIDE 0.9% 250 ML IVPB SCH (00:01)
[2021-09-19] MEDS: fentaNYL (PF). 1,000 MCG in SODIUM CHLORIDE 0.9% 80 ML IV SCH ×3 (01:44→16:38)
[2021-09-19] MEDS: MEROPENEM 2 GM in SODIUM CHLORIDE 0.9% 100 ML IVPB SCH ×3 (03:47→20:45)
[2021-09-19 05:55] LABS: Glucose,Whole Blood 126 mg/dL (75-99)
[2021-09-19 05:58] LABS: ABG Base Excess 4.3 mmol/L; ABG HCO3 29 mmol/L (21-25); ABG Oxygen Saturation 88.7 % (94-97); ABG PCO2 44 mmHg (35-45); ABG PH 7.42 (7.35-7.45); ABG TCO2 30 mmol/L (19-24)
[2021-09-19 06:08] LABS: Basophils # (A) 0.1 k/uL (0-0.2); Basophils % (A) 0 %; Eosinophils % (A) 0 %; HCT 27.7 % (34.0-46.0); Lymphocytes # (A) 1.9 k/uL (1.0-4.8); Lymphocytes % (A) 9 %; MCH 31.2 pg (25.0-35.0); MCHC 32.4 g/dL (31.0-37.0); MCV 96.2 fL (80.0-100.0); Mean Platelet Volume 8.3; Monocytes # (A) 0.4 k/uL (0-1.0); Monocytes % (A) 2 %; Neutrophils # (A) 18.7 k/uL (1.3-7.7); Neutrophils % (A) 88 %; Platelet Count 356 k/uL (150-450); RBC 2.88 m/uL (3.80-5.40); RDW 14.7 % (11.5-15.5); WBC 21.2 k/uL (3.8-10.6)
--- NOTE | 2021-09-19 06:09 | XR ---
EXAMINATION TYPE: XR chest 1V DATE OF EXAM: 09/19/2021 CLINICAL HISTORY: Difficulty breathing progress study. TECHNIQUE: Single AP portable upright view of the chest is obtained. COMPARISON: Chest x-ray from one day earlier and older studies. FINDINGS: Stable endotracheal and orogastric tubes. Stable left subclavian Mediport catheter. Stable right subclavian central venous catheter. Persistent bilateral multifocal and confluent opacities greatest in the left lower lung. Suspect smal l left pleural effusion. Cardiac silhouette size is stable and within normal limits. Osseous structur es are intact. IMPRESSION: Bilateral multifocal and confluent opacities consistent with acute infiltrates and/or shad ma with small left pleural effusion remain present. No significant change from one day earlier.
[2021-09-19 06:12] LABS: ABG PO2 57 mmHg (83-108)
[2021-09-19 06:12] LABS: Calcium 8.8 mg/dL (8.4-10.2); Potassium 4.5 mmol/L (3.5-5.1)
[2021-09-19 06:13] LABS: Allen Test Performed? No
[2021-09-19] MEDS: ACETAMINOPHEN TAB 325 MG TAB PO PRN ×2 (06:20→21:38)
[2021-09-19] MEDS: IPRATROPIUM-ALBUTEROL 3 ML NEB INHALATION SCH ×4 (08:00→19:05)
[2021-09-19] MEDS: BUDESONIDE 1 MG/2 ML NEBU INHALATION SCH ×2 (08:00→19:05)
[2021-09-19] MEDS: FORMOTEROL FUMARATE 20 MCG/2 ML NEBU INHALATION SCH ×2 (08:00→19:18)
[2021-09-19] MEDS: CHLORHEXIDINE GLUCONATE 15 ML CUP MUCOUS MEM SCH ×2 (08:48→20:45)
[2021-09-19] MEDS: ENOXAPARIN 40 MG/0.4 ML SYRINGE SQ SCH (08:48)
[2021-09-19] MEDS: methylPREDNISolone SOD SUCCI 40 MG/ML 1 ML VIAL IV SCH ×2 (08:50→20:46)
[2021-09-19 12:42] LABS: Glucose,Whole Blood 157 mg/dL (75-99)
[2021-09-19 13:11] VITALS: BP 121/67
--- NOTE | 2021-09-19 14:08 | P.PN ---
Subjective Progress Note Date: 09/19/21 50-year-old female, well-known to me. The patient has a history of lung cancer, adenocarcinoma, diagnosed by me, in 2020. Subsequent to that, the patient saw Dr. Holder, and also sought out consultations at [facility], and [facility]. Afterwards, the patient decided to go to [facility], for homeopathic medication. This included vitamin infusions. She was there for 3 months with her daughter. While there, she developed coronavirus infection, and was quite sick. She was requiring high flow oxygen therapy. She came to our ER on September 10, complaining of increasing shortness of breath, and nonproductive cough. The patient is currently in the intensive care unit, room 256. She is currently on AIRVO, at 50 L/m with an FiO2 of 90%. She's getting saline at 75 is an hour. The patient is a DO NOT RESUSCITATE patient. She does not want intubation and mechanical ventilation. She came to the unit on September 11. She's very short of breath. I recommend BiPAP therapy with IPAP of 12, EPAP of 5, and 100%. In addition, we added duo nebs 4 times a day and when necessary, formoterol 20 g and budesonide, 1 mg, twice a day, as well as Zosyn, and IV Solu-Medrol. She did see the medical oncologist here in town, and apparently is going to start a regimen of medications, towards the end of this month, including Keytruda and Alimta. Chest x-ray and computed tomography scan shows extensive bilateral infiltrates, which have likely progressed. This could reflect either cancer, pneumonia, with sequelae of coronavirus infection or a combination of all those things. White count 0.6, hemoglobin 12.4, hematocrit 38.7, and platelet count 200,000. Sodium 1:30, potassium 4.2, chlorides 106, CO2 9, anion gap 15, BUN 37, and creatinine 2.51. Lactic acid is 6.3. Repeat is 8.1. Albumin is 2.2. Progress note dated 09/12/2021. 50-year-old female with a history of adenocarcinoma of the lung, diagnosed in 2020, by me. The patient was offered conventional therapy, who was actually seen by Dr. Holder, and sought out consultations at [facility], and [facility], among other places, and eventually traveled to [facility], for homeopathic medication including vitamin infusions. The patient was here for 3 months with her daughter. More recently, the patient was in our ER on September 10, complaining of increasing shortness of breath and nonproductive cough. She was admitted to the intensive care unit for further monitoring and management. Initially, she was on high flow oxygen, and then AIRVO. Currently, she is on BiPAP, with settings of 12/5 and 100%. The patient's getting saline at 75 mL an hour, and Precedex at 0.5 mg/kg/h. The patient is still quite tachypneic. In addition, the patient was placed on breathing treatments, corticosteroids, and antibiotics. White blood count was trending up. Kidney functions a bit improved. She was seen by medical oncology, and I appreciate their input. White count 2.2, hemoglobin 12.3, hematocrit 37.9, platelet count 108,000. Sodium 135, potassium 3.7, chlorides 110, CO2 14, anion gap 11, BUN 36, and creatinine 1.66. Will cause 131. Calcium 7.3. Cultures thus far are negative. Chest x-ray shows worsening bilateral infiltrates. The patient was initially a no code, but is reversed her decision, and now is a full code. She does understand, that the next step, would be intubation and mechanical ventilation. Finally, I get the impression that the daughter for whatever reason is unhappy with the care here and I offered her transfer to any facility that she wishes. Before leaving the room, I reconfirm the fact that the patient herself, would agree to intubation and mechanical ventilation. 09/13/2021, on seeing this patient for a follow-up. 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 She had seen the [facility] that the patient is currently being considered for immunotherapy although this has not been started yet. Meanwhile, the patient has associated also homeopathic treatment and IV vitamin infusions through [facility] [place] [facility] [place], specifically in the country of [facility]. The patient this morning is intubated on a mechanical ventilator. The patient went into progressive hypoxic respiratory failure and the patient was acting septic and the patient had to be intubated for an acute hypoxic respiratory failure. The patient currently is on propofol running at 50 mg/kg/m. The patient is also paralyzed with Nimbex at 1.5 mg/kg per hour. She remains on a mechanical ventilator. She is on a assist-control mode at the rate of 32, tidal volume 400, FiO2 of 50% with a PEEP of 15. The blood gas shows a pH of 7.19 with a pCO2 of 54 and pO2 of 84. The patient is on pressors and the patient is currently on norepinephrine infusion running at 0.30 to microvascular kilogram per minute. The patient had a follow- up chest x-ray today that showed bilateral lung masses, most significant in the left lower lobe where there is significant airspace disease. ET tube is in a good location. The patient has a subclavian triple lumen catheter in place. NG tube is also in place. The Doppler of the lower extremities is been negative for DVT. Meanwhile, the patient was having fevers. The patient was neutropenic and the white cell count was as low as 0.6 and current white cell count is at 15.5. The patient also had an elevated pro-calcitonin level at 12.5 indicating underlying sepsis. Stool for C. diff has been negative and the blood cultures been negative thus far. Meanwhile, the white cell count today is at 15.4 with a hemoglobin of 11.7 and platelet count of 95. The patient's sodium level is at 138, potassium level is at 4.5, BUN is a 44 with a creatinine of 1.6 and the patient understood a component of acute kidney injury which is improving. Serum cortisol was 54. ProBNP level was 5870 in time of admission. 09/14/2021, the patient is being seen for a follow-up. As stated, the patient has metastatic stage IV adenocarcinoma of the lung. I reviewed a series of CAT scan of the chest that was provided to me. Some of these CAT scans were done in the [place] and country of [facility]. The CAT scans that were done back in May 2021, August 2021 in August 2021 were all compared and there is obvious progression in the lung cancer and extensive left lower lobe consolidation was noted earlier in addition to the multiple no other pulmonary infiltrates have been developing on the right side. Nevertheless, the decompensating factor was septic shock probably related to underlying infection. The patient presented with leukopenia, fever, hypotension, lactic acidosis, acute kidney injury and high procal level. All of the cultures are negative for now. This morning, the patient remains sedated and the patient is currently on propofol running at 50 mcg/kg per minute and the index is at a dose of 1.5 mcg/kg per minute. She is very much suggestive the mechanical ventilator patient is an assist-control mode at the rate of 32 with a tidal volume of 400 and FiO2 of 50% with a PEEP of 13. Blood gases showed a pH of 7.23 with a pCO2 of 43 and pO2 of 58. Peak airway pressures around 39-40 cm of water. Hemodynamically, the patient was given 2 L of IV fluids yesterday. She is still on norepinephrine infusion which is currently running at 0.18 microvascular kilogram per minute. Overall fluid balance is +3.9 L 4 yesterday and 2.7 L since early this morning. IV fluids are in the form of normal saline at the rate of 75 mL an hour. The white cell count today is at 29. Hemoglobin is at 11.4 and the platelet count has dropped down to 45. Meanwhile, the patient has a stable creatinine of 1.7 with a BUN of 49 and a serum bicarb of 19 with a sodium level of 141. Cultures of been all negative. I modified antibiotics and the patient is currently on a combination of Zosyn and vancomycin. The serum cortisol level was elevated and there are no signs of adrenal insufficiency at this point in time. The patient is afebrile this morning nevertheless, the patient was spiking temperature yesterday. Enteral feeding for nutritional support was initiated yesterday and the patient is currently on BiPAP and a half at the rate of 30 mL an hour. Doppler of the left lower extremity was negative for DVT. 09/15/2021, on seeing the patient for a follow-up. She remains intubated on a mechanical ventilator. Family is at the bedside. She is a metastatic adenocarcinoma of the lung was also septic, on a mechanical ventilator. This morning, the patient is on propofol running at 40 mcg/kg per minute. The patient is a bit tachypneic and she is breathing above the mechanical ventilator. Nevertheless, she is off paralytics. Meanwhile, she is an assist- control mode at the rate of 30 with a tidal volume of 375, FiO2 of 50% with a PEEP of 13. The blood gas showed a pH of 7.29 with a pCO2 of 49 and pO2 of 53. Peak airway pressures around 31. I dropped the respiratory rate down to 24. I also developed a tidal volume down to 350. Her current peak airway pressures around 27. Chest x-ray remains unchanged with extensive infiltration and masslike consolidation of the left lower lobe and nontender, infiltrates on the right consistent with metastatic adenocarcinoma. Superinfection is likely. All of the cultures are negative. The patient spiked another temperature this morning despite being on a combination of Zosyn and vancomycin. She became tachycardic along with a febrile episodes. She is receiving IV Tylenol. Monitor blood work, her sodium level is elevated at 149. Chloride is at 122. Creatinine is at 1.6 which is stable with a BUN of 56. The white cell count currently is at 25.6 which is slightly lower compared to yesterday with a stable hemoglobin of 11. The patient is receiving enteral feeding for nutritional support and she is currently on vital a half at the rate of 47 mL an hour. Family has been updated on her condition for now. Overall fluid balance over the past 24 hours has been +2.7 L 4 yesterday and another 1.8 L for today. 09/16/2021, I'm seeing this patient for a follow-up. Since yesterday, the patient had some sedation. The patient remains on a higher dose of propofol which is running at 50 mcg/kg per minute and the patient is also receiving IV Ativan and IV Dilaudid on an as-needed basis. Overnight, the patient to be also paralyzed the patient is currently on the maximum micrograms per kilogram per minute. She is quite impressive mechanical ventilator. She remains essentially the same ventilator settings. She is an assist-control of 30, tidal volume 350, FiO2 of 70% with a PEEP of 13. Peak air pressures around 29. The patient has a blood gas that showed a pH of 7.21 with a pCO2 of 64 and pO2 of 69. Chest x-ray showing extensive consolidation of the left. There is also noted infiltration of the right. This is consistent with underlying metastatic lung cancer. Nevertheless, the significant opacification and the density seen earlier on the earlier chest x-rays improved and I strongly suspected superimposed pneumonia. Noted the patient had fever, hypotensive on level, leukopenia subsequent leukocytosis and the patient was in shock and sepsis. Note that, the patient was covered with broad-spectrum antibiotics. I covered the patient with a combination of meropenem and vancomycin. The pro-calcitonin level has been improving. The patient is more hemodynamically stable and the pressors have been discontinued. Meanwhile, the patient also developed an acute kidney injury which improved her creatinine is essentially normalized and the creatinine is at 1.1. The serum bicarb is 27. Potassium level is at 2.9, being replaced. The patient also had a component of hyperchloremic hypernatremia. She was started on 50 water supplements double-J. She was also started on D5 water and the repeat sodium level today is at 147. White cell count is at 40.9 with a hemoglobin of 11.2. Receiving enteral feeding for nutritional support and the patient is currently on vitamin AF. She is stooling. In fact she has had several bowel movements, somewhat liquidy and will check also stool for C. diff. 09/17/2021, I had a lengthy meeting with the patient's family. I gave a detailed explanation on the patient's condition and I also gave a detailed explanation on the overall prognosis was essentially poor. Family listened to my examination. They had a lot of questions which I answered. They still are interested in a transfer to another facility being at [facility] or any other facility such as [facility]. I think they are very comfortable with the quality of care here, however, they feel obligated to her mother that she would deserve further opinions prior to considering end-of-life care. In summary, the patient intubated on mechanical ventilator. The patient was in septic shock from which she essentially recovered and she is more hemodynamically stable at this point in time. This morning, she is on propofol running at 70 mcg/kg per minute. On and off, the patient gets restless on a mechanical ventilator and she may require also Dilaudid pushes. We have taken off the paralytics 48 hours ago. This morning, she remains on essentially the same ventilator setting. She at the rate of 30, tidal volume of 350, FiO2 of 70% with a PEEP of 13. The blood gas showed a pH of 7.4 with a pCO2 of 43 and pO2 of 60. The patient remains on a combination of meropenem and vancomycin. Chest x-ray showing extensive consolidation in the left lung base secondary to underlying lung cancer. There is also chronic infiltration of the right lung related to lung cancer. The patient's white cell count of 28 with hemoglobin of 9.4. White cell count is up compared to yesterday's currently down to 28 from 40. The patient's renal function remains stable. The patient's creatinine is at 0.8 with a BUN of 60. Sodium is at 142. Glucose is 151. Calcium level is at 8.4. All of the cultures of been negative. The patient has an orogastric tube in place and the patient is receiving enteral feeding for nutritional support. Wean down the Solu Medrol to 40 mg every 12 hours. She remains on bronchodilators. She remains on Eliquis 40 mg subcu DVT prophylaxis. No pressors for now. No active diarrhea. No other complaints otherwise. 09/18/2021, I'm seeing the patient for a follow-up. The patient remains on a mechanical ventilator. This morning, the patient remains on Profore running at 75 mg/kg per minute and fentanyl is running at 2 mcg/kg/h. She is adequately sedated. She has required few dose of Ativan overnight. Otherwise, the patient remains hemodynamically stable on no pressors. The patient on a mechanical ventilator on assist control mode at the rate of 30, FiO2 of 80% with a PEEP of 13 and a tidal volume of 350. The blood gas shows a pH of 7.41 with a pCO2 of 42 and pO2 of 60. Overall fluid balance has been persistently positive since the patient came in to the ICU and the patient was septic. Fluid balance over the past 24 hours has been +4 L. White cell count was at 31, slightly higher compared to yesterday and the patient's hemoglobin is at 8.9, gradually drifting down. Potassium level is at 5.4. Urine is a 52 with a creatinine of 0.7 and his sodium level of 139. Remains on IV meropenem. Remains on vancomycin. Cultures of been all negative. A CT angiogram was done today and the patient had no evidence of any pulmonary embolism. There are bilateral nodular disease consistent with lung cancer was still present and. There was also interval development of bilateral multifocal pulmonary infiltrates/groundglass pulmonary opacities which could be an acute lung injury, interstitial edema and possibly pneumonia. There is obvious worsening left lower lobe atelectasis with an underlying neoplasm. There is also discussed with the family. The patient rem ains on IV Solu-Medrol. The patient will be also started on diuretics today. Contacted [facility], [facility] and [facility] upon the patient's family request. Transfer was essential declined. 09/19/2021, the patient remains on a mechanical ventilator. On today's evaluation, the patient is on a combination of propofol and fentanyl. Propofol is running at the rate of 74 mcg/kg per minute and fentanyl is running at 2 mcg/kg/h. The patient is well sedated. As of yesterday, the patient was started on diuretics and the patient is currently receiving Lasix 40 mg IV every 8 hours. Overall fluid balance is negative in order of 3.3 L over the past 24 hours. Nevertheless, the chest x-ray findings are essentially unchanged. Oxygenation has not changed a lot with diuresis. The patient is on a assist- control mode at the rate of 30, tidal volume of 350, FiO2 of 65% with a PEEP of 13 and the patient's blood gases showed a pH of 7.42 with a pCO2 of 44 and pO2 of 57. Chest x-ray remains unchanged. The patient remains on a low dose norepinephrine at the rate of 0.01 mcg/kg per minute. The patient is receiving enteral feeding for nutritional support. She has vital 1.2 AF running at 20 mL an hour. The patient has a white cell count of 21. Hemoglobin stable at 9.0. Potassium level is at 4.5. Urine is a 54. Creatinine is at 1.02. The patient is afebrile. The patient is on a combination of meropenem and vancomycin. The patient is also on IV Solu-Medrol. Third spacing edema is improved slightly compared to yesterday. No other significant events otherwise for now. Objective - Vital Signs Vital signs: Vital Signs Temp 100.1 F H 09/19/21 12:00 Pulse 101 H 09/19/21 13:00 Resp 35 H 09/19/21 13:00 BP 121/67 09/19/21 13:00 Pulse Ox 93 L 09/19/21 13:00 Intake & Output 09/18/21 09/19/21 09/19/21 18:59 06:59 18:59 Intake Total 0463.069 1333.569 605.224 Output Total 2925 2970 1875 Balance -1715.105 -1661.431 -1269.776 Intake: IV 340 690 181 0.9 240 240 143 Meropenem 2 gm In Sodium 100 200 Chloride 0.9% 100 ml @ 33 .3 mls/hr IVPB Q12H [facility] Rx#:[id number] Pressure Bag 0.9 Sodium 38 Chloride Vancomycin 1,250 mg In 250 Sodium Chloride 0.9% 250 ml @ 125 mls/hr IVPB Q24HR [facility] Rx#:[id number] Intake, IV Titration 539.895 318.569 204.224 Amount Norepinephrine 32 mg In 50.082 7.531 4.224 Sodium Chloride 0.9% 218 ml @ 0.05 MCG/KG/MIN 1. 477 mls/hr IV .Q24H [facility] Rx#:[id number] fentaNYL (PF). 1,000 mcg 100 100 100 In Sodium Chloride 0.9% 80 ml @ 0.5 MCG/KG/HR 4 mls/hr IV .Q24H [facility] Rx#: [id number] propofoL 1,000 mg In 389.813 211.038 100 Empty Bag 1 bag @ 5 MCG/ KG/MIN 1.89 mls/hr IV . Q24H [facility] Rx#:[id number] Tube Feeding 240 240 160 Other 90 60 60 Output: Urine 2925 2970 1875 Other: Voiding Method Indwelling Catheter Indwelling Catheter Indwelling Catheter ABP, PAP, CO, CI - Last Documented Arterial Blood Pressure 115/45 - Exam No acute distress, oriented 3. The patient sedated, paralyzed, intubated on a mechanical ventilator. The patient is calm and comfortable and patient is currently off paralytics on sedation with propofol. The patient is sedated and paralyzed MHead exam was generally normal. There was no scleral icterus or corneal arcus. Mucous membranes were moist. Orogastric and orotracheal tube are both in place. HEENT examination is grossly unremarkable. Neck supple. Full range of motion. No adenopathy thyromegaly or neck vein distention. Cardiovascular examination reveals regular rhythm rate. S1-S2 normal. No S3 or S4. No discernible murmur noted. Heart sounds are distant. Lungs reveal coarse bilateral inspiratory and expiratory rhonchi, with breath sounds being equal bilaterally. No wheezes. No crackles. Patient has equal and symmetrical breath sounds bilaterally. Abdominal exam revealed normal bowel sounds. The abdomen was soft, non-tender, and without masses, organomegaly, or appreciable enlargement of the abdominal aorta. Extremities are intact. No cyanosis clubbing or edema. Examination of the skin revealed no evidence of significant rashes, suspicious appearing nevi or other concerning lesions. Neurologic examination is sedated and patient is sedated and paralyzed - Labs CBC & Chem 7: 09/19/21 05:50 09/19/21 05:50 Labs: Abnormal Lab Results - Last 24 Hours (Table) 09/18/21 09/18/21 09/18/21 Range/Units 17:23 17:27 23:55 WBC (3.8-10.6) k/uL RBC (3.80-5.40) m/uL Hgb (11.4-16.0) gm/dL Hct (34.0-46.0) % Neutrophils # (1.3-7.7) k/uL ABG pO2 (83-108) mmHg ABG HCO3 (21-25) mmol/L ABG Total CO2 (19-24) mmol/L ABG O2 Saturation (94-97) % Chloride (98-107) mmol/L BUN (7-17) mg/dL Glucose (74-99) mg/dL POC Glucose (mg/dL) 131 H 135 H 131 H (75-99) mg/dL 09/19/21 09/19/21 09/19/21 Range/Units 05:49 05:50 05:50 WBC 21.2 H (3.8-10.6) k/uL RBC 2.88 L (3.80-5.40) m/uL Hgb 9.0 L (11.4-16.0) gm/dL Hct 27.7 L (34.0-46.0) % Neutrophils # 18.7 H (1.3-7.7) k/uL ABG pO2 57 L* (83-108) mmHg ABG HCO3 29 H (21-25) mmol/L ABG Total CO2 30 H (19-24) mmol/L ABG O2 Saturation 88.7 L (94-97) % Chloride 108 H (98-107) mmol/L BUN 54 H (7-17) mg/dL Glucose 115 H (74-99) mg/dL POC Glucose (mg/dL) (75-99) mg/dL 09/19/21 09/19/21 Range/Units 05:52 12:41 WBC (3.8-10.6) k/uL RBC (3.80-5.40) m/uL Hgb (11.4-16.0) gm/dL Hct (34.0-46.0) % Neutrophils # (1.3-7.7) k/uL ABG pO2 (83-108) mmHg ABG HCO3 (21-25) mmol/L ABG Total CO2 (19-24) mmol/L ABG O2 Saturation (94-97) % Chloride (98-107) mmol/L BUN (7-17) mg/dL Glucose (74-99) mg/dL POC Glucose (mg/dL) 126 H 157 H (75-99) mg/dL Assessment and Plan Plan: 1 stage IV metastatic adenocarcinoma of the lung, has not received any treatment other than homeopathic/IV vitamin therapy with obvious interval progression based on a quick comparison of the CAT scans were done between 2020 and 2021. There is obvious worsening of the bilateral lung masses and the patient has developed extensive nodular lesions involving the entire right lung and hence masslike consolidation of the left lung base. I furthermore, reviewed all of the CAT scans that was done on this patient throughout the course of her illness and there is of his progression of her underlying lung cancer. Repeat computed tomography scan of the chest was noted from today. The patient has underlying malignancy, worsening left lower lobe consolidation, in addition to areas of groundglass pulmonary infiltrates which could be potentially areas of pneumonia, acute lung injury versus interstitial edema. Noted the patient has been in a positive fluid balance. The patient was started on diuretics as of yesterday. Overall fluid balance is -3.3 L over the past 24 hours. No significant improvement in the chest x-ray findings and no improvement in the oxygenation. The patient is hemodynamically stable on low dose of norepinephrine. CT angiogram of the chest was noted. 2 septic shock most likely secondary to pneumonia. Cultures of been all negative and the patient's is hemodynamically stable. The white cell count is at 21. The patient remains on a combination of metoprolol and vancomycin. 3 acute hypoxic respiratory failure, currently intubated on mechanical ventilator, consider simply infection/pneumonia, . The patient's hemodynamics improved and she seems to note of her septic shock. Nevertheless, oxygenation becomes an ongoing issue and the patient is unable to wean any further. The follow-up CT angios the chest that was done today showed no this of any pulmonary embolism. Abnormalities were noted and the patient will be kept on the same antibiotic coverage and the patient is currently being diuresis. No significant improvement in oxygenation over the past 24 hours. 4 acute kidney injury, recovered 5 COPD 6 chronic anxiety 7 leukopenia, improved and subsequently the patient developed leukocytosis 8 thrombocytopenia, improving 9 acute lactic acidosis, improved Plan Continue ventilator support, without any changes for today. Keep the patient sedated with propofol and fentanyl combination Continue same antibiotic coverage with IV meropenem and vancomycin White cell count has dropped down to 21 Continue diuresis with IV Lasix 40 mg every 8 hours Monitor fluid balance Continue enteral feeding for nutritional support Patient is afebrile Condition is extremely critical CODE STATUS remains full. Had a lengthy discussion with the daughter and went over the details and she carries a very poor prognosis. I had a lengthy discussion again with her daughter, and 2 of her sisters another family member and we discussed the case for more than 45 minutes and closed doors.. I obviously explained to her the poor prognosis. I think out of this patient casey vering from acute respiratory failure is extremely low. Even if we do a short- term extubation, the patient's long-term prognosis remains poor and she will ultimately failed again as the patient has progressive an extensive tumor burden bilaterally more so on the left lung. Her CODE STATUS remains full. We'll continue to follow. At the end the discussion, the patient's family insisted on a transfer to another facility for a second opinion. Critically care evaluation that was done and more than 1 hour. Contacted all the hospital as mentioned above. Transfer was declined by all these facilities I emphasized the same points with the mother at the bedside. Time with Patient: Greater than 30
[2021-09-19] MEDS: CISATRACURIUM 200 MG in SODIUM CHLORIDE 0.9% 180 ML IV SCH (16:40)
[2021-09-19 18:26] LABS: Glucose,Whole Blood 128 mg/dL (75-99)
--- NOTE | 2021-09-19 23:50 | P.PN ---
Subjective Progress Note Date: 09/19/21 This is a pleasant 50 years old female with past medical history of Asthma, Seizure Disorder, Supraventricular Tachycardia , thyroid goiter COPD/emphysema, nicotine dependence, also she was recently diagnosed with lung cancer last year on 04/2021 and she follows up with Dr. Bauman She presents because of dyspnea, 30 this morning she was trying to be Acute where he twisted her back after that she started having shortness of breath as she states associated with little cough and little phlegm greenish in color,, no chest pain. Also yesterday she started having diarrhea about 5 times per day and this morning she had 2 more episodes which they are loose with no blood. No abdom inal pain. No vomiting. Her speech is limited by her dyspnea She has history of smoking about 2 packs per day after she was diagnosed with cancer she smokes now occasionally about 5 cigarettes per day with no alcohol. No illicit drugs. She was diagnosed with non-small lung cancer last April 2021, she did not get chemotherapy or radiotherapy she tried holistic medicine and now she's been following up with Dr. Bauman with the plan for her to get chemotherapy may be in a month, she has a port in her left upper chest as well. Patient on admission was hypotensive with a blood pressure was low as 81/53 and hypoxic, saturating 87% and 2 L oxygen via nasal cannula and tachycardic but patient is been afebrile. She has leukopenia 1.0 and 0.6. Rest of CBC is unremarkable D-dimer is elevated 5.9 PH is low 7.3, pCO2 low 32 and pO2 low at 60. Chest x-ray: Bilateral pulmonary infiltrates CTA of the chest showing extensive left lower lobe pneumonia with patchy nodular infiltrates and they remained of the lung molina. No pulmonary embolism EKG showing sinus tachycardia at 123. Patient started on broad-spectrum antibiotics with ceftriaxone and Zithromax Pulmonary and oncology were consulted 09/12/2021 Patient remains in the ICU for bilateral basal pneumonia and COPD exacerbation in view of recent lung cancer. She still tachypneic and tachycardic and remains on BiPAP with a setting of 12/5 and FiO2 of 100%. Patient looks worse than yesterday at [place] of her to talk area Patient remains on salmeterol 60 mg Zosyn and normal saline. Creatinine is stable at 1.6, WBC increased slightly at 2.2 09/13/2021 Patient is in the MICU. Patient denies intubated and on mechanical ventilator d ue to hypoxic respiratory failure. Assist control, FiO2 50% and tidal volume 400 and PEEP of 15. Patient is sedated and paralyzed. Requiring pressor support. Currently broad-spectrum antibiotics and IV steroids. Chest x-ray showed residual but improving bilateral airspace disease. Laboratory data showed WBC 13.4 hemoglobin 11.8 and platelets 95 sodium 138 potassium 4.5 chloride 113 bicarb is 19 BUN 44 and creatinine 1.66 calcium 7.5 and procalcitonin level is 8.41 Patient does have history of metastatic lung cancer and is scheduled for immunotherapy. 09/14/2021 Patient r is currently in the MICU currently on mechanical ventilator with FiO2 50% and PEEP of 13 tidal volume 400. Requiring pressor support. Currently on antibiotics in the form of vancomycin Zosyn. Also IV steroids 60 mg every 6 hourly. Chest x-ray showed bilateral multifocal and confluent opacities consistent with infiltrates and/or edema remain present. No significant change from 1 day earlier. Laboratory data showed WBC went up to 29.0 hemoglobin 11.4 and platelets 45 BUN 49 and creatinine 1.7, procalcitonin level trending down to 5.33 09/15/2021 Patient remains on mechanical ventilator. Tidal volume decreased to 375 FiO2 50% and PEEP of 13. Pressors tapered off. Remains on antibiotics in the form of vancomycin and Zosyn. Patient is tolerating enteral feeding. 2D echocardiogram showed ejection fraction 55 to 60% there is moderate to severe pulmonary hypertension increasing grade 2 diastolic dysfunction. Chest x-ray showed correlate for pneumonia pulmonary edema or ARDS. Laboratory data showed WBC 25.6 hemoglobin 11.0 and platelets 54.0 chloride 122 bicarb is 25 BUN 56 and creatinine 1.61 blood sugar is 204 procalcitonin level trending down to 2.27. IV fluids changed to D5 water. 09/16/2021 Patient is in the MICU. Remains on mechanical ventilator with assist control tidal volume 350 FiO2 70% and PEEP of 13. Patient is on propofol drip and also paralyzed overnight. Chest x-ray showed bilateral multifocal and confluent opacities consistent with infiltrate/edema remain present. No significant change from 1 day earlier. Laboratory data showed WBC went up to 40.9 hemoglobin 11.2 platelets 95 sodium 147 potassium 2.9 chloride 118 BUN 57 creatinine 1.57 IV fluids changed to D5 water. Procalcitonin level is 1.57 albumin 2.4 liver enzymes are not elevated. Patient is being continued antibiotics in the form of vancomycin and Zosyn. 09/17/2021 Patient is on mechanical ventilator and is on propofol. Currently on assist control with tidal volume 350 FiO2 70% and PEEP of 13. Patient is being continued on antibiotics above vancomycin and meropenem. X-ray showed extensive consolidation of the left lower lung secondary to underlying cancer and bilateral infiltrates with pneumonia and sepsis/septic shock. Cultures have been negative. Laboratory data showed WBC trending down to 28.0 hemoglobin 9.4 and platelets 146 sodium 142 potassium 4.5 chloride 105 bicarb 26 BUN 16 creatin ine 0.83 and blood sugar is 211. Family would like the patient to be transferred to another facility such as [facility]. 09/18/2021 Patient is currently in the MICU. On my current ventilator. Sedation with propofol patient is on assist control with tidal volume 350, FiO2 80% and PEEP o f 13 and respiratory rate 30. Chest x-ray showed bilateral multifocal and confluent opacities consistent with infiltrate and/or edema with small left pleural effusion remains present. No significant change. CT angio of the chest showed no evidence of PE. Stable small to tiny left lower lobe fluid collection. Continued progressing bilateral multifocal infiltrates and edema with increasing groundglass opacities and organizing consolidations along with enlarging nodules and nodular consolidatio ns. Worsening left lower lobe atelectasis with underlying neoplasm suspected. Laboratory data showed WBC count went up to 31.1 hemoglobin 8.9 platelets 240 sodium 139 potassium 5.4 chloride 102 bicarb is 25 BUN 5020 creatinine 0.79 blood sugar is 08/01/2019 calcium 8.8. 09/19/2021 Patient remains on mechanical ventilator. Sedated. Also on [place] entered. Assist-control with tidal volume 350, FiO2 65% and PEEP of 13 and respiratory rate 30. Patient is being continued broad-spectrum antibiotics normal meropenem and vancomycin. Also initiated on Lasix 40 mg daily for 8 hourly. Patient is a lso on low-dose Levophed drip. Also on IV Solu-Medrol. Chest x-ray showed bilateral multifocal and confluent opacities consistent with acute infiltrates and/or edema with small left pleural effusion remain present. Tolerating oral diet. Laboratory data showed WBC improved to 21.2, hemoglobin 9.0 and platelets 346 Sodium 139 potassium 4.5 chloride 108 BUN 54 and creatinine 1.02 and blood sugar is 115 and calcium 8.8. Current medications reviewed. Objective - Vital Signs Vital signs: Vital Signs Temp 99.9 F H 09/19/21 16:00 Pulse 90 09/19/21 16:00 Resp 35 H 09/19/21 16:00 BP 121/67 09/19/21 13:00 Pulse Ox 95 09/19/21 16:00 Intake & Output 09/18/21 09/19/21 09/19/21 18:59 06:59 18:59 Intake Total 8779.887 2398.569 865.950 Output Total 2925 2970 2155 Balance -1715.105 -1661.431 -1289.050 Intake: IV 340 690 250 0.9 240 240 203 Meropenem 2 gm In Sodium 100 200 Chloride 0.9% 100 ml @ 33 .3 mls/hr IVPB Q12H [facility] Rx#:[id number] Pressure Bag 0.9 Sodium 47 Chloride Vancomycin 1,250 mg In 250 Sodium Chloride 0.9% 250 ml @ 125 mls/hr IVPB Q24HR [facility] Rx#:[id number] Intake, IV Titration 539.895 318.569 305.950 Amount Norepinephrine 32 mg In 50.082 7.531 5.950 Sodium Chloride 0.9% 218 ml @ 0.05 MCG/KG/MIN 1. 477 mls/hr IV .Q24H [facility] Rx#:[id number] fentaNYL (PF). 1,000 mcg 100 100 200 In Sodium Chloride 0.9% 80 ml @ 0.5 MCG/KG/HR 4 mls/hr IV .Q24H [facility] Rx#: [id number] propofoL 1,000 mg In 389.813 211.038 100 Empty Bag 1 bag @ 5 MCG/ KG/MIN 1.89 mls/hr IV . Q24H [facility] Rx#:[id number] Tube Feeding 240 240 220 Other 90 60 90 Output: Urine 2925 2970 2155 Other: Voiding Method Indwelling Catheter Indwelling Catheter Indwelling Catheter ABP, PAP, CO, CI - Last Documented Arterial Blood Pressure 106/47 - Exam PHYSICAL EXAMINATION: Patient is intubated and on mechanical ventilator. Sedated... HEENT: Normocephalic. Neck is supple. Pupils reactive. Nostrils clear. Oral cavity is moist. Neck reveals no JVD, carotid bruits, or thyromegaly. CHEST EXAMINATION: Patient is intubated. Symmetrical expansion. Bibasilar diminished sounds and scattered coarse sounds.. CARDIAC: Normal S1, S2 with no gallops. No murmurs ABDOMEN: Soft. Bowel sounds present. No organomegaly. No abdominal bruits. Extremities: reveal no edema. No clubbing or cyanosis Neurologically patient is sedated and intubated. No gross focal deficits noted Skin: No rash or skin lesions. Psychiatric: Could not be assessed at this time. Musculoskeletal: No joint swelling or deformity. - Labs CBC & Chem 7: 09/19/21 05:50 09/19/21 05:50 Labs: Abnormal Lab Results - Last 24 Hours (Table) 09/18/21 09/19/21 09/19/21 Range/Units 23:55 05:49 05:50 WBC (3.8-10.6) k/uL RBC (3.80-5.40) m/uL Hgb (11.4-16.0) gm/dL Hct (34.0-46.0) % Neutrophils # (1.3-7.7) k/uL ABG pO2 57 L* (83-108) mmHg ABG HCO3 29 H (21-25) mmol/L ABG Total CO2 30 H (19-24) mmol/L ABG O2 Saturation 88.7 L (94-97) % Chloride 108 H (98-107) mmol/L BUN 54 H (7-17) mg/dL Glucose 115 H (74-99) mg/dL POC Glucose (mg/dL) 131 H (75-99) mg/dL 09/19/21 09/19/21 09/19/21 Range/Units 05:50 05:52 12:41 WBC 21.2 H (3.8-10.6) k/uL RBC 2.88 L (3.80-5.40) m/uL Hgb 9.0 L (11.4-16.0) gm/dL Hct 27.7 L (34.0-46.0) % Neutrophils # 18.7 H (1.3-7.7) k/uL ABG pO2 (83-108) mmHg ABG HCO3 (21-25) mmol/L ABG Total CO2 (19-24) mmol/L ABG O2 Saturation (94-97) % Chloride (98-107) mmol/L BUN (7-17) mg/dL Glucose (74-99) mg/dL POC Glucose (mg/dL) 126 H 157 H (75-99) mg/dL Assessment and Plan Assessment: Acute hypoxic respiratory failure currently on mechanical ventilator likely to bilateral pneumonia. Bilateral multifocal infiltrates with increasing groundglass opacities and organizing consolidation along with enlarging nodules and nodular consolidations. Small left pleural effusion Sepsis/septic shock off pressor support Acute kidney injury possible ATN due to infection. Metastatic adenocarcinoma of the lung recently diagnosed. Was planning for chemotherapy. Patient received IV vitamin therapy in [facility] COPD History of supraventricular tachycardia History of thyroid goiter Elevated D-dimer level and CT angiogram negative for PE on admission DVT prophylaxis with heparin subcu Plan: Patient is in the MICU and is mechanical ventilator. Intubated and sedated. off pressor support and continue broad-spectrum antibiotics and IV steroids. Continued on vancomycin and Zosyn changed to meropenem. Started on Lasix 40 mg every 8 hourly. Labs and medication were reviewed. Monitor lytes and vitals. DVT and GI prophylaxis DVT prophylaxis: Subcutaneous heparin GI Prophylaxis: Pepcid Prognosis is guarded Time with Patient: Greater than 30
[2021-09-20] MEDS: VANCOMYCIN 1,500 MG in SODIUM CHLORIDE 0.9% 250 ML IVPB SCH (00:28)
[2021-09-20] MEDS: FUROSEMIDE 10 MG/ML 4 ML VIAL IV SCH ×4 (00:29→23:39)
[2021-09-20 01:00] LABS: Glucose,Whole Blood 172 mg/dL (75-99)
[2021-09-20] MEDS: INSULIN ASPART (NovoLOG) 100 UNIT/ML VIAL SQ SCH ×5 (01:12→23:52)
[2021-09-20] MEDS: fentaNYL (PF). 1,000 MCG in SODIUM CHLORIDE 0.9% 80 ML IV SCH ×3 (01:34→17:00)
[2021-09-20] MEDS: MEROPENEM 2 GM in SODIUM CHLORIDE 0.9% 100 ML IVPB SCH ×3 (04:53→21:16)
[2021-09-20 04:55] LABS: Calcium 8.6 mg/dL (8.4-10.2); Potassium 4.2 mmol/L (3.5-5.1)
[2021-09-20 05:56] LABS: ABG Base Excess 8.3 mmol/L; ABG HCO3 33 mmol/L (21-25); ABG Oxygen Saturation 87.5 % (94-97); ABG PCO2 48 mmHg (35-45); ABG PH 7.44 (7.35-7.45); ABG TCO2 34 mmol/L (19-24); Allen Test Performed? Yes
[2021-09-20 05:59] LABS: ABG PO2 56 mmHg (83-108)
[2021-09-20 06:38] LABS: Glucose,Whole Blood 110 mg/dL (75-99)
[2021-09-20] MEDS ORDERED: VANCOMYCIN IV PER PHARMACY 1 EACH MISC MISCELLANE PRN (08:04)
[2021-09-20] MEDS: IPRATROPIUM-ALBUTEROL 3 ML NEB INHALATION SCH ×4 (08:14→19:51)
[2021-09-20] MEDS: BUDESONIDE 1 MG/2 ML NEBU INHALATION SCH ×2 (08:14→19:51)
[2021-09-20] MEDS: FORMOTEROL FUMARATE 20 MCG/2 ML NEBU INHALATION SCH ×2 (08:14→19:51)
--- NOTE | 2021-09-20 08:26 | XR ---
EXAMINATION TYPE: XR chest 1V portable DATE OF EXAM: 09/20/2021 COMPARISON: X-ray dated 09/19/2021 HISTORY: PNA TECHNIQUE: Single frontal view of the chest is obtained. FINDINGS: Persistent bilateral pulmonary patchy opacities most evident seen in the mid and lower lung zones. No significant progression. Persistent left pleural effusion. Unchanged position of the left-sided Port -A-Cath with the tip is seen within the most superior aspect of the SVC. Right subclavian line with t he tip is seen within the right atrium. NG tube with the tip is inferior to the diaphragm. IMPRESSION: Grossly stable pulmonary patchy opacities as described above.
[2021-09-20] MEDS: ENOXAPARIN 40 MG/0.4 ML SYRINGE SQ SCH (08:44)
[2021-09-20] MEDS: methylPREDNISolone SOD SUCCI 40 MG/ML 1 ML VIAL IV SCH ×2 (08:45→21:17)
[2021-09-20] MEDS: CHLORHEXIDINE GLUCONATE 15 ML CUP MUCOUS MEM SCH ×2 (09:29→21:17)
--- NOTE | 2021-09-20 11:14 | P.PN ---
Subjective Progress Note Date: 09/20/21 Principal diagnosis: Acute hypoxic respiratory failure secondary to stage IV metastatic adenocarcinoma of the lung and suspect underlying community-acquired pneumonia and septic shock. 50-year-old female, well-known to me. The patient has a history of lung cancer, adenocarcinoma, diagnosed by me, in 2020. Subsequent to that, the patient saw Dr. Holder, and also sought out consultations at [facility], and [facility]. Afterwards, the patient decided to go to [facility], for homeopathic medication. This included vitamin infusions. She was there for 3 months with her daughter. While there, she developed coronavirus infection, and was quite sick. She was requiring high flow oxygen therapy. She came to our ER on September 10, complaining of increasing shortness of breath, and nonproductive cough. The patient is currently in the intensive care unit, room 256. She is currently on AIRVO, at 50 L/m with an FiO2 of 90%. She's getting saline at 75 is an hour. The patient is a DO NOT RESUSCITATE patient. She does not want intubation and mechanical ventilation. She came to the unit on September 11. She's very short of breath. I recommend BiPAP therapy with IPAP of 12, EPAP of 5, and 100%. In addition, we added duo nebs 4 times a day and when necessary, formoterol 20 g and budesonide, 1 mg, twice a day, as well as Zosyn, and IV Solu-Medrol. She did see the medical oncologist here in town, and apparently is going to start a regimen of medications, towards the end of this month, including Keytruda and Alimta. Chest x-ray and computed tomography scan shows extensive bilateral infiltrates, which have likely progressed. This could reflect either cancer, pneumonia, with sequelae of coronavirus infection or a combination of all those things. White count 0.6, hemoglobin 12.4, hematocrit 38.7, and platelet count 200,000. Sodium 1:30, potassium 4.2, chlorides 106, CO2 9, anion gap 15, BUN 37, and creatinine 2.51. Lactic acid is 6.3. Repeat is 8.1. Albumin is 2.2. 09/19/2021, the patient remains on a mechanical ventilator. On today's eval uation, the patient is on a combination of propofol and fentanyl. Propofol is running at the rate of 74 mcg/kg per minute and fentanyl is running at 2 mcg/kg/h. The patient is well sedated. As of yesterday, the patient was started on diuretics and the patient is currently receiving Lasix 40 mg IV every 8 hours. Overall fluid balance is negative in order of 3.3 L over the past 24 hours. Nevertheless, the chest x-ray findings are essentially unchanged. Oxygenation has not changed a lot with diuresis. The patient is on a assist- control mode at the rate of 30, tidal volume of 350, FiO2 of 65% with a PEEP of 13 and the patient's blood gases showed a pH of 7.42 with a pCO2 of 44 and pO2 of 57. Chest x-ray remains unchanged. The patient remains on a low dose norepinephrine at the rate of 0.01 mcg/kg per minute. The patient is receiving enteral feeding for nutritional support. She has vital 1.2 AF running at 20 mL an hour. The patient has a white cell count of 21. Hemoglobin stable at 9.0. Potassium level is at 4.5. Urine is a 54. Creatinine is at 1.02. The patient is afebrile. The patient is on a combination of meropenem and vancomycin. The patient is also on IV Solu-Medrol. Third spacing edema is improved slightly compared to yesterday. No other significant events otherwise for now. Patient was evaluated today on 09/20/2021, remains in the ICU, intubated and mech anically ventilated. Patient has advanced age metastatic adenocarcinoma of the lung and she has underlying pneumonia. Remains intubated and mechanically ventilated. She has on assist control rate of 30 tidal volume 350 FiO2 65% PEEP of 13. Peak airway pressure is 28th plateau pressures 25. ABG this morning is marginal with a pO2 of 56 pCO2 48 pH of 7.44. Patient is on multiple drips including IV fluid at KVO, propofol at 75 mcg/kg/m. [place] at 2 mcg/kg/h. She is off norepinephrine earlier this morning. Patient is on tube feeding using vital AF at 20 mL per hour. Her blood pressure today is 128/51 heart rate of 91. Chest x-ray showed patchy bilateral opacities involving both mid lungs and lower lobes. No significant change continues to have a small left pleural effusion not much of a change compared to the last chest x-ray 24 hours ago. electrolytes are normal BUN is 55 creatinine 1.0. Daughter is at bedside, and I updated the daughter on her condition, and explained to the daughter the prognosis is extremely poor. Touched bases on the CODE STATUS, at this point the patient remains full code. Objective - Vital Signs Vital signs: Vital Signs Temp 100 F H 09/20/21 08:00 Pulse 89 09/20/21 09:00 Resp 31 H 09/20/21 09:00 BP 121/67 09/19/21 13:00 Pulse Ox 93 L 09/20/21 09:00 Intake & Output 09/19/21 09/20/21 09/20/21 18:59 06:59 18:59 Intake Total 5952.133 6925.063 347.507 Output Total 2780 2600 325 Balance -1766.549 -1252.937 22.507 Weight 76.5 kg Intake: IV 296 243 66 0.9 243 20 40 Pressure Bag 0.9 Sodium 53 223 26 Chloride Intake, IV Titration 407.451 734.063 191.507 Amount Meropenem 2 gm In Sodium 100 Chloride 0.9% 100 ml @ 33 .3 mls/hr IVPB Q8H [facility] Rx #:[id number] Norepinephrine 32 mg In 7.451 7.348 0.787 Sodium Chloride 0.9% 218 ml @ 0.05 MCG/KG/MIN 1. 477 mls/hr IV .Q24H [facility] Rx#:[id number] Vancomycin 1,500 mg In 250 Sodium Chloride 0.9% 250 ml @ 125 mls/hr IVPB Q24H [facility] Rx#:[id number] fentaNYL (PF). 1,000 mcg 200 100 100 In Sodium Chloride 0.9% 80 ml @ 0.5 MCG/KG/HR 4 mls/hr IV .Q24H [facility] Rx#: [id number] propofoL 1,000 mg In 200 276.715 90.72 Empty Bag 1 bag @ 5 MCG/ KG/MIN 1.89 mls/hr IV . Q24H [facility] Rx#:[id number] Tube Feeding 220 240 60 Other 90 130 30 Output: Urine 2780 2600 325 Other: Voiding Method Indwelling Catheter Indwelling Catheter Indwelling Catheter ABP, PAP, CO, CI - Last Documented Arterial Blood Pressure 115/49 - Exam Physical Exam: Revealed 50-year-old female intubated sedated and mechanically ventilated in no distress. Head: Atraumatic, normocephalic. HEENT:[Neck is supple.] [No neck masses.] [No thyromegaly.] [No JVD.] The tracheal tube and orogastric tube are intact. Chest: [Symmetrical chest expansion, crackles at the bases. Cardiac Exam: [Normal S1 and S2, no S3 gallop, no murmur.] Abdomen: [Soft, nontender, no megaly, no rebound, no guarding, normal bowel sounds.] Extremities: [No clubbing, no edema, no cyanosis.] Neurological Exam: Could not assess, patient is sedated on propofol. And on fentanyl. Psychiatric: Could not assess. Musculoskeletal: No deformities. - Labs CBC & Chem 7: 09/19/21 05:50 09/20/21 04:25 Labs: Abnormal Lab Results - Last 24 Hours (Table) 09/19/21 09/19/21 09/20/21 Range/Units 12:41 18:14 00:58 ABG pCO2 (35-45) mmHg ABG pO2 (83-108) mmHg ABG HCO3 (21-25) mmol/L ABG Total CO2 (19-24) mmol/L ABG O2 Saturation (94-97) % Sodium (137-145) mmol/L Carbon Dioxide (22-30) mmol/L BUN (7-17) mg/dL Glucose (74-99) mg/dL POC Glucose (mg/dL) 157 H 128 H 172 H (75-99) mg/dL Vancomycin Trough ug/mL 09/20/21 09/20/21 09/20/21 Range/Units 04:25 04:25 05:51 ABG pCO2 48 H (35-45) mmHg ABG pO2 56 L* (83-108) mmHg ABG HCO3 33 H (21-25) mmol/L ABG Total CO2 34 H (19-24) mmol/L ABG O2 Saturation 87.5 L (94-97) % Sodium 136 L (137-145) mmol/L Carbon Dioxide 31 H (22-30) mmol/L BUN 55 H (7-17) mg/dL Glucose 123 H (74-99) mg/dL POC Glucose (mg/dL) (75-99) mg/dL Vancomycin Trough 36.9 H* ug/mL 09/20/21 Range/Units 06:36 ABG pCO2 (35-45) mmHg ABG pO2 (83-108) mmHg ABG HCO3 (21-25) mmol/L ABG Total CO2 (19-24) mmol/L ABG O2 Saturation (94-97) % Sodium (137-145) mmol/L Carbon Dioxide (22-30) mmol/L BUN (7-17) mg/dL Glucose (74-99) mg/dL POC Glucose (mg/dL) 110 H (75-99) mg/dL Vancomycin Trough ug/mL Assessment and Plan Assessment: Impression: Acute hypoxic respiratory failure secondary to stage IV metastatic adenocarcinoma of the lung. Requiring intubation and mechanical ventilation Septic shock most likely secondary to pneumonia, possibly community-acquired patient remains on Exelon antibiotics coverage. Broad-spectrum coverage. Acute kidney injury, continue to septic shock, improving. History of underlying COPD. Leukopenia and thrombocytopenia upon initial presentation, improved. Acute lactic acidosis, resolved. Recommendation: Continue ventilatory support. Continue GI and DVT prophylaxis Hemodynamic support as necessary. Continue diuretics. Continue antibiotics/broad-spectrum. Patient is empirically on vancomycin and Merrem Continue updrafts. Titrate FiO2 and PEEP accordingly based on ABG on a daily basis. Sputum cultures and blood cultures have been nondiagnostic. Had a long discussion with the daughter at bedside, touched bases on her prognosis, discussed CODE STATUS, patient remains full code. Prognosis is extremely poor Strongly recommend change in CODE STATUS to DO NOT RESUSCITATE if family is agreeable. And possibly even consider comfort care measures. In the meantime we'll continue present treatment plan as outlined, will follow. Patient is critically ill. Critical care time is over 30 minutes. Time with Patient: Greater than 30
[2021-09-20 12:11] LABS: Glucose,Whole Blood 154 mg/dL (75-99)
[2021-09-20] MEDS: ACETAMINOPHEN TAB 325 MG TAB PO PRN (12:36)
--- NOTE | 2021-09-20 12:37 | P.PN ---
Subjective Patient is a 50-year-old female with a doctor some of the lung came in the with pneumonia and was in septic shock patient remains on ventilator support patient is on broad-spectrum antibiotics meropenem and vancomycin there is no significant improvement in her overall clinical condition and respiratory status considering her poor prognosis of for lung cancer pulmonology discussed with the family and recommended comfort care at that time. Patient's remainder still remains on ventilator although off pressor support. Family present at bedside. REVIEW OF SYSTEMS: Unable to obtain due to patient's clinical condition PHYSICAL EXAMINATION: GENERAL: Intubated sedated HEENT: Pupils are round and equally reacting to light. EOMI. No scleral icterus. No conjunctival pallor. Normocephalic, atraumatic. No pharyngeal erythema. No thyromegaly. CARDIOVASCULAR: S1 and S2 present. No murmurs, rubs, or gallops. PULMONARY: The lateral diffuse rhonchi ABDOMEN: Soft, nontender, nondistended, normoactive bowel sounds. No palpable organomegaly. MUSCULOSKELETAL: No joint swelling or deformity. EXTREMITIES: No cyanosis, clubbing, or pedal edema. NEUROLOGICAL: Sedated at this time SKIN: No rashes. Assessment and plan 1 septic shock secondary to bilateral pneumonia patient probably has post suspected pneumonia. Continue with broad-spectrum antibiotics patient's prognosis is poor comfort care was discussed with the family. -Adenocarcinoma of the lung. The diagnoses and patient is on chemotherapy -Hypothyroidism -Ventilator dependent respiratory failure secondary to pneumonia and septic shock -Acute renal failure secondary to acute urinary necrosis from and sepsis - DVT prophylaxis: Subcutaneous heparin Objective - Vital Signs Vital signs: Vital Signs Temp 101.3 F H 09/20/21 12:00 Pulse 97 09/20/21 12:00 Resp 35 H 09/20/21 12:00 BP 121/67 09/19/21 13:00 Pulse Ox 94 L 09/20/21 12:00 Intake & Output 09/19/21 09/20/21 09/20/21 18:59 06:59 18:59 Intake Total 9821.952 2628.063 586.507 Output Total 2780 2600 840 Balance -1766.549 -1252.937 -253.493 Weight 76.5 kg Intake: IV 296 243 115 0.9 243 20 80 Pressure Bag 0.9 Sodium 53 223 35 Chloride Intake, IV Titration 407.451 734.063 291.507 Amount Meropenem 2 gm In Sodium 100 Chloride 0.9% 100 ml @ 33 .3 mls/hr IVPB Q8H [facility] Rx #:[id number] Norepinephrine 32 mg In 7.451 7.348 0.787 Sodium Chloride 0.9% 218 ml @ 0.05 MCG/KG/MIN 1. 477 mls/hr IV .Q24H [facility] Rx#:[id number] Vancomycin 1,500 mg In 250 Sodium Chloride 0.9% 250 ml @ 125 mls/hr IVPB Q24H [facility] Rx#:[id number] fentaNYL (PF). 1,000 mcg 200 100 100 In Sodium Chloride 0.9% 80 ml @ 0.5 MCG/KG/HR 4 mls/hr IV .Q24H [facility] Rx#: [id number] propofoL 1,000 mg In 200 276.715 190.72 Empty Bag 1 bag @ 5 MCG/ KG/MIN 1.89 mls/hr IV . Q24H [facility] Rx#:[id number] Tube Feeding 220 240 120 Other 90 130 60 Output: Urine 2780 2600 840 Other: Voiding Method Indwelling Catheter Indwelling Catheter Indwelling Catheter ABP, PAP, CO, CI - Last Documented Arterial Blood Pressure 117/49 - Labs CBC & Chem 7: 09/19/21 05:50 09/20/21 04:25 Labs: Abnormal Lab Results - Last 24 Hours (Table) 09/19/21 09/19/21 09/20/21 Range/Units 12:41 18:14 00:58 ABG pCO2 (35-45) mmHg ABG pO2 (83-108) mmHg ABG HCO3 (21-25) mmol/L ABG Total CO2 (19-24) mmol/L ABG O2 Saturation (94-97) % Sodium (137-145) mmol/L Carbon Dioxide (22-30) mmol/L BUN (7-17) mg/dL Glucose (74-99) mg/dL POC Glucose (mg/dL) 157 H 128 H 172 H (75-99) mg/dL Vancomycin Trough ug/mL 09/20/21 09/20/21 09/20/21 Range/Units 04:25 04:25 05:51 ABG pCO2 48 H (35-45) mmHg ABG pO2 56 L* (83-108) mmHg ABG HCO3 33 H (21-25) mmol/L ABG Total CO2 34 H (19-24) mmol/L ABG O2 Saturation 87.5 L (94-97) % Sodium 136 L (137-145) mmol/L Carbon Dioxide 31 H (22-30) mmol/L BUN 55 H (7-17) mg/dL Glucose 123 H (74-99) mg/dL POC Glucose (mg/dL) (75-99) mg/dL Vancomycin Trough 36.9 H* ug/mL 09/20/21 09/20/21 Range/Units 06:36 12:10 ABG pCO2 (35-45) mmHg ABG pO2 (83-108) mmHg ABG HCO3 (21-25) mmol/L ABG Total CO2 (19-24) mmol/L ABG O2 Saturation (94-97) % Sodium (137-145) mmol/L Carbon Dioxide (22-30) mmol/L BUN (7-17) mg/dL Glucose (74-99) mg/dL POC Glucose (mg/dL) 110 H 154 H (75-99) mg/dL Vancomycin Trough ug/mL
[2021-09-20 13:09] LABS: Basophils # (A) 0.1 k/uL (0-0.2); Basophils % (A) 0 %; Eosinophils # (A) 0.1 k/uL (0-0.7); Eosinophils % (A) 1 %; HCT 29.1 % (34.0-46.0); HGB 9.2 gm/dL (11.4-16.0); Hypochromasia Slight; Lymphocytes # (A) 1.7 k/uL (1.0-4.8); Lymphocytes % (A) 7 %; MCH 31.3 pg (25.0-35.0); MCHC 31.7 g/dL (31.0-37.0); MCV 98.8 fL (80.0-100.0); Mean Platelet Volume 9.1; Monocytes # (A) 0.4 k/uL (0-1.0); Monocytes % (A) 2 %; Neutrophils # (A) 22.1 k/uL (1.3-7.7); Neutrophils % (A) 90 %; Platelet Count 416 k/uL (150-450); RBC 2.95 m/uL (3.80-5.40); RDW 14.7 % (11.5-15.5); WBC 24.5 k/uL (3.8-10.6)
[2021-09-20 14:16] VITALS: BMI 28.9
[2021-09-20 18:32] LABS: Glucose,Whole Blood 120 mg/dL (75-99)
[2021-09-20] MEDS ORDERED: VANCOMYCIN TROUGH DUE 1 EACH MISC MISCELLANE ONE (21:00)
[2021-09-20 23:51] LABS: Glucose,Whole Blood 170 mg/dL (75-99)
[2021-09-21] MEDS: fentaNYL (PF). 1,000 MCG in SODIUM CHLORIDE 0.9% 80 ML IV SCH ×4 (00:20→23:26)
[2021-09-21] MEDS: MEROPENEM 2 GM in SODIUM CHLORIDE 0.9% 100 ML IVPB SCH ×3 (03:46→20:44)
[2021-09-21 05:21] LABS: Glucose,Whole Blood 144 mg/dL (75-99)
[2021-09-21] MEDS: INSULIN ASPART (NovoLOG) 100 UNIT/ML VIAL SQ SCH ×4 (05:55→23:24)
[2021-09-21 05:59] LABS: Albumin 2.6 g/dL (3.5-5.0); Calcium 8.4 mg/dL (8.4-10.2); Potassium 3.5 mmol/L (3.5-5.1); Total Bilirubin 0.7 mg/dL (0.2-1.3); Total Protein 5.6 g/dL (6.3-8.2)
[2021-09-21 06:19] LABS: ABG Base Excess 12.3 mmol/L; ABG HCO3 36 mmol/L (21-25); ABG Oxygen Saturation 91.8 % (94-97); ABG PCO2 51 mmHg (35-45); ABG PH 7.46 (7.35-7.45); ABG PO2 65 mmHg (83-108); ABG TCO2 38 mmol/L (19-24); Allen Test Performed? Yes
[2021-09-21] MEDS ORDERED: Potassium Replacement Protocol 1 EACH MISC MISCELLANE PRN (06:19)
[2021-09-21] MEDS: POTASSIUM BICARBONATE/CIT AC 20 MEQ TABLET.EFF NG-TUBE SCH ×2 (06:27→08:17)
[2021-09-21] MEDS: FORMOTEROL FUMARATE 20 MCG/2 ML NEBU INHALATION SCH ×2 (07:26→19:40)
[2021-09-21] MEDS: BUDESONIDE 1 MG/2 ML NEBU INHALATION SCH ×2 (07:26→19:25)
[2021-09-21] MEDS: IPRATROPIUM-ALBUTEROL 3 ML NEB INHALATION SCH ×4 (07:27→19:25)
--- NOTE | 2021-09-21 07:57 | XR ---
EXAMINATION TYPE: XR chest 1V portable DATE OF EXAM: 09/21/2021 COMPARISON: X-ray dated 09/20/2021 HISTORY: PNA TECHNIQUE: Single frontal view of the chest is obtained. FINDINGS: Persistent right midlung zone heterogeneous opacity with slightly improved opacity in the right lower lung zone. Grossly unchanged left lung opacities, obscuring the left hemidiaphragm with suspected as sociated left pleural effusion. Unchanged cardiomediastinal silhouette. Unchanged position of the right subclavian line as well as th e NG tube. Endotracheal tube is seen with the tip is about 3.2 cm proximal to the andreas. Right-sided Port-A-Cath with the tip is seen at the superior aspect of the SVC. IMPRESSION: Minimal interval changes as described above.
[2021-09-21] MEDS: FUROSEMIDE 10 MG/ML 4 ML VIAL IV SCH ×3 (08:16→23:09)
[2021-09-21] MEDS: CHLORHEXIDINE GLUCONATE 15 ML CUP MUCOUS MEM SCH ×2 (08:17→20:52)
[2021-09-21] MEDS: ENOXAPARIN 40 MG/0.4 ML SYRINGE SQ SCH (08:17)
[2021-09-21] MEDS: methylPREDNISolone SOD SUCCI 40 MG/ML 1 ML VIAL IV SCH ×2 (08:18→21:32)
[2021-09-21] MEDS ORDERED: VANCOMYCIN 1,250 MG in SODIUM CHLORIDE 0.9% 250 ML IVPB SCH (09:00)
--- NOTE | 2021-09-21 12:00 | P.PN ---
Subjective Progress Note Date: 09/21/21 The patient is seen today in 09/21/2021 in follow-up in the intensive care unit. She remains intubated on mechanical ventilator current settings of assist control mode with a rate of 30, tidal volume 350, FiO2 65% and a PEEP of 13. Morning blood gases revealed a PaO2 of 65, pCO2 51, pH 7.46. Chest x-ray continues to show persistent right mid lung zone heterogenous opacity with slight improvement in opacity in the right lower lobe. Grossly unchanged left lung opacities, obscuring the left hemidiaphragm with suspected associated left pleural effusion. Right subclavian line in place. Nasogastric and endotracheal tubes in place. Right-sided Port-A-Cath tip in the SVC. Minimal interval changes compared to yesterday. She remains sedated on propofol at 75 mcg/kg/m. Fentanyl drip at 2 mcg/kg per hour. Normal saline at KVO. Currently off norepinephrine. She is being nourished with vital AF at 47 ML's per hour which is goal. Blood cultures revealed no growth. Urine culture no growth. Sputum culture no growth. Sodium 138. Potassium 3.5. Bicarb 35. BUN 54. Creatinine 1.05. Glucose 1:30. AST 25. ALT 28. She is continued on DuoNeb inhalations, Pulmicort and Perforomist inhalations, IV Solu-Medrol. She remains on IV diuretics with recurrent negative balance of 2.1 L. Antibiotics continue in the form of vancomycin and meropenem. Lovenox for DVT prophylaxis. Objective - Vital Signs Vital signs: Vital Signs Temp 98.4 F 09/21/21 08:00 Pulse 93 09/21/21 11:25 Resp 18 09/21/21 11:00 BP 121/67 09/19/21 13:00 Pulse Ox 92 L 09/21/21 11:00 Intake & Output 09/20/21 09/21/21 09/21/21 18:59 06:59 18:59 Intake Total 7582.228 6554.901 751.138 Output Total 1855 2785 1250 Balance -660.493 -1470.099 -498.862 Weight 76.5 kg 72 kg Intake: IV 353 276 115 0.9 200 240 100 Meropenem 2 gm In Sodium 100 Chloride 0.9% 100 ml @ 33 .3 mls/hr IVPB Q8H [facility] Rx #:[id number] Pressure Bag 0.9 Sodium 53 36 15 Chloride Intake, IV Titration 491.507 456.901 342.138 Amount Norepinephrine 32 mg In 0.787 Sodium Chloride 0.9% 218 ml @ 0.05 MCG/KG/MIN 1. 477 mls/hr IV .Q24H [facility] Rx#:[id number] Vancomycin 1,250 mg In 250 Sodium Chloride 0.9% 250 ml @ 125 mls/hr IVPB Q24HR [facility] Rx#:[id number] fentaNYL (PF). 1,000 mcg 200 200 In Sodium Chloride 0.9% 80 ml @ 0.5 MCG/KG/HR 4 mls/hr IV .Q24H [facility] Rx#: [id number] propofoL 1,000 mg In 290.72 256.901 92.138 Empty Bag 1 bag @ 5 MCG/ KG/MIN 1.89 mls/hr IV . Q24H [facility] Rx#:[id number] Tube Feeding 260 492 164 Other 90 90 130 Output: Urine 1855 2785 1250 Other: Voiding Method Indwelling Catheter Indwelling Catheter Indwelling Catheter ABP, PAP, CO, CI - Last Documented Arterial Blood Pressure 146/60 - Exam GENERAL EXAM: Intubated, sedated 51-year-old female patient, on the mechanical ventilator, comfortable in no apparent distress. HEAD: Normocephalic. EYES: Sluggish reaction of pupils, equal size. NOSE: Clear with pink turbinates. THROAT: Oral endotracheal and gastric tube secured in place. No erythema or exudates. NECK: No masses, no JVD. CHEST: No chest wall deformity. Right subclavian triple-lumen catheter in place. LUNGS: Equal air entry with bilateral scattered rhonchi. CVS: S1 and S2 normal with no audible murmur, regular rhythm. ABDOMEN: No hepatosplenomegaly, normal bowel sounds, no guarding or rigidity. SPINE: No scoliosis or deformity SKIN: No rashes CENTRAL NERVOUS SYSTEM: Sedated, intubated, tone is normal in all 4 extremities. EXTREMITIES: There is no peripheral edema. No clubbing, no cyanosis. Peripheral pulses are intact. - Labs CBC & Chem 7: 09/20/21 04:25 09/21/21 05:20 Labs: Abnormal Lab Results - Last 24 Hours (Table) 03/21/22 03/21/22 03/21/22 Range/Units 04:25 12:10 18:31 WBC 24.5 H (3.8-10.6) k/uL RBC 2.95 L (3.80-5.40) m/uL Hgb 9.2 L (11.4-16.0) gm/dL Hct 29.1 L (34.0-46.0) % Neutrophils # 22.1 H (1.3-7.7) k/uL ABG pH (7.35-7.45) ABG pCO2 (35-45) mmHg ABG pO2 (83-108) mmHg ABG HCO3 (21-25) mmol/L ABG Total CO2 (19-24) mmol/L ABG O2 Saturation (94-97) % Carbon Dioxide (22-30) mmol/L BUN (7-17) mg/dL Creatinine (0.52-1.04) mg/dL Glucose (74-99) mg/dL POC Glucose (mg/dL) 154 H 120 H (75-99) mg/dL Alkaline Phosphatase (38-126) U/L Total Protein (6.3-8.2) g/dL Albumin (3.5-5.0) g/dL 09/20/21 09/21/21 09/21/21 Range/Units 23:49 05:18 05:20 WBC (3.8-10.6) k/uL RBC (3.80-5.40) m/uL Hgb (11.4-16.0) gm/dL Hct (34.0-46.0) % Neutrophils # (1.3-7.7) k/uL ABG pH (7.35-7.45) ABG pCO2 (35-45) mmHg ABG pO2 (83-108) mmHg ABG HCO3 (21-25) mmol/L ABG Total CO2 (19-24) mmol/L ABG O2 Saturation (94-97) % Carbon Dioxide 35 H (22-30) mmol/L BUN 54 H (7-17) mg/dL Creatinine 1.05 H (0.52-1.04) mg/dL Glucose 130 H (74-99) mg/dL POC Glucose (mg/dL) 170 H 144 H (75-99) mg/dL Alkaline Phosphatase 128 H (38-126) U/L Total Protein 5.6 L (6.3-8.2) g/dL Albumin 2.6 L (3.5-5.0) g/dL 09/21/21 Range/Units 06:14 WBC (3.8-10.6) k/uL RBC (3.80-5.40) m/uL Hgb (11.4-16.0) gm/dL Hct (34.0-46.0) % Neutrophils # (1.3-7.7) k/uL ABG pH 7.46 H (7.35-7.45) ABG pCO2 51 H (35-45) mmHg ABG pO2 65 L (83-108) mmHg ABG HCO3 36 H (21-25) mmol/L ABG Total CO2 38 H (19-24) mmol/L ABG O2 Saturation 91.8 L (94-97) % Carbon Dioxide (22-30) mmol/L BUN (7-17) mg/dL Creatinine (0.52-1.04) mg/dL Glucose (74-99) mg/dL POC Glucose (mg/dL) (75-99) mg/dL Alkaline Phosphatase (38-126) U/L Total Protein (6.3-8.2) g/dL Albumin (3.5-5.0) g/dL Assessment and Plan Assessment: 1 Stage IV metastatic adenocarcinoma of the lung, has not received any treatment other than homeopathic/IV vitamin therapy with obvious interval progression based on a quick comparison of the CAT scans were done between 2020 and 2021. There is obvious worsening of the bilateral lung masses and the patient has developed extensive nodular lesions involving the entire right lung and hence masslike consolidation of the left lung base. Furthermore, reviewed all of the CAT scans that was done on this patient throughout the course of her illness and there is of his progression of her underlying lung cancer. Repeat computed tomography scan of the chest was noted. The patient has underlying malignancy, worsening left lower lobe consolidation, in addition to areas of groundglass pulmonary infiltrates which could be potentially areas of pneumonia, acute lung injury versus interstitial edema. No significant improvement in the chest x-ray findings and no improvement in the oxygenation. The patient is hemodynamically stable currently off norepinephrine. 2 Septic shock most likely secondary to pneumonia. Cultures of been all negative and the patient's is hemodynamically stable. The white cell count is at 24. The patient remains on a combination of meropenem and vancomycin. 3 Acute hypoxic respiratory failure, currently intubated on mechanical ventilator, consider simply infection/pneumonia, The patient's hemodynamics improved and she seems to note of her septic shock. Nevertheless, oxygenation becomes an ongoing issue and the patient is unable to wean any further. The follow-up CT angios the chest that was done showed no evidence of any pulmonary embolism. Abnormalities were noted and the patient will be kept on the same antibiotic coverage and the patient is currently being diuresis. No significant improvement in oxygenation over the past 24 hours. Remains on 65% FiO2 and a PEEP of 13. He O2 65 and today's blood gases. 4 Acute kidney injury, recovered 5 COPD 6 Chronic anxiety 7 Leukopenia, improved and subsequently the patient developed leukocytosis 8 Thrombocytopenia, recovered 9 Acute lactic acidosis, improved Plan: The patient was seen and evaluated by Dr. Fontana Chest x-ray, ABGs and labs reviewed No significant change at this time Continue with the current treatment plan He did speak with the patient's mother who is at the bedside today Overall prognosis is poor May consider comfort care later this week In the interim, we'll continue with full supportive care Follow-up chest x-ray, ABGs and labs in the a.m. We'll continue to follow and make further recommendations based on her clinical status I have personally seen and examined the patient, performed the documentation and the assessment and plan as written. Number of minutes spent on the visit: 15.
[2021-09-21 12:05] LABS: Glucose,Whole Blood 153 mg/dL (75-99)
--- NOTE | 2021-09-21 13:46 | P.PN ---
Subjective Patient is a 50-year-old female with a doctor some of the lung came in the with pneumonia and was in septic shock patient remains on ventilator support patient is on broad-spectrum antibiotics meropenem and vancomycin there is no significant improvement in her overall clinical condition and respiratory status considering her poor prognosis of for lung cancer pulmonology discussed with the family and recommended comfort care at that time. Patient's remainder still remains on ventilator although off pressor support. Family present at bedside. 09/21/2021 Family decided on hospice, hospice evaluated the patient family is hoping that she can be discharged home on hospice although patient remains on ventilator support not in any pressor support at this time. REVIEW OF SYSTEMS: Unable to obtain due to patient's clinical condition PHYSICAL EXAMINATION: GENERAL: Intubated sedated HEENT: Pupils are round and equally reacting to light. EOMI. No scleral icterus. No conjunctival pallor. Normocephalic, atraumatic. No pharyngeal erythema. No thyromegaly. CARDIOVASCULAR: S1 and S2 present. No murmurs, rubs, or gallops. PULMONARY: The lateral diffuse rhonchi ABDOMEN: Soft, nontender, nondistended, normoactive bowel sounds. No palpable organomegaly. MUSCULOSKELETAL: No joint swelling or deformity. EXTREMITIES: No cyanosis, clubbing, or pedal edema. NEUROLOGICAL: Sedated at this time SKIN: No rashes. Assessment and plan 1 septic shock secondary to bilateral pneumonia patient probably has post suspected pneumonia. patient's prognosis is poor comfort care was discussed with the family. Patient probably will be discharged on hospice -Adenocarcinoma of the lung. Recent diagnoses and patient is on chemotherapy -Hypothyroidism -Ventilator dependent respiratory failure secondary to pneumonia and septic shock -Acute renal failure secondary to acute tubular necrosis from and sepsis - Objective - Vital Signs Vital signs: Vital Signs Temp 98.4 F 09/21/21 08:00 Pulse 93 09/21/21 11:25 Resp 18 09/21/21 11:00 BP 121/67 09/19/21 13:00 Pulse Ox 92 L 09/21/21 11:00 Intake & Output 09/20/21 09/21/21 09/21/21 18:59 06:59 18:59 Intake Total 9159.485 2082.901 851.138 Output Total 1855 2785 1250 Balance -660.493 -1470.099 -398.862 Weight 76.5 kg 72 kg Intake: IV 353 276 115 0.9 200 240 100 Meropenem 2 gm In Sodium 100 Chloride 0.9% 100 ml @ 33 .3 mls/hr IVPB Q8H [facility] Rx #:[id number] Pressure Bag 0.9 Sodium 53 36 15 Chloride Intake, IV Titration 491.507 456.901 442.138 Amount Norepinephrine 32 mg In 0.787 Sodium Chloride 0.9% 218 ml @ 0.05 MCG/KG/MIN 1. 477 mls/hr IV .Q24H [facility] Rx#:[id number] Vancomycin 1,250 mg In 250 Sodium Chloride 0.9% 250 ml @ 125 mls/hr IVPB Q24HR [facility] Rx#:[id number] fentaNYL (PF). 1,000 mcg 200 200 In Sodium Chloride 0.9% 80 ml @ 0.5 MCG/KG/HR 4 mls/hr IV .Q24H [facility] Rx#: [id number] propofoL 1,000 mg In 290.72 256.901 192.138 Empty Bag 1 bag @ 5 MCG/ KG/MIN 1.89 mls/hr IV . Q24H [facility] Rx#:[id number] Tube Feeding 260 492 164 Other 90 90 130 Output: Urine 1855 2785 1250 Other: Voiding Method Indwelling Catheter Indwelling Catheter Indwelling Catheter ABP, PAP, CO, CI - Last Documented Arterial Blood Pressure 146/60 - Labs CBC & Chem 7: 09/20/21 04:25 09/21/21 05:20 Labs: Abnormal Lab Results - Last 24 Hours (Table) 09/20/21 09/20/21 09/21/21 Range/Units 18:31 23:49 05:18 ABG pH (7.35-7.45) ABG pCO2 (35-45) mmHg ABG pO2 (83-108) mmHg ABG HCO3 (21-25) mmol/L ABG Total CO2 (19-24) mmol/L ABG O2 Saturation (94-97) % Carbon Dioxide (22-30) mmol/L BUN (7-17) mg/dL Creatinine (0.52-1.04) mg/dL Glucose (74-99) mg/dL POC Glucose (mg/dL) 120 H 170 H 144 H (75-99) mg/dL Alkaline Phosphatase (38-126) U/L Total Protein (6.3-8.2) g/dL Albumin (3.5-5.0) g/dL 09/21/21 09/21/21 09/21/21 Range/Units 05:20 06:14 11:53 ABG pH 7.46 H (7.35-7.45) ABG pCO2 51 H (35-45) mmHg ABG pO2 65 L (83-108) mmHg ABG HCO3 36 H (21-25) mmol/L ABG Total CO2 38 H (19-24) mmol/L ABG O2 Saturation 91.8 L (94-97) % Carbon Dioxide 35 H (22-30) mmol/L BUN 54 H (7-17) mg/dL Creatinine 1.05 H (0.52-1.04) mg/dL Glucose 130 H (74-99) mg/dL POC Glucose (mg/dL) 153 H (75-99) mg/dL Alkaline Phosphatase 128 H (38-126) U/L Total Protein 5.6 L (6.3-8.2) g/dL Albumin 2.6 L (3.5-5.0) g/dL
[2021-09-21 17:21] LABS: Glucose,Whole Blood 122 mg/dL (75-99)
[2021-09-21 23:19] LABS: Glucose,Whole Blood 144 mg/dL (75-99)
[2021-09-22 00:29] VITALS: TEMP 99.6
[2021-09-22] MEDS: HYDROmorphone 1 MG/ML 1 ML SYRINGE IVP PRN ×2 (02:19→04:14)
[2021-09-22] MEDS: LORazepam 2 MG/ML INJ IV PRN ×2 (02:20→04:14)
[2021-09-22] MEDS: fentaNYL (PF). 1,000 MCG in SODIUM CHLORIDE 0.9% 80 ML IV SCH (04:03)
[2021-09-22] MEDS: MEROPENEM 2 GM in SODIUM CHLORIDE 0.9% 100 ML IVPB SCH (04:44)
[2021-09-22] MEDS ORDERED: SCOPOLAMINE 1.5MG/72HR PATCH TRANSDERM SCH (05:00)
[2021-09-22] MEDS ORDERED: fentaNYL (PF) 2,500 MCG in SODIUM CHLORIDE 0.9% 200 ML IV SCH (05:00)
[2021-09-22 05:46] LABS: Basophils # (A) 0.1 k/uL (0-0.2); Basophils % (A) 0 %; Eosinophils # (A) 0.3 k/uL (0-0.7); Eosinophils % (A) 2 %; HCT 28.5 % (34.0-46.0); HGB 8.8 gm/dL (11.4-16.0); Hypochromasia Marked; Lymphocytes # (A) 1.5 k/uL (1.0-4.8); Lymphocytes % (A) 8 %; MCH 32.7 pg (25.0-35.0); MCHC 30.9 g/dL (31.0-37.0); Macrocytosis Moderate; Mean Platelet Volume 9.6; Monocytes # (A) 0.5 k/uL (0-1.0); Monocytes % (A) 3 %; Neutrophils # (A) 16.4 k/uL (1.3-7.7); Neutrophils % (A) 87 %; Platelet Count 449 k/uL (150-450); RDW 14.9 % (11.5-15.5); WBC 18.9 k/uL (3.8-10.6)
[2021-09-22 05:59] LABS: MCV 105.8 fL (80.0-100.0)
[2021-09-22] MEDS: INSULIN ASPART (NovoLOG) 100 UNIT/ML VIAL SQ SCH (06:08)
[2021-09-22 07:18] VITALS: PULSE 97; RESP 13
--- NOTE | 2021-09-22 12:18 | P.DS ---
Providers Date of admission: 09/11/21 00:33 Attending physician: Peggy Hernandez Consults: 09/11/21 00:33 Consult Physician Routine Consulting Provider: Keven Bauman Consult Reason/Comments: lung cancer, leukopenia Do you want consulting provider notified?: Yes Consult Physician Stat Consulting Provider: Benito Woods Consult Reason/Comments: acute hypoxic resp failure, CAP with severe sepsis, adenoca of lung Do you want consulting provider notified?: Already Contacted Primary care physician: Liliya Puentes [facility] Course: Patient is admitted with septic shock secondary to pneumonia. Patient does have lung cancer metastatic disease and prognosis is extremely poor in spite of aggressive measures patient was only able to get off pressor support but remained on ventilatory support pulmonology evaluated the patient and recommended hospice family is agreeable with hospice patient was subsequently switched to hospice family extubated patient earlier today morning please refer to nursing documentation for time of . Preliminary cause of septic shock from pneumonia Patient Condition at Discharge: Serious Plan - Discharge Summary Discharge Rx Participant: No New Discharge Prescriptions: No Action Ondansetron [Zofran] 4 mg PO DAILY PRN PRN Reason: Nausea Folic Acid 1 mg PO DIRECTED Albuterol Nebulized [Ventolin Nebulized] 2.5 mg INHALATION RT-Q4H Albuterol Inhaler [Ventolin Hfa Inhaler] 2 puff INHALATION RT-Q4H ALPRAZolam [Xanax] 0.25 mg PO DAILY PRN PRN Reason: Anxiety Ibuprofen [Motrin] 800 mg PO TID PRN PRN Reason: Pain Budesonide 1 mg INHALATION RT-BID Discharge Medication List Albuterol Inhaler [Ventolin Hfa Inhaler] 2 puff INHALATION RT-Q4H 03/23/21 [History] Albuterol Nebulized [Ventolin Nebulized] 2.5 mg INHALATION RT-Q4H 03/23/21 [History] ALPRAZolam [Xanax] 0.25 mg PO DAILY PRN 04/27/21 [History] Budesonide 1 mg INHALATION RT-BID 09/10/21 [History] Folic Acid 1 mg PO DIRECTED 09/10/21 [History] Ibuprofen [Motrin] 800 mg PO TID PRN 09/10/21 [History] Ondansetron [Zofran] 4 mg PO DAILY PRN 03/11/22 [History] Follow up Appointment(s)/Referral(s): Liliya Puentes MD [Primary Care Provider] - 1-2 days Discharge Disposition: - Preliminary Cause of Preliminary Cause of : pneumonia
== END 2021-09-22 08:59 | disposition expired | DRG 870 ==
LOC: EC 20:12 → 2SICU 09-11 00:33
PROVIDERS: ADMIT Hospitalist; ATTEND Hospitalist
PROC: 3E043XZ Introduction of Vasopressor into Central Vein, Percutaneous Approach (ICD-10-PCS; 2021-09-11)
PROC: 5A0935A Assistance with Respiratory Ventilation, Less than 24 Consecutive Hours, High Flow/Velocity Cannula (ICD-10-PCS; 2021-09-11)
PROC: 5A09357 Assistance with Respiratory Ventilation, Less than 24 Consecutive Hours, Continuous Positive Airway Pressure (ICD-10-PCS; 2021-09-11)
PROC: 0BH17EZ Insertion of Endotracheal Airway into Trachea, Via Natural or Artificial Opening (ICD-10-PCS; principal; 2021-09-12)
PROC: 03HY32Z Insertion of Monitoring Device into Upper Artery, Percutaneous Approach (ICD-10-PCS; principal; 2021-09-12)
PROC: 02HV33Z Insertion of Infusion Device into Superior Vena Cava, Percutaneous Approach (ICD-10-PCS; principal; 2021-09-12)
PROC: 5A1955Z Respiratory Ventilation, Greater than 96 Consecutive Hours (ICD-10-PCS; principal; 2021-09-12)
PROC: 4A133J1 Monitoring of Arterial Pulse, Peripheral, Percutaneous Approach (ICD-10-PCS; principal; 2021-09-12)
PROC: 4A133B1 Monitoring of Arterial Pressure, Peripheral, Percutaneous Approach (ICD-10-PCS; principal; 2021-09-12)
PROC: 0DH67UZ Insertion of Feeding Device into Stomach, Via Natural or Artificial Opening (ICD-10-PCS; 2021-09-12)
PROC: 3E0G76Z Introduction of Nutritional Substance into Upper GI, Via Natural or Artificial Opening (ICD-10-PCS; 2021-09-13)
DX: A41.9 Sepsis, unspecified organism (principal); J18.9 Pneumonia, unspecified organism; J96.01 Acute respiratory failure with hypoxia; N17.0 Acute kidney failure with tubular necrosis; R65.21 Severe sepsis with septic shock; J98.11 Atelectasis; C79.9 Secondary malignant neoplasm of unspecified site; C34.32 Malignant neoplasm of lower lobe, left bronchus or lung; E87.0 Hyperosmolality and hypernatremia; E87.2 Acidosis; I47.1 Supraventricular tachycardia; J43.9 Emphysema, unspecified; Z86.16 Personal history of COVID-19; G40.909 Epilepsy, unspecified, not intractable, without status epilepticus; D69.6 Thrombocytopenia, unspecified; D70.9 Neutropenia, unspecified; E03.9 Hypothyroidism, unspecified; E87.8 Other disorders of electrolyte and fluid balance, not elsewhere classified; F17.210 Nicotine dependence, cigarettes, uncomplicated; F41.9 Anxiety disorder, unspecified; I95.9 Hypotension, unspecified; I27.20 Pulmonary hypertension, unspecified; X50.1XXA Overexertion from prolonged static or awkward postures, initial encounter; Z51.5 Encounter for palliative care; Z66 Do not resuscitate; Z79.01 Long term (current) use of anticoagulants; Z79.52 Long term (current) use of systemic steroids; Z80.0 Family history of malignant neoplasm of digestive organs; Z80.1 Family history of malignant neoplasm of trachea, bronchus and lung; Z80.49 Family history of malignant neoplasm of other genital organs; Z82.49 Family history of ischemic heart disease and other diseases of the circulatory system; Z85.118 Personal history of other malignant neoplasm of bronchus and lung; Z85.820 Personal history of malignant melanoma of skin; Z90.710 Acquired absence of both cervix and uterus; Z98.890 Other specified postprocedural states; Z88.5 Allergy status to narcotic agent
CPT/HCPCS: 36415; 36600; 71045; 71275; 80048; 80051; 80053; 80202; 82533; 82784; 82805; 83605; 83735; 83880; 84145; 84484; 85025; 85379; 85384; 85610; 85730; 87040; 87070; 87086; 87205; 87324; 93005; 93306; 94002; 94003; 94640; 94660; 96365; 96367; 96375; 99285